=== PATIENT | female | born 1975 | race Caucasian/White ===

== ENCOUNTER → 2016-04-27 | Outpatient (CLI) | payer BC ==
--- NOTE | 2016-04-27 11:18 | XR ---
EXAMINATION TYPE: XR elbow complete LT DATE OF EXAM: 04/27/2016 11:07 AM COMPARISON: NONE HISTORY: Pain FINDINGS: Three views of the elbow demonstrate no pathologic joint effusion. The osseous structures are intact . There is no acute fracture or dislocation. IMPRESSION: 1. No acute fracture or dislocation. If symptoms persist follow-up study in 7 to 10 days could be ob tained.
== END | disposition home or self-care (01) ==
LOC: RADXRMAIN 10:39
PROVIDERS: ATTEND Pediatrics
DX: M25.522 Pain in left elbow (principal)

== ENCOUNTER → 2016-05-31 | Outpatient (CLI) | payer BC ==
[2016-05-31 14:38] LABS: Non-African American GFR(MDRD) >60 (>60 ml/min/1.73 sqM)
--- NOTE | 2016-05-31 16:37 | MR ---
EXAMINATION TYPE: MR lumbar spine wo/w con DATE OF EXAM: 05/31/2016 4:22 PM COMPARISON: Lumbar spine x-ray October 28, 2015. HISTORY: Lumbago with sciatica, left leg numbness, history of L4-L5 fusion all per order. Pain and nu mbness and tingling for 6 months into left lower extremity per patient with history of prior back suhail yao 2004. TECHNIQUE: Multiplanar, multisequence images of the lumbar spine is performed without and with IV contrast, util izing 20 mL intravenous MultiHance FINDINGS: Sagittal images of the lumbar spine show vertebral body heights and alignment to appear sat isfactory. There is artifact from disc material L3-L4 and L4-L5 levels. There is artifact from global regulatory lead ior fusion hardware bilaterally at L3-L5 levels. There are laminectomy defect with spinous process re section at L3-L5 levels. Disc space heights and hydration above and below surgical levels are within normal limits. No suspicious posterior disc herniations are seen. The conus medullaris is slightly hi gh in position ending at inferior T12 vertebral body level. No suspicious clumping of lumbosacral ner ve roots is seen. There is narrowing along the posterior aspect of the spinal canal centered at T12-L 1 disc space level due to prominent epidural fat extending towards the right foramina seen best on ax ial image 41. The bone marrow signal intensity is within normal limits. No significant spurring is pr esent. No suspicious postcontrast enhancement is seen. Axial images at the T12-L1 level shows prominent right posterior epidural fat effacing posterior spin al canal on axial images 41 and 42 extending towards the right foramina. Left-sided neural foramen is patent. Exiting nerve does not appear effaced on sagittal images. Axial images at the L1-L2 level are felt within normal limits. Axial images at the L2-L3 level show artifact from posterior fusion hardware. Spinal canal is grossly preserved and bilateral neural foramina are patent. Axial images at L3-L4 and L4-L5 level show artifact from posterior fusion hardware. There are bilater al laminectomy defects and spinous process resection. Spinal canal is preserved and bilateral neural foramina are patent. Axial images at L5-S1 level show artifact from fusion hardware. There is laminectomy defect with spin ous process resection. Spinal canal is very small caliber as there is suspected prominent epidural fa t. Bilateral neural foramina are patent. IMPRESSION: Epidural lipomatosis beginning at L5 vertebral body level with more focal prominence post erior T12-L1 level effacing posterior aspect of the spinal canal. Postsurgical changes L3-L5 level wi th satisfactory alignment. No significant finding is seen to account for patient's left-sided radicul opathy type symptoms.
== END | disposition home or self-care (01) ==
LOC: RADMRIMAIN 14:07
PROVIDERS: ATTEND Pediatrics
DX: M54.40 Lumbago with sciatica, unspecified side (principal); E88.2 Lipomatosis, not elsewhere classified; M54.6 Pain in thoracic spine; R20.0 Anesthesia of skin; Z98.890 Other specified postprocedural states; Z98.1 Arthrodesis status; Z01.812 Encounter for preprocedural laboratory examination
CPT/HCPCS: 82565; 72158; A9577

== ENCOUNTER → 2016-06-14 | Outpatient (CLI) | payer BC ==
--- NOTE | 2016-06-14 22:52 | MR ---
EXAMINATION TYPE: MR sacrum/coccyx wo/w con DATE OF EXAM: 06/14/2016 8:39 PM COMPARISON: NONE HISTORY: LBP, left leg numbness/tingling CONTRAST: Standard multiplanar, multisequence MRI departmental protocol utilizing 20 mL intravenous MultiHance gadolinium contrast. FINDINGS: Sacral canal is patent. Susceptibility artifact is present the L5 level. L5-S1 appears with out stenosis. Facet hypertrophy is present. Neural foramen are patent. Sacrum appears intact. Sacroiliac joints are normal. Coccyx is unremarkable. Uterus appears within normal limits. No pelvic suspicious masses are evident. No suspicious adenopath y within the pelvis is evident. Lumbar plexus region appears without evidence of masses. Subcutaneous tissues normal. No suspicious enhancement is evident. There is some ill-defined hyperintensity on T2-weighted sequences within the left sacral ala adjacent to the sacroiliac joint. This area is poorly visualized slightly low on T1-weighted sequences. This enhances on postcontrast imaging. Edema is within the differential. Consider correlation with nuclear medicine bone scan. Metastatic lesion is not entirely excluded. This could be artifact although the apparent enhancement suggests this unlikely. IMPRESSION: 1. Ill-defined hyperintensity within the left sacral ala. This can be related to contusion or inflam matory change from degenerative changes at sacroiliac joint. A metastatic lesion is not excluded. 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 2. Suspicious findings to account for radicular symptoms are not otherwise identified.
== END ==
LOC: RADMRIMAIN 19:36
PROVIDERS: ATTEND Nurse Practitioner Family
DX: R20.0 Anesthesia of skin (principal); M54.42 Lumbago with sciatica, left side; M51.36 Other intervertebral disc degeneration, lumbar region
CPT/HCPCS: 72197; A9577

== ENCOUNTER → 2016-06-20 | Outpatient (CLI) | payer BC ==
--- NOTE | 2016-06-20 21:41 | CONS ---
DATE OF CONSULTATION: REASON FOR CONSULTATION: Sleep apnea. A 41-year-old female patient works at [employer] and has been feeling excessively fatigued and tired and sleepy during the day. Suspected that she may have sleep apnea. She is well aware of the disease, knowing that several family members in her family have the disease. She has gained a significant amount of weight over the past one year at least 30 pounds and she is snoring. She quits breathing at night and she is waking up with a dry mouth and having excessive hypersomnia and not getting refreshed even after sleeping 6 to 7 hours. She goes to bed around 11:00 p.m., wakes at 7:00 a.m. in the morning. She wakes up frequently with urination in the middle of the night. No other complaints otherwise. PAST MEDICAL HISTORY: 1. Anxiety, depression. 2. Obesity. 3. Osteoarthritis. 4. Irritable bowel disease. 5. Cervical dysplasia. Surgical history includes: Cervical ablation. DRUG ALLERGIES: Not known. Outpatient medication list includes: 1. Effexor. 2. Wellbutrin. 3. Mobic. 4. Neurontin. 5. Bentyl. 6. Xanax. SOCIAL HISTORY: Nonsmoker. No history of alcohol. No history of IV drugs. FAMILY HISTORY: Father of complications of lung cancer. Mother with obstructive sleep apnea. Father with obstructive sleep apnea. Grandmother with sleep apnea. REVIEW OF SYSTEMS: Twelve-point review of systems was done. Positive findings all mentioned above in the history of present illness. No grinding of the teeth. No sleepwalking. No dry mouth. No anxiety or panic attacks. No palpitations. No heartburn. No sleepwalking or sleeptalking. No sleep paralysis, hallucinations or cataplexy. BP is 142/73, pulse 72, respirations 16, temperature 97.0, sats are 95% on room air. Weight is 278. Height is 5 feet 4 inches, neck size 16 inches. GENERAL APPEARANCE: Calm, comfortable. HEENT: Short neck. Mallampati class I, there is no goiter, neck masses. LUNGS: Clear to auscultation. HEART: Sounds are regular rate and rhythm. Normal S1, S2. No S3, S4. No murmurs. ABDOMEN: Soft, nontender. No organomegaly. EXTREMITIES: No edema. No cyanosis, or clubbing. IMPRESSION: 1. Obstructive sleep apnea suspected, currently under investigation. 2. Obesity, body mass index of 47.5. 3. Generalized anxiety/depression. 4. Irritable bowel disease. 5. Cervical dysplasia, history of. PLAN: 1. Proceed with a screening polysomnogram to investigate the possibility of obstructive sleep apnea. 2. Encourage weight loss. 3. Implement good sleep hygiene measures. 4. We will follow.
== END ==
LOC: SLEEP 15:58
PROVIDERS: ATTEND Internal Medicine Critical Care Medicine
DX: G47.30 Sleep apnea, unspecified (principal); E66.9 Obesity, unspecified; F41.9 Anxiety disorder, unspecified; F32.9 Major depressive disorder, single episode, unspecified; K58.9 Irritable bowel syndrome, unspecified; N87.9 Dysplasia of cervix uteri, unspecified; Z79.1 Long term (current) use of non-steroidal anti-inflammatories (NSAID); Z79.899 Other long term (current) drug therapy
CPT/HCPCS: 99211

== ENCOUNTER → 2016-06-29 | Outpatient (CLI) | payer BC ==
--- NOTE | 2016-06-29 14:18 | NM ---
EXAMINATION TYPE: NM bone 3 phase DATE OF EXAM: 06/29/2016 1:58 PM COMPARISON: MRI 06/14/2016 HISTORY: Back pain Triple phase bone scintigraphy was performed following the injection of27.2 mCi Tc 99m MDP. Immediat e images and 3 hours post injection images acquired. FINDINGS: There is faint heterogeneous uptake lower lumbar spine which may be related to previous surgery or de generative. Perfusion is symmetric to the pelvis. No abnormal uptake on delayed imaging. IMPRESSION: 1. Abnormal uptake involving the lower lumbar spine appears to be compatible with patient's area of p revious surgery.
== END | disposition home or self-care (01) ==
LOC: RADNMMAIN 10:04
PROVIDERS: ATTEND Pediatrics
DX: R94.8 Abnormal results of function studies of other organs and systems (principal)
CPT/HCPCS: 78315; A9503

== ENCOUNTER → 2016-07-27 | Outpatient (CLI) | payer BC ==
--- NOTE | 2016-07-27 15:38 | CT ---
EXAMINATION TYPE: CT brain wo con DATE OF EXAM: 07/27/2016 COMPARISON: Report but no images are previous study dated 05/14/1992. HISTORY: Memory loss CT DLP: 1121 mGycm Automated exposure control for dose reduction was used. FINDINGS: Central structures are midline. There is no evidence of hydrocephalus. No acute focal lesion, mass ef fect or midline shift is seen. I do not see evidence of intracranial blood. There is chronic mucoperiosteal thickening involving the right maxillary point sinuses. The mastoid a ir cells are clear. IMPRESSION: 1. NO ACUTE INTRACRANIAL ABNORMALITY. 2. CHRONIC SINUS MUCOSAL DISEASE IN THE RIGHT MAXILLARY AND ETHMOID SINUSES
== END | disposition home or self-care (01) ==
LOC: RADCTMAIN 12:07
PROVIDERS: ATTEND Pediatrics
DX: R41.3 Other amnesia (principal)
CPT/HCPCS: 70450

== ENCOUNTER → 2016-09-04 | Outpatient (CLI) | payer BC ==
--- NOTE | 2016-09-04 10:24 | CT ---
EXAMINATION TYPE: CT pelvis wo con DATE OF EXAM: 09/04/2016 COMPARISON: MRI sacrum and coccyx June 14, 2016 and nuclear medicine three-phase bone scan June 29 017 HISTORY: Sacroilitis and bone lesion per order. CT DLP: 636.61 mGycm Automated exposure control for dose reduction was used. CT scan of pelvis is performed without IV but with oral contrast FINDINGS: There is some sclerosis along inferior aspect of the left sacroiliac joint without suspicious widenin g or spurring. Remainder sacroiliac joints are felt within normal limits. No suspicious abnormality i s seen to correlate with area of MRI edema and enhancement left sacrum near sacroiliac joint. There is mild joint space loss and subchondral cystic change with spurring in both hip joints fairly symmetric in appearance. No acute fracture and the pelvis is present. Pubic symphysis is felt within normal limits. Uterus is anteverted in shape and within normal limits in size. There is 3 cm low dense lesion in lef t ovary may reflect simple small ovarian cysts, this can be further investigated with pelvic ultrasou nd if desired. There are smaller low dense lesions in the right ovary. There are scattered pelvic phl eboliths. Visualized portion of bladder bowel is unremarkable. Muscle bulk in the pelvis and bilatera l thighs is felt within normal limits. IMPRESSION: SOME SCLEROSIS INFERIOR LEFT SACROILIAC JOINT COULD REFLECT PRODUCT OF CHRONIC INFLAMMATORY CHANGE OT HERWISE UNREMARKABLE STUDY.
--- NOTE | 2016-09-04 10:39 | CT ---
EXAMINATION TYPE: CT lumbar spine wo con DATE OF EXAM: 09/04/2016 COMPARISON: Three-phase nuclear medicine bone scan June 29, 2016. MRI lumbar spine May 31, 2016 HISTORY: Bone Lesion and sacroiliitis per order. Abnormal bone scan. CT DLP: 2258.81 mGycm Automated exposure control for dose reduction was used. FINDINGS: There are 5 lumbar-type vertebra redemonstrated. Lumbar spine shows satisfactory alignment without ev idence of acute fracture or dislocation. Posterior interpedicular rods and screws are seen bilaterall y L3-L5 levels. There are high dense artificial disc material at these levels with some desired ossif ic fusion arthrodesis. Alignment is satisfactory. There are posterior bilateral laminectomy defects w ith spinous process resection. Vertebral body heights and disc space heights above and below surgical levels are within normal limits. No large posterior disc herniations are seen. Review of axial images shows artifact from surgical hardware L3-L5 levels. There is paraspinal muscul ar atrophy at site of surgery. Oral contrast from recent CT is seen in overlying bowel loops. IMPRESSION: POSTSURGICAL CHANGES L3-L5 LEVELS REDEMONSTRATED. ALIGNMENT IS SATISFACTORY. NO SIGNIFICANT DEGENERAT CRYSTAL CHANGE OR FINDING TO ACCOUNT FOR PATIENT'S SYMPTOMS. NO WORRISOME BONY LESION EVIDENT.
== END | disposition home or self-care (01) ==
LOC: RADCTMAIN 08:55
PROVIDERS: ATTEND Neurological Surgery
DX: M53.3 Sacrococcygeal disorders, not elsewhere classified (principal); Z98.890 Other specified postprocedural states
CPT/HCPCS: 72131; 72192

== ENCOUNTER → 2016-10-13 | Outpatient (CLI) | payer BC ==
--- NOTE | 2016-10-13 13:36 | MR ---
EXAMINATION TYPE: MR brain wo con DATE OF EXAM: 10/13/2016 COMPARISON: CT brain dated 07/27/2016 HISTORY: Memory loss TECHNIQUE: Multiplanar, multisequence images of the brain and brainstem is performed without and without intrave nous contrast. FINDINGS: Diffusion weighted images demonstrate no evidence of a recent infarct or other diffusion ab normality. Few scattered white matter foci are seen within the subcutaneous cortical white matter, n one of which restricted diffusion. None of these appear to radiate from the corpus callosum. No white matter changes in the brainstem or posterior fossa. There is no extra-axial fluid collection. The ve ntricular system and cisternal spaces are normal in size and appearance. The brain volume is age lawrence ropriate. Midline structures demonstrate normal morphology. The craniocervical junction appears within normal limits. The globes are intact. Right maxillary mucosal retention cyst measures 1.0 cm as well as smal ler subcentimeter mucosal retention cyst along the anterior wall. There is leftward nasal septal brionna ation with left nasal turbinate hypertrophy. Sphenoid sinuses and frontal sinuses as well as mastoid air cells appear well aerated. No fluid is seen within the middle ear cavity. A 8 mm lesion is seen within the superficial lobe of the parotid gland on the right, which is T2 hype rintense on fat sat images but T2 hypointense and nonfat-sat images similar to multiple other cervica l chain lymph nodes. This likely represents a intraparotid lymph node however further characterizatio n with ultrasound could be performed.. [id number] is not included on the T1 sagittal images. IMPRESSION: 1. Few scattered nonspecific white matter changes. Given the distribution primary diagnostic consider ation is for sequela of microangiopathy despite the patient's age. These are not seen in the typical pattern of demyelinating disease such as MS. 2. Possible 8 mm right intraparotid lymph node versus cystic lesion. Further characterization with ul trasound could be performed. 3. Paranasal sinus disease.
== END | disposition home or self-care (01) ==
LOC: RADMRIMAIN 11:57
PROVIDERS: ATTEND Psychiatry & Neurology Pain Medicine
DX: R90.89 Other abnormal findings on diagnostic imaging of central nervous system (principal)
CPT/HCPCS: 70551

== ENCOUNTER → 2016-11-01 | Outpatient (CLI) | payer BC | END | disposition home or self-care (01) | LOC: LABWHC1 14:59 | PROVIDERS: ATTEND Psychiatry & Neurology Pain Medicine | DX: Z53.9 Procedure and treatment not carried out, unspecified reason (principal) ==

== ENCOUNTER → 2016-11-21 | Outpatient (CLI) | payer BC ==
--- NOTE | 2016-11-21 15:44 | US ---
EXAMINATION TYPE: US thyroid st tissue head/neck DATE OF EXAM: 11/21/2016 COMPARISON: MRI 10/13/2016 CLINICAL HISTORY: K11.8 NODULE OF PAROTID GLAND. Abnormal MRI right parotid Within right parotid gland there is a cystic area= 0.8 x 0.6 x 0.7 cm/ non-vascular IMPRESSION: Right parotid lesion appears to be a cyst measuring 8 mm.
== END | disposition home or self-care (01) ==
LOC: RADUSWWP 14:59
PROVIDERS: ATTEND Pediatrics
DX: K11.8 Other diseases of salivary glands (principal)
CPT/HCPCS: 76536

== ENCOUNTER → 2016-12-04 | Outpatient (CLI) | payer BC ==
--- NOTE | 2016-12-04 09:36 | MR ---
EXAMINATION TYPE: MR lumbar spine wo con DATE OF EXAM: 12/04/2016 COMPARISON: 05/31/2016 HISTORY: cervicalgia , other intervertebral disc degenerate TECHNIQUE: T1 and T2 axial and sagittal images of the lumbar spine are submitted. FINDINGS: There is no abnormal signal seen within the visualized spinal cord or paraspinal soft tissu es. Extensive postsurgical changes are seen with alignment anatomic and no spondylolisthesis. Multipl e vertebral body hemangiomas incidentally noted. Lack of contrast limits assessment for a discitis or osteomyelitis. At T12-L1 there is a posterior impression of the cauda equina which appears to be secondary to fat si gnal and is stable from the prior exam. At L1-2 there is no disc herniation or canal stenosis. There is hypertrophic change of the facets. No foraminal encroachment. At L2-3 there is there is to be more marked facet arthropathy. Neural foramina remain patent. No cristhian l stenosis or disc herniation. Axial images at L3-L4 and L4-L5 level show artifact from posterior fusion hardware. There are bilater al laminectomy defects and spinous process resection. Spinal canal is preserved and bilateral neural foramina are patent. Intermediate signal paracentrally the right at L4-L5 is stable from the previous exam may be postsurgical. Minimal remaining disc cannot be excluded. At L5-S1 there is no disc herniation or canal stenosis. Postsurgical changes suggestive artifact from the fusion hardware. Epidural lipomatosis suspected. IMPRESSION: 1. Stable postsurgical changes as discussed above. 2. Posterior impression of the cauda equina at the T12-L1 level appears secondary to fat signal may b e on the basis of epidural lipomatosis or postsurgical. 3. At L4-L5 there is right paracentral intermediate signal which may be postsurgical or possibly rela hector to residual disc material. Correlate clinically. EXAMINATION TYPE: MR cervical spine wo con DATE OF EXAM: 12/04/2016 COMPARISON: NONE HISTORY: cervicalgia , other intervertebral disc degenerate TECHNIQUE: T1 sagittal and coronal, T2 sagittal, and gradient echo axial views of the cervical spine are submitted. FINDINGS: The cranial cervical junction is preserved. There is no abnormal signal seen within the sp inal cord or paraspinal soft tissues. At C2-3 there is no disc herniation or canal stenosis. No foraminal encroachment. At C3-4 there is no disc herniation or canal stenosis. No foraminal encroachment. Vertebral body mary ngioma of C3. At C4-5 there is no disc herniation or canal stenosis. No foraminal encroachment. At C5-6 there is mild disc desiccation. Broad-based posterior disc bulging and cervical spondylosis w ith uncovertebral joint hypertrophy greater on the right and mild right-sided foraminal encroachment. No Canal stenosis. At C6-7 there is degenerative disc disease with broad-based disc bulge or small protrusion. Moderate effacement of thecal sac. Uncovertebral joint hypertrophy bilaterally with mild bilateral foraminal e ncroachment greater on the right. At C7-T1 there is no disc herniation or canal stenosis. No foraminal encroachment. Incidental note ma de of a large vertebral body hemangioma T3. IMPRESSION: 1. At C6-C7 there is a broad-based central disc protrusion with mild to moderate effacement of theca l sac. No spinal cord contact. Mild bilateral foraminal encroachment. 2. Degenerative disc disease and broad-based disc bulging with cervical spondylosis C5-C6 with mild r ight-sided foraminal encroachment.
== END | disposition home or self-care (01) ==
LOC: RADMRIMAIN 08:07
PROVIDERS: ATTEND Neurological Surgery
DX: M50.222 Other cervical disc displacement at C5-C6 level (principal); M50.322 Other cervical disc degeneration at C5-C6 level; M51.36 Other intervertebral disc degeneration, lumbar region; Z98.890 Other specified postprocedural states
CPT/HCPCS: 72141; 72148

== ENCOUNTER 2017-06-21 07:16 | Day surgery (SDC) | payer BC ==
[2017-06-19 10:15] VITALS: BMI 51.2
[~2017-06-21 07:16] MED LIST: LACTATED RINGERS 1,000 ML IV SCH
[2017-06-21 07:42] VITALS: TEMP 98.4
[2017-06-21] MEDS ORDERED: LIDOCAINE 1% 20 ML VIAL (10MG/ML) FOR IV START INTRADERMA ONE (07:45)
[2017-06-21] MEDS ORDERED: GLYCOPYRROLATE 0.2 MG/ML 2 ML VIAL ONE (08:46)
[2017-06-21] MEDS ORDERED: LIDOCAINE 1% INJ 10MG/ML (20 ML MDV) ONE (08:46)
[2017-06-21] MEDS ORDERED: PROPOFOL 10 MG/ML 20 ML VIAL IV ONE (08:46)
--- NOTE | 2017-06-21 09:02 | P.GSHP ---
History of Present Illness H&P Date: 06/21/17 Chief Complaint: GERD, morbid obesity This a 42-year-old female who's undergoing workup for sleeve yesterday. Patient is morbidly obese with BMI 51. She's had complete of GERD. She was a safer EGD. Past Medical History Past Medical History: Asthma, Hearing Disorder / Deafness, Hyperlipidemia, Musculoskeletal Disorder Additional Past Medical History / Comment(s): IBS, hx. kidney stones, DDD, History of Any Multi-Drug Resistant Organisms: None Reported Past Surgical History: Back Surgery, Tubal Ligation, Uterine Ablation Additional Past Surgical History / Comment(s): D&C,DOUBLE DISC FUSION L3-L4-L5, Cervical Disc C6 replaced, STENTS PLACED FOR KIDNEY STONES,LITHOTRIPSY, Left lateral epicondylitis sx, uterine ablation, partial removal of cervix using cryotherapy, Past Anesthesia/Blood Transfusion Reactions: No Reported Reaction Additional Past Anesthesia/Blood Transfusion Reaction / Comment(s): NEVER HAS HAD BLOOD TRANSFUSION Past Psychological History: Anxiety Smoking Status: Former smoker Past Alcohol Use History: None Reported Additional Past Alcohol Use History / Comment(s): STARTED SMOKING 1991, 1pp week. Quit smoking May 2016 Past Drug Use History: None Reported - Past Family History Mother Family Medical History: Congestive Heart Failure (CHF), Diabetes Mellitus, Hypertension Father History Unknown: Yes Medications and Allergies Home Medications Medication Instructions Recorded Confirmed Type buPROPion XL [Wellbutrin Xl] 150 mg PO QAM 12/04/14 06/21/17 History Venlafaxine HCl [Effexor] 75 mg PO DAILY 01/25/15 06/21/17 History ALPRAZolam [Xanax] 0.25 mg PO TID PRN 05/31/15 06/21/17 History Albuterol Inhaler [Ventolin Hfa 1 - 2 puff INHALATION Q6HR PRN 06/04/17 History Inhaler] Atorvastatin [Lipitor] 10 mg PO HS 06/04/17 06/21/17 History Ergocalciferol (Vitamin D2) 50,000 unit PO LONG 06/04/17 06/21/17 History [Vitamin D2] Gabapentin [Neurontin] 900 mg PO TID 06/04/17 06/21/17 History HYDROcodone/APAP 10-325MG [[place] 1 tab PO HS PRN 06/04/17 06/21/17 History 10-325] tiZANidine HCL [Zanaflex] 2 mg PO Q8H PRN 06/04/17 06/21/17 History Allergies Allergy/AdvReac Type Severity Reaction Status Date / Time No Known Allergies Allergy Verified 06/19/17 10:12 Surgical - Exam Vital Signs Temp Pulse Resp BP Pulse Ox 98.4 F 80 16 155/85 97 06/21/17 07:40 06/21/17 07:40 06/21/17 07:40 06/21/17 07:40 06/21/17 07:40 - General well developed, no distress - Eyes PERRL - ENT normal pinna - Neck no masses - Respiratory normal expansion - Cardiovascular Rhythm: regular - Abdomen Abdomen: soft, non tender Assessment and Plan Assessment: GERD, morbid obesity. We'll perform EGD.
--- NOTE | 2017-06-21 09:15 | P.OP ---
Date of Procedure: 06/21/17 Preoperative Diagnosis: GERD Morbid obesity, BMI 51 Postoperative Diagnosis: Antral gastritis No evidence of hernia Mild esophagitis Morbid obesity Procedure(s) Performed: EGD Anesthesia: MAC Surgeon: Stan Dave Pathology: other (Antrum, esophagus) Condition: stable Disposition: PACU Description of Procedure: The patient's placed on the endoscopy table in the lateral position. She received IV sedation. The gastroscope placed oropharynx and passed in the esophagus and stomach. Scope was then placed through the pylorus. The first and second portion of the duodenum appeared normal. Scope was then brought back the antrum and this appeared mildly inflamed. A biopsies was performed. The scope was retroflexed and remainder of the stomach appeared normal. The GE junction was at 40 cm. There was no evidence of a hiatal hernia. The distal esophagus inflamed a biopsies performed. The proximal esophagus appeared normal. Scope was withdrawn for patient.
[2017-06-21 09:31] VITALS: RESP 16
[2017-06-21 09:50] VITALS: BP 117/69; PULSE 76
== END 2017-06-21 09:59 | disposition home or self-care (01) ==
LOC: ORWHC2ENDO 07:16
PROVIDERS: ATTEND Surgery
DX: K29.50 Unspecified chronic gastritis without bleeding (principal); K21.0 Gastro-esophageal reflux disease with esophagitis; E66.01 Morbid (severe) obesity due to excess calories; Z68.43 Body mass index [BMI] 50.0-59.9, adult; J44.9 Chronic obstructive pulmonary disease, unspecified; H91.90 Unspecified hearing loss, unspecified ear; E78.5 Hyperlipidemia, unspecified; K58.9 Irritable bowel syndrome, unspecified; F41.9 Anxiety disorder, unspecified; Z79.899 Other long term (current) drug therapy; Z87.442 Personal history of urinary calculi; Z98.51 Tubal ligation status; Z98.1 Arthrodesis status; Z87.891 Personal history of nicotine dependence
CPT/HCPCS: 81025; 88305; 43239; J2001; J2704

== ENCOUNTER → 2017-06-25 | Outpatient (CLI) | payer BC ==
[2017-06-25 14:03] VITALS: BP 154/90; PULSE 72; TEMP 97.5; BMI 50.4
--- NOTE | 2017-06-25 15:17 | P.HPBAR ---
Bariatric H&P - History & Physicial H&P Date: 06/25/17 History & Physicial: Visit/CC: presurgical visit Patient initial contact: Initial weight: 133.764 kg Initial weight in pounds: 294.90 Height: 5 ft 4 in Initial BMI: 50.5 Last weight: Current weight: 133.356 kg Current weight in pounds: 294.00 Current BMI: 50.4 [place] body weight (based on NIH guidelines): 54.431 kg Excess body weight loss: 0.5% The patient is a 42 year-old F who presents for Bariatric Assessment. Patient presents today for preoperative sleeve gastric reconsultation. She will underwent recent EGD is found have some mild gastritis. Patient morbidly obese with BMI 51. Past Medical History Past Medical History: Asthma, Hearing Disorder / Deafness, Hyperlipidemia, Musculoskeletal Disorder Additional Past Medical History / Comment(s): IBS, hx. kidney stones, DDD, History of Any Multi-Drug Resistant Organisms: None Reported Past Surgical History: Back Surgery, Tubal Ligation, Uterine Ablation Additional Past Surgical History / Comment(s): D&C,DOUBLE DISC FUSION L3-L4-L5, Cervical Disc C6 replaced, STENTS PLACED FOR KIDNEY STONES,LITHOTRIPSY, Left lateral epicondylitis sx, uterine ablation, partial removal of cervix using cryotherapy, Past Anesthesia/Blood Transfusion Reactions: No Reported Reaction Additional Past Anesthesia/Blood Transfusion Reaction / Comm: NEVER HAS HAD BLOOD TRANSFUSION Past Psychological History: Anxiety Smoking Status: Former smoker Past Alcohol Use History: None Reported Additional Past Alcohol Use History / Comment(s): STARTED SMOKING 1991, 1pp week. Quit smoking May 2016 Past Drug Use History: None Reported - Past Family History Mother Family Medical History: Congestive Heart Failure (CHF), Diabetes Mellitus, Hypertension Father History Unknown: Yes Surgical - Exam Vital Signs Temp Pulse BP 97.5 F L 72 154/90 06/25/17 13:44 06/25/17 13:44 06/25/17 13:44 - General well developed, no distress - Eyes PERRL - Abdomen Abdomen: soft, non tender Bariatric Assessment & Plan Plan: The patient has severe morbid obesity BMI 51. We went over the procedure sleeve gastrectomy again. She is aware the risk, patient procedure. The patient went over the informed consent. It was sized today. She will be scheduled once her clearance has been performed. Bariatric Checklist Checklist: Plan: Checklist: EGD: 1. Hiatal hernia: 2. H. 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
== END | disposition home or self-care (01) ==
LOC: BARWHC3 12:52
PROVIDERS: ATTEND Surgery
DX: Z01.818 Encounter for other preprocedural examination (principal); E66.01 Morbid (severe) obesity due to excess calories; Z68.43 Body mass index [BMI] 50.0-59.9, adult; Z87.891 Personal history of nicotine dependence
CPT/HCPCS: 99211

== ENCOUNTER → 2017-07-02 | Outpatient (CLI) | payer BC ==
[2017-07-02 11:44] VITALS: BMI 50.2
== END | disposition home or self-care (01) ==
LOC: BARWHC3 08:36
PROVIDERS: ATTEND Surgery
DX: E66.01 Morbid (severe) obesity due to excess calories (principal); E44.0 Moderate protein-calorie malnutrition; E55.9 Vitamin D deficiency, unspecified; Z71.3 Dietary counseling and surveillance
CPT/HCPCS: 97804

== ENCOUNTER → 2017-07-30 | Outpatient (CLI) | payer BC ==
[2017-07-30 08:43] LABS: Basophils % (A) 0 %; Eosinophils # (A) 0.4 k/uL (0-0.7); Eosinophils % (A) 4 %; HCT 39.4 % (34.0-46.0); Lymphocytes # (A) 2.2 k/uL (1.0-4.8); Lymphocytes % (A) 24 %; MCH 29.3 pg (25.0-35.0); MCV 88.6 fL (80.0-100.0); Mean Platelet Volume 6.9; Monocytes # (A) 0.9 k/uL (0-1.0); Monocytes % (A) 10 %; Neutrophils # (A) 5.4 k/uL (1.3-7.7); Neutrophils % (A) 60 %; Platelet Count 248 k/uL (150-450); RBC 4.44 m/uL (3.80-5.40); RDW 13.9 % (11.5-15.5); WBC 9.1 k/uL (3.8-10.6)
[2017-07-30 08:54] LABS: ALT 29 U/L (9-52); AST 22 U/L (14-36); Alkaline Phosphatase 73 U/L (38-126); Anion Gap 16 mmol/L; Blood Urea Nitrogen 18 mg/dL (7-17); Carbon Dioxide 18 mmol/L (22-30); Chloride 107 mmol/L (98-107); Glucose 109 mg/dL (74-99); Potassium 4.3 mmol/L (3.5-5.1); Sodium 141 mmol/L (137-145); Total Bilirubin 0.4 mg/dL (0.2-1.3); Total Protein 6.5 g/dL (6.3-8.2)
== END | disposition home or self-care (01) ==
LOC: LABPAT 08:04
PROVIDERS: ATTEND Surgery
DX: Z01.812 Encounter for preprocedural laboratory examination (principal)
CPT/HCPCS: 36415; 80053; 85025

== ENCOUNTER 2017-08-02 07:47 | Inpatient (IN) | payer BC ==
[2017-07-27 14:26] VITALS: BMI 51.0
[~2017-08-02 07:47] MED LIST changes: +DEXAMETHASONE SOD PHOSPHATE 10 MG/ML 1 ML VIAL IV ONE; -LACTATED RINGERS 1,000 ML IV SCH; +MIDAZOLAM 2 MG/2 ML VIAL IV PRN; +MORPHINE SULFATE 4 MG/ML SYRINGE IV PRN; +ONDANSETRON 4 MG/2 ML VIAL IVP ONE
[2017-08-02] MEDS: LACTATED RINGERS 1,000 ML IV SCH (08:53)
[2017-08-02] MEDS ORDERED: LIDOCAINE 1% 20 ML VIAL (10MG/ML) FOR IV START INTRADERMA ONE (08:54)
[2017-08-02] MEDS ORDERED: PANTOPRAZOLE 40 MG/10 ML VIAL IV STA (10:15)
[2017-08-02] MEDS ORDERED: ENOXAPARIN 40 MG/0.4 ML SYRINGE SQ STA (10:15)
--- NOTE | 2017-08-02 10:15 | P.GSHP ---
History of Present Illness H&P Date: 08/02/17 Chief Complaint: Morbid obesity BMI 51 This a 42-year-old female who's had lifetime pros obesity. Her BMI is 51. Patient presents today for sleeve gastrectomy. Patient is aware the risks of surgery including conversion to the open procedure and injury to the stomach, liver and spleen. She is also aware the risk of gastric staple line disruption , bleeding or perforation. Past Medical History Past Medical History: Asthma, Hearing Disorder / Deafness, Hyperlipidemia, Musculoskeletal Disorder Additional Past Medical History / Comment(s): IBS, hx. kidney stones, DDD, History of Any Multi-Drug Resistant Organisms: None Reported Past Surgical History: Back Surgery, Tubal Ligation, Uterine Ablation Additional Past Surgical History / Comment(s): D&C,DOUBLE DISC FUSION L3-L4-L5, Cervical Disc C6 replaced, STENTS KIDNEY STONES,LITHOTRIPSY, Left lateral epicondylitis sx, partial removal of cervix using cryotherapy, Past Anesthesia/Blood Transfusion Reactions: No Reported Reaction Additional Past Anesthesia/Blood Transfusion Reaction / Comment(s): NEVER HAS HAD BLOOD TRANSFUSION Smoking Status: Former smoker - Past Family History Mother Family Medical History: Congestive Heart Failure (CHF), Diabetes Mellitus, Hypertension Father History Unknown: Yes Medications and Allergies Home Medications Medication Instructions Recorded Confirmed Type buPROPion XL [Wellbutrin Xl] 150 mg PO QAM 12/04/14 08/02/17 History Venlafaxine HCl [Effexor] 75 mg PO DAILY 01/25/15 08/02/17 History ALPRAZolam [Xanax] 0.25 mg PO TID PRN 05/31/15 08/02/17 History Albuterol Inhaler [Ventolin Hfa 1 - 2 puff INHALATION Q6HR PRN 06/04/17 History Inhaler] Atorvastatin [Lipitor] 10 mg PO HS 06/04/17 08/02/17 History Ergocalciferol (Vitamin D2) 50,000 unit PO LONG 06/04/17 08/02/17 History [Vitamin D2] Gabapentin [Neurontin] 600 mg PO TID 06/04/17 08/02/17 History HYDROcodone/APAP 10-325MG [[place] 1 tab PO HS PRN 06/04/17 08/02/17 History 10-325] tiZANidine HCL [Zanaflex] 4 mg PO Q8H PRN 06/04/17 08/02/17 History Baclofen [Lioresal] 10 mg PO BID 07/02/17 08/02/17 History Topiramate [Topamax] 50 mg PO BID 07/02/17 08/02/17 History Albuterol Nebulized [Ventolin 2.5 mg INHALATION Q4H PRN 07/27/17 08/02/17 History Nebulized] Hydrochlorothiazide 25 mg PO DAILY 07/27/17 08/02/17 History Hyoscyamine Sulfate [Levsin] 0.125 mg PO BID PRN 07/27/17 08/02/17 History Allergies Allergy/AdvReac Type Severity Reaction Status Date / Time No Known Allergies Allergy Verified 07/27/17 13:03 Surgical - Exam Vital Signs Temp Pulse Resp BP Pulse Ox 97.6 F 86 16 112/52 97 08/02/17 08:44 08/02/17 08:44 08/02/17 08:44 08/02/17 08:44 08/02/17 08:44 - General well developed, well nourished, no distress - Eyes PERRL - ENT normal pinna - Neck no masses - Respiratory normal expansion - Cardiovascular Rhythm: regular - Abdomen Abdomen: soft, non tender Assessment and Plan Assessment: Morbid obesity. We will perform laparoscopic sleeve gastrectomy.
[2017-08-02] MEDS ORDERED: HEPARIN SODIUM,PORCINE 5,000 UNIT/ML 1 ML VIAL SQ ONE (10:25)
[2017-08-02] MEDS ORDERED: PROPOFOL 10 MG/ML 20 ML VIAL IV ONE (10:29)
[2017-08-02] MEDS ORDERED: fentaNYL (PF) 50 MCG/ML 2 ML AMP ONE (10:29)
[2017-08-02] MEDS ORDERED: MIDAZOLAM 2 MG/2 ML VIAL ONE (10:29)
[2017-08-02] MEDS ORDERED: HYDROmorphone (PF) 1 MG/ML ONE (10:29)
[2017-08-02] MEDS ORDERED: SUCCINYLCHOLINE CHLORIDE 100 MG/5 ML SYR IV ONE (10:29)
[2017-08-02] MEDS ORDERED: GLYCOPYRROLATE 0.2 MG/ML 2 ML VIAL ONE (10:29)
[2017-08-02] MEDS ORDERED: ENOXAPARIN 40 MG/0.4 ML SYRINGE SQ ONE (10:29)
[2017-08-02] MEDS ORDERED: NEOSTIGMINE 1 MG/ML 10 ML VIAL ONE (10:29)
[2017-08-02] MEDS ORDERED: LIDOCAINE 1% INJ 10MG/ML (20 ML MDV) ONE (10:29)
[2017-08-02] MEDS ORDERED: VECURONIUM 10 MG VIAL IV ONE (10:29)
[2017-08-02] MEDS ORDERED: LIDOCAINE 1%-EPI 1:100,000 30 ML VIAL SQ ONE (11:02)
[2017-08-02] MEDS ORDERED: LACTATED RINGERS 1,000 ML IV ONE (11:30)
[2017-08-02] MEDS: HYDROmorphone 0.5 MG/0.5 ML SYRINGE IVP PRN ×6 (12:10→21:00)
[2017-08-02] MEDS: fentaNYL (PF) 50 MCG/ML 2 ML AMP IVP ONE ×2 (12:26→12:35)
[2017-08-02] MEDS ORDERED: diphenhydrAMINE 50 MG/ML 1 ML VIAL IVP PRN (12:34)
[2017-08-02] MEDS ORDERED: NALOXONE 0.4 MG/ML 1 ML VIAL IV PRN (12:34)
--- NOTE | 2017-08-02 12:40 | P.OP ---
Date of Procedure: 08/02/17 Preoperative Diagnosis: Morbid obesity BMI 51 Postoperative Diagnosis: Morbid obesity Procedure(s) Performed: Laparoscopic sleeve gastrectomy Anesthesia: BASIL Surgeon: Stan Dave Estimated Blood Loss (ml): 30 Pathology: other (Stomach) Condition: stable Disposition: PACU Description of Procedure: The patient was placed on the operating room table in the supine position. She received general anesthesia and then was placed in dorsal lithotomy position. Her abdomen was prepped and draped in sterile fashion. The skin incision sites were anesthetized 1% local Xylocaine. And then the skin was incised with an 11 blade in the left lateral position. Using a blade less trocar under direct visualization the peritoneal cavity was entered. The abdomen was insufflated and then a 5 mm laparoscope was placed into the peritoneal cavity. A 5 mm trocar was placed in the right epigastric, and right lateral position. A 15 mm trocar was placed in the supra-umbilical position and another 5 mm trocar was placed in the left lateral position. The left lateral lobe of the liver was retracted. The stomach was visualized. The greater curvature of the stomach was then dissected using the Harmonic scissors. The dissection occurred approximately 5 cm from the pylorus to the level of the left harini. There was no hiatal hernia seen. At this point a 40-Czech bougie dilator was placed the oropharynx and passed into the esophagus and into the stomach by the LONG WINDER TENDER. The sleeve gastrectomy was performed by using the powered echelon stapler with a seam guard buttress material. Sequential firings of the stapler were performed. The gastric remnant was then brought out through the 15 mm trocar site. The dilator was withdrawn. And a orogastric tube was replaced into the stomach. The stomach was insufflated with 200 mL of methylene blue normal saline. There was no evidence of extravasation. The abdomen was irrigated there is no bleeding seen. The Bryan-Carlos device was used to close the 15 mm trocar with 0 Vicryl. Skin was closed with interrupted 3-0 Monocryl sutures once the trochars withdrawn. Dermabond dressing was applied. Patient was sent to recovery in stable condition
[2017-08-02] MEDS ORDERED: METOPROLOL TARTRATE 5 MG/5 ML VIAL IVP ONE (12:42)
[2017-08-02] MEDS ORDERED: ALBUTEROL NEBULIZED 2.5 MG/3 ML INHALATION PRN (15:51)
[2017-08-02] MEDS ORDERED: ALPRAZolam 0.25 MG TAB PO PRN (15:51)
--- NOTE | 2017-08-02 16:01 | P.CONS ---
History of Present Illness - Reason for Consult Elevated blood pressure - History of Present Illness 42-year-old pleasant female admitted for elective sleeve gastrectomy for morbid obesity, successfully underwent surgery patient is coming out of anesthesia blood pressure is highly elevated and patient is receiving 150 of IV fluids which is intermittent her and hypertension. Patient denied any fever chills patient has never fully catheter in place patient denied any chest pain nausea vomiting. Patient usually uses suspect artist supervisor at home for blood pressure and cutting down the fluids to 100 mL. Review of Systems REVIEW OF SYSTEMS: CONSTITUTIONAL: No fever, no malaise, no fatigue. HEENT: No recent visual problems or hearing problems. Denied any sore throat. CARDIOVASCULAR: No chest pain, orthopnea, PND, no palpitations, no syncope. PULMONARY: No shortness of breath, no cough, no hemoptysis. GASTROINTESTINAL: No diarrhea, no nausea, no vomiting, no abdominal pain. Normoactive bowel sounds. NEUROLOGICAL: No headaches, no weakness, no numbness. HEMATOLOGICAL: Denies any bleeding or petechiae. GENITOURINARY: Denies any burning micturition, frequency, or urgency. MUSCULOSKELETAL/RHEUMATOLOGICAL: Denies any joint pain, swelling, or any muscle pain. ENDOCRINE: Denies any polyuria or polydipsia. The rest of the 14-point review of systems is negative. Past Medical History Past Medical History: Asthma, Hearing Disorder / Deafness, Hyperlipidemia, Musculoskeletal Disorder Additional Past Medical History / Comment(s): IBS, hx. kidney stones, DDD, History of Any Multi-Drug Resistant Organisms: None Reported Past Surgical History: Back Surgery, Tubal Ligation, Uterine Ablation Additional Past Surgical History / Comment(s): D&C,DOUBLE DISC FUSION L3-L4-L5, Cervical Disc C6 replaced, STENTS KIDNEY STONES,LITHOTRIPSY, Left lateral epicondylitis sx, partial removal of cervix using cryotherapy, Past Anesthesia/Blood Transfusion Reactions: No Reported Reaction Additional Past Anesthesia/Blood Transfusion Reaction / Comm: NEVER HAS HAD BLOOD TRANSFUSION Past Psychological History: Anxiety Smoking Status: Former smoker Past Alcohol Use History: None Reported Additional Past Alcohol Use History / Comment(s): STARTED SMOKING 1991, 1pp week. Quit smoking May 2016 Past Drug Use History: None Reported - Past Family History Mother Family Medical History: Congestive Heart Failure (CHF), Diabetes Mellitus, Hypertension Father History Unknown: Yes Medications and Allergies Home Medications Medication Instructions Recorded Confirmed Type buPROPion XL [Wellbutrin Xl] 150 mg PO QAM 12/04/14 08/02/17 History ALPRAZolam [Xanax] 0.25 mg PO TID PRN 05/31/15 08/02/17 History Albuterol Inhaler [Ventolin Hfa 1 - 2 puff INHALATION RT-Q6H PRN 06/04/17 History Inhaler] Atorvastatin [Lipitor] 10 mg PO HS 06/04/17 08/02/17 History Ergocalciferol (Vitamin D2) 50,000 unit PO LONG 06/04/17 08/02/17 History [Vitamin D2] HYDROcodone/APAP 10-325MG [[place] 1 tab PO HS PRN 06/04/17 08/02/17 History 10-325] Baclofen [Lioresal] 10 mg PO BID 07/02/17 08/02/17 History Albuterol Nebulized [Ventolin 2.5 mg INHALATION RT-Q4H PRN 07/27/17 08/02/17 History Nebulized] Hydrochlorothiazide 25 mg PO DAILY 07/27/17 08/02/17 History Hyoscyamine Sulfate [Levsin] 0.125 mg PO BID PRN 07/27/17 08/02/17 History Gabapentin 600 mg PO TID 08/02/17 08/02/17 History Topiramate [Topamax] 50 mg PO BID 08/02/17 08/02/17 History Venlafaxine HCl [Effexor XR] 75 mg PO DAILY 08/02/17 08/02/17 History tiZANidine [Zanaflex] 4 mg PO Q8H PRN 08/02/17 08/02/17 History Allergies Allergy/AdvReac Type Severity Reaction Status Date / Time No Known Allergies Allergy Verified 08/02/17 12:15 Physical Exam Vitals: Vital Signs Temp Pulse Pulse Resp BP Pulse Ox 08/02/17 13:43 97 08/02/17 13:10 98 18 173/90 91 L 08/02/17 12:55 89 18 176/87 91 L 08/02/17 12:40 89 18 177/88 92 L 08/02/17 12:25 98 16 189/85 94 L 08/02/17 12:10 102 H 18 215/93 94 L 08/02/17 11:54 97.6 F 101 H 18 210/86 97 08/02/17 08:44 97.6 F 86 16 112/52 97 Intake and Output 08/02/17 08/02/17 08/02/17 06:59 14:59 22:59 Intake Total 1550 Output Total 120 Balance 1430 Intake: IV 1550 Output: Urine 100 Estimated Blood Loss 20 Other: Weight 134.717 kg PHYSICAL EXAMINATION: GENERAL: The patient is drowsy coming out of anesthesia morbidly obese HEENT: Pupils are round and equally reacting to light. EOMI. No scleral icterus. No conjunctival pallor. Normocephalic, atraumatic. No pharyngeal erythema. No thyromegaly. CARDIOVASCULAR: S1 and S2 present. No murmurs, rubs, or gallops. PULMONARY: Chest is clear to auscultation, no wheezing or crackles. ABDOMEN: Soft, nontender, surgical site areas appear to be clean sluggish bowel sounds MUSCULOSKELETAL: No joint swelling or deformity. EXTREMITIES: No cyanosis, clubbing, or pedal edema. NEUROLOGICAL: Gross neurological examination did not reveal any focal deficits. SKIN: No rashes. Assessment and Plan Plan: Elevated blood pressure: Patient is hypotensive patient will be resumed on high- dose chlorothiazide will cut down the IV fluids 100 mL/h which is contributing to her elevated blood pressures I do not recommending any as needed antihypertensive medications for her elevated blood pressure now. -Morbid obesity, status post gastrectomy postoperative management, pain management and DVT prophylaxis as per primary service, patient doesn't have any significant obstructive sleep apnea as per the patient -Mild hypoxemia: Secondary to restrictive lung disease and a seizure affect which is expected to improve enough oxygen as she tolerates -Depression and anxiety disorder: Continue with her antipsychotic medications to extend-chronic low back pain -Hyperlipidemia -Asthma without any acute exacerbation
[2017-08-02] MEDS: ONDANSETRON 4 MG/2 ML VIAL IVP PRN ×2 (16:22→23:29)
[2017-08-02] MEDS: ALBUTEROL NEBULIZED 2.5 MG/3 ML INHALATION SCH ×2 (16:39→19:30)
[2017-08-02] MEDS: 0.9% NACL WITH KCL 20 MEQ/L 1,000 ML IV SCH (18:18)
[2017-08-02] MEDS: GABAPENTIN 300 MG CAP PO SCH (18:19)
[2017-08-02] MEDS: KETOROLAC 30 MG/ML 1 ML VIAL IVP SCH ×2 (18:20→23:38)
[2017-08-02] MEDS: AMPICILLIN-SULBACTAM 3 GM in SODIUM CHLORIDE 0.9% 100 ML IVPB SCH ×2 (18:21→23:29)
[2017-08-02] MEDS: SIMETHICONE 40 MG/0.6 ML DROPS 2,000 MG/30 ML BOTTLE PO PRN (21:01)
[2017-08-02] MEDS: HYOSCYAMINE ORAL DROPS 1.875 MG/15 ML BOTTLE PO PRN (21:01)
[2017-08-03] MEDS: ATORVASTATIN 10 MG TAB PO SCH ×2 (00:18→22:07)
[2017-08-03] MEDS: BACLOFEN 10 MG TAB PO SCH ×3 (00:18→22:08)
[2017-08-03] MEDS: 0.9% NACL WITH KCL 20 MEQ/L 1,000 ML IV SCH ×3 (00:18→09:57)
[2017-08-03] MEDS: TOPIRAMATE 25 MG TAB PO SCH ×3 (00:19→22:08)
[2017-08-03] MEDS: GABAPENTIN 300 MG CAP PO SCH ×4 (00:19→22:08)
[2017-08-03] MEDS: SIMETHICONE 40 MG/0.6 ML DROPS 2,000 MG/30 ML BOTTLE PO PRN (01:57)
[2017-08-03] MEDS: HYOSCYAMINE ORAL DROPS 1.875 MG/15 ML BOTTLE PO PRN (01:57)
[2017-08-03] MEDS: HYDROmorphone 0.5 MG/0.5 ML SYRINGE IVP PRN ×4 (02:00→19:50)
[2017-08-03] MEDS: KETOROLAC 30 MG/ML 1 ML VIAL IVP SCH ×3 (05:21→17:27)
[2017-08-03] MEDS: ONDANSETRON 4 MG/2 ML VIAL IVP PRN (05:25)
[2017-08-03] MEDS ORDERED: ONDANSETRON 4 MG/2 ML VIAL IVP STA (06:01)
[2017-08-03] MEDS: METOCLOPRAMIDE 5 MG/ML 2 ML VIAL IVP SCH ×3 (06:07→17:27)
[2017-08-03] MEDS: LACTATED RINGERS 1,000 ML IV SCH (06:52)
[2017-08-03 06:54] LABS: Basophils % (A) 0 %; Eosinophils # (A) 0.1 k/uL (0-0.7); Eosinophils % (A) 0 %; HCT 41.7 % (34.0-46.0); HGB 14.5 gm/dL (11.4-16.0); Lymphocytes # (A) 1.3 k/uL (1.0-4.8); Lymphocytes % (A) 7 %; MCH 30.3 pg (25.0-35.0); MCHC 34.6 g/dL (31.0-37.0); MCV 87.6 fL (80.0-100.0); Mean Platelet Volume 6.7; Monocytes # (A) 1.8 k/uL (0-1.0); Monocytes % (A) 10 %; Neutrophils # (A) 14.8 k/uL (1.3-7.7); Neutrophils % (A) 81 %; Platelet Count 226 k/uL (150-450); RBC 4.77 m/uL (3.80-5.40); RDW 14.1 % (11.5-15.5); WBC 18.4 k/uL (3.8-10.6)
[2017-08-03 07:06] LABS: Anion Gap 14 mmol/L; Blood Urea Nitrogen 10 mg/dL (7-17); Calcium 8.6 mg/dL (8.4-10.2); Carbon Dioxide 15 mmol/L (22-30); Chloride 106 mmol/L (98-107); Magnesium 2.1 mg/dL (1.6-2.3); Phosphorus 2.3 mg/dL (2.5-4.5); Potassium 4.6 mmol/L (3.5-5.1); Sodium 135 mmol/L (137-145)
[2017-08-03] MEDS: ALBUTEROL NEBULIZED 2.5 MG/3 ML INHALATION SCH ×4 (08:55→20:31)
--- NOTE | 2017-08-03 08:59 | FL ---
EXAMINATION TYPE: FL UGI DATE OF EXAM: 08/03/2017 COMPARISON: NONE HISTORY: Postop bariatric surgery TECHNIQUE: A single contrast UGI study is performed. FINDINGS: Contrast passes from the distal esophagus through the gastric sleeve with mild hesitancy. N o extravasation of contrast is evident. No free air is noted during this examination. Overhead radiographs were obtained which are unremarkable. IMPRESSIONS: 1. Normal post gastric sleeve without obstruction or hesitancy. No extravasation.
[2017-08-03] MEDS: PANTOPRAZOLE 40 MG/10 ML VIAL IV SCH (09:31)
[2017-08-03] MEDS: HYDROCHLOROTHIAZIDE 25 MG TAB PO SCH (09:31)
[2017-08-03] MEDS: ENOXAPARIN 40 MG/0.4 ML SYRINGE SQ SCH ×2 (09:32→22:07)
[2017-08-03] MEDS: 1: MVI, ADULT NO.4 WITH VIT K 10 ML, THIAMINE 100 MG, FOLIC ACID 1 MG, POTASSIUM CHLORID IV SCH ×18 (09:36→22:08)
[2017-08-03] MEDS ORDERED: ONDANSETRON 4 MG/2 ML VIAL IVP PRN (09:44)
[2017-08-03] MEDS: buPROPion XL 150 MG TAB.ER.24H PO SCH (10:27)
[2017-08-03] MEDS: VENLAFAXINE HCL ER 75 MG CAP PO SCH (10:28)
[2017-08-03] MEDS ORDERED: ENALAPRILAT 1.25 MG/ML 1 ML VIAL IVP STA (10:49)
--- NOTE | 2017-08-03 11:22 | P.PN ---
Subjective Progress Note Date: 08/03/17 Principal diagnosis: Morbid obesity Patient has complaints of nausea. She's had issues with hypertension and nausea overnight. Her esophagram shows no evidence of leak or obstruction. Objective - Vital Signs Vital signs: Vital Signs Temp 98.0 F 08/03/17 10:08 Pulse 101 H 08/03/17 10:08 Resp 18 08/03/17 10:08 BP 180/110 08/03/17 10:08 Pulse Ox 96 08/03/17 08:58 Intake & Output 08/02/17 08/03/17 08/03/17 18:59 06:59 18:59 Intake Total 1550 Output Total 1320 1500 Balance 230 -1500 Weight 134.717 kg Intake: IV 1550 Output: Urine 1300 1500 Straight 1200 Estimated Blood Loss 20 Other: Voiding Method Toilet # Voids 1 - Constitutional General appearance: Present: average body habitus, cooperative - Gastrointestinal Gastrointestinal Comment(s): Abdomen soft. Incision sites are clean dry and intact. - Labs CBC & Chem 7: 08/03/17 06:43 08/03/17 06:43 Labs: Abnormal Lab Results - Last 24 Hours (Table) 08/03/17 08/03/17 Range/Units 06:43 06:43 WBC 18.4 H (3.8-10.6) k/uL Neutrophils # 14.8 H (1.3-7.7) k/uL Monocytes # 1.8 H (0-1.0) k/uL Sodium 135 L (137-145) mmol/L Carbon Dioxide 15 L (22-30) mmol/L Phosphorus 2.3 L (2.5-4.5) mg/dL Assessment and Plan Assessment: Status post sleeve yesterday. A she will start her oral diet. She will hopefully discharge home tomorrow.
--- NOTE | 2017-08-03 18:32 | P.PN ---
Subjective Progress Note Date: 08/03/17 Progress note being dictated for Dr. Phillips. Interval history:42-year-old pleasant female admitted for elective sleeve gastrectomy for morbid obesity, successfully underwent surgery patient is coming out of anesthesia blood pressure is highly elevated and patient is receiving 150 of IV fluids which is intermittent her and hypertension. Patient denied any fever chills patient has never fully catheter in place patient denied any chest pain nausea vomiting. Patient usually uses quality tester at home for blood pressure and cutting down the fluids to 100 mL. Review of Systems REVIEW OF SYSTEMS: CONSTITUTIONAL: No fever, no malaise, no fatigue. HEENT: No recent visual problems or hearing problems. Denied any sore throat. CARDIOVASCULAR: No chest pain, orthopnea, PND, no palpitations, no syncope. PULMONARY: No shortness of breath, no cough, no hemoptysis. GASTROINTESTINAL: No diarrhea, no nausea, no vomiting, no abdominal pain. Normoactive bowel sounds. NEUROLOGICAL: No headaches, no weakness, no numbness. HEMATOLOGICAL: Denies any bleeding or petechiae. GENITOURINARY: Denies any burning micturition, frequency, or urgency. MUSCULOSKELETAL/RHEUMATOLOGICAL: Denies any joint pain, swelling, or any muscle pain. ENDOCRINE: Denies any polyuria or polydipsia. The rest of the 14-point review of systems is negative. 08/03/2017 hypertensive this a.m. complained of rough night last night, secondary to pain. Pain better controlled this morning, nausea subsided, tolerating clear liquid bariatric diet. Upper GI series reporting no obstruction or hesitancy, no leak. Denies chest pain, palpitations or increasing shortness of breath. Objective - Vital Signs Vital signs: Vital Signs Temp 98.4 F 08/03/17 15:04 Pulse 94 08/03/17 15:13 Resp 16 08/03/17 15:13 BP 142/80 08/03/17 15:04 Pulse Ox 95 08/03/17 15:02 Intake & Output 08/02/17 08/03/17 08/03/17 18:59 06:59 18:59 Intake Total 1550 700 Output Total 1320 1500 Balance 230 -1500 700 Weight 134.717 kg 134.717 kg Intake: IV 1550 Intake, IV Titration 700 Amount 0.9% NaCl with KCl 20 Meq 100 /l 1,000 ml @ 150 mls/hr IV .[id number] [facility] Rx#: [id number] Mvi, Adult No.4 with Vit 600 K 10 ml Thiamine 100 mg Folic Acid 1 mg Potassium Chloride 20 meq In Sodium Chloride 0.9% 1, 000 ml @ 100 mls/hr IV . BY DURATION [facility] Rx#: [id number] Output: Urine 1300 1500 Straight 1200 Estimated Blood Loss 20 Other: Voiding Method Toilet # Voids 1 4 - Exam GENERAL: Alert and oriented 3, sitting up in bed, no acute distress. HEENT: Pupils are round and equally reacting to light. EOMI. No scleral icterus. No conjunctival pallor. Normocephalic, atraumatic. No pharyngeal erythema. No thyromegaly. CARDIOVASCULAR: S1 and S2 present. No murmurs, rubs, or gallops. PULMONARY: Chest is clear to auscultation, no wheezing or crackles. ABDOMEN: Soft, nontender, status post surgery, positive bowel sounds MUSCULOSKELETAL: No joint swelling or deformity. EXTREMITIES: No cyanosis, clubbing, or pedal edema. NEUROLOGICAL: Gross neurological examination did not reveal any focal deficits. - Labs CBC & Chem 7: 08/03/17 06:43 08/03/17 06:43 Labs: Abnormal Lab Results - Last 24 Hours (Table) 08/03/17 08/03/17 Range/Units 06:43 06:43 WBC 18.4 H (3.8-10.6) k/uL Neutrophils # 14.8 H (1.3-7.7) k/uL Monocytes # 1.8 H (0-1.0) k/uL Sodium 135 L (137-145) mmol/L Carbon Dioxide 15 L (22-30) mmol/L Phosphorus 2.3 L (2.5-4.5) mg/dL Assessment and Plan Assessment: Elevated blood pressure: Patient is hypotensive patient will be resumed on high- dose chlorothiazide will cut down the IV fluids 100 mL/h which is contributing to her elevated blood pressures I do not recommending any as needed antihypertensive medications for her elevated blood pressure now. -Morbid obesity, status post gastrectomy postoperative management, pain management and DVT prophylaxis as per primary service, patient doesn't have any significant obstructive sleep apnea as per the patient -Mild hypoxemia: Secondary to restrictive lung disease and a seizure affect which is expected to improve enough oxygen as she tolerates -Depression and anxiety disorder: Continue with her antipsychotic medications to extend-chronic low back pain -Hyperlipidemia -Asthma without any acute exacerbation Plan: Continue on current medication regime ,monitoring and symptomatic treatment. Bariatric diet advancement as per surgery. Patient hypertensive, hydrochlorothiazide administered with repeat blood pressure pending. Patient now tolerating clear liquid diet,, recommend dc IV fluids if okay with surgery. Discharge planning in progress for tomorrow as per surgery. Further recommendations to follow. The impression and plan of care has been dictated as directed. : I performed a history and examination of this patient, discussed the same with the dictator. I agree with the dictator's note ,documented as a scribe. Any additional findings or plans will be noted.
[2017-08-04] MEDS: METOCLOPRAMIDE 5 MG/ML 2 ML VIAL IVP SCH ×3 (00:02→12:14)
[2017-08-04] MEDS: KETOROLAC 30 MG/ML 1 ML VIAL IVP SCH ×3 (00:02→12:14)
[2017-08-04] MEDS: LACTATED RINGERS 1,000 ML IV SCH (01:39)
[2017-08-04] MEDS: 1: MVI, ADULT NO.4 WITH VIT K 10 ML, THIAMINE 100 MG, FOLIC ACID 1 MG, POTASSIUM CHLORID IV SCH ×12 (05:55→14:21)
[2017-08-04] MEDS: ALBUTEROL NEBULIZED 2.5 MG/3 ML INHALATION SCH ×2 (07:44→11:26)
[2017-08-04 07:57] VITALS: RESP 16
[2017-08-04] MEDS: BACLOFEN 10 MG TAB PO SCH (08:04)
[2017-08-04] MEDS: VENLAFAXINE HCL ER 75 MG CAP PO SCH (08:04)
[2017-08-04] MEDS: PANTOPRAZOLE 40 MG/10 ML VIAL IV SCH (08:04)
[2017-08-04] MEDS: HYDROcodone/APAP 15 ML SOLUTION PO PRN ×2 (08:04→13:58)
[2017-08-04] MEDS: GABAPENTIN 300 MG CAP PO SCH (08:04)
[2017-08-04] MEDS: HYDROCHLOROTHIAZIDE 25 MG TAB PO SCH (08:04)
[2017-08-04] MEDS: buPROPion XL 150 MG TAB.ER.24H PO SCH (08:04)
[2017-08-04] MEDS: TOPIRAMATE 25 MG TAB PO SCH (08:05)
[2017-08-04] MEDS: ENOXAPARIN 40 MG/0.4 ML SYRINGE SQ SCH (08:05)
--- NOTE | 2017-08-04 09:53 | P.DS ---
Providers Date of admission: 08/02/17 07:47 Expected date of discharge: 08/04/17 Attending physician: Stan Dave Consults: 08/02/17 12:34 Consult Physician Routine Consulting Provider: Jessee Arellano Consult Reason/Comments: med manage Do you want consulting provider notified?: Yes Primary care physician: [facility] Course: This a 42-year-old female who underwent laparoscopic sleeve gastrectomy. Patient did well postop. She had some issues with postoperative nausea and hypertension. Please see chart for details. Her esophagram showed no evidence of leak or obstruction. On the day of discharge her vital signs are stable. Her abdomen was soft. Her incision sites are clean dry and intact. She was tolerating a clear liquid diet. Procedures: Laparoscopic sleeve gastrectomy Patient Condition at Discharge: Good Plan - Discharge Summary Discharge Rx Participant: Yes New Discharge Prescriptions: New Bisacodyl [Dulcolax] 5 mg PO DAILY PRN #10 tablet.dr PRN Reason: Constipation Ondansetron Odt [Zofran Odt] 4 mg PO Q8HR PRN #9 tab PRN Reason: Nausea Simethicone 40 mg/0.6 ml Drops [Mylicon Drops] 40 mg PO PCHS PRN #30 ml PRN Reason: Gas HYDROcodone/APAP 7.5-325MG [[place] 7.5-325] 1 tab PO Q4H PRN 3 Days #18 tab PRN Reason: Pain Omeprazole 40 mg PO DAILY #60 capsule.dr No Action buPROPion XL [Wellbutrin Xl] 150 mg PO QAM ALPRAZolam [Xanax] 0.25 mg PO TID PRN PRN Reason: Anxiety Atorvastatin [Lipitor] 10 mg PO HS HYDROcodone/APAP 10-325MG [[place] 10-325] 1 tab PO HS PRN PRN Reason: pain Ergocalciferol (Vitamin D2) [Vitamin D2] 50,000 unit PO LONG Albuterol Inhaler [Ventolin Hfa Inhaler] 1 - 2 puff INHALATION RT-Q6H PRN PRN Reason: Bronchospasm Baclofen [Lioresal] 10 mg PO BID Hydrochlorothiazide 25 mg PO DAILY Albuterol Nebulized [Ventolin Nebulized] 2.5 mg INHALATION RT-Q4H PRN PRN Reason: Bronchospasm Hyoscyamine Sulfate [Levsin] 0.125 mg PO BID PRN PRN Reason: IBS Gabapentin 600 mg PO TID Topiramate [Topamax] 50 mg PO BID tiZANidine [Zanaflex] 4 mg PO Q8H PRN PRN Reason: Muscle Spasm Venlafaxine HCl [Effexor XR] 75 mg PO DAILY Discharge Medication List buPROPion XL [Wellbutrin Xl] 150 mg PO QAM 12/04/14 [History] ALPRAZolam [Xanax] 0.25 mg PO TID PRN 05/31/15 [History] Albuterol Inhaler [Ventolin Hfa Inhaler] 1 - 2 puff INHALATION RT-Q6H PRN [History] Atorvastatin [Lipitor] 10 mg PO HS 06/04/17 [History] Ergocalciferol (Vitamin D2) [Vitamin D2] 50,000 unit PO LONG 06/04/17 [History] HYDROcodone/APAP 10-325MG [[place] 10-325] 1 tab PO HS PRN 06/04/17 [History] Baclofen [Lioresal] 10 mg PO BID 07/02/17 [History] Albuterol Nebulized [Ventolin Nebulized] 2.5 mg INHALATION RT-Q4H PRN 07/27/17 [ History] Hydrochlorothiazide 25 mg PO DAILY 07/27/17 [History] Hyoscyamine Sulfate [Levsin] 0.125 mg PO BID PRN 07/27/17 [History] Gabapentin 600 mg PO TID 08/02/17 [History] Topiramate [Topamax] 50 mg PO BID 08/02/17 [History] Venlafaxine HCl [Effexor XR] 75 mg PO DAILY 08/02/17 [History] tiZANidine [Zanaflex] 4 mg PO Q8H PRN 08/02/17 [History] Bisacodyl [Dulcolax] 5 mg PO DAILY PRN #10 tablet. 08/03/17 [Rx] HYDROcodone/APAP 7.5-325MG [[place] 7.5-325] 1 tab PO Q4H PRN 3 Days #18 tab 08/03 [Rx] Omeprazole 40 mg PO DAILY #60 capsule. 08/03/17 [Rx] Ondansetron Odt [Zofran Odt] 4 mg PO Q8HR PRN #9 tab 08/03/17 [Rx] Simethicone 40 mg/0.6 ml Drops [Mylicon Drops] 40 mg PO PCHS PRN #30 ml [Rx] Follow up Appointment(s)/Referral(s): [facility] [[facility]-STAFF] - 1 Week Discharge Disposition: HOME SELF-CARE
[2017-08-04 14:42] VITALS: BP 133/81; PULSE 90; TEMP 98
== END 2017-08-04 14:48 | disposition home or self-care (01) | DRG 621 ==
LOC: 2ORMAIN 07:47 → 3SUR 12:07
PROVIDERS: ADMIT Surgery; ATTEND Surgery
PROC: 0DB64Z3 Excision of Stomach, Percutaneous Endoscopic Approach, Vertical (ICD-10-PCS; principal; 2017-08-02 10:15)
DX: E66.01 Morbid (severe) obesity due to excess calories (principal); E78.5 Hyperlipidemia, unspecified; F32.9 Major depressive disorder, single episode, unspecified; F41.9 Anxiety disorder, unspecified; G89.29 Other chronic pain; H91.90 Unspecified hearing loss, unspecified ear; I10 Essential (primary) hypertension; J45.909 Unspecified asthma, uncomplicated; K58.9 Irritable bowel syndrome, unspecified; R09.02 Hypoxemia; R56.9 Unspecified convulsions; Z68.43 Body mass index [BMI] 50.0-59.9, adult; Z79.899 Other long term (current) drug therapy; Z82.49 Family history of ischemic heart disease and other diseases of the circulatory system; Z83.3 Family history of diabetes mellitus; Z87.442 Personal history of urinary calculi; Z87.891 Personal history of nicotine dependence; M51.36 Other intervertebral disc degeneration, lumbar region; Z98.1 Arthrodesis status
CPT/HCPCS: 74240; 80051; 81025; 82310; 82565; 83735; 84100; 84520; 85025; 88307; 94640; 94760

== ENCOUNTER → 2017-08-13 | Outpatient (CLI) | payer BC ==
[2017-08-13 13:35] VITALS: BMI 46.8
[2017-08-13 13:36] VITALS: BP 168/97; PULSE 115; RESP 14; TEMP 98
--- NOTE | 2017-08-13 13:52 | P.HPBAR ---
Bariatric H&P - History & Physicial H&P Date: 08/13/17 History & Physicial: Visit/CC: 1 week f/u post sleeve Patient initial contact: Initial weight: 133.764 kg Initial weight in pounds: 294.90 Height: 5 ft 4 in Initial BMI: 50.5 Last weight: Current weight: 123.831 kg Current weight in pounds: 273.00 Current BMI: 46.8 [place] body weight (based on NIH guidelines): 54.431 kg Excess body weight loss: 12.5% The patient is a 42 year-old F who presents for Bariatric Assessment. Patient presents today for postoperative sleeve gastrectomy follow-up. She did quite well. She is lost 19 pounds since her surgery. She denies a significant abdominal pain. Past Medical History Past Medical History: Asthma, Hearing Disorder / Deafness, Hyperlipidemia, Musculoskeletal Disorder Additional Past Medical History / Comment(s): IBS, hx. kidney stones, DDD, History of Any Multi-Drug Resistant Organisms: None Reported Past Surgical History: Back Surgery, Bariatric Surgery, Tubal Ligation, Uterine Ablation Additional Past Surgical History / Comment(s): D&C,DOUBLE DISC FUSION L3-L4-L5, Cervical Disc C6 replaced, STENTS KIDNEY STONES,LITHOTRIPSY, Left lateral epicondylitis sx, partial removal of cervix using cryotherapy, Gastric Sleeve (Dr. Stan Shoemaker), Past Anesthesia/Blood Transfusion Reactions: No Reported Reaction Additional Past Anesthesia/Blood Transfusion Reaction / Comm: NEVER HAS HAD BLOOD TRANSFUSION Past Psychological History: Anxiety Smoking Status: Former smoker Past Alcohol Use History: None Reported Additional Past Alcohol Use History / Comment(s): STARTED SMOKING 1991, 1pp week. Quit smoking May 2016 Past Drug Use History: None Reported - Past Family History Mother Family Medical History: Congestive Heart Failure (CHF), Diabetes Mellitus, Hypertension Father History Unknown: Yes Surgical - Exam Vital Signs Temp Pulse Resp BP 98 F 115 H 14 168/97 08/13/17 13:15 08/13/17 13:15 08/13/17 13:15 08/13/17 13:15 - General well developed, no distress - Eyes PERRL - ENT normal pinna - Neck no masses - Respiratory normal expansion - Cardiovascular Rhythm: regular - Abdomen Abdomen: soft, non tender Bariatric Assessment & Plan Plan: Status post sleeve yesterday. Patient is doing quite well. Her incision sites are clean dry and intact. She will follow-up in 2 weeks. Bariatric Checklist Checklist: Plan: Checklist: EGD: 1. Hiatal hernia: 2. H. Pylori: HgbA1c: Vitamin D: Smoking: Former smoker Primary care physician referral: shahbaz Salazar) Psychiatry clearance: Cardiology clearance: Sleep study: Diet journal: VTE risk score: VTE risk level: Rehab needs at discharge:
== END | disposition home or self-care (01) ==
LOC: BARWHC3 12:52
PROVIDERS: ATTEND Surgery
DX: Z48.815 Encounter for surgical aftercare following surgery on the digestive system (principal); F41.9 Anxiety disorder, unspecified; Z98.84 Bariatric surgery status; Z98.51 Tubal ligation status; Z98.890 Other specified postprocedural states; Z98.1 Arthrodesis status; Z87.442 Personal history of urinary calculi; Z87.891 Personal history of nicotine dependence
CPT/HCPCS: 97803; 99211

== ENCOUNTER → 2017-08-27 | Outpatient (CLI) | payer BC ==
[2017-08-27 14:24] VITALS: BMI 45.6
[2017-08-27 15:51] VITALS: BP 138/90; PULSE 94; RESP 16; TEMP 97.7
--- NOTE | 2017-08-27 16:00 | P.HPBAR ---
Bariatric H&P - History & Physicial H&P Date: 08/27/17 History & Physicial: Visit/CC: sleeve follow-up Patient initial contact: Initial weight: 133.764 kg Initial weight in pounds: 294.90 Height: 5 ft 4 in Initial BMI: 50.5 Last weight: 277 Current weight: 120.61 kg Current weight in pounds: 265.90 Current BMI: 45.6 [place] body weight (based on NIH guidelines): 54.431 kg Excess body weight loss: 16.5% The patient is a 42 year-old F who presents for Bariatric Assessment. Patient presents today for sleeve gastrectomy fall. She's had complaints of GERD. Past Medical History Past Medical History: Asthma, Hearing Disorder / Deafness, Hyperlipidemia, Musculoskeletal Disorder Additional Past Medical History / Comment(s): IBS, hx. kidney stones, DDD, History of Any Multi-Drug Resistant Organisms: None Reported Past Surgical History: Back Surgery, Bariatric Surgery, Tubal Ligation, Uterine Ablation Additional Past Surgical History / Comment(s): D&C,DOUBLE DISC FUSION L3-L4-L5, Cervical Disc C6 replaced, STENTS KIDNEY STONES,LITHOTRIPSY, Left lateral epicondylitis sx, partial removal of cervix using cryotherapy, Gastric Sleeve (Dr. Stan Shoemaker), Past Anesthesia/Blood Transfusion Reactions: No Reported Reaction Additional Past Anesthesia/Blood Transfusion Reaction / Comm: NEVER HAS HAD BLOOD TRANSFUSION Past Psychological History: Anxiety Smoking Status: Former smoker Past Alcohol Use History: None Reported Additional Past Alcohol Use History / Comment(s): STARTED SMOKING 1991, 1pp week. Quit smoking May 2016 Past Drug Use History: None Reported - Past Family History Mother Family Medical History: Congestive Heart Failure (CHF), Diabetes Mellitus, Hypertension Father History Unknown: Yes Surgical - Exam Vital Signs Temp Pulse Resp BP 97.7 F 94 16 138/90 08/27/17 15:49 08/27/17 15:49 08/27/17 15:49 08/27/17 15:49 - General well developed, no distress - Eyes PERRL - ENT normal pinna - Abdomen Abdomen: soft, non tender Bariatric Assessment & Plan Plan: Status post sleeve yesterday. Patient has had excellent weight loss. Heart is minimal will be observed. She'll follow-up in 4 weeks. Bariatric Checklist Checklist: Plan: Checklist: EGD: 1. Hiatal hernia: 2. H. Pylori: HgbA1c: Vitamin D: Smoking: Former smoker Primary care physician referral: shahbaz [place]) Psychiatry clearance: Cardiology clearance: Sleep study: Diet journal: VTE risk score: VTE risk level: Rehab needs at discharge:
== END | disposition home or self-care (01) ==
LOC: BARWHC3 13:17
PROVIDERS: ATTEND Surgery
DX: Z48.815 Encounter for surgical aftercare following surgery on the digestive system (principal); E66.01 Morbid (severe) obesity due to excess calories; Z87.891 Personal history of nicotine dependence; Z98.84 Bariatric surgery status; Z68.42 Body mass index [BMI] 45.0-49.9, adult; Z71.3 Dietary counseling and surveillance
CPT/HCPCS: 97803; 99211

== ENCOUNTER → 2017-09-24 | Outpatient (CLI) | payer BC ==
--- NOTE | 2017-09-24 14:37 | P.HPBAR ---
Bariatric H&P - History & Physicial H&P Date: 09/24/17 History & Physicial: Visit/CC: Patient initial contact: Initial weight: 133.764 kg Initial weight in pounds: Height: Initial BMI: Last weight: 265 Current weight: 247 Current weight in pounds: Current BMI: [place] body weight (based on NIH guidelines): Excess body weight loss: The patient is a 42 year-old F who presents for Bariatric Assessment. Patient presents today for sleeve gastrectomy follow-up. She has some mild GERD. She has had excellent weight loss Past Medical History Past Medical History: Asthma, Hearing Disorder / Deafness, Hyperlipidemia, Musculoskeletal Disorder Additional Past Medical History / Comment(s): IBS, hx. kidney stones, DDD, History of Any Multi-Drug Resistant Organisms: None Reported Past Surgical History: Back Surgery, Bariatric Surgery, Tubal Ligation, Uterine Ablation Additional Past Surgical History / Comment(s): D&C,DOUBLE DISC FUSION L3-L4-L5, Cervical Disc C6 replaced, STENTS KIDNEY STONES,LITHOTRIPSY, Left lateral epicondylitis sx, partial removal of cervix using cryotherapy, Gastric Sleeve (Dr. Stan Shoemaker), Past Anesthesia/Blood Transfusion Reactions: No Reported Reaction Additional Past Anesthesia/Blood Transfusion Reaction / Comm: NEVER HAS HAD BLOOD TRANSFUSION Past Psychological History: Anxiety Smoking Status: Former smoker Past Alcohol Use History: None Reported Additional Past Alcohol Use History / Comment(s): STARTED SMOKING 1991, 1pp week. Quit smoking May 2016 Past Drug Use History: None Reported - Past Family History Mother Family Medical History: Congestive Heart Failure (CHF), Diabetes Mellitus, Hypertension Father History Unknown: Yes Surgical - Exam - General well developed, no distress - Eyes PERRL - Abdomen Abdomen: soft, non tender Bariatric Assessment & Plan Plan: Status post sleeve gastrectomy. Patient is doing quite well. She will follow- up in one month. Her GERD is minimal and will be observed. Bariatric Checklist Checklist: Plan: Checklist: EGD: 1. Hiatal hernia: 2. H. Pylori: HgbA1c: Vitamin D: Smoking: Former smoker Primary care physician referral: shahbaz nieves ([place]) Psychiatry clearance: Cardiology clearance: Sleep study: Diet journal: VTE risk score: VTE risk level: Rehab needs at discharge:
[2017-09-24 15:17] LABS: ALT 41 U/L (9-52); AST 27 U/L (14-36); Albumin 4.1 g/dL (3.5-5.0); Alkaline Phosphatase 93 U/L (38-126); Anion Gap 11 mmol/L; Blood Urea Nitrogen 11 mg/dL (7-17); Calcium 8.9 mg/dL (8.4-10.2); Carbon Dioxide 19 mmol/L (22-30); Chloride 111 mmol/L (98-107); Glucose 85 mg/dL (74-99); Potassium 3.7 mmol/L (3.5-5.1); Sodium 141 mmol/L (137-145); Total Bilirubin 0.5 mg/dL (0.2-1.3)
[2017-09-24 15:24] LABS: HCT 41.5 % (34.0-46.0); HGB 14.1 gm/dL (11.4-16.0); MCH 29.8 pg (25.0-35.0); MCHC 33.9 g/dL (31.0-37.0); MCV 87.9 fL (80.0-100.0); Mean Platelet Volume 7.7; Platelet Count 242 k/uL (150-450); RBC 4.72 m/uL (3.80-5.40); RDW 14.8 % (11.5-15.5); WBC 8.5 k/uL (3.8-10.6)
[2017-09-24 16:16] VITALS: BP 137/80; PULSE 80; TEMP 97.9; BMI 42.4
[2017-09-25 02:47] LABS: Vitamin D 25 Hydroxy 66.9 ng/mL (30.0-100.0)
== END | disposition home or self-care (01) ==
LOC: BARWHC3 13:44
PROVIDERS: ATTEND Surgery
DX: Z48.815 Encounter for surgical aftercare following surgery on the digestive system (principal); E66.01 Morbid (severe) obesity due to excess calories; E44.0 Moderate protein-calorie malnutrition; E55.9 Vitamin D deficiency, unspecified; Z87.891 Personal history of nicotine dependence; Z98.84 Bariatric surgery status; Z68.41 Body mass index [BMI] 40.0-44.9, adult
CPT/HCPCS: 36415; 80053; 82306; 82607; 84425; 84443; 85027; 99211

== ENCOUNTER → 2017-10-29 | Outpatient (CLI) | payer BC ==
[2017-10-29 14:57] VITALS: BP 138/89; PULSE 83; RESP 15; TEMP 97.9; BMI 39.2
--- NOTE | 2017-10-29 15:13 | P.HPBAR ---
Bariatric H&P - History & Physicial H&P Date: 10/29/17 History & Physicial: Visit/CC: 3 mos post sleeve Patient initial contact: Initial weight: 133.764 kg Initial weight in pounds: 294.90 Height: 5 ft 4 in Initial BMI: 50.5 Last weight: 247 Current weight: 103.737 kg Current weight in pounds: 228.70 Current BMI: 39.2 [place] body weight (based on NIH guidelines): 54.431 kg Excess body weight loss: 37.8% The patient is a 42 year-old F who presents for Bariatric Assessment. The patient is status post sleeve yesterday. She is doing quite well. Her current BMI is 39. She has some minimal GERD. Past Medical History Past Medical History: Asthma, Hearing Disorder / Deafness, Hyperlipidemia, Musculoskeletal Disorder Additional Past Medical History / Comment(s): IBS, hx. kidney stones, DDD, History of Any Multi-Drug Resistant Organisms: None Reported Past Surgical History: Back Surgery, Bariatric Surgery, Tubal Ligation, Uterine Ablation Additional Past Surgical History / Comment(s): D&C,DOUBLE DISC FUSION L3-L4-L5, Cervical Disc C6 replaced, STENTS KIDNEY STONES,LITHOTRIPSY, Left lateral epicondylitis sx, partial removal of cervix using cryotherapy, Gastric Sleeve (Dr. Stan Shoemaker), Past Anesthesia/Blood Transfusion Reactions: No Reported Reaction Additional Past Anesthesia/Blood Transfusion Reaction / Comm: NEVER HAS HAD BLOOD TRANSFUSION Past Psychological History: Anxiety Smoking Status: Former smoker Past Alcohol Use History: None Reported Additional Past Alcohol Use History / Comment(s): STARTED SMOKING 1991, 1pp week. Quit smoking May 2016 Past Drug Use History: None Reported - Past Family History Mother Family Medical History: Congestive Heart Failure (CHF), Diabetes Mellitus, Hypertension Father History Unknown: Yes Surgical - Exam Vital Signs Temp Pulse Resp BP 97.9 F 83 15 138/89 10/29/17 14:50 10/29/17 14:50 10/29/17 14:50 10/29/17 14:50 - General well developed, no distress - Eyes PERRL - Abdomen Abdomen: soft, non tender Bariatric Assessment & Plan Plan: Status post sleeve gastrectomy. Patient is doing quite well. Her GERD is minimal and will be observed. Bariatric Checklist Checklist: Plan: Checklist: EGD: 1. Hiatal hernia: 2. H. Pylori: HgbA1c: Vitamin D: Smoking: Former smoker Primary care physician referral: shahbaz Abdullahi[place]) Psychiatry clearance: Cardiology clearance: Sleep study: Diet journal: VTE risk score: VTE risk level: Rehab needs at discharge:
[2017-10-29 15:47] LABS: HCT 46.9 % (34.0-46.0); HGB 15.4 gm/dL (11.4-16.0); MCH 29.9 pg (25.0-35.0); MCHC 32.9 g/dL (31.0-37.0); Mean Platelet Volume 7.5; Platelet Count 220 k/uL (150-450); RBC 5.16 m/uL (3.80-5.40); RDW 15.5 % (11.5-15.5); WBC 7.8 k/uL (3.8-10.6)
[2017-10-29 15:57] LABS: ALT 32 U/L (9-52); AST 19 U/L (14-36); Alkaline Phosphatase 87 U/L (38-126); Anion Gap 14 mmol/L; Blood Urea Nitrogen 9 mg/dL (7-17); Carbon Dioxide 19 mmol/L (22-30); Chloride 110 mmol/L (98-107); Glucose 76 mg/dL (74-99); Magnesium 2.1 mg/dL (1.6-2.3); Potassium 3.5 mmol/L (3.5-5.1); Sodium 143 mmol/L (137-145); Total Bilirubin 0.5 mg/dL (0.2-1.3); Total Protein 7.2 g/dL (6.3-8.2)
[2017-10-29 19:59] LABS: Folate, Serum 10.7 ng/mL
== END | disposition home or self-care (01) ==
LOC: BARWHC3 14:00
PROVIDERS: ATTEND Surgery
DX: Z48.815 Encounter for surgical aftercare following surgery on the digestive system (principal); K21.9 Gastro-esophageal reflux disease without esophagitis; F41.9 Anxiety disorder, unspecified; Z87.19 Personal history of other diseases of the digestive system; Z98.84 Bariatric surgery status; Z87.891 Personal history of nicotine dependence; Z98.51 Tubal ligation status; Z98.890 Other specified postprocedural states; Z98.1 Arthrodesis status
CPT/HCPCS: 36415; 80053; 82306; 82607; 82746; 83735; 84134; 84425; 84443; 85027; 99211

== ENCOUNTER → 2017-12-11 | Outpatient (CLI) | payer BC ==
--- NOTE | 2017-12-12 17:12 | MR ---
EXAMINATION TYPE: MR cervical spine wo con DATE OF EXAM: 12/11/2017 COMPARISON: HISTORY: Neck pain, [place] upper extremity pain and weakness, Headaches TECHNIQUE: Multiplanar, multisequence images of the cervical spine were acquired. C2-C3: No evidence for degenerative disc disease. No disc bulge/herniation or protrusion. No Canal stenosis. Foramina are patent bilaterally. C3-C4: No evidence for degenerative disc disease. No disc bulge/herniation or protrusion. No Canal stenosis. Foramina are patent bilaterally. C4-C5: No evidence for degenerative disc disease. No disc bulge/herniation or protrusion. No Canal stenosis. Foramina are patent bilaterally. C5-C6: Suspect a posterior broad-based disc bulge causing mild anterior mass effect on the thecal sac . Artifact limits evaluation. There is loss of disc height and signal compatible disc desiccation and degenerative disc disease, associated spondylosis is present. C6-C7: Disc replacement causes artifact. C7-T1: No evidence for degenerative disc disease. No disc bulge/herniation or protrusion. No Canal stenosis. Foramina are patent bilaterally. Cervical segments are intact. There is normal alignment. Cervical spinal cord is of normal signal. Craniovertebral junction relationships are within normal limits. Postop changes present, there is s usceptibility artifact at C6-7 which may limit sensitivity. Hemangioma noted within the C4 vertebral body and T3 as on prior exam. Cervical vertebral bodies show preserved height. IMPRESSION: Exam is limited for evaluation at C5-6, C6-7 due to artifact. Postop changes, degenerative disc disea se.
== END | disposition home or self-care (01) ==
LOC: RADMRIMAIN 20:40
PROVIDERS: ATTEND Neurological Surgery
DX: M50.122 Cervical disc disorder at C5-C6 level with radiculopathy (principal); Z98.890 Other specified postprocedural states
CPT/HCPCS: 72141

== ENCOUNTER → 2018-01-07 | Outpatient (CLI) | payer BC ==
[2018-01-07 14:37] VITALS: BP 137/88; PULSE 82; TEMP 97.8; BMI 34.4
--- NOTE | 2018-01-07 15:46 | P.HPBAR ---
Bariatric H&P - History & Physicial H&P Date: 01/07/18 History & Physicial: Visit/CC: six month follow up Patient initial contact: Initial weight: 133.764 kg Initial weight in pounds: 294.90 Height: 5 ft 4 in Initial BMI: 50.5 Last weight: Current weight: 91.172 kg Current weight in pounds: 201.00 Current BMI: 34.4 [place] body weight (based on NIH guidelines): 54.431 kg Excess body weight loss: 53.6% The patient is a 42 year-old F who presents for Bariatric Assessment. She presents today for sleeve gastric and follow-up. She has lost over 94 pounds since surgery. She's doing well. Her BMI is 35 currently. She's had some minimal GERD. Past Medical History Past Medical History: Asthma, Hearing Disorder / Deafness, Hyperlipidemia, Musculoskeletal Disorder Additional Past Medical History / Comment(s): IBS, hx. kidney stones, DDD, History of Any Multi-Drug Resistant Organisms: None Reported Past Surgical History: Back Surgery, Bariatric Surgery, Tubal Ligation, Uterine Ablation Additional Past Surgical History / Comment(s): D&C,DOUBLE DISC FUSION L3-L4-L5, Cervical Disc C6 replaced, STENTS KIDNEY STONES,LITHOTRIPSY, Left lateral epicondylitis sx, partial removal of cervix using cryotherapy, Gastric Sleeve (Dr. Stan Shoemaker), Past Anesthesia/Blood Transfusion Reactions: No Reported Reaction Additional Past Anesthesia/Blood Transfusion Reaction / Comm: NEVER HAS HAD BLOOD TRANSFUSION Past Psychological History: Anxiety Smoking Status: Former smoker Past Alcohol Use History: None Reported Additional Past Alcohol Use History / Comment(s): STARTED SMOKING 1991, 1pp week. Quit smoking May 2016 Past Drug Use History: None Reported - Past Family History Mother Family Medical History: Congestive Heart Failure (CHF), Diabetes Mellitus, Hypertension Father History Unknown: Yes Surgical - Exam Vital Signs Temp Pulse BP 97.8 F 82 137/88 01/07/18 14:31 01/07/18 14:31 01/07/18 14:31 - General well developed, no distress - Eyes PERRL - ENT normal pinna - Neck no masses - Abdomen Abdomen: soft, non tender Bariatric Assessment & Plan Plan: Status post sleeve gastrectomy. Patient still quite well. Her GERD is minimal will be observed. She'll follow-up in 4 weeks. Bariatric Checklist Checklist: Plan: Checklist: EGD: 1. Hiatal hernia: 2. H. Pylori: HgbA1c: Vitamin D: Smoking: Former smoker Primary care physician referral: shahbaz nieves ([place]) Psychiatry clearance: Cardiology clearance: Sleep study: Diet journal: VTE risk score: VTE risk level: Rehab needs at discharge:
== END | disposition home or self-care (01) ==
LOC: BARWHC3 13:37
PROVIDERS: ATTEND Surgery
DX: Z48.815 Encounter for surgical aftercare following surgery on the digestive system (principal); F41.9 Anxiety disorder, unspecified; Z87.891 Personal history of nicotine dependence; Z98.84 Bariatric surgery status; Z98.890 Other specified postprocedural states
CPT/HCPCS: 99211

== ENCOUNTER → 2018-01-16 | Outpatient (CLI) | payer BC ==
--- NOTE | 2018-01-16 23:45 | MR ---
EXAMINATION TYPE: MR brain wo con DATE OF EXAM: 01/16/2018 COMPARISON: 10/13/2016 HISTORY: Memory loss. Blurred vision. Standard multiplanar, multisequence MRI departmental protocol Multiplanar, multisequence images of the brain were acquired. Diffusion weighted imaging was performe d. FINDINGS: Ventricles and sulci appear normal. There is no mass effect nor midline shift. There is no sign of intracranial hemorrhage. There is no evidence of cerebral edema. There is no evidence of amrgaret ical infarct. Corpus callosum appears normal. Brainstem is intact. Sella turcica appears normal. Ther e is small mucous retention cyst in the lateral right maxillary sinus. On the T2 and FLAIR images there are multiple scattered foci of abnormal increased signal at the branch -white matter junction of both cerebral hemispheres. These measure up to 7 mm. These are more concent rated in the frontal and temporoparietal lobes. Total number of lesions is approximately 25. There ar e only a few small lesions adjacent to the lateral ventricles. There is a 1 cm rounded area of increased signal in the posterior right parotid gland. IMPRESSION: Numerous white matter lesions have distribution suggestive of chronic small vessel ischemia. I do not see a significant change compared to old MR scan. I do not see evidence for demyelinating disease. Small rounded high signal focus in the right parotid gland could be a lymph node or a cyst. Mucous re tention cyst right maxillary sinus unchanged.
== END | disposition home or self-care (01) ==
LOC: RADMRIMAIN 21:29
PROVIDERS: ATTEND Psychiatry & Neurology Neurology
DX: R90.89 Other abnormal findings on diagnostic imaging of central nervous system (principal); R51 Headache
CPT/HCPCS: 70551

== ENCOUNTER → 2018-02-04 | Outpatient (CLI) | payer BC ==
[2018-02-04 15:11] VITALS: BP 101/68; PULSE 85; TEMP 97.7; BMI 32.8
--- NOTE | 2018-02-08 14:43 | P.HPBAR ---
Bariatric H&P - History & Physicial H&P Date: 02/04/18 History & Physicial: Visit/CC: six month follow up Patient initial contact: Initial weight: 133.764 kg Initial weight in pounds: 294.90 Height: 5 ft 4 in Initial BMI: 50.5 Last weight: Current weight: 86.636 kg Current weight in pounds: 191.00 Current BMI: 32.8 [place] body weight (based on NIH guidelines): 54.431 kg Excess body weight loss: 59.4% The patient is a 42 year-old F who presents for Bariatric Assessment. Patient presents today for 6 month follow-up. She has had excellent weight loss after gastric sleeve. She's had some mild GERD. Past Medical History Past Medical History: Asthma, Hearing Disorder / Deafness, Hyperlipidemia, Musculoskeletal Disorder Additional Past Medical History / Comment(s): IBS, hx. kidney stones, DDD, History of Any Multi-Drug Resistant Organisms: None Reported Past Surgical History: Back Surgery, Bariatric Surgery, Tubal Ligation, Uterine Ablation Additional Past Surgical History / Comment(s): D&C,DOUBLE DISC FUSION L3-L4-L5, Cervical Disc C6 replaced, STENTS KIDNEY STONES,LITHOTRIPSY, Left lateral epicondylitis sx, partial removal of cervix using cryotherapy, Gastric Sleeve (Dr. Stan Shoemaker), Past Anesthesia/Blood Transfusion Reactions: No Reported Reaction Additional Past Anesthesia/Blood Transfusion Reaction / Comm: NEVER HAS HAD BLOOD TRANSFUSION Past Psychological History: Anxiety Smoking Status: Former smoker Past Alcohol Use History: None Reported Additional Past Alcohol Use History / Comment(s): STARTED SMOKING 1991, 1pp week. Quit smoking May 2016 Past Drug Use History: None Reported - Past Family History Mother Family Medical History: Congestive Heart Failure (CHF), Diabetes Mellitus, Hypertension Father History Unknown: Yes Surgical - Exam Vital Signs Temp Pulse BP 97.7 F 85 101/68 02/04/18 15:08 02/04/18 15:08 02/04/18 15:08 - General well developed, no distress - Eyes PERRL - ENT normal pinna - Neck no masses - Respiratory normal expansion - Cardiovascular Rhythm: regular - Abdomen Abdomen: soft, non tender Bariatric Assessment & Plan Plan: Status post sleeve gastrectomy. Patient's had excellent weight loss. Her GERD is minimal will be observed. Bariatric Checklist Checklist: Plan: Checklist: EGD: 1. Hiatal hernia: 2. H. Pylori: HgbA1c: Vitamin D: Smoking: Former smoker Primary care physician referral: shahbaz Abdullahi[place]) Psychiatry clearance: Cardiology clearance: Sleep study: Diet journal: VTE risk score: VTE risk level: Rehab needs at discharge:
== END | disposition home or self-care (01) ==
LOC: BARWHC3 11:19
PROVIDERS: ATTEND Surgery
DX: Z09 Encounter for follow-up examination after completed treatment for conditions other than malignant neoplasm (principal); K21.9 Gastro-esophageal reflux disease without esophagitis; F41.9 Anxiety disorder, unspecified; Z87.19 Personal history of other diseases of the digestive system; Z87.442 Personal history of urinary calculi; Z98.84 Bariatric surgery status; Z98.51 Tubal ligation status; Z98.890 Other specified postprocedural states; Z98.1 Arthrodesis status; Z87.891 Personal history of nicotine dependence
CPT/HCPCS: 99211

== ENCOUNTER → 2018-03-25 | Outpatient (CLI) | payer BC, OTHER ==
--- NOTE | 2018-03-25 16:11 | CT ---
EXAMINATION TYPE: CT lumbar spine wo con DATE OF EXAM: 03/25/2018 3:51 PM COMPARISON: 09/04/2016 HISTORY: Left leg numbness and pain. CT DLP: 805.2 mGycm Automated exposure control for dose reduction was used. TECHNIQUE: Unenhanced CT of the lumbar spine was performed. Bone and soft tissue window settings are submitted as well as coronal and sagittal reconstructions. FINDINGS: Postsurgical changes are seen at the gastroesophageal junction. 3 mm nonobstructing left lo wer pole renal calculus is incidentally noted. Follicular and/or cystic changes of the right ovary ar e partially visualized and could be further evaluated with pelvic ultrasound. The lumbar spine vertebral bodies maintain normal vertebral body heights and alignment. Intervertebra l disc spacers are seen at L3-L4 and L4-L5. Surgical fusion is noted of L3-L5. Resection of the poste rior elements are seen at these levels. L1-L2: Normal disc space height. No disc herniation protrusion or central stenosis. No facet joint arthropathy. No evidence for foraminal encroachment. L2-L3: Small broad-based disc bulge is seen resulting in minimal bilateral neural foraminal narrowing without spinal canal stenosis. Air is seen posterior to the thecal sac, possibly from facet arthropa thy are postsurgical changes there is resection of the posterior elements at this site. L3-L4: Although there is resection of posterior elements there is heterotopic ossification and extens ann facet arthropathy narrowing the spinal canal posterior to the L3 vertebral body. The L3-L4 interv ertebral disc space there is no spinal canal stenosis nor neural foraminal narrowing. L4-L5: No gross evidence of spinal canal stenosis nor neural foraminal narrowing although evaluation is limited by spray artifact from the postsurgical change. Resection of posterior elements is seen. L5-S1: No gross evidence of spinal canal stenosis nor neural foraminal narrowing although evaluation is limited by spray artifact from the postsurgical change. Resection of posterior elements is seen. Paraspinal muscular atrophy is noted most pronounced of the lower lumbar spine. IMPRESSION: 1. Postsurgical change at L3-L5. Facet arthropathy and heterotopic ossification create focal spinal c anal stenosis posterior to the L3 vertebral body above the L3-L4 disc space. 2. Mild degenerative disc disease at L2-L3 resulting in minimal bilateral neural foraminal narrowing. 3. Nonobstructing left renal calculus. 4. Follicular and/or cystic changes are partially visualized of the right ovary and could be further evaluated with pelvic ultrasound.
== END | disposition home or self-care (01) ==
LOC: RADCTMAIN 15:35
PROVIDERS: ATTEND Neurological Surgery
DX: M48.061 Spinal stenosis, lumbar region without neurogenic claudication (principal); M51.36 Other intervertebral disc degeneration, lumbar region; M51.16 Intervertebral disc disorders with radiculopathy, lumbar region
CPT/HCPCS: 72131

== ENCOUNTER → 2018-05-06 | Outpatient (CLI) | payer BC, OTHER ==
[2018-05-06 13:30] VITALS: BP 129/84; PULSE 82; RESP 16; TEMP 98.1; BMI 28.4
--- NOTE | 2018-05-06 16:27 | P.HPBAR ---
Bariatric H&P - History & Physicial H&P Date: 05/06/18 History & Physicial: Visit/CC: sleeve follow-up Patient initial contact: Initial weight: 133.764 kg Initial weight in pounds: 294.90 Height: 5 ft 4 in Initial BMI: 50.5 Last weight: Current weight: 75.098 kg Current weight in pounds: 165.56 Current BMI: 28.4 [place] body weight (based on NIH guidelines): 54.431 kg Excess body weight loss: 73.9% The patient is a 43 year-old F who presents for Bariatric Assessment. Patient presents today for sleeve gastrectomy follow-up. She's had issues with GERD. She's lost approximately 26 pounds since her last visit. Past Medical History Past Medical History: Asthma, Hearing Disorder / Deafness, Hyperlipidemia, Musculoskeletal Disorder Additional Past Medical History / Comment(s): IBS, hx. kidney stones, DDD, History of Any Multi-Drug Resistant Organisms: None Reported Past Surgical History: Back Surgery, Bariatric Surgery, Tubal Ligation, Uterine Ablation Additional Past Surgical History / Comment(s): D&C,DOUBLE DISC FUSION L3-L4-L5,Cervical Disc C6 replaced, STENTS KIDNEY STONES,LITHOTRIPSY, Left lateral epicondylitis sx, partial removal of cervix using cryotherapy, Gastric Sleeve 08/02/17 (Dr. Stan Shoemaker), Past Anesthesia/Blood Transfusion Reactions: No Reported Reaction Additional Past Anesthesia/Blood Transfusion Reaction / Comm: NEVER HAS HAD BLOOD TRANSFUSION Past Psychological History: Anxiety Smoking Status: Former smoker Past Alcohol Use History: None Reported Additional Past Alcohol Use History / Comment(s): STARTED SMOKING 1991, 1pp week. Quit smoking May 2016 Past Drug Use History: None Reported - Past Family History Mother Family Medical History: Congestive Heart Failure (CHF), Diabetes Mellitus, Hypertension Father History Unknown: Yes Surgical - Exam Vital Signs Temp Pulse Resp BP 98.1 F 82 16 129/84 05/06/18 13:28 05/06/18 13:28 05/06/18 13:28 05/06/18 13:28 - General well developed, well nourished, no distress - Eyes PERRL - ENT normal pinna - Neck no masses - Respiratory normal expansion - Cardiovascular Rhythm: regular - Abdomen Abdomen: soft, non tender Bariatric Assessment & Plan Plan: Morbid obesity resolving. Patient's GERD is minimal and will be observed. She'll follow-up in 3 months. Bariatric Checklist Checklist: Plan: Checklist: EGD: 1. Hiatal hernia: 2. H. Pylori: HgbA1c: Vitamin D: Smoking: Former smoker Primary care physician referral: shahbaz [facility]) Psychiatry clearance: Cardiology clearance: Sleep study: Diet journal: VTE risk score: VTE risk level: Rehab needs at discharge:
== END | disposition home or self-care (01) ==
LOC: BARWHC3 12:44
PROVIDERS: ATTEND Surgery
DX: Z09 Encounter for follow-up examination after completed treatment for conditions other than malignant neoplasm (principal); E66.01 Morbid (severe) obesity due to excess calories; K21.9 Gastro-esophageal reflux disease without esophagitis; E78.5 Hyperlipidemia, unspecified; Z98.84 Bariatric surgery status; Z98.51 Tubal ligation status; Z98.890 Other specified postprocedural states; Z87.891 Personal history of nicotine dependence; Z68.28 Body mass index [BMI] 28.0-28.9, adult
CPT/HCPCS: 97803; 99211

== ENCOUNTER 2018-08-01 20:00 | Observation (INO) | payer BC, OTHER ==
[2018-08-01] MEDS ORDERED: SODIUM CHLORIDE 0.9% 500 ML 500 ML IV STA ×2 (20:20→21:53)
--- NOTE | 2018-08-01 20:35 | ED ---
General Adult HPI - General Chief complaint: Abdominal Pain Stated complaint: Left side pain Time Seen by Provider: 08/01/18 20:17 Source: patient, RN notes reviewed Mode of arrival: ambulatory Limitations: no limitations - History of Present Illness Initial comments: 43-year-old female with a past medical history of asthma, hyperlipidemia, IBS, kidney stones presents to the emergency determine for a chief complaint of left upper abdominal pain. Patient states this has been ongoing since yesterday. Patient states she has had this pain before but it comes and goes. States that she is nauseous and throwing up today. States she has had diarrhea for the past few days as well. Patient states she does have a history of gastritis and takes Pepcid for this. States she has been taking this medication. Also has history of gastric sleeve performed by Dr. Dave one year ago. Patient has no other complaints at this time including shortness of breath, chest pain, nausea or vomiting, headache, or visual changes. - Related Data Home Medications Medication Instructions Recorded Confirmed buPROPion XL [Wellbutrin Xl] 150 mg PO QAM 12/04/14 05/06/18 ALPRAZolam [Xanax] 0.25 mg PO TID PRN 05/31/15 05/06/18 Albuterol Inhaler [Ventolin Hfa 1 - 2 puff INHALATION RT-Q6H PRN 06/04/17 05/06/18 Inhaler] Atorvastatin [Lipitor] 10 mg PO HS 06/04/17 05/06/18 Ergocalciferol (Vitamin D2) 50,000 unit PO LONG 06/04/17 05/06/18 [Vitamin D2] Baclofen [Lioresal] 20 mg PO BID 07/02/17 05/06/18 Albuterol Nebulized [Ventolin 2.5 mg INHALATION RT-Q4H PRN 07/27/17 05/06/18 Nebulized] Hydrochlorothiazide 25 mg PO DAILY 07/27/17 05/06/18 Hyoscyamine Sulfate [Levsin] 0.125 mg PO BID PRN 07/27/17 05/06/18 Venlafaxine HCl [Effexor XR] 75 mg PO DAILY 08/02/17 05/06/18 tiZANidine [Zanaflex] 4 mg PO Q8H PRN 08/02/17 05/06/18 Topiramate [Topiramate ER] 200 mg PO BID 12/03/17 05/06/18 Previous Rx's Medication Instructions Recorded Bisacodyl [Dulcolax] 5 mg PO DAILY PRN #10 tablet. 08/03/17 HYDROcodone/APAP 7.5-325MG [[place] 1 tab PO Q4H PRN 3 Days #18 tab 08/03/17 7.5-325] Omeprazole 40 mg PO DAILY #60 capsule. 08/03/17 Ondansetron Odt [Zofran Odt] 4 mg PO Q8HR PRN #9 tab 08/03/17 Simethicone 40 mg/0.6 ml Drops 40 mg PO PCHS PRN #30 ml 08/03/17 [Mylicon Drops] Ondansetron [Zofran ODT] 4 mg PO Q8HR PRN #15 tab 08/01/18 Allergies Allergy/AdvReac Type Severity Reaction Status Date / Time No Known Allergies Allergy Verified 08/01/18 20:06 Review of Systems ROS Statement: Those systems with pertinent positive or pertinent negative responses have been documented in the HPI. ROS Other: All systems not noted in ROS Statement are negative. Past Medical History Past Medical History: Asthma, Hearing Disorder / Deafness, Hyperlipidemia, Musculoskeletal Disorder Additional Past Medical History / Comment(s): IBS, hx. kidney stones, DDD, History of Any Multi-Drug Resistant Organisms: None Reported Past Surgical History: Back Surgery, Bariatric Surgery, Tubal Ligation, Uterine Ablation Additional Past Surgical History / Comment(s): D&C,DOUBLE DISC FUSION L3-L4-L5,Cervical Disc C6 replaced, STENTS KIDNEY STONES,LITHOTRIPSY, Left lateral epicondylitis sx, partial removal of cervix using cryotherapy, Gastric Sleeve 08/02/17 (Dr. Stan Dave), Past Anesthesia/Blood Transfusion Reactions: No Reported Reaction Additional Past Anesthesia/Blood Transfusion Reaction / Comment(s): NEVER HAS HAD BLOOD TRANSFUSION Past Psychological History: Anxiety Smoking Status: Former smoker Past Alcohol Use History: None Reported Past Drug Use History: None Reported - Past Family History Mother Family Medical History: Congestive Heart Failure (CHF), Diabetes Mellitus, Hypertension Father History Unknown: Yes General Exam Limitations: no limitations General appearance: alert, in no apparent distress Head exam: Present: atraumatic, normocephalic, normal inspection Eye exam: Present: normal appearance, PERRL, EOMI. Absent: scleral icterus, c onjunctival injection, periorbital swelling ENT exam: Present: normal exam, mucous membranes moist Neck exam: Present: normal inspection, full ROM. Absent: tenderness, meningismus, lymphadenopathy Respiratory exam: Present: normal lung sounds bilaterally. Absent: respiratory distress, wheezes, rales, rhonchi, stridor Cardiovascular Exam: Present: regular rate, normal rhythm, normal heart sounds. Absent: systolic murmur, diastolic murmur, rubs, gallop, clicks GI/Abdominal exam: Present: soft, tenderness (tenderness LUQ and epigastric area with mild voluntary guarding), normal bowel sounds. Absent: distended, guarding, rebound, rigid Back exam: Absent: CVA tenderness (R), CVA tenderness (L) Neurological exam: Present: alert, oriented X3, CN II-XII intact Psychiatric exam: Present: normal affect, normal mood Course Vital Signs 08/01/18 08/01/18 08/01/18 20:04 21:06 22:00 Temperature 98.5 F Pulse Rate 95 86 90 Respiratory 18 18 20 Rate Blood Pressure 156/62 117/87 117/87 O2 Sat by Pulse 99 100 99 Oximetry 08/01/18 22:46 Temperature Pulse Rate 82 Respiratory 16 Rate Blood Pressure 115/77 O2 Sat by Pulse 98 Oximetry EKG Findings - EKG Comments: EKG Findings:: Normal sinus rhythm, ventricular rate 81, [place] 144, QTc 522 Medical Decision Making - Medical Decision Making 43-year-old female presents for abdominal pain. States the pain is left upper quadrant epigastric. Patient has had this pain several times before but usually goes away. States she had gastric sleeve a year ago but has not had any Complications. CBC is unremarkable. CMP does show potassium of 3.1, this was replaced orally and patient was advised to have this checked again by her primary care. CO2 16, possibly hyperventilation. Urinalysis does not show any significant evidence of infection but will be cultured. Contaminated with squamous cells. CT abdomen and pelvis shows intestinal fluid consistent with mild ileus and diarrhea. No free air. Hiatal hernia noted. Patient given mult iple medications, feeling better at this time. However EKG was obtained due to hypo-kalemia, patient does have a prolonged QT of 522, not evident on last EKG from 2014. Given the fact that patient has had gastric bypass and is having EKG changes positive for hypokalemia she will be admitted for electrolyte replacement. - Lab Data Result diagrams: 08/01/18 20:50 08/01/18 20:50 Lab Results 08/01/18 08/01/18 08/01/18 Range/Units 20:45 20:45 20:50 WBC (3.8-10.6) k/uL RBC (3.80-5.40) m/uL Hgb (11.4-16.0) gm/dL Hct (34.0-46.0) % MCV (80.0-100.0) fL MCH (25.0-35.0) pg MCHC (31.0-37.0) g/dL RDW (11.5-15.5) % Plt Count (150-450) k/uL Neutrophils % % Lymphocytes % % Monocytes % % Eosinophils % % Basophils % % Neutrophils # (1.3-7.7) k/uL Lymphocytes # (1.0-4.8) k/uL Monocytes # (0-1.0) k/uL Eosinophils # (0-0.7) k/uL Basophils # (0-0.2) k/uL Sodium 142 (137-145) mmol/L Potassium 3.1 L (3.5-5.1) mmol/L Chloride 115 H (98-107) mmol/L Carbon Dioxide 16 L (22-30) mmol/L Anion Gap 11 mmol/L BUN 16 (7-17) mg/dL Creatinine 0.84 (0.52-1.04) mg/dL Est GFR (CKD-EPI)AfAm >90 (>60 ml/min/1.73 sqM) Est GFR (CKD-EPI)NonAf 86 (>60 ml/min/1.73 sqM) Glucose 103 H (74-99) mg/dL Calcium 9.0 (8.4-10.2) mg/dL Total Bilirubin 0.6 (0.2-1.3) mg/dL AST 19 (14-36) U/L ALT 22 (9-52) U/L Alkaline Phosphatase 76 (38-126) U/L Total Protein 6.9 (6.3-8.2) g/dL Albumin 4.2 (3.5-5.0) g/dL Amylase 42 (30-110) U/L Lipase 299 (23-300) U/L Urine Color Yellow Urine Appearance Cloudy H (Clear) Urine pH 6.0 (5.0-8.0) Ur Specific [place] 1.041 H (1.001-1.035) Urine Protein 1+ H (Negative) Urine Glucose (UA) Negative (Negative) Urine Ketones Negative (Negative) Urine Blood Negative (Negative) Urine Nitrite Negative (Negative) Urine Bilirubin Negative (Negative) Urine Urobilinogen 3.0 (<2.0) mg/dL Ur Leukocyte Esterase Small H (Negative) Urine WBC 19 H (0-5) /hpf Ur Squamous Epith Cells 99 H (0-4) /hpf Calcium Oxalate Crystal Many H (None) /hpf Urine Mucus Many H (None) /hpf Urine HCG, Qual Not Detected (Not Detectd) 08/01/18 Range/Units 20:50 WBC 10.0 (3.8-10.6) k/uL RBC 4.48 (3.80-5.40) m/uL Hgb 14.0 (11.4-16.0) gm/dL Hct 41.2 (34.0-46.0) % MCV 92.0 (80.0-100.0) fL MCH 31.4 (25.0-35.0) pg MCHC 34.1 (31.0-37.0) g/dL RDW 14.5 (11.5-15.5) % Plt Count 273 (150-450) k/uL Neutrophils % 60 % Lymphocytes % 24 % Monocytes % 9 % Eosinophils % 5 % Basophils % 1 % Neutrophils # 6.0 (1.3-7.7) k/uL Lymphocytes # 2.4 (1.0-4.8) k/uL Monocytes # 0.9 (0-1.0) k/uL Eosinophils # 0.5 (0-0.7) k/uL Basophils # 0.1 (0-0.2) k/uL Sodium (137-145) mmol/L Potassium (3.5-5.1) mmol/L Chloride (98-107) mmol/L Carbon Dioxide (22-30) mmol/L Anion Gap mmol/L BUN (7-17) mg/dL Creatinine (0.52-1.04) mg/dL Est GFR (CKD-EPI)AfAm (>60 ml/min/1.73 sqM) Est GFR (CKD-EPI)NonAf (>60 ml/min/1.73 sqM) Glucose (74-99) mg/dL Calcium (8.4-10.2) mg/dL Total Bilirubin (0.2-1.3) mg/dL AST (14-36) U/L ALT (9-52) U/L Alkaline Phosphatase (38-126) U/L Total Protein (6.3-8.2) g/dL Albumin (3.5-5.0) g/dL Amylase (30-110) U/L Lipase (23-300) U/L Urine Color Urine Appearance (Clear) Urine pH (5.0-8.0) Ur Specific [place] (1.001-1.035) Urine Protein (Negative) Urine Glucose (UA) (Negative) Urine Ketones (Negative) Urine Blood (Negative) Urine Nitrite (Negative) Urine Bilirubin (Negative) Urine Urobilinogen (<2.0) mg/dL Ur Leukocyte Esterase (Negative) Urine WBC (0-5) /hpf Ur Squamous Epith Cells (0-4) /hpf Calcium Oxalate Crystal (None) /hpf Urine Mucus (None) /hpf Urine HCG, Qual (Not Detectd) Disposition Clinical Impression: Abdominal pain, Hypokalemia, Prolonged QT interval Disposition: ADMITTED IP TO THIS HOSP Condition: Fair Additional Instructions: Take Zofran as needed for nausea. Continue to take her pain medications at home. Please follow up with primary care and GI. Follow-up with your surgeon as well. If you're having worsening symptoms at home return here to the emergency department. Prescriptions: Ondansetron [Zofran ODT] 4 mg PO Q8HR PRN #15 tab PRN Reason: Nausea Is patient prescribed a controlled substance at d/c from ED?: No Referrals: Kain Lowery MD [Primary Care Provider] - 1-2 days Time of Disposition: 22:48
[2018-08-01] MEDS ORDERED: ONDANSETRON 4 MG/2 ML VIAL IVP STA (20:40)
[2018-08-01] MEDS ORDERED: MORPHINE SULFATE 4 MG/ML SYRINGE IVP STA (20:40)
[2018-08-01 21:08] LABS: Basophils # (A) 0.1 k/uL (0-0.2); Basophils % (A) 1 %; Eosinophils # (A) 0.5 k/uL (0-0.7); Eosinophils % (A) 5 %; HCT 41.2 % (34.0-46.0); Lymphocytes # (A) 2.4 k/uL (1.0-4.8); Lymphocytes % (A) 24 %; MCH 31.4 pg (25.0-35.0); MCHC 34.1 g/dL (31.0-37.0); Mean Platelet Volume 7.7; Monocytes # (A) 0.9 k/uL (0-1.0); Monocytes % (A) 9 %; Neutrophils % (A) 60 %; Platelet Count 273 k/uL (150-450); RBC 4.48 m/uL (3.80-5.40); RDW 14.5 % (11.5-15.5)
[2018-08-01 21:12] LABS: Appearance,Urine Cloudy (Clear); Bilirubin,Urine Negative (Negative); Blood,Urine Negative (Negative); Calcium Oxalate Crystals,Urine Many /hpf; Color,Urine Yellow; Glucose,Urine (UA) Negative (Negative); Ketones,Urine Negative (Negative); Leukocyte Esterase,Urine Small (Negative); Mucus,Urine Many /hpf; Nitrite,Urine Negative (Negative); Protein,Urine 1+ (Negative); Specific Gravity,Urine 1.041 (1.001-1.035); Squamous Epithelial Cell,Urine 99 /hpf (0-4); WBC,Urine 19 /hpf (0-5)
[2018-08-01 21:17] LABS: ALT 22 U/L (9-52); AST 19 U/L (14-36); African American GFR (CKD) >90 (>60 ml/min/1.73 sqM); Albumin 4.2 g/dL (3.5-5.0); Alkaline Phosphatase 76 U/L (38-126); Amylase 42 U/L (30-110); Anion Gap 11 mmol/L; Blood Urea Nitrogen 16 mg/dL (7-17); Carbon Dioxide 16 mmol/L (22-30); Chloride 115 mmol/L (98-107); Glucose 103 mg/dL (74-99); Lipase 299 U/L (23-300); Potassium 3.1 mmol/L (3.5-5.1); Sodium 142 mmol/L (137-145); Total Bilirubin 0.6 mg/dL (0.2-1.3); Total Protein 6.9 g/dL (6.3-8.2)
[2018-08-01] MEDS ORDERED: POTASSIUM CHLORIDE ER 20 MEQ TAB.ER PO STA (21:23)
--- NOTE | 2018-08-01 21:39 | CT ---
EXAMINATION TYPE: CT abdomen pelvis w con DATE OF EXAM: 08/01/2018 COMPARISON: None HISTORY: left side ab pain x [address] DLP: 712.6 mGycm Automated exposure control for dose reduction was used. TECHNIQUE: Helical acquisition of images was performed from the lung bases through the pelvis. CONTRAST: Performed without Oral Contrast and with IV Contrast, patient injected with 100 mL of Isovue 300. FINDINGS: Lung bases are clear. There is no pleural effusion. Heart size is normal. There is no pericardial eff usion. There is hiatal hernia. There is gastric surgery noted. Liver spleen pancreas gallbladder appear normal. Bile ducts are not dilated. There is no adrenal mass. Kidneys show satisfactory contrast opacification. There is no hydronephrosi s. There is no retroperitoneal adenopathy. Bladder distends smoothly. There is no inguinal hernia. Ap pendix appears normal. There is 3 mm calculus lower pole left kidney. There are multiple mildly distended loops of fluid-filled small bowel in the mid abdomen. There are l arge bowel fluid levels. There is posterior fusion surgery at L3 and L4 and L5. There is multilevel l aminectomy defect. I see no focal bone destruction. There is no free air. There is no ascites. There is no mesenteric edema. IMPRESSION: INTESTINAL FLUID CONSISTENT WITH MILD ILEUS AND DIARRHEA. NO FREE AIR.
[2018-08-01] MEDS ORDERED: HYDROmorphone 0.5 MG/0.5 ML SYRINGE IVP STA (21:52)
[2018-08-01] MEDS ORDERED: METOCLOPRAMIDE 5 MG/ML 2 ML VIAL IVP STA (21:53)
[2018-08-01] MEDS ORDERED: diphenhydrAMINE 50 MG/ML 1 ML VIAL IVP STA (21:53)
[2018-08-01] MEDS ORDERED: FAMOTIDINE 20 MG/2 ML VIAL IV STA (21:53)
[2018-08-01] MEDS ORDERED: NALOXONE 0.4 MG/ML 1 ML VIAL IV PRN (23:11)
[2018-08-01 23:41] LABS: Magnesium 2.1 mg/dL (1.6-2.3)
[2018-08-01] MEDS: POTASSIUM CHLORIDE 20 MEQ in WATER FOR INJECTION 1 100ML.BAG IVPB SCH (23:55)
[2018-08-01] MEDS: SODIUM CHLORIDE 0.9% 1,000 ML IV SCH (23:56)
[2018-08-02] MEDS: HYDROmorphone 0.5 MG/0.5 ML SYRINGE IVP PRN ×4 (02:02→20:41)
[2018-08-02] MEDS: POTASSIUM CHLORIDE 20 MEQ in WATER FOR INJECTION 1 100ML.BAG IVPB SCH (02:02)
[2018-08-02] MEDS: QUEtiapine 200 MG TAB PO SCH ×3 (02:34→20:36)
[2018-08-02 08:17] LABS: Magnesium 2.2 mg/dL (1.6-2.3); Potassium 4.1 mmol/L (3.5-5.1)
[2018-08-02 13:33] LABS: African American GFR (CKD) >90 (>60 ml/min/1.73 sqM); Anion Gap 4 mmol/L; Blood Urea Nitrogen 12 mg/dL (7-17); Calcium 8.1 mg/dL (8.4-10.2); Carbon Dioxide 20 mmol/L (22-30); Chloride 117 mmol/L (98-107); Glucose 75 mg/dL (74-99); Sodium 141 mmol/L (137-145)
[2018-08-02] MEDS ORDERED: HYDROCHLOROTHIAZIDE 25 MG TAB PO PRN (18:06)
[2018-08-02] MEDS ORDERED: ALBUTEROL NEBULIZED 2.5 MG/3 ML INHALATION PRN (18:06)
[2018-08-02] MEDS ORDERED: BISACODYL 5 MG TABLET.DR PO PRN (18:06)
[2018-08-02] MEDS ORDERED: HYOSCYAMINE SULFATE 0.125 MG TAB PO PRN (18:13)
--- NOTE | 2018-08-02 18:16 | P.HPIM ---
History of Present Illness H&P Date: 08/02/18 Chief Complaint: Left-sided abdominal pain 43-year-old female with a past medical history of asthma, hyperlipidemia, IBS, kidney stones presents to the emergency determine for a chief complaint of left upper abdominal pain. Patient states this has been ongoing since yesterday. Patient states she has had this pain before but it comes and goes. States that she is nauseous and throwing up today. States she has had diarrhea for the past few days as well. Patient states she does have a history of gastritis and takes Pepcid for this. States she has been taking this medication. Also has history of gastric sleeve performed by Dr. Shoemaker one year ago. Patient has no other complaints at this time including shortness of breath, chest pain, nausea or vomiting, headache, or visual changes. Patient was seen and evaluated in ED and workup was unremarkable for any poss ible etiology for abdominal pain; patient was planned to be discharged home with outpatient follow-up with PCP; workup was positive for hypokalemia with some EKG changes with prolonged QTC; potassium was supplemented and patient is admitted for EKG and electrolyte monitoring Review of Systems Constitutional: Denies chills, Denies fever Eyes: denies blurred vision Cardiovascular: Denies chest pain Respiratory: Denies cough with sputum Gastrointestinal: Reports abdominal pain, Denies nausea, Denies vomiting Musculoskeletal: Denies gait dysfunction, Denies morning stiffness Integumentary: Denies color changes, Denies rash Neurological: Denies confusion, Denies double vision, Denies gait dysfunction Endocrine: Denies cold intolerance, Denies heat intolerance Hematologic/Lymphatic: Denies easy bruising, Denies lymphadenopathy Past Medical History Past Medical History: Asthma, Hearing Disorder / Deafness, Hyperlipidemia, Musculoskeletal Disorder Additional Past Medical History / Comment(s): IBS, hx. kidney stones, DDD, History of Any Multi-Drug Resistant Organisms: None Reported Past Surgical History: Back Surgery, Bariatric Surgery, Tubal Ligation, Uterine Ablation Additional Past Surgical History / Comment(s): D&C,DOUBLE DISC FUSION L3-L4-L5,Cervical Disc C6 replaced, STENTS KIDNEY STONES,LITHOTRIPSY, Left lateral epicondylitis sx, partial removal of cervix using cryotherapy, Gastric Sleeve 08/02/17 (Dr. Stan Shoemaker), Past Anesthesia/Blood Transfusion Reactions: No Reported Reaction Additional Past Anesthesia/Blood Transfusion Reaction / Comment(s): NEVER HAS HAD BLOOD TRANSFUSION Past Psychological History: Anxiety Smoking Status: Never smoker Past Alcohol Use History: None Reported Additional Past Alcohol Use History / Comment(s): STARTED SMOKING 1991, 1pp week. Quit smoking May 2016 Past Drug Use History: None Reported - Past Family History Mother Family Medical History: Congestive Heart Failure (CHF), Diabetes Mellitus, Hyper tension Father History Unknown: Yes Medications and Allergies Home Medications Medication Instructions Recorded Confirmed Type buPROPion XL [Wellbutrin Xl] 150 mg PO DAILY 12/04/14 08/01/18 History ALPRAZolam [Xanax] 0.25 mg PO HS 05/31/15 08/01/18 History Albuterol Inhaler [Ventolin Hfa 1 - 2 puff INHALATION RT-Q6H PRN 06/04/17 08/01/18 History Inhaler] Ergocalciferol (Vitamin D2) 50,000 unit PO LONG 06/04/17 08/01/18 History [Vitamin D2] Baclofen [Lioresal] 20 mg PO BID 07/02/17 08/01/18 History Albuterol Nebulized [Ventolin 2.5 mg INHALATION RT-QID PRN 07/27/17 08/01/18 History Nebulized] Hydrochlorothiazide 25 mg PO DAILY PRN 07/27/17 08/01/18 History Hyoscyamine Sulfate [Levsin] 0.125 mg PO BID PRN 07/27/17 08/01/18 History tiZANidine [Zanaflex] 4 mg PO Q8H PRN 08/02/17 08/01/18 History Bisacodyl [Dulcolax] 5 mg PO DAILY PRN #10 tablet. 08/03/17 08/01/18 Rx Omeprazole 40 mg PO DAILY #60 capsule. 08/03/17 08/01/18 Rx Ondansetron Odt [Zofran Odt] 4 mg PO Q8HR PRN #9 tab 08/03/17 08/01/18 Rx Simethicone 40 mg/0.6 ml Drops 40 mg PO PCHS PRN #30 ml 08/03/17 08/01/18 Rx [Mylicon Drops] Atorvastatin Calcium [Lipitor] 20 mg PO HS 08/01/18 08/01/18 History Ondansetron [Zofran ODT] 4 mg PO Q8HR PRN #15 tab 08/01/18 Rx QUEtiapine FUMARATE [SEROquel XR] 400 mg PO HS 08/01/18 08/01/18 History Topiramate [Topamax] 100 mg PO BID 08/01/18 08/01/18 History Venlafaxine HCl ER [Effexor Xr] 150 mg PO DAILY 08/01/18 08/01/18 History oxyCODONE-APAP 7.5-325MG [Percocet 1 tab PO Q8H PRN 08/01/18 08/01/18 History 7.5-325 mg] Allergies Allergy/AdvReac Type Severity Reaction Status Date / Time No Known Allergies Allergy Verified 08/01/18 23:24 Physical Exam Vitals: Vital Signs Temp Pulse Pulse Resp BP BP Pulse Ox 08/02/18 08:40 76 16 08/02/18 07:00 97.8 F 76 16 107/74 98 08/02/18 02:13 97.7 F 77 16 133/78 100 08/02/18 01:29 68 16 112/77 100 08/01/18 23:46 97.8 F 79 18 126/93 100 08/01/18 22:46 82 16 115/77 98 08/01/18 22:00 90 20 117/87 99 08/01/18 21:06 86 18 117/87 100 08/01/18 20:04 98.5 F 95 18 156/62 99 Intake and Output 08/01/18 08/02/18 08/02/18 22:59 06:59 14:59 Intake Total 375 230 Balance 375 230 Intake: Intake, IV Titration 375 Amount Sodium Chloride 0.9% 500 375 ml 500 ml @ 999 mls/hr IV .Q31M STA Rx#:[id number] Oral 230 Other: Weight 69.853 kg General appearance: alert, in no apparent distress Head exam: Present: atraumatic, normocephalic, normal inspection Eye exam: Present: normal appearance, PERRL, EOMI. Absent: scleral icterus, conjunctival injection, periorbital swelling ENT exam: Present: normal exam, mucous membranes moist Neck exam: Present: normal inspection, full ROM. Absent: tenderness, meningismus, lymphadenopathy Respiratory exam: Present: normal lung sounds bilaterally. Absent: respiratory distress, wheezes, rales, rhonchi, stridor Cardiovascular Exam: Present: regular rate, normal rhythm, normal heart sounds. Absent: systolic murmur, diastolic murmur, rubs, gallop, clicks GI/Abdominal exam: Present: soft, tenderness (tenderness LUQ and epigastric area with mild voluntary guarding), normal bowel sounds. Absent: distended, guarding, rebound, rigid Back exam: Absent: CVA tenderness (R), CVA tenderness (L) Neurological exam: Present: alert, oriented X3, CN II-XII intact Psychiatric exam: Present: normal affect, normal mood Results CBC & Chem 7: 08/01/18 20:50 08/02/18 07:31 Labs: Abnormal Lab Results - Last 24 Hours (Table) 08/01/18 08/01/18 08/01/18 Range/Units 20:45 20:50 20:50 Potassium 3.1 L (3.5-5.1) mmol/L Chloride 115 H (98-107) mmol/L Carbon Dioxide 16 L (22-30) mmol/L Glucose 103 H (74-99) mg/dL Phosphorus 2.0 L (2.5-4.5) mg/dL Urine Appearance Cloudy H (Clear) Ur Specific [place] 1.041 H (1.001-1.035) Urine Protein 1+ H (Negative) Ur Leukocyte Esterase Small H (Negative) Urine WBC 19 H (0-5) /hpf Ur Squamous Epith Cells 99 H (0-4) /hpf Calcium Oxalate Crystal Many H (None) /hpf Urine Mucus Many H (None) /hpf Microbiology - Last 24 Hours (Table) 08/01/18 20:45 Urine Culture - Preliminary Urine,Voided Thrombosis Risk Factor Assmnt - Choose All That Apply Any of the Below Risk Factors Present?: Yes Each Factor Represents 1 point: Age 41-60 years Thrombosis Risk Factor Assessment Total Risk Factor Score: 1 Thrombosis Risk Factor Assessment Level: Low Risk Assessment and Plan Assessment: 1. Intractable left-sided upper quadrant pain - Patient continues to have persistent pain; we will order CT of chest to rule out PE; check d-dimer; start patient on oral muscle relaxers for possible vascular skeletal - CT of the abdomen done yesterday shows possible ileus; we will repeat abdominal x-ray for follow-up 2. Intractable nausea; continue with Zofran 4 mg IV every 4 hours when necessary 3. Hypokalemia; potassium levels stable this morning; we will continue to monitor electrolytes and supplement as needed 4. Prolonged QT interval; we will monitor EKG and electrolytes; we will consult cardiology if concerns persist 5. Hypertension; stable on home dose of hydrochlorothiazide 25 mg daily 6. Hyperlipidemia; continue with home dose of Lipitor 20 mg by mouth daily at bedtime 7. Chronic musculoskeletal disorder; pain control with IV Dilaudid; we will r estart home dose of baclofen 20 mg by mouth twice a day 8. DVT prophylaxis; SCDs CODE STATUS; full code Time with Patient: Greater than 30
--- NOTE | 2018-08-02 19:20 | CT ---
EXAMINATION TYPE: CT chest angio for PE with contrast and with 3-D reconstruction renderings DATE OF EXAM: 08/02/2018 COMPARISON: None HISTORY: Pain under left ribs. CT DLP: 239.4 mGycm Automated exposure control for dose reduction was used. CONTRAST: CT Chest for pulmonary embolism performed with with IV Contrast, patient injected with 68 m L of Isovue 370. FINDINGS: LUNGS, PLEURAL SPACES, AIRWAYS: The lungs are grossly clear, there is no concerning parenchymal mass or nodule identified. There is no pleural effusion or pneumothorax seen. The tracheobronchial tree is patent. MEDIASTINUM: There is satisfactory enhancement of the pulmonary artery and its branches, there is no CT evidence for pulmonary embolism. There are no acute aortic findings. No cardiomegaly. No pericardi al effusion. There are no greater than 1 cm hilar or mediastinal lymph nodes. OTHER: No additional significant abnormality is seen. IMPRESSION: No acute process.
[2018-08-02] MEDS: SODIUM CHLORIDE 0.9% 1,000 ML IV SCH (20:29)
[2018-08-02] MEDS: PANTOPRAZOLE 40 MG TABLET PO SCH (20:36)
[2018-08-02] MEDS: BACLOFEN 10 MG TAB PO SCH (20:37)
[2018-08-02] MEDS ORDERED: ALPRAZolam 0.25 MG TAB PO SCH (21:00)
[2018-08-02] MEDS ORDERED: ATORVASTATIN 20 MG TAB PO SCH (21:00)
[2018-08-03] MEDS: SODIUM CHLORIDE 0.9% 1,000 ML IV SCH (00:52)
[2018-08-03 03:27] VITALS: RESP 16
[2018-08-03 08:26] LABS: African American GFR (CKD) >90 (>60 ml/min/1.73 sqM); Anion Gap 6 mmol/L; Blood Urea Nitrogen 10 mg/dL (7-17); Calcium 8.6 mg/dL (8.4-10.2); Carbon Dioxide 20 mmol/L (22-30); Chloride 116 mmol/L (98-107); Glucose 75 mg/dL (74-99); Potassium 4.1 mmol/L (3.5-5.1); Sodium 142 mmol/L (137-145)
[2018-08-03 08:29] VITALS: BP 124/78; TEMP 98.4
[2018-08-03] MEDS: PANTOPRAZOLE 40 MG TABLET PO SCH (08:57)
[2018-08-03] MEDS: QUEtiapine 200 MG TAB PO SCH (08:57)
[2018-08-03] MEDS: BACLOFEN 10 MG TAB PO SCH (08:57)
[2018-08-03] MEDS ORDERED: NON-FORMULARY DRUG (Omeprazole [Omeprazole] 40 MG) PO SCH (09:00)
[2018-08-03] MEDS ORDERED: buPROPion XL 150 MG TAB.ER.24H PO SCH (09:00)
--- NOTE | 2018-08-03 13:25 | P.DS ---
Providers Date of admission: 08/01/18 23:16 Expected date of discharge: 08/03/18 Attending physician: Pat Phillips Primary care physician: Kain Baummley [facility] Course: 43-year-old female with a past medical history of asthma, hyperlipidemia, IBS, kidney stones presents to the emergency determine for a chief complaint of left upper abdominal pain. Patient states this has been ongoing since yesterday. Patient states she has had this pain before but it comes and goes. States that she is nauseous and throwing up today. States she has had diarrhea for the past few days as well. Patient states she does have a history of gastritis and takes Pepcid for this. States she has been taking this medication. Also has history of gastric sleeve performed by Dr. Dave one year ago. Patient has no other complaints at this time including shortness of breath, chest pain, nausea or vomiting, headache, or visual changes. Patient was seen and evaluated in ED and workup was unremarkable for any possible etiology for abdominal pain; patient was planned to be discharged home with outpatient follow-up with PCP; workup was positive for hypokalemia with some EKG changes with prolonged QTC; potassium was supplemented and patient is admitted for EKG and electrolyte monitoring Potassium levels were closely monitored and remained stable; EKG was monitored; patient continued to complain of left-sided chest/abdominal pain; CTA chest was ordered which was negative for PE; patient was continued on musculoskeletal supportive therapy; patient related she is unable to take anti-inflammatory medications; patient is being discharged home with the plan to continue taking muscle relaxers and follow-up with PCP in 1-2 days Patient Condition at Discharge: Fair Plan - Discharge Summary Discharge Rx Participant: Yes New Discharge Prescriptions: New Ondansetron [Zofran ODT] 4 mg PO Q8HR PRN #15 tab PRN Reason: Nausea Continue Atorvastatin Calcium [Lipitor] 20 mg PO HS oxyCODONE-APAP 7.5-325MG [Percocet 7.5-325 mg] 1 tab PO Q8H PRN PRN Reason: Pain QUEtiapine FUMARATE [SEROquel XR] 400 mg PO HS Topiramate [Topamax] 100 mg PO BID Venlafaxine HCl ER [Effexor XR] 150 mg PO DAILY No Action buPROPion XL [Wellbutrin XL] 150 mg PO DAILY ALPRAZolam [Xanax] 0.25 mg PO HS Ergocalciferol (Vitamin D2) [Vitamin D2] 50,000 unit PO LONG Albuterol Inhaler [Ventolin Hfa Inhaler] 1 - 2 puff INHALATION RT-Q6H PRN PRN Reason: Bronchospasm Baclofen [Lioresal] 20 mg PO BID Hydrochlorothiazide 25 mg PO DAILY PRN PRN Reason: Edema Albuterol Nebulized [Ventolin Nebulized] 2.5 mg INHALATION RT-QID PRN PRN Reason: Shortness Of Breath Hyoscyamine Sulfate [Levsin] 0.125 mg PO BID PRN PRN Reason: IBS tiZANidine [Zanaflex] 4 mg PO Q8H PRN PRN Reason: Muscle Spasm Bisacodyl [Dulcolax] 5 mg PO DAILY PRN #10 tablet.dr PRN Reason: Constipation Ondansetron Odt [Zofran ODT] 4 mg PO Q8HR PRN #9 tab PRN Reason: Nausea Simethicone 40 mg/0.6 ml Drops [Mylicon Drops] 40 mg PO PCHS PRN #30 ml PRN Reason: Gas Omeprazole 40 mg PO DAILY #60 capsule.dr Discharge Medication List buPROPion XL [Wellbutrin XL] 150 mg PO DAILY 12/04/14 [History] ALPRAZolam [Xanax] 0.25 mg PO HS 05/31/15 [History] Albuterol Inhaler [Ventolin Hfa Inhaler] 1 - 2 puff INHALATION RT-Q6H PRN 06/04/17 [History] Ergocalciferol (Vitamin D2) [Vitamin D2] 50,000 unit PO LONG 06/04/17 [History] Baclofen [Lioresal] 20 mg PO BID 07/02/17 [History] Albuterol Nebulized [Ventolin Nebulized] 2.5 mg INHALATION RT-QID PRN 07/27/17 [History] Hydrochlorothiazide 25 mg PO DAILY PRN 07/27/17 [History] Hyoscyamine Sulfate [Levsin] 0.125 mg PO BID PRN 07/27/17 [History] tiZANidine [Zanaflex] 4 mg PO Q8H PRN 08/02/17 [History] Bisacodyl [Dulcolax] 5 mg PO DAILY PRN #10 tablet. 08/03/17 [Rx] Omeprazole 40 mg PO DAILY #60 capsule. 08/03/17 [Rx] Ondansetron Odt [Zofran ODT] 4 mg PO Q8HR PRN #9 tab 08/03/17 [Rx] Simethicone 40 mg/0.6 ml Drops [Mylicon Drops] 40 mg PO PCHS PRN #30 ml 08/03/17 [Rx] Atorvastatin Calcium [Lipitor] 20 mg PO HS 08/01/18 [History] Ondansetron [Zofran ODT] 4 mg PO Q8HR PRN #15 tab 08/01/18 [Rx] QUEtiapine FUMARATE [SEROquel XR] 400 mg PO HS 08/01/18 [History] Topiramate [Topamax] 100 mg PO BID 08/01/18 [History] Venlafaxine HCl ER [Effexor XR] 150 mg PO DAILY 08/01/18 [History] oxyCODONE-APAP 7.5-325MG [Percocet 7.5-325 mg] 1 tab PO Q8H PRN 08/01/18 [History] Follow up Appointment(s)/Referral(s): Kain Lowery MD [Primary Care Provider] - 1-2 days Activity/Diet/Wound Care/Special Instructions: Take Zofran as needed for nausea. Continue to take her pain medications at home. Please follow up with primary care and GI. Follow-up with your surgeon as well. If you're having worsening symptoms at home return here to the emerg ency department.
[2018-08-03 16:52] VITALS: PULSE 89
[2018-08-04] MEDS ORDERED: ERGOCALCIFEROL 50,000 UNIT CAP PO SCH (09:00)
== END 2018-08-03 16:36 | disposition home or self-care (01) ==
LOC: EC 20:00 → 4SSUR 23:16
PROVIDERS: ADMIT Internal Medicine; ATTEND Internal Medicine
DX: R10.13 Epigastric pain (principal); E78.5 Hyperlipidemia, unspecified; E87.6 Hypokalemia; F41.9 Anxiety disorder, unspecified; H91.90 Unspecified hearing loss, unspecified ear; I10 Essential (primary) hypertension; R11.0 Nausea; J45.909 Unspecified asthma, uncomplicated; K44.9 Diaphragmatic hernia without obstruction or gangrene; K29.70 Gastritis, unspecified, without bleeding; K58.0 Irritable bowel syndrome with diarrhea; Z98.84 Bariatric surgery status; Z98.1 Arthrodesis status; Z79.899 Other long term (current) drug therapy; Z87.891 Personal history of nicotine dependence; Z87.442 Personal history of urinary calculi; Z82.49 Family history of ischemic heart disease and other diseases of the circulatory system; Z83.3 Family history of diabetes mellitus
CPT/HCPCS: 96376; 96361; 96366 ×2; 96365; 96375; 99285; 36415; 93005 ×2; 85379; 80053; 80048 ×2; 82150; 83690; 83735 ×2; 84100; 85025; 81001; 81025; 87086; 71275; 74177; G0378 ×3; J2270; J1200; J2765; J3480 ×2; J2405; J1170 ×2; Q9967 ×2

== ENCOUNTER → 2018-08-19 | Outpatient (CLI) | payer BC, OTHER ==
[2018-08-19 15:15] LABS: HCT 40.8 % (34.0-46.0); HGB 13.5 gm/dL (11.4-16.0); MCH 31.1 pg (25.0-35.0); Platelet Count 256 k/uL (150-450); RBC 4.34 m/uL (3.80-5.40); RDW 13.8 % (11.5-15.5); WBC 9.1 k/uL (3.8-10.6)
[2018-08-19 19:02] LABS: African American GFR (CKD) 80.5 (60.0-200.0); Albumin 4.4 g/dL (3.80-4.90); Albumin/Globulin Ratio 2.2 (1.60-3.17); Anion Gap 7.3 mmol/L (4.00-12.00); Calcium 9.2 mg/dL (8.7-10.3); Carbon Dioxide 23.7 mmol/L (21.6-31.8); Potassium 4.1 mmol/L (3.5-5.5); Total Bilirubin 0.3 mg/dL (0.2-1.2); Total Protein 6.4 g/dL (6.2-8.2)
[2018-08-19 19:11] LABS: Folate, Serum 9.4 ng/mL
== END | disposition home or self-care (01) ==
LOC: LABWHC1 14:49
PROVIDERS: ATTEND Surgery
DX: E55.9 Vitamin D deficiency, unspecified (principal); E66.01 Morbid (severe) obesity due to excess calories
CPT/HCPCS: 36415; 80053; 82306; 82607; 82746; 84134; 85027

== ENCOUNTER → 2018-08-19 | Outpatient (CLI) | payer BC, OTHER ==
[2018-08-19 13:19] VITALS: BP 111/65; PULSE 90; RESP 16; TEMP 98.4; BMI 24.7
--- NOTE | 2018-08-19 15:07 | FL ---
EXAMINATION TYPE: FL barium swallow DATE OF EXAM: 08/19/2018 CLINICAL HISTORY: Left upper quadrant abdominal pain TECHNIQUE: A single contrast esophagram is performed utilizing 2 ounces of EZ paque. A total of 2 m inutes and 23 seconds of fluoroscopic time was utilized during procedure. COMPARISON: None FINDINGS: The esophagus shows normal motility and emptying into the stomach. Mild gastroesophageal re flux and moderate intraesophageal reflux are seen with irregularity of the distal esophageal mucosa. No evidence of hiatal hernia. No contrast extravasation is seen. There is a persistent narrowing of t he proximal body of the residual stomach without obstruction nor gastric dilatation prior to this ida rowing. IMPRESSION: 1. There is slight mucosal irregularity of the distal esophagus and mild gastroesophageal reflux as w ell as moderate intraesophageal reflux noted. Distal esophageal esophagitis is suspected from underly ing reflux. 2. The partial gastrectomy is slightly narrowed within the body persistently, however no gross obstru ction is seen. 3. No evidence of contrast extravasation throughout the examination nor delayed flow along the postsu rgical gastric sleeve.
--- NOTE | 2018-09-06 13:49 | P.HPBAR ---
Bariatric H&P - History & Physicial H&P Date: 08/19/18 History & Physicial: Visit/CC: 1 year sleeve follow-up Patient initial contact: Initial weight: 133.764 kg Initial weight in pounds: 294.90 Height: 5 ft 4 in Initial BMI: 50.5 Last weight: Current weight: 65.317 kg Current weight in pounds: 144.00 Current BMI: 24.7 [place] body weight (based on NIH guidelines): 54.431 kg Excess body weight loss: 86.2% The patient is a 43 year-old F who presents for Bariatric Assessment. Patient presents today for sleeve gastrectomy follow-up. She is doing quite well. She's had some minimal GERD. Past Medical History Past Medical History: Asthma, Hearing Disorder / Deafness, Hyperlipidemia, Musculoskeletal Disorder Additional Past Medical History / Comment(s): IBS, hx. kidney stones, DDD, History of Any Multi-Drug Resistant Organisms: None Reported Past Surgical History: Back Surgery, Bariatric Surgery, Tubal Ligation, Uterine Ablation Additional Past Surgical History / Comment(s): D&C,DOUBLE DISC FUSION L3-L4-L5,Cervical Disc C6 replaced, STENTS KIDNEY STONES,LITHOTRIPSY, Left lateral epicondylitis sx, partial removal of cervix using cryotherapy, Gastric Sleeve 08/02/17 (Dr. Stan Shoemaker), Past Anesthesia/Blood Transfusion Reactions: No Reported Reaction Additional Past Anesthesia/Blood Transfusion Reaction / Comm: NEVER HAS HAD BLOOD TRANSFUSION Past Psychological History: Anxiety Smoking Status: Never smoker Past Alcohol Use History: None Reported Additional Past Alcohol Use History / Comment(s): STARTED SMOKING 1991, 1pp week. Quit smoking May 2016 Past Drug Use History: None Reported - Past Family History Mother Family Medical History: Congestive Heart Failure (CHF), Diabetes Mellitus, Hypertension Father History Unknown: Yes Surgical - Exam Vital Signs Temp Pulse Resp BP 98.4 F 90 16 111/65 08/19/18 13:17 08/19/18 13:17 08/19/18 13:17 08/19/18 13:17 - General well developed, well nourished, no distress - Abdomen Abdomen: soft, non tender Bariatric Assessment & Plan Plan: Status post sleeve yesterday. Patient has excellent weight loss. Her GERD is minimal will be observed. Bariatric Checklist Checklist: Plan: Checklist: EGD: 1. Hiatal hernia: 2. H. Pylori: HgbA1c: Vitamin D: Smoking: Never smoker Primary care physician referral: shahbaz AbdullahiKealia) Psychiatry clearance: Cardiology clearance: Sleep study: Diet journal: VTE risk score: VTE risk level: Rehab needs at discharge:
== END | disposition home or self-care (01) ==
LOC: BARWHC3 13:02
PROVIDERS: ATTEND Surgery
DX: Z48.815 Encounter for surgical aftercare following surgery on the digestive system (principal); K21.9 Gastro-esophageal reflux disease without esophagitis; Z98.84 Bariatric surgery status; Z87.891 Personal history of nicotine dependence
CPT/HCPCS: 74220; 99211

== ENCOUNTER → 2018-08-20 | Outpatient (CLI) | payer BC, OTHER ==
--- NOTE | 2018-08-20 21:24 | MR ---
EXAMINATION TYPE: MR knee LT wo con DATE OF EXAM: 08/20/2018 COMPARISON: Outside radiographs 08/09/2018 HISTORY: 43 year-old female left knee pain TECHNIQUE: Multiplanar, multisequence imaging of the left knee is performed without IV contrast. FINDINGS: ACL, PCL, MCL, and LCL complex are intact. There is some degenerative signal within the posterior horn of the medial meniscus without discrete t ear. Mild diffuse thinning of medial compartment articular cartilage volume. Some degenerative signal within the body of the lateral meniscus without discrete meniscal tear. Over all lateral compartment articular cartilage is maintained. Patellofemoral compartment articular cartilage is maintained. Extensor mechanism is intact. Physiologic knee joint fluid. No Betancourt's cyst. Normal popliteal artery anatomy. Mild generalized muscular atrophy. No suspicious bone marrow replace ment. IMPRESSION: Some degenerative signal within the menisci. No discrete meniscal tear. There is mild diffuse thinnin g of medial compartment articular cartilage without any focal high-grade chondral injury.
== END | disposition home or self-care (01) ==
LOC: RADMRIMAIN 12:54
PROVIDERS: ATTEND Orthopaedic Surgery
DX: M23.8X2 Other internal derangements of left knee (principal)

== ENCOUNTER → 2018-09-17 | Outpatient (CLI) | payer BC, OTHER ==
--- NOTE | 2018-10-04 13:05 | EM ---
EVENT MONITOR A 43-year-old female who was scheduled for 14-day event monitor. Event monitor shows sinus rhythm and sinus tachycardia. No sustained or nonsustained arrhythmias noted during her symptoms other than sinus tachycardia. MMODL / IJN: [id number] /
== END | disposition home or self-care (01) ==
LOC: RADECHMAIN 11:53
PROVIDERS: ATTEND Physician Assistant
DX: R55 Syncope and collapse (principal)
CPT/HCPCS: 93270

== ENCOUNTER → 2018-09-18 | Outpatient (CLI) | payer BC, OTHER ==
--- NOTE | 2018-09-18 15:39 | US ---
EXAMINATION TYPE: US abdomen limited DATE OF EXAM: 09/18/2018 COMPARISON: CT 2019 CLINICAL HISTORY: R10.12 LUQ pain R13.10 dysphagia. Abdomen pain and N/V x couple months EXAM MEASUREMENTS: Liver Length: 16.1 cm Gallbladder Wall: 0.1 cm CBD: 0.2 cm Right Kidney: 11.4 x 3.2 x 4.9 cm Pancreas: visualized portions wnl, limited by overlying midline bowel gas Liver: 0.7cm hyperechoic area right lobe Gallbladder: wnl Evidence for sonographic Hester's sign: yes CBD: visualized portions wnl, limited by overlying bowel gas Right Kidney: 0.6cm hyperechoic. Inferior pole IMPRESSION: 1. No sonographic evidence of cholelithiasis nor acute cholecystitis although a positive sonographic Hester sign is seen and therefore HIDA scan with CCK could evaluate for chronic cholecystitis or bili sepideh dyskinesia. 2. Subcentimeter hyperechoic hepatic and right renal lesions most commonly representing hemangioma wi thin the liver and angiomyolipoma within the kidney and a patient without underlying renal disease or hepatocellular disease. If there is further concern clinically these could be confirmed with enhance d MRI.
--- NOTE | 2018-09-19 10:35 | NM ---
EXAMINATION TYPE: NM hepatobiliary w CCK DATE OF EXAM: 09/18/2018 COMPARISON: Ultrasound abdomen 09/18/2018 HISTORY: Abdominal pain TECHNIQUE: After the intravenous administration of 4.68 mCi Tc 99m Mebrofenin hepatobiliary scintigra phy is performed. Immediate images post injection. FINDINGS: There is satisfactory initial accumulation of tracer by the liver. The gallbladder is visualized wit hin 30 minutes. The small bowel activity is noted within 12 minutes. At one hour CCK was administer ed, patient was injected with 1.2 mcg of Kinevac, and gallbladder ejection fraction is calculated at 32 %, below the lower end of normal. Therefore there is no scintigraphic evidence of cystic or commo n bile duct obstruction to suggest acute cholecystitis IMPRESSION: Borderline abnormal low gallbladder ejection fraction.
== END ==
LOC: RADUSWWP 14:09
PROVIDERS: ATTEND Surgery
DX: N28.9 Disorder of kidney and ureter, unspecified (principal); K76.9 Liver disease, unspecified
CPT/HCPCS: 76705; 78227; A9537; J2805

== ENCOUNTER 2018-09-26 08:49 | Inpatient (IN) | payer BC, OTHER ==
[2018-09-26] MEDS ORDERED: ONDANSETRON 4 MG/2 ML VIAL IVP STA (09:24)
[2018-09-26] MEDS ORDERED: PANTOPRAZOLE 40 MG/10 ML VIAL IVP STA (09:24)
[2018-09-26] MEDS ORDERED: SODIUM CHLORIDE 0.9% 1,000 ML IV STA ×2 (09:24)
[2018-09-26] MEDS ORDERED: KETOROLAC 30 MG/ML 1 ML VIAL IVP STA (09:24)
[2018-09-26] MEDS ORDERED: HYDROmorphone 1 MG/ML 1 ML SYRINGE IVP STA ×2 (09:30→12:52)
--- NOTE | 2018-09-26 09:47 | ED ---
Abdominal Pain HPI - General Chief Complaint: Abdominal Pain Stated Complaint: Abd Pain Time Seen by Provider: 09/26/18 09:02 Source: patient, RN notes reviewed, old records reviewed Mode of arrival: ambulatory Limitations: no limitations - History of Present Illness Initial Comments: Patient is a 43-year-old female presents emergency Department with nausea, vomiting and right upper quadrant abdominal pain. More severe over the past 2 days. She reports that last week she has no outpatient HIDA scan. She smokes is follow-up with Dr. aminta rodriguez in regards to the results of her HIDA scan today. She called their office and was told to come directly here. Patient reports that she's been having intermittent pain such as this since July. Past medical history includes gastric sleeve procedure. Patient subsequently lost over 150 pounds within the past year. Patient reports that she's had no fevers or chills. Bowel movement was today was normal and nonbloody. Patient states she's had normal urination. She denies any shortness of breath or chest pain. - Related Data Home Medications Medication Instructions Recorded Confirmed buPROPion XL [Wellbutrin XL] 150 mg PO DAILY 12/04/14 09/26/18 ALPRAZolam [Xanax] 0.25 mg PO HS 05/31/15 09/26/18 Albuterol Inhaler [Ventolin Hfa 1 - 2 puff INHALATION RT-Q6H PRN 06/04/17 09/26/18 Inhaler] Ergocalciferol (Vitamin D2) 50,000 unit PO LONG 06/04/17 09/26/18 [Vitamin D2] Baclofen [Lioresal] 20 mg PO BID 07/02/17 09/26/18 Albuterol Nebulized [Ventolin 2.5 mg INHALATION RT-QID PRN 07/27/17 09/26/18 Nebulized] Hydrochlorothiazide 25 mg PO DAILY PRN 07/27/17 09/26/18 Hyoscyamine Sulfate [Levsin] 0.125 mg PO BID PRN 07/27/17 09/26/18 tiZANidine [Zanaflex] 4 mg PO Q8H PRN 08/02/17 09/26/18 Atorvastatin Calcium [Lipitor] 20 mg PO HS 08/01/18 09/26/18 QUEtiapine FUMARATE [SEROquel XR] 400 mg PO HS 08/01/18 09/26/18 Topiramate [Topamax] 100 mg PO BID 08/01/18 09/26/18 Venlafaxine HCl ER [Effexor XR] 150 mg PO DAILY 08/01/18 09/26/18 oxyCODONE-APAP 7.5-325MG [Percocet 1 tab PO Q8H PRN 08/01/18 09/26/18 7.5-325 mg] Ranitidine HCl 150 mg PO DAILY 08/20/18 09/26/18 Previous Rx's Medication Instructions Recorded Bisacodyl [Dulcolax] 5 mg PO DAILY PRN #10 tablet. 08/03/17 Omeprazole 40 mg PO DAILY #60 capsule. 08/03/17 Simethicone 40 mg/0.6 ml Drops 40 mg PO PCHS PRN #30 ml 08/03/17 [Mylicon Drops] Ondansetron [Zofran ODT] 4 mg PO Q8HR PRN #15 tab 08/01/18 Allergies Allergy/AdvReac Type Severity Reaction Status Date / Time No Known Allergies Allergy Verified 09/26/18 09:20 Review of Systems ROS Statement: Those systems with pertinent positive or pertinent negative responses have been documented in the HPI. ROS Other: All systems not noted in ROS Statement are negative. Past Medical History Past Medical History: Asthma, Hearing Disorder / Deafness, Hyperlipidemia, Musculoskeletal Disorder Additional Past Medical History / Comment(s): IBS, hx. kidney stones, DDD, History of Any Multi-Drug Resistant Organisms: None Reported Past Surgical History: Back Surgery, Bariatric Surgery, Tubal Ligation, Uterine Ablation Additional Past Surgical History / Comment(s): D&C,DOUBLE DISC FUSION L3-L4-L5,Cervical Disc C6 replaced, STENTS KIDNEY STONES,LITHOTRIPSY, Left lateral epicondylitis sx, partial removal of cervix using cryotherapy, Gastric Sleeve 08/02/17 (Dr. Stan Dave), Past Anesthesia/Blood Transfusion Reactions: No Reported Reaction Additional Past Anesthesia/Blood Transfusion Reaction / Comment(s): NEVER HAS HAD BLOOD TRANSFUSION Past Psychological History: Anxiety Smoking Status: Never smoker Past Alcohol Use History: None Reported Past Drug Use History: None Reported - Past Family History Mother Family Medical History: Congestive Heart Failure (CHF), Diabetes Mellitus, Hypertension Father History Unknown: Yes General Exam - General Exam Comments Initial Comments: Patient is a 43-year-old female. Patient appears in moderate discomfort. Limitations: no limitations General appearance: alert, in no apparent distress Head exam: Present: atraumatic Eye exam: Present: normal appearance, PERRL, EOMI. Absent: scleral icterus, conjunctival injection, periorbital swelling ENT exam: Present: normal exam, mucous membranes moist Neck exam: Present: normal inspection. Absent: tenderness, meningismus, lymphadenopathy Respiratory exam: Present: normal lung sounds bilaterally. Absent: respiratory distress, wheezes, rales, rhonchi, stridor Cardiovascular Exam: Present: regular rate, normal rhythm, normal heart sounds. Absent: systolic murmur, diastolic murmur, rubs, gallop, clicks GI/Abdominal exam: Present: soft, tenderness (RUQ tenderness), normal bowel sounds. Absent: distended, guarding, rebound, rigid Extremities exam: Present: normal inspection, full ROM, normal capillary refill. Absent: tenderness, pedal edema, joint swelling, calf tenderness Back exam: Present: normal inspection Neurological exam: Present: alert, oriented X3, CN II-XII intact Psychiatric exam: Present: normal affect, normal mood Skin exam: Present: warm, dry, intact, normal color. Absent: rash Course Vital Signs 09/26/18 09/26/18 08:55 13:56 Temperature 98.1 F 98.6 F Pulse Rate 99 87 Respiratory 22 18 Rate Blood Pressure 140/92 154/98 O2 Sat by Pulse 100 100 Oximetry Medical Decision Making - Medical Decision Making Patient is a 43-year-old female who presents emergency Department today with complaints of epigastric abdominal pain and vomiting pain worse after eating. She was ports that she was was felt with her HIDA scan results with Dr. Nettles. This time Patient had a CT abdomen and pelvis with contrast. Evidence of some infiltration is never stable sign from her previous gastric sleeve procedure. Patient was started on Rocephin for UTI. We'll start which the Patient to Zosyn for concern for infection around the suture site. Patient will be admitted under Dr. Dave - Lab Data Result diagrams: 09/26/18 09:18 09/26/18 09:18 Lab Results 09/26/18 09/26/18 09/26/18 Range/Units 09:18 09:18 09:18 WBC 15.7 H (3.8-10.6) k/uL RBC 4.70 (3.80-5.40) m/uL Hgb 15.6 (11.4-16.0) gm/dL Hct 44.1 (34.0-46.0) % MCV 93.8 (80.0-100.0) fL MCH 33.1 (25.0-35.0) pg MCHC 35.3 (31.0-37.0) g/dL RDW 12.9 (11.5-15.5) % Plt Count 351 (150-450) k/uL Neutrophils % 71 % Lymphocytes % 17 % Monocytes % 9 % Eosinophils % 1 % Basophils % 1 % Neutrophils # 11.1 H (1.3-7.7) k/uL Lymphocytes # 2.6 (1.0-4.8) k/uL Monocytes # 1.4 H (0-1.0) k/uL Eosinophils # 0.1 (0-0.7) k/uL Basophils # 0.1 (0-0.2) k/uL PT (9.0-12.0) sec INR (<1.2) APTT (22.0-30.0) sec Sodium 145 (137-145) mmol/L Potassium 3.7 (3.5-5.1) mmol/L Chloride 112 H (98-107) mmol/L Carbon Dioxide 16 L (22-30) mmol/L Anion Gap 17 mmol/L BUN 17 (7-17) mg/dL Creatinine 0.78 (0.52-1.04) mg/dL Est GFR (CKD-EPI)AfAm >90 (>60 ml/min/1.73 sqM) Est GFR (CKD-EPI)NonAf >90 (>60 ml/min/1.73 sqM) Glucose 97 (74-99) mg/dL Calcium 10.1 (8.4-10.2) mg/dL Total Bilirubin 1.7 H (0.2-1.3) mg/dL AST 42 H (14-36) U/L ALT 29 (9-52) U/L Alkaline Phosphatase 96 (38-126) U/L Total Protein 9.0 H (6.3-8.2) g/dL Albumin 5.0 (3.5-5.0) g/dL Amylase 65 (30-110) U/L Lipase 281 (23-300) U/L Urine Color Yellow Urine Appearance Turbid H (Clear) Urine pH 8.5 H (5.0-8.0) Ur Specific [place] 1.026 (1.001-1.035) Urine Protein 2+ H (Negative) Urine Glucose (UA) Negative (Negative) Urine Ketones 3+ H (Negative) Urine Blood Negative (Negative) Urine Nitrite Negative (Negative) Urine Bilirubin Negative (Negative) Urine Urobilinogen 4.0 (<2.0) mg/dL Ur Leukocyte Esterase Moderate H (Negative) Urine RBC 5 (0-5) /hpf Urine WBC 49 H (0-5) /hpf Ur Squamous Epith Cells 23 H (0-4) /hpf Amorphous Sediment Rare H (None) /hpf Urine Bacteria Moderate H (None) /hpf Urine Mucus Many H (None) /hpf 09/26/18 Range/Units 09:18 WBC (3.8-10.6) k/uL RBC (3.80-5.40) m/uL Hgb (11.4-16.0) gm/dL Hct (34.0-46.0) % MCV (80.0-100.0) fL MCH (25.0-35.0) pg MCHC (31.0-37.0) g/dL RDW (11.5-15.5) % Plt Count (150-450) k/uL Neutrophils % % Lymphocytes % % Monocytes % % Eosinophils % % Basophils % % Neutrophils # (1.3-7.7) k/uL Lymphocytes # (1.0-4.8) k/uL Monocytes # (0-1.0) k/uL Eosinophils # (0-0.7) k/uL Basophils # (0-0.2) k/uL PT 10.6 (9.0-12.0) sec INR 1.0 (<1.2) APTT 26.9 (22.0-30.0) sec Sodium (137-145) mmol/L Potassium (3.5-5.1) mmol/L Chloride (98-107) mmol/L Carbon Dioxide (22-30) mmol/L Anion Gap mmol/L BUN (7-17) mg/dL Creatinine (0.52-1.04) mg/dL Est GFR (CKD-EPI)AfAm (>60 ml/min/1.73 sqM) Est GFR (CKD-EPI)NonAf (>60 ml/min/1.73 sqM) Glucose (74-99) mg/dL Calcium (8.4-10.2) mg/dL Total Bilirubin (0.2-1.3) mg/dL AST (14-36) U/L ALT (9-52) U/L Alkaline Phosphatase (38-126) U/L Total Protein (6.3-8.2) g/dL Albumin (3.5-5.0) g/dL Amylase (30-110) U/L Lipase (23-300) U/L Urine Color Urine Appearance (Clear) Urine pH (5.0-8.0) Ur Specific [place] (1.001-1.035) Urine Protein (Negative) Urine Glucose (UA) (Negative) Urine Ketones (Negative) Urine Blood (Negative) Urine Nitrite (Negative) Urine Bilirubin (Negative) Urine Urobilinogen (<2.0) mg/dL Ur Leukocyte Esterase (Negative) Urine RBC (0-5) /hpf Urine WBC (0-5) /hpf Ur Squamous Epith Cells (0-4) /hpf Amorphous Sediment (None) /hpf Urine Bacteria (None) /hpf Urine Mucus (None) /hpf - Radiology Data Radiology results: report reviewed Normal development of focal area of low attenuation along the Patient staple line could be related to abscess leak hematoma or an interval finding. Possible including ovarian follicle. Disposition Clinical Impression: UTI (urinary tract infection), Abdominal pain, Abnormal CT of the abdomen Disposition: ADMITTED IP TO THIS HOSP Condition: Stable Is patient prescribed a controlled substance at d/c from ED?: No Referrals: Kain Lowery MD [Primary Care Provider] - 1-2 days Time of Disposition: 14:39
--- NOTE | 2018-09-26 10:12 | XR ---
EXAMINATION TYPE: XR KUB DATE OF EXAM: 09/26/2018 10:04 AM CLINICAL HISTORY: Vomiting and pain. History of gastric sleeve. TECHNIQUE: Two Upright KUB images of the abdomen are obtained. COMPARISON: CT abdomen and pelvis August 01, 2018 FINDINGS: Several air-fluid levels are seen and slightly prominent small and large bowel loops throug hout the mid to lower abdomen extending into the upper pelvis. Gas is still present in nondistended s tomach. Surgical changes from sleeve at epigastric region are redemonstrated. No definitive abnormal dilatation. No pneumoperitoneum. Postsurgical change lower lumbar spine redemonstrated. Scattered pel indy phleboliths. IMPRESSION: Overall nonspecific bowel gas pattern but I do favor nonobstructive bowel gas pattern.
[2018-09-26 11:06] LABS: Basophils # (A) 0.1 k/uL (0-0.2); Basophils % (A) 1 %; Eosinophils # (A) 0.1 k/uL (0-0.7); Eosinophils % (A) 1 %; HCT 44.1 % (34.0-46.0); HGB 15.6 gm/dL (11.4-16.0); Lymphocytes # (A) 2.6 k/uL (1.0-4.8); Lymphocytes % (A) 17 %; MCH 33.1 pg (25.0-35.0); MCHC 35.3 g/dL (31.0-37.0); MCV 93.8 fL (80.0-100.0); Mean Platelet Volume 7.2; Monocytes # (A) 1.4 k/uL (0-1.0); Monocytes % (A) 9 %; Neutrophils # (A) 11.1 k/uL (1.3-7.7); Neutrophils % (A) 71 %; Platelet Count 351 k/uL (150-450); RDW 12.9 % (11.5-15.5); WBC 15.7 k/uL (3.8-10.6)
[2018-09-26] MEDS ORDERED: IOPAMIDOL-300 CONTRAST 30 ML VIAL (ORAL USE) PO PRN (11:10)
[2018-09-26] MEDS ORDERED: SODIUM CHLORIDE 0.9% 2,000 ML IV ONE (11:16)
[2018-09-26 11:18] LABS: Partial Thromboplastin Time 26.9 sec (22.0-30.0); Prothrombin Time 10.6 sec (9.0-12.0)
[2018-09-26 11:26] LABS: ALT 29 U/L (9-52); AST 42 U/L (14-36); African American GFR (CKD) >90 (>60 ml/min/1.73 sqM); Alkaline Phosphatase 96 U/L (38-126); Amylase 65 U/L (30-110); Anion Gap 17 mmol/L; Blood Urea Nitrogen 17 mg/dL (7-17); Calcium 10.1 mg/dL (8.4-10.2); Carbon Dioxide 16 mmol/L (22-30); Chloride 112 mmol/L (98-107); Glucose 97 mg/dL (74-99); Sodium 145 mmol/L (137-145); Total Bilirubin 1.7 mg/dL (0.2-1.3)
[2018-09-26 11:29] LABS: Amorphous Sediment,Urine Rare /hpf; Appearance,Urine Turbid (Clear); Bacteria,Urine Moderate /hpf; Bilirubin,Urine Negative (Negative); Blood,Urine Negative (Negative); Color,Urine Yellow; Glucose,Urine (UA) Negative (Negative); Ketones,Urine 3+ (Negative); Leukocyte Esterase,Urine Moderate (Negative); Mucus,Urine Many /hpf; Nitrite,Urine Negative (Negative); PH, Urine 8.5 (5.0-8.0); Potassium 3.7 mmol/L (3.5-5.1); Protein,Urine 2+ (Negative); RBC,Urine 5 /hpf (0-5); Specific Gravity,Urine 1.026 (1.001-1.035); Squamous Epithelial Cell,Urine 23 /hpf (0-4); WBC,Urine 49 /hpf (0-5)
[2018-09-26] MEDS ORDERED: cefTRIAXone IN SWFI 1,000 MG/10 ML SYRINGE IVP STA (12:25)
--- NOTE | 2018-09-26 13:39 | CT ---
EXAMINATION TYPE: CT abdomen pelvis w con DATE OF EXAM: 09/26/2018 COMPARISON: KUB same date, CT 08/01/2018 HISTORY: Upper Abdominal pain with nausea and vomiting CT DLP: 632.6 mGycm Automated exposure control for dose reduction was used. TECHNIQUE: Helical acquisition of images from the lung bases through the pelvis have been completed. CONTRAST: Performed with Oral Contrast and with IV Contrast, patient injected with 100 mL of Isovue 300. FINDINGS: Postop changes are noted to the stomach as on prior. There is however interval change in th e appearance along the staple line in the left lateral position, focal area of low-attenuation is pre sent measuring 2.6 cm causing some local mass effect on the upper stomach. LUNG BASES: No significant abnormality is appreciated. AORTA: No significant abnormality is appreciated. LIVER/GB: Liver is enlarged, gallbladder is unremarkable PANCREAS: No significant abnormality is seen. SPLEEN: No significant abnormality is seen. ADRENALS: No significant abnormality is seen. KIDNEYS: Nonobstructive lower pole left renal calculus is suspected, stable REPRODUCTIVE ORGANS: Left adnexal region shows a peripherally enhancing focus measuring 2 cm with valentine tral low attenuation possibly representing involuting left ovarian cyst. BOWEL: No significant abnormality is seen. No evident bowel obstruction, contrast has not coursed no rmally through the bowel however, oral contrast opacification of the bowel is limited. Appendix is no rmal. FREE AIR: No Free Air visible. ASCITES: None visible. PELVIC ADENOPATHY: None visualized. RETROPERITONEAL ADENOPATHY: No Retroperitoneal Adenopathy visible. URINARY BLADDER: No significant abnormality is seen. OSSEOUS STRUCTURES: Postop changes are again noted to the lower lumbar spine, L5 screw courses throu gh the anterior cortex posterior to the inferior vena cava as on prior. Sclerotic changes at the sacr oiliac joints is again noted. Vacuum phenomenon also present. IMPRESSION: INTERVAL DEVELOPMENT OF A FOCAL AREA OF LOW-ATTENUATION ALONG THE PATIENT'S STAPLE LINE COULD BE RELA SABA TO ABSCESS, LEAK, HEMATOMA, AN INTERVAL FINDING. Possible involuting left ovarian follicle. Addit ional findings above, limitations as described
[2018-09-26] MEDS ORDERED: ONDANSETRON 4 MG/2 ML VIAL IVP PRN (14:40)
[2018-09-26] MEDS ORDERED: IBUPROFEN 400 MG TAB PO PRN (14:40)
[2018-09-26] MEDS ORDERED: KETOROLAC 30 MG/ML 1 ML VIAL IVP PRN (14:40)
[2018-09-26] MEDS ORDERED: ACETAMINOPHEN TAB 325 MG TAB PO PRN (14:40)
[2018-09-26] MEDS ORDERED: NALOXONE 0.4 MG/ML 1 ML VIAL IV PRN (14:40)
[2018-09-26] MEDS ORDERED: PIPERACILLIN-TAZOBACTAM 3.375 GM in SODIUM CHLORIDE 0.9% 100 ML IVPB STA (14:42)
[2018-09-26] MEDS: HYDROmorphone 1 MG/ML 1 ML SYRINGE IVP PRN ×2 (17:31→21:41)
[2018-09-26] MEDS ORDERED: ALBUTEROL INHALER 60 PUFF/8 GM INHALER INHALATION PRN (20:31)
[2018-09-26] MEDS ORDERED: ALBUTEROL NEBULIZED 2.5 MG/3 ML INHALATION PRN (20:31)
[2018-09-26] MEDS: SODIUM CHLORIDE 0.9% 1,000 ML IV SCH (21:40)
[2018-09-26] MEDS: QUEtiapine 200 MG TAB PO SCH (21:41)
[2018-09-27] MEDS: PIPERACILLIN-TAZOBACTAM 3.375 GM in SODIUM CHLORIDE 0.9% 100 ML IVPB SCH ×4 (00:07→23:33)
[2018-09-27] MEDS: SODIUM CHLORIDE 0.9% 1,000 ML IV SCH ×2 (04:25→16:36)
[2018-09-27] MEDS: HYDROmorphone 1 MG/ML 1 ML SYRINGE IVP PRN ×4 (04:28→21:44)
[2018-09-27] MEDS: QUEtiapine 200 MG TAB PO SCH ×2 (08:41→21:45)
[2018-09-27] MEDS: PANTOPRAZOLE 40 MG/10 ML VIAL IV SCH (08:41)
[2018-09-27 10:06] LABS: African American GFR (CKD) >90 (>60 ml/min/1.73 sqM); Anion Gap 10 mmol/L; Blood Urea Nitrogen 7 mg/dL (7-17); Calcium 8.3 mg/dL (8.4-10.2); Carbon Dioxide 17 mmol/L (22-30); Chloride 111 mmol/L (98-107); Glucose 67 mg/dL (74-99); Potassium 3.5 mmol/L (3.5-5.1); Sodium 138 mmol/L (137-145)
[2018-09-27 10:43] LABS: Basophils % (A) 0 %; Eosinophils # (A) 0.2 k/uL (0-0.7); Eosinophils % (A) 2 %; HCT 35.1 % (34.0-46.0); Lymphocytes # (A) 1.3 k/uL (1.0-4.8); Lymphocytes % (A) 13 %; MCH 32.1 pg (25.0-35.0); MCV 97.3 fL (80.0-100.0); Mean Platelet Volume 7.5; Monocytes # (A) 0.8 k/uL (0-1.0); Monocytes % (A) 9 %; Neutrophils # (A) 6.9 k/uL (1.3-7.7); Neutrophils % (A) 73 %; Platelet Count 184 k/uL (150-450); RBC 3.61 m/uL (3.80-5.40); RDW 13.7 % (11.5-15.5); WBC 9.5 k/uL (3.8-10.6)
[2018-09-27 10:54] LABS: HGB 11.6 gm/dL (11.4-16.0)
--- NOTE | 2018-09-27 11:58 | P.GSHP ---
History of Present Illness H&P Date: 09/26/18 Chief Complaint: Abdominal pain This a 43-year-old female with complaints of left-sided abdominal pain. Patient states she has had crampy acute pain which goes to her back. Patient appears history of gastric sleeve surgery approximate 16 months ago. Past Medical History Past Medical History: Asthma, Hearing Disorder / Deafness, Hyperlipidemia, Musculoskeletal Disorder Additional Past Medical History / Comment(s): IBS, hx. kidney stones, DDD, RLS History of Any Multi-Drug Resistant Organisms: None Reported Past Surgical History: Back Surgery, Bariatric Surgery, Tubal Ligation, Uterine Ablation Additional Past Surgical History / Comment(s): D&C,DOUBLE DISC FUSION L3-L4-L5,Cervical Disc C6 replaced, STENTS KIDNEY STONES,LITHOTRIPSY, Left lateral epicondylitis sx, partial removal of cervix using cryotherapy, Gastric Sleeve 08/02/17 (Dr. Stan Shoemaker), Past Anesthesia/Blood Transfusion Reactions: No Reported Reaction Additional Past Anesthesia/Blood Transfusion Reaction / Comment(s): NEVER HAS HAD BLOOD TRANSFUSION Past Psychological History: Anxiety Smoking Status: Former smoker Past Alcohol Use History: None Reported Additional Past Alcohol Use History / Comment(s): STARTED SMOKING 1991, 1pp week. Quit smoking May 2016 Past Drug Use History: Marijuana - Past Family History Mother Family Medical History: Congestive Heart Failure (CHF), Diabetes Mellitus, Hypertension Father History Unknown: Yes Medications and Allergies Home Medications Medication Instructions Recorded Confirmed Type buPROPion XL [Wellbutrin XL] 150 mg PO DAILY 12/04/14 09/26/18 History ALPRAZolam [Xanax] 0.25 mg PO HS 05/31/15 09/26/18 History Albuterol Inhaler [Ventolin Hfa 1 - 2 puff INHALATION RT-Q6H PRN 06/04/1710/07 History Inhaler] Ergocalciferol (Vitamin D2) 50,000 unit PO LONG 06/04/17 09/26/18 History [Vitamin D2] Baclofen [Lioresal] 20 mg PO BID 07/02/17 09/26/18 History Albuterol Nebulized [Ventolin 2.5 mg INHALATION RT-QID PRN 07/27/17 09/26/18 History Nebulized] Hydrochlorothiazide 25 mg PO DAILY PRN 07/27/17 09/26/18 History Hyoscyamine Sulfate [Levsin] 0.125 mg PO BID PRN 07/27/17 09/26/18 History tiZANidine [Zanaflex] 4 mg PO Q8H PRN 08/02/17 09/26/18 History Bisacodyl [Dulcolax] 5 mg PO DAILY PRN #10 tablet. 08/03/17 09/26/18 Rx Omeprazole 40 mg PO DAILY #60 capsule. 08/03/17 09/26/18 Rx Simethicone 40 mg/0.6 ml Drops 40 mg PO PCHS PRN #30 ml 08/03/17 09/26/18 Rx [Mylicon Drops] Atorvastatin Calcium [Lipitor] 20 mg PO HS 08/01/18 09/26/18 History Ondansetron [Zofran ODT] 4 mg PO Q8HR PRN #15 tab 08/01/18 09/26/18 Rx QUEtiapine FUMARATE [SEROquel XR] 400 mg PO HS 08/01/18 09/26/18 History Topiramate [Topamax] 100 mg PO BID 08/01/18 09/26/18 History Venlafaxine HCl ER [Effexor XR] 150 mg PO DAILY 08/01/18 09/26/18 History oxyCODONE-APAP 7.5-325MG [Percocet 1 tab PO Q8H PRN 08/01/18 09/26/18 History 7.5-325 mg] Ranitidine HCl 150 mg PO DAILY 08/20/18 09/26/18 History Allergies Allergy/AdvReac Type Severity Reaction Status Date / Time No Known Allergies Allergy Verified 09/26/18 09:20 Surgical - Exam Vital Signs Temp Pulse Resp BP Pulse Ox 98.1 F 99 22 140/92 100 09/26/18 08:55 09/26/18 08:55 09/26/18 08:55 09/26/18 08:55 09/26/18 08:55 - General well developed, moderate distress - Eyes PERRL - ENT normal pinna - Neck no masses - Respiratory normal expansion - Cardiovascular Rhythm: regular - Abdomen Of left-sided abdominal pain. There is no rebound or guarding. Abdomen: soft Results - Labs 09/27/18 09:22 09/27/18 09:22 Abnormal Lab Results - Last 24 Hours (Table) 09/27/18 09/27/18 Range/Units 09:22 09:22 RBC 3.61 L (3.80-5.40) m/uL Chloride 111 H (98-107) mmol/L Carbon Dioxide 17 L (22-30) mmol/L Glucose 67 L (74-99) mg/dL Calcium 8.3 L (8.4-10.2) mg/dL Microbiology - Last 24 Hours (Table) 09/26/18 09:18 Urine Culture - Preliminary Urine,Voided Diabetes panel 09/27/18 Range/Units 09:22 Sodium 138 (137-145) mmol/L Potassium 3.5 (3.5-5.1) mmol/L Chloride 111 H (98-107) mmol/L Carbon Dioxide 17 L (22-30) mmol/L BUN 7 (7-17) mg/dL Creatinine 0.59 (0.52-1.04) mg/dL Glucose 67 L (74-99) mg/dL Calcium 8.3 L (8.4-10.2) mg/dL Calcium panel 09/27/18 Range/Units 09:22 Calcium 8.3 L (8.4-10.2) mg/dL Pituitary panel 09/27/18 Range/Units 09:22 Sodium 138 (137-145) mmol/L Potassium 3.5 (3.5-5.1) mmol/L Chloride 111 H (98-107) mmol/L Carbon Dioxide 17 L (22-30) mmol/L BUN 7 (7-17) mg/dL Creatinine 0.59 (0.52-1.04) mg/dL Glucose 67 L (74-99) mg/dL Calcium 8.3 L (8.4-10.2) mg/dL Adrenal panel 09/27/18 Range/Units 09:22 Sodium 138 (137-145) mmol/L Potassium 3.5 (3.5-5.1) mmol/L Chloride 111 H (98-107) mmol/L Carbon Dioxide 17 L (22-30) mmol/L BUN 7 (7-17) mg/dL Creatinine 0.59 (0.52-1.04) mg/dL Glucose 67 L (74-99) mg/dL Calcium 8.3 L (8.4-10.2) mg/dL - Imaging CT scan - abdomen: report reviewed (Computed tomography scan shows evidence of edema along the gastric sleeve. There is known to perforation or abscess.) Assessment and Plan Assessment: Abdominal pain Inflammation of gastric sleeve. Patient will receive IV antibiotics and will be observed closely.
--- NOTE | 2018-09-27 14:36 | P.PN ---
Subjective Progress Note Date: 09/27/18 CHIEF COMPLAINT: Abdominal pain HISTORY OF PRESENT ILLNESS: Patient examined this morning at the bedside. She reports significant abdominal pain. Denies nausea or vomiting. She is tolerating small amounts of clear liquid diet. WBC 9.5. Hemoglobin 11.6. PHYSICAL EXAM: VITAL SIGNS: Reviewed. GENERAL: Well-developed in no acute distress. HEENT: No sclera icterus. Extraocular movements grossly intact. Moist buccal mucosa. Head is atraumatic, normocephalic. ABDOMEN: Soft. Nondistended. Diffuse abdominal tenderness with light palpati on. NEUROLOGIC: Alert and oriented. Cranial nerves II through XII grossly intact. ASSESSMENT: 1. Abdominal pain 2. Inflammation of gastric sleeve PLAN: 1. Continue clear liquid diet as tolerated 2. Continue antibiotics 3. Continue protonix 4. No surgical intervention recommended at this time 5. Patient with HIDA scan revealing EF 32%. Per Dr. Dave, patient will undergo laparoscopic cholecystectomy outpatient once acute issues have resolved Nurse practitioner note has been reviewed by physician. Signing provider agrees with the documented findings, assessment, and plan of care. Objective - Vital Signs Vital signs: Vital Signs Temp 98.3 F 09/27/18 07:00 Pulse 96 09/27/18 07:00 Resp 14 09/27/18 07:00 BP 110/70 09/27/18 07:00 Pulse Ox 99 09/27/18 07:00 Intake & Output 09/26/18 09/27/18 09/27/18 18:59 06:59 18:59 Intake Total 1650 Balance 1650 Weight 59.421 kg Intake: Intake, IV Titration 1500 Amount Sodium Chloride 0.9% 1, 1500 000 ml @ 100 mls/hr IV . Q10H [facility] Rx#:[id number] Oral 150 Other: Voiding Method Toilet # Voids 2 2 - Labs CBC & Chem 7: 09/27/18 09:22 09/27/18 09:22 Labs: Abnormal Lab Results - Last 24 Hours (Table) 09/27/18 09/27/18 Range/Units 09:22 09:22 RBC 3.61 L (3.80-5.40) m/uL Chloride 111 H (98-107) mmol/L Carbon Dioxide 17 L (22-30) mmol/L Glucose 67 L (74-99) mg/dL Calcium 8.3 L (8.4-10.2) mg/dL Microbiology - Last 24 Hours (Table) 09/26/18 09:18 Urine Culture - Preliminary Urine,Voided
[2018-09-27] MEDS: LORazepam 1 MG TAB PO PRN (20:00)
[2018-09-28] MEDS: SODIUM CHLORIDE 0.9% 1,000 ML IV SCH ×3 (00:24→20:26)
[2018-09-28] MEDS: HYDROmorphone 1 MG/ML 1 ML SYRINGE IVP PRN ×4 (03:52→22:18)
[2018-09-28 07:20] LABS: Basophils % (A) 0 %; Eosinophils # (A) 0.3 k/uL (0-0.7); Eosinophils % (A) 3 %; HCT 35.1 % (34.0-46.0); HGB 12.1 gm/dL (11.4-16.0); Lymphocytes # (A) 1.5 k/uL (1.0-4.8); Lymphocytes % (A) 16 %; MCH 33.2 pg (25.0-35.0); MCHC 34.3 g/dL (31.0-37.0); MCV 96.8 fL (80.0-100.0); Mean Platelet Volume 7.3; Monocytes # (A) 0.8 k/uL (0-1.0); Monocytes % (A) 9 %; Neutrophils # (A) 6.6 k/uL (1.3-7.7); Neutrophils % (A) 70 %; Platelet Count 196 k/uL (150-450); RBC 3.63 m/uL (3.80-5.40); RDW 12.8 % (11.5-15.5); WBC 9.4 k/uL (3.8-10.6)
[2018-09-28 07:36] LABS: African American GFR (CKD) >90 (>60 ml/min/1.73 sqM); Anion Gap 8 mmol/L; Blood Urea Nitrogen 8 mg/dL (7-17); Calcium 8.2 mg/dL (8.4-10.2); Carbon Dioxide 20 mmol/L (22-30); Chloride 111 mmol/L (98-107); Glucose 72 mg/dL (74-99); Potassium 3.7 mmol/L (3.5-5.1); Sodium 139 mmol/L (137-145)
[2018-09-28] MEDS: PANTOPRAZOLE 40 MG/10 ML VIAL IV SCH (09:20)
[2018-09-28] MEDS: PIPERACILLIN-TAZOBACTAM 3.375 GM in SODIUM CHLORIDE 0.9% 100 ML IVPB SCH ×2 (09:20→18:23)
[2018-09-28] MEDS: QUEtiapine 200 MG TAB PO SCH ×2 (09:23→22:18)
--- NOTE | 2018-09-28 15:59 | P.PN ---
Subjective Progress Note Date: 09/28/18 CHIEF COMPLAINT: Abdominal pain HISTORY OF PRESENT ILLNESS: The patient is a 43-year-old female 14 months out from a sleeve gastrectomy. She reports moderate abdominal of the epigastrium on- going for 2 months since July 2018. She reports pain is worse with eating and drinking radiating from left upper abdomen to right upper abdomen. She also reports worsening GERD since her sleeve although with moderate weight loss over 14 months ago. ROS: No reports of nausea and vomiting. No bowel movements. No fevers or chills. No new chest pain. No productive sputum PHYSICAL EXAM: VITAL SIGNS: Reviewed CONSTITUTIONAL: Well developed and in no acute distress. EYES: Conjuctivae without sclera icterus. Extraocular movements grossly intact. HEAD, EARS, NOSE, THROAT: Moist buccal mucosa. Head is atraumatic, normocephalic. Hears conversational speech. No nasal drainage. NECK: Supple. No thyroidomegaly. RESPIRATORY: Non-labored respirations and equal bilateral excursions. CARDIOVASCULAR: Palpable 2+ radial pulses. Regular rate. Regular rhythm. ABDOMEN: Tender along the epigastrium. No peritonitis. MUSCULOSKELETAL: No gross deformity of the lower extremities noted. No clubbing. No cyanosis. SKIN: Good skin turgor. Well perfused. NEUROLOGIC: Cranial nerves I through XII grossly intact. No focal or lateralizing signs. PSYCH: Appropriate affect. Alert and oriented to person, place and time. CLINCAL LABS: White blood cell count normal STUDIES: I personally reviewed her CT scan with changes along her sleeve gastrectomy with inflammation along the superior portion of her sleeve. No gross free fluid or free air. REPORTS: Radiology report confirms inflammatory changes along the sleeve. ASSESSMENT: 1. Epigastric pain 2. Left upper quadrant pain 3. Severe GERD PLAN: 1. Recommend ice chips and popsicles. 2. Ideally EGD would help with further evaluation from her bariatric surgeon. 3. In the interim start carafate for severe GERD. Objective - Vital Signs Vital signs: Vital Signs Temp 98.2 F 09/28/18 14:32 Pulse 89 09/28/18 14:32 Resp 16 09/28/18 14:32 BP 115/71 09/28/18 14:32 Pulse Ox 97 09/28/18 14:32 Intake & Output 09/27/18 09/28/18 09/28/18 18:59 06:59 18:59 Intake Total 950 1125 Balance 950 1125 Intake: Intake, IV Titration 900 725 Amount Piperacillin-Tazobactam 3 75 .375 gm In Sodium Chloride 0.9% 100 ml @ 25 mls/hr IVPB Q8HR [facility] Rx# :[id number] Sodium Chloride 0.9% 1, 900 650 000 ml @ 100 mls/hr IV . Q10H [facility] Rx#:[id number] Oral 50 400 Other: Voiding Method Toilet # Voids 3 2 - Labs CBC & Chem 7: 09/28/18 07:09 09/28/18 07:09 Labs: Abnormal Lab Results - Last 24 Hours (Table) 09/28/18 09/28/18 Range/Units 07:09 07:09 RBC 3.63 L (3.80-5.40) m/uL Chloride 111 H (98-107) mmol/L Carbon Dioxide 20 L (22-30) mmol/L Glucose 72 L (74-99) mg/dL Calcium 8.2 L (8.4-10.2) mg/dL Microbiology - Last 24 Hours (Table) 09/26/18 09:18 Urine Culture - Preliminary Urine,Voided Gram Neg Bacilli 09/26/18 15:41 Blood Culture - Preliminary Blood No Growth after 24 hours Assessment and Plan (1) History of sleeve gastrectomy Current Visit: Yes Status: Acute Code(s): Z90.3 - ACQUIRED ABSENCE OF STOMACH [PART OF] SNOMED Code(s): 591774805019268 (2) Epigastric pain Current Visit: Yes Status: Acute Code(s): R10.13 - EPIGASTRIC PAIN SNOMED Code(s): 53063990 (3) Gastroesophageal reflux disease Current Visit: Yes Status: Acute Code(s): K21.9 - GASTRO-ESOPHAGEAL REFLUX DISEASE WITHOUT ESOPHAGITIS SNOMED Code(s): 544486354 (4) Abnormal CT of the abdomen Current Visit: Yes Status: Acute Code(s): R93.5 - ABN FINDINGS ON DX IMAGING OF ABD REGIONS, INC RETROPERITON SNOMED Code(s): 81636823970286484
[2018-09-28] MEDS: SUCRALFATE 1 GM TAB PO SCH (18:23)
[2018-09-28] MEDS: LORazepam 1 MG TAB PO PRN (22:18)
[2018-09-29] MEDS: PIPERACILLIN-TAZOBACTAM 3.375 GM in SODIUM CHLORIDE 0.9% 100 ML IVPB SCH ×3 (01:14→17:13)
[2018-09-29] MEDS: SODIUM CHLORIDE 0.9% 1,000 ML IV SCH ×2 (05:26→11:49)
[2018-09-29 06:55] LABS: Basophils % (A) 0 %; Eosinophils # (A) 0.2 k/uL (0-0.7); Eosinophils % (A) 2 %; HCT 32.5 % (34.0-46.0); Lymphocytes # (A) 1.5 k/uL (1.0-4.8); Lymphocytes % (A) 18 %; MCH 32.6 pg (25.0-35.0); MCHC 33.7 g/dL (31.0-37.0); MCV 96.6 fL (80.0-100.0); Mean Platelet Volume 7.5; Monocytes # (A) 0.9 k/uL (0-1.0); Monocytes % (A) 10 %; Neutrophils # (A) 5.8 k/uL (1.3-7.7); Neutrophils % (A) 67 %; Platelet Count 173 k/uL (150-450); RBC 3.36 m/uL (3.80-5.40); RDW 13.7 % (11.5-15.5); WBC 8.7 k/uL (3.8-10.6)
[2018-09-29 07:01] LABS: African American GFR (CKD) >90 (>60 ml/min/1.73 sqM); Anion Gap 8 mmol/L; Blood Urea Nitrogen 4 mg/dL (7-17); Calcium 7.9 mg/dL (8.4-10.2); Carbon Dioxide 19 mmol/L (22-30); Chloride 111 mmol/L (98-107); Glucose 77 mg/dL (74-99); Potassium 3.4 mmol/L (3.5-5.1); Sodium 138 mmol/L (137-145)
[2018-09-29] MEDS: QUEtiapine 200 MG TAB PO SCH ×2 (09:13→21:18)
[2018-09-29] MEDS: SUCRALFATE 1 GM TAB PO SCH ×2 (09:14→17:13)
[2018-09-29] MEDS: PANTOPRAZOLE 40 MG/10 ML VIAL IV SCH (09:15)
[2018-09-29] MEDS ORDERED: MAG HYDROX/AL HYDROX/SIMETH 30 ML, HYOSCYAMINE ELIXIR 10 ML, CIMETIDINE HCL 300 MG, LID... PO ONE ×4 (10:34)
--- NOTE | 2018-09-29 10:34 | P.PN ---
Subjective Progress Note Date: 09/29/18 CHIEF COMPLAINT: Abdominal pain HISTORY OF PRESENT ILLNESS: The patient is a 43-year-old female 14 months out from a sleeve gastrectomy. She still reports epigastric pain with swallowing. Carafate was added for her symptoms yesterday. ROS: No fevers or chills. No productive sputum PHYSICAL EXAM: VITAL SIGNS: Reviewed CONSTITUTIONAL: Well developed and in no acute distress. EYES: Conjuctivae without sclera icterus. Extraocular movements grossly intact. HEAD, EARS, NOSE, THROAT: Moist buccal mucosa. Head is atraumatic, normocephalic. Hears conversational speech. No nasal drainage. NECK: Supple. No thyroidomegaly. RESPIRATORY: Non-labored respirations and equal bilateral excursions. CARDIOVASCULAR: Palpable 2+ radial pulses. Regular rate. Regular rhythm. ABDOMEN: No peritonitis. Decreased tenderness at epigastrium. MUSCULOSKELETAL: No gross deformity of the lower extremities noted. No clubbing. No cyanosis. SKIN: Good skin turgor. Well perfused. NEUROLOGIC: Cranial nerves I through XII grossly intact. No focal or lateralizing signs. PSYCH: Appropriate affect. Alert and oriented to person, place and time. CLINCAL LABS: White blood cell count normal ASSESSMENT: 1. Epigastric pain 2. Left upper quadrant pain 3. Severe GERD PLAN: 1. Zantac syrup for pain 2. Viscous lidocaine also for severe GERD Objective - Vital Signs Vital signs: Vital Signs Temp 99.6 F 09/29/18 07:00 Pulse 89 09/29/18 07:00 Resp 17 09/29/18 07:00 BP 118/77 09/29/18 07:00 Pulse Ox 99 09/29/18 07:00 Intake & Output 09/28/18 09/29/18 09/29/18 18:59 06:59 18:59 Intake Total 1125 Balance 1125 Intake: Intake, IV Titration 725 Amount Piperacillin-Tazobactam 3 75 .375 gm In Sodium Chloride 0.9% 100 ml @ 25 mls/hr IVPB Q8HR [facility] Rx# :[id number] Sodium Chloride 0.9% 1, 650 000 ml @ 100 mls/hr IV . Q10H [facility] Rx#:[id number] Oral 400 Other: Voiding Method Toilet - Labs CBC & Chem 7: 09/29/18 06:31 09/29/18 06:31 Labs: Abnormal Lab Results - Last 24 Hours (Table) 09/29/18 09/29/18 Range/Units 06:31 06:31 RBC 3.36 L (3.80-5.40) m/uL Hgb 11.0 L (11.4-16.0) gm/dL Hct 32.5 L (34.0-46.0) % Potassium 3.4 L (3.5-5.1) mmol/L Chloride 111 H (98-107) mmol/L Carbon Dioxide 19 L (22-30) mmol/L BUN 4 L (7-17) mg/dL Calcium 7.9 L (8.4-10.2) mg/dL Microbiology - Last 24 Hours (Table) 09/26/18 15:41 Blood Culture - Preliminary Blood No Growth after 48 hours 09/26/18 09:18 Urine Culture - Final Urine,Voided Escherichia coli Assessment and Plan (1) History of sleeve gastrectomy Current Visit: Yes Status: Acute Code(s): Z90.3 - ACQUIRED ABSENCE OF STOMACH [PART OF] SNOMED Code(s): 333741638034008 (2) Epigastric pain Current Visit: Yes Status: Acute Code(s): R10.13 - EPIGASTRIC PAIN SNOMED Code(s): 90370994 (3) Gastroesophageal reflux disease Current Visit: Yes Status: Acute Code(s): K21.9 - GASTRO-ESOPHAGEAL REFLUX DISEASE WITHOUT ESOPHAGITIS SNOMED Code(s): 410852190 (4) Abnormal CT of the abdomen Current Visit: Yes Status: Acute Code(s): R93.5 - ABN FINDINGS ON DX IMAGING OF ABD REGIONS, INC RETROPERITON SNOMED Code(s): 35773286835199463
[2018-09-29] MEDS: RANITIDINE SYRUP 150 MG/10 ML CUP PO SCH (11:48)
[2018-09-29] MEDS: HYDROmorphone 1 MG/ML 1 ML SYRINGE IVP PRN ×3 (11:53→21:18)
[2018-09-30] MEDS: PIPERACILLIN-TAZOBACTAM 3.375 GM in SODIUM CHLORIDE 0.9% 100 ML IVPB SCH ×3 (00:55→16:39)
[2018-09-30] MEDS: SODIUM CHLORIDE 0.9% 1,000 ML IV SCH ×3 (02:16→21:17)
[2018-09-30] MEDS: PANTOPRAZOLE 40 MG/10 ML VIAL IV SCH (10:13)
[2018-09-30] MEDS: SUCRALFATE 1 GM TAB PO SCH ×2 (10:13→16:39)
[2018-09-30] MEDS: QUEtiapine 200 MG TAB PO SCH ×2 (10:14→21:17)
[2018-09-30] MEDS: RANITIDINE SYRUP 150 MG/10 ML CUP PO SCH (10:14)
[2018-09-30] MEDS: HYDROmorphone 1 MG/ML 1 ML SYRINGE IVP PRN ×3 (13:32→21:17)
--- NOTE | 2018-09-30 14:37 | P.PN ---
<Meka Betancourt - Last Filed: 09/30/18 14:30> Subjective Progress Note Date: 09/30/18 CHIEF COMPLAINT: Abdominal pain HISTORY OF PRESENT ILLNESS: Patient examined this morning at the bedside. She continues to report severe epigastric pain. She is tolerating small sips of water and Popsicles. She states it feels like she is swallowing glass. PHYSICAL EXAM: VITAL SIGNS: Reviewed GENERAL: Well-developed in no acute distress. HEENT: No sclera icterus. Extraocular movements grossly intact. Moist buccal mucosa. Head is atraumatic, normocephalic. Hears conversational speech. No nasal drainage. NECK: Supple without lymphadenopathy. CHEST: Non-labored respirations and equal bilateral excursions. CARDIOVASCULAR: Regular rate with regular rhythm. Palpable 2+ radial pulses. ABDOMEN: Soft. Nondistended. Tenderness upon palpation of epigastric region MUSCULOSKELETAL: No clubbing, cyanosis or edema. NEUROLOGIC: No focal or lateralizing signs. Cranial nerves II through XII grossly intact. PSYCH: Appropriate affect. Alert and oriented to person, place and time. SKIN: Well perfused. Good skin turgor. ASSESSMENT: 1. Abdominal pain 2. Inflammation of gastric sleeve 3. Severe GERD 4. Urinary tract infection, present on admission, culture positive for E. coli greater than 100,000 colonies 5. 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 NPO except ice chips, water, and popsicles until pain improves 2. Continue Protonix, Zantac, and carafate Nurse practitioner note has been reviewed by physician. Signing provider agrees with the documented findings, assessment, and plan of care. Objective - Vital Signs Vital signs: Vital Signs Temp 97.9 F 09/30/18 14:20 Pulse 78 09/30/18 14:20 Resp 17 09/30/18 14:20 BP 126/81 09/30/18 14:20 Pulse Ox 100 09/30/18 14:20 Intake & Output 09/29/18 09/30/18 09/30/18 18:59 06:59 18:59 Other: Voiding Method Toilet # Voids 2 - Labs CBC & Chem 7: 09/29/18 06:31 09/29/18 06:31 Labs: Microbiology - Last 24 Hours (Table) 09/26/18 15:41 Blood Culture - Preliminary Blood No Growth after 72 hours Assessment and Plan (1) Abdominal pain Current Visit: Yes Status: Acute Code(s): R10.9 - UNSPECIFIED ABDOMINAL PAIN SNOMED Code(s): 72152669 (2) Epigastric pain Current Visit: Yes Status: Acute Code(s): R10.13 - EPIGASTRIC PAIN SNOMED Code(s): 05934897 (3) Gastroesophageal reflux disease Current Visit: Yes Status: Acute Code(s): K21.9 - GASTRO-ESOPHAGEAL REFLUX DISEASE WITHOUT ESOPHAGITIS SNOMED Code(s): 547502109 (4) History of sleeve gastrectomy Current Visit: Yes Status: Acute Code(s): Z90.3 - ACQUIRED ABSENCE OF STOMACH [PART OF] SNOMED Code(s): 870773609455415 (5) UTI (urinary tract infection) Current Visit: Yes Status: Acute Code(s): N39.0 - URINARY TRACT INFECTION, SITE NOT SPECIFIED SNOMED Code(s): 02778106 <Meagan Castellon N - Last Filed: 10/03/18 16:41> Subjective May benefit from upper endoscopy for further assessment. Objective - Vital Signs Vital signs: Vital Signs Temp 97.3 F L 10/03/18 10:09 Pulse 71 10/03/18 10:09 Resp 15 10/03/18 10:09 BP 129/87 10/03/18 10:09 Pulse Ox 100 10/03/18 10:09 Intake & Output 10/02/18 10/03/18 10/03/18 18:59 06:59 18:59 Intake Total 540 2144 Balance 540 2144 Weight 65.5 kg Intake: IV 20 Intake, IV Titration 1804 Amount Fat Emulsion 20% 250 ml @ 168 21 mls/hr IV MoWeFr [facility] Rx#:[id number] Lactated Ringers 1,000 ml 625 @ 75 mls/hr IV .[id number] [facility] Rx#:[id number] Mvi, Adult No.4 with Vit 1011 K 10 ml Trace (Conc-1Ml/ Dose) 1 ml In Amino Acid 4.25%-D10w+Lytes*E* 1,000 ml @ 65 mls/hr IV . [id number] [facility] Rx#:[id number] Oral 540 320 Other: # Voids 2 1 2 - Labs CBC & Chem 7: 09/29/18 06:31 10/03/18 07:24 Labs: Abnormal Lab Results - Last 24 Hours (Table) 10/02/18 10/03/18 10/03/18 Range/Units 16:51 00:16 07:24 Potassium 3.3 L (3.5-5.1) mmol/L Chloride 108 H (98-107) mmol/L BUN 6 L (7-17) mg/dL POC Glucose (mg/dL) 111 H 175 H (75-99) mg/dL Calcium 8.2 L (8.4-10.2) mg/dL AST 12 L (14-36) U/L Total Protein 5.6 L (6.3-8.2) g/dL Albumin 2.9 L (3.5-5.0) g/dL 10/03/18 Range/Units 11:20 Potassium (3.5-5.1) mmol/L Chloride (98-107) mmol/L BUN (7-17) mg/dL POC Glucose (mg/dL) 109 H (75-99) mg/dL Calcium (8.4-10.2) mg/dL AST (14-36) U/L Total Protein (6.3-8.2) g/dL Albumin (3.5-5.0) g/dL Microbiology - Last 24 Hours (Table) 09/26/18 15:41 Blood Culture - Final Blood No Growth after 144 hours Assessment and Plan (1) History of sleeve gastrectomy Current Visit: Yes Status: Acute Code(s): Z90.3 - ACQUIRED ABSENCE OF STOMACH [PART OF] SNOMED Code(s): 601121654968822 (2) Epigastric pain Current Visit: Yes Status: Acute Code(s): R10.13 - EPIGASTRIC PAIN SNOMED Code(s): 49258166 (3) Gastroesophageal reflux disease Current Visit: Yes Status: Acute Code(s): K21.9 - GASTRO-ESOPHAGEAL REFLUX DISEASE WITHOUT ESOPHAGITIS SNOMED Code(s): 909788422 (4) Abnormal CT of the abdomen Current Visit: Yes Status: Acute Code(s): R93.5 - ABN FINDINGS ON DX IMAGING OF ABD REGIONS, INC RETROPERITON SNOMED Code(s): 08584152610883826
[2018-09-30] MEDS: LORazepam 1 MG TAB PO PRN (21:25)
[2018-10-01] MEDS: PIPERACILLIN-TAZOBACTAM 3.375 GM in SODIUM CHLORIDE 0.9% 100 ML IVPB SCH ×4 (00:55→23:41)
[2018-10-01] MEDS: SODIUM CHLORIDE 0.9% 1,000 ML IV SCH (09:55)
[2018-10-01] MEDS: SUCRALFATE 1 GM TAB PO SCH ×2 (09:55→17:24)
[2018-10-01] MEDS: RANITIDINE SYRUP 150 MG/10 ML CUP PO SCH (09:56)
[2018-10-01] MEDS: QUEtiapine 200 MG TAB PO SCH ×2 (09:56→21:38)
[2018-10-01] MEDS: PANTOPRAZOLE 40 MG/10 ML VIAL IV SCH (09:58)
[2018-10-01] MEDS: HYDROmorphone 1 MG/ML 1 ML SYRINGE IVP PRN ×3 (10:33→23:41)
[2018-10-01 10:59] LABS: ALT 26 U/L (9-52); AST 17 U/L (14-36); African American GFR (CKD) >90 (>60 ml/min/1.73 sqM); Albumin 2.7 g/dL (3.5-5.0); Alkaline Phosphatase 72 U/L (38-126); Anion Gap 5 mmol/L; Blood Urea Nitrogen 2 mg/dL (7-17); Calcium 7.8 mg/dL (8.4-10.2); Carbon Dioxide 26 mmol/L (22-30); Chloride 110 mmol/L (98-107); Glucose 80 mg/dL (74-99); Magnesium 1.9 mg/dL (1.6-2.3); Phosphorus 3.5 mg/dL (2.5-4.5); Potassium 3.4 mmol/L (3.5-5.1); Sodium 141 mmol/L (137-145); Total Bilirubin 0.4 mg/dL (0.2-1.3); Total Protein 5.3 g/dL (6.3-8.2); Triglycerides 72 mg/dL (<150)
--- NOTE | 2018-10-01 12:51 | P.PN ---
<Meka Betancourt A - Last Filed: 10/01/18 12:48> Subjective Progress Note Date: 10/01/18 CHIEF COMPLAINT: Abdominal pain HISTORY OF PRESENT ILLNESS: Patient examined this morning at the bedside. She continues to report severe epigastric pain. She is tolerating small sips of water and popsicles. She states it feels like she is swallowing glass. Vital signs stable. Afebrile. PHYSICAL EXAM: VITAL SIGNS: Reviewed GENERAL: Well-developed in no acute distress. HEENT: No sclera icterus. Extraocular movements grossly intact. Moist buccal mucosa. Head is atraumatic, normocephalic. Hears conversational speech. No nasal drainage. NECK: Supple without lymphadenopathy. CHEST: Non-labored respirations and equal bilateral excursions. CARDIOVASCULAR: Regular rate with regular rhythm. Palpable 2+ radial pulses. ABDOMEN: Soft. Nondistended. Tenderness upon palpation of epigastric region MUSCULOSKELETAL: No clubbing, cyanosis or edema. NEUROLOGIC: No focal or lateralizing signs. Cranial nerves II through XII grossly intact. PSYCH: Appropriate affect. Alert and oriented to person, place and time. SKIN: Well perfused. Good skin turgor. ASSESSMENT: 1. Abdominal pain 2. Inflammation of gastric sleeve 3. Severe GERD 4. Urinary tract infection, present on admission, culture positive for E. coli greater than 100,000 colonies 5. 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 NPO except ice chips, water, and popsicles until pain improves 2. Continue Protonix, Zantac, and carafate 3. Will discuss with Dr. Dave regarding possible EGD on 4. Okay to begin PPN secondary to inability to tolerate PO intake Nurse practitioner note has been reviewed by physician. Signing provider agrees with the documented findings, assessment, and plan of care. Objective - Vital Signs Vital signs: Vital Signs Temp 97.7 F 10/01/18 07:00 Pulse 79 10/01/18 07:00 Resp 15 10/01/18 07:00 BP 106/62 10/01/18 07:00 Pulse Ox 98 10/01/18 07:00 Intake & Output 09/30/18 10/01/18 10/01/18 18:59 06:59 18:59 Intake Total 800 1800 Balance 800 1800 Weight 63.004 kg 63.004 kg Intake: Intake, IV Titration 750 1800 Amount Piperacillin-Tazobactam 3 100 200 .375 gm In Sodium Chloride 0.9% 100 ml @ 25 mls/hr IVPB Q8HR [facility] Rx# :[id number] Sodium Chloride 0.9% 1, 650 1600 000 ml @ 100 mls/hr IV . Q10H [facility] Rx#:[id number] Oral 50 Other: Voiding Method Toilet # Voids 1 - Labs CBC & Chem 7: 09/29/18 06:31 10/01/18 10:37 Labs: Abnormal Lab Results - Last 24 Hours (Table) 10/01/18 Range/Units 10:37 Potassium 3.4 L (3.5-5.1) mmol/L Chloride 110 H (98-107) mmol/L BUN 2 L (7-17) mg/dL Calcium 7.8 L (8.4-10.2) mg/dL Total Protein 5.3 L (6.3-8.2) g/dL Albumin 2.7 L (3.5-5.0) g/dL Microbiology - Last 24 Hours (Table) 09/26/18 15:41 Blood Culture - Preliminary Blood No Growth after 96 hours Assessment and Plan (1) Abdominal pain Current Visit: Yes Status: Acute Code(s): R10.9 - UNSPECIFIED ABDOMINAL PAIN SNOMED Code(s): 48100992 (2) Epigastric pain Current Visit: Yes Status: Acute Code(s): R10.13 - EPIGASTRIC PAIN SNOMED Code(s): 30025904 (3) Gastroesophageal reflux disease Current Visit: Yes Status: Acute Code(s): K21.9 - GASTRO-ESOPHAGEAL REFLUX DISEASE WITHOUT ESOPHAGITIS SNOMED Code(s): 261701522 (4) History of sleeve gastrectomy Current Visit: Yes Status: Acute Code(s): Z90.3 - ACQUIRED ABSENCE OF STOMACH [PART OF] SNOMED Code(s): 316607397846888 (5) UTI (urinary tract infection) Current Visit: Yes Status: Acute Code(s): N39.0 - URINARY TRACT INFECTION, SITE NOT SPECIFIED SNOMED Code(s): 86493359 <Meagan Castellon - Last Filed: 10/03/18 16:42> Subjective She is still having epigastric pain despite current regimen. GI cocktail as needed added. Objective - Vital Signs Vital signs: Vital Signs Temp 97.3 F L 10/03/18 10:09 Pulse 71 10/03/18 10:09 Resp 15 10/03/18 10:09 BP 129/87 10/03/18 10:09 Pulse Ox 100 10/03/18 10:09 Intake & Output 10/02/18 10/03/18 10/03/18 18:59 06:59 18:59 Intake Total 540 2144 Balance 540 2144 Weight 65.5 kg Intake: IV 20 Intake, IV Titration 1804 Amount Fat Emulsion 20% 250 ml @ 168 21 mls/hr IV MoWeFr [facility] Rx#:[id number] Lactated Ringers 1,000 ml 625 @ 75 mls/hr IV .[id number] [facility] Rx#:[id number] Mvi, Adult No.4 with Vit 1011 K 10 ml Trace (Conc-1Ml/ Dose) 1 ml In Amino Acid 4.25%-D10w+Lytes*E* 1,000 ml @ 65 mls/hr IV . [id number] [facility] Rx#:[id number] Oral 540 320 Other: # Voids 2 1 2 - Labs CBC & Chem 7: 09/29/18 06:31 10/03/18 07:24 Labs: Abnormal Lab Results - Last 24 Hours (Table) 10/02/18 10/03/18 10/03/18 Range/Units 16:51 00:16 07:24 Potassium 3.3 L (3.5-5.1) mmol/L Chloride 108 H (98-107) mmol/L BUN 6 L (7-17) mg/dL POC Glucose (mg/dL) 111 H 175 H (75-99) mg/dL Calcium 8.2 L (8.4-10.2) mg/dL AST 12 L (14-36) U/L Total Protein 5.6 L (6.3-8.2) g/dL Albumin 2.9 L (3.5-5.0) g/dL 10/03/18 Range/Units 11:20 Potassium (3.5-5.1) mmol/L Chloride (98-107) mmol/L BUN (7-17) mg/dL POC Glucose (mg/dL) 109 H (75-99) mg/dL Calcium (8.4-10.2) mg/dL AST (14-36) U/L Total Protein (6.3-8.2) g/dL Albumin (3.5-5.0) g/dL Microbiology - Last 24 Hours (Table) 09/26/18 15:41 Blood Culture - Final Blood No Growth after 144 hours Assessment and Plan (1) History of sleeve gastrectomy Current Visit: Yes Status: Acute Code(s): Z90.3 - ACQUIRED ABSENCE OF STOMACH [PART OF] SNOMED Code(s): 013091979505043 (2) Epigastric pain Current Visit: Yes Status: Acute Code(s): R10.13 - EPIGASTRIC PAIN SNOMED Code(s): 39684885 (3) Gastroesophageal reflux disease Current Visit: Yes Status: Acute Code(s): K21.9 - GASTRO-ESOPHAGEAL REFLUX DISEASE WITHOUT ESOPHAGITIS SNOMED Code(s): 917243110 (4) Abnormal CT of the abdomen Current Visit: Yes Status: Acute Code(s): R93.5 - ABN FINDINGS ON DX IMAGING OF ABD REGIONS, INC RETROPERITON SNOMED Code(s): 51429974066428091
[2018-10-01] MEDS: MVI, ADULT NO.4 WITH VIT K 10 ML, TRACE (CONC-1ML/DOSE) 1 ML in AMINO ACID 4.25%-D10W+L... IV SCH ×3 (15:36)
--- NOTE | 2018-10-01 18:26 | P.CONS ---
History of Present Illness - Reason for Consult electrolyte abnormalities - History of Present Illness patient [id number] female was admitted with a left upper quadrant abdominal pain was believed to be secondary to inflammation may be infection of the gastric sleeve area because of which patient is on Zosyn at this time. Medicine was canceled it because of hyperkalemia and acidosis patient is rec eiving normal saline which will be switched to lactic lactated Ringer's. Patient denied any fever chills patient still has abdominal pain awaiting further recommendations from general surgery. Patient and dysuria. Review of Systems REVIEW OF SYSTEMS: CONSTITUTIONAL: No fever, no malaise, no fatigue. HEENT: No recent visual problems or hearing problems. Denied any sore throat. CARDIOVASCULAR: No chest pain, orthopnea, PND, no palpitations, no syncope. PULMONARY: No shortness of breath, no cough, no hemoptysis. GASTROINTESTINAL: No diarrhea, no nausea, no vomiting, NEUROLOGICAL: No headaches, no weakness, no numbness. HEMATOLOGICAL: Denies any bleeding or petechiae. GENITOURINARY: Denies any burning micturition, frequency, or urgency. MUSCULOSKELETAL/RHEUMATOLOGICAL: Denies any joint pain, swelling, or any muscle pain. ENDOCRINE: Denies any polyuria or polydipsia. The rest of the 14-point review of systems is negative. Past Medical History Past Medical History: Asthma, Hearing Disorder / Deafness, Hyperlipidemia, Musculoskeletal Disorder Additional Past Medical History / Comment(s): IBS, hx. kidney stones, DDD, RLS History of Any Multi-Drug Resistant Organisms: None Reported Past Surgical History: Back Surgery, Bariatric Surgery, Tubal Ligation, Uterine Ablation Additional Past Surgical History / Comment(s): D&C,DOUBLE DISC FUSION L3-L4-L5,Cervical Disc C6 replaced, STENTS KIDNEY STONES,LITHOTRIPSY, Left lateral epicondylitis sx, partial removal of cervix using cryotherapy, Gastric Sleeve 08/02/17 (Dr. Stan Shoemaker), Past Anesthesia/Blood Transfusion Reactions: No Reported Reaction Additional Past Anesthesia/Blood Transfusion Reaction / Comm: NEVER HAS HAD BLOOD TRANSFUSION Past Psychological History: Anxiety Smoking Status: Former smoker Past Alcohol Use History: None Reported Additional Past Alcohol Use History / Comment(s): STARTED SMOKING 1991, 1pp week. Quit smoking May 2016 Past Drug Use History: Marijuana - Past Family History Mother Family Medical History: Congestive Heart Failure (CHF), Diabetes Mellitus, Hypertension Father History Unknown: Yes Medications and Allergies Home Medications Medication Instructions Recorded Confirmed Type buPROPion XL [Wellbutrin XL] 150 mg PO DAILY 12/04/14 09/26/18 History ALPRAZolam [Xanax] 0.25 mg PO HS 05/31/15 09/26/18 History Albuterol Inhaler [Ventolin Hfa 1 - 2 puff INHALATION RT-Q6H PRN 06/04/17 09/26/18 History Inhaler] Ergocalciferol (Vitamin D2) 50,000 unit PO LONG 06/04/17 09/26/18 History [Vitamin D2] Baclofen [Lioresal] 20 mg PO BID 07/02/17 09/26/18 History Albuterol Nebulized [Ventolin 2.5 mg INHALATION RT-QID PRN 07/27/17 09/26/18 History Nebulized] Hydrochlorothiazide 25 mg PO DAILY PRN 07/27/17 09/26/18 History Hyoscyamine Sulfate [Levsin] 0.125 mg PO BID PRN 07/27/17 09/26/18 History tiZANidine [Zanaflex] 4 mg PO Q8H PRN 08/02/17 09/26/18 History Bisacodyl [Dulcolax] 5 mg PO DAILY PRN #10 tablet. 08/03/17 09/26/18 Rx Omeprazole 40 mg PO DAILY #60 capsule. 08/03/17 09/26/18 Rx Simethicone 40 mg/0.6 ml Drops 40 mg PO PCHS PRN #30 ml 08/03/17 09/26/18 Rx [Mylicon Drops] Atorvastatin Calcium [Lipitor] 20 mg PO HS 08/01/18 09/26/18 History Ondansetron [Zofran ODT] 4 mg PO Q8HR PRN #15 tab 08/01/18 09/26/18 Rx QUEtiapine FUMARATE [SEROquel XR] 400 mg PO HS 08/01/18 09/26/18 History Topiramate [Topamax] 100 mg PO BID 08/01/18 09/26/18 History Venlafaxine HCl ER [Effexor XR] 150 mg PO DAILY 08/01/18 09/26/18 History oxyCODONE-APAP 7.5-325MG [Percocet 1 tab PO Q8H PRN 08/01/18 09/26/18 History 7.5-325 mg] Ranitidine HCl 150 mg PO DAILY 08/20/18 09/26/18 History SUMAtriptan SUCCINATE [Imitrex] 50 mg PO DAILY 09/27/18 09/27/18 History Allergies Allergy/AdvReac Type Severity Reaction Status Date / Time No Known Allergies Allergy Verified 09/26/18 09:20 Physical Exam Vitals: Vital Signs Temp Pulse Resp BP Pulse Ox 10/01/18 14:21 97.6 F 63 17 105/68 98 10/01/18 07:00 97.7 F 79 15 106/62 98 10/01/18 02:00 97.9 F 70 18 123/85 98 09/30/18 19:05 98.1 F 95 18 126/78 98 Intake and Output 10/01/18 10/01/18 10/01/18 06:59 14:59 22:59 Intake Total 900 Balance 900 Intake: Intake, IV Titration 900 Amount Piperacillin-Tazobactam 3 100 .375 gm In Sodium Chloride 0.9% 100 ml @ 25 mls/hr IVPB Q8HR [facility] Rx# :[id number] Sodium Chloride 0.9% 1, 800 000 ml @ 100 mls/hr IV . Q10H [facility] Rx#:[id number] Other: Weight 63.004 kg PHYSICAL EXAMINATION: GENERAL: The patient is alert and oriented x3, not in any acute distress. Well developed, well nourished. HEENT: Pupils are round and equally reacting to light. EOMI. No scleral icterus. No conjunctival pallor. Normocephalic, atraumatic. No pharyngeal erythema. No thyromegaly. CARDIOVASCULAR: S1 and S2 present. No murmurs, rubs, or gallops. PULMONARY: Chest is clear to auscultation, no wheezing or crackles. ABDOMEN: abdomen is soft minimal tenderness in the left upper quadrant area patient has scars consistent with significant loss of weight from her gastric sleeve surgery no suprapubic pain. MUSCULOSKELETAL: No joint swelling or deformity. EXTREMITIES: No cyanosis, clubbing, or pedal edema. NEUROLOGICAL: Gross neurological examination did not reveal any focal deficits. SKIN: No rashes. Results CBC & Chem 7: 09/29/18 06:31 10/01/18 10:37 Labs: Abnormal Lab Results - Last 24 Hours (Table) 10/01/18 Range/Units 10:37 Potassium 3.4 L (3.5-5.1) mmol/L Chloride 110 H (98-107) mmol/L BUN 2 L (7-17) mg/dL Calcium 7.8 L (8.4-10.2) mg/dL Total Protein 5.3 L (6.3-8.2) g/dL Albumin 2.7 L (3.5-5.0) g/dL Microbiology - Last 24 Hours (Table) 09/26/18 15:41 Blood Culture - Preliminary Blood No Growth after 96 hours Assessment and Plan Plan: -non-anion gap gap metabolic acidosis and hyperkalemia: Secondary to normal saline which will be switched to lactated Ringer's asymptomatic bacteriuria: Patient will not require any antibiotics for this but patient is oriented Zosyn for her hospital abdominal infection -hypokalemia: Natriuretic hypokalemia we'll recheck a basic metabolic profile tomorrow with lactated Ringer's and depending on the the serum potassium will replace it as needed -possible intra-abdominal infection: Zosyn as mentioned above -Asthma without any acute exacerbation -Hyperlipidemia
[2018-10-01] MEDS: LACTATED RINGERS 1,000 ML IV SCH (19:56)
[2018-10-01] MEDS: LORazepam 1 MG TAB PO PRN (23:41)
[2018-10-01] MEDS: INSULIN ASPART (NovoLOG) 100 UNIT/ML VIAL SQ SCH (23:47)
[2018-10-01 23:49] LABS: Glucose,Whole Blood 95 mg/dL (75-99)
[2018-10-02] MEDS: LACTATED RINGERS 1,000 ML IV SCH ×2 (04:09→19:18)
[2018-10-02 06:05] LABS: Glucose,Whole Blood 96 mg/dL (75-99)
[2018-10-02] MEDS: INSULIN ASPART (NovoLOG) 100 UNIT/ML VIAL SQ SCH ×3 (06:37→17:31)
[2018-10-02 07:58] LABS: ALT 20 U/L (9-52); AST 13 U/L (14-36); African American GFR (CKD) >90 (>60 ml/min/1.73 sqM); Albumin 2.7 g/dL (3.5-5.0); Alkaline Phosphatase 62 U/L (38-126); Anion Gap 6 mmol/L; Blood Urea Nitrogen 4 mg/dL (7-17); Carbon Dioxide 27 mmol/L (22-30); Chloride 108 mmol/L (98-107); Glucose 95 mg/dL (74-99); Phosphorus 4.2 mg/dL (2.5-4.5); Potassium 3.2 mmol/L (3.5-5.1); Sodium 141 mmol/L (137-145); Total Bilirubin 0.4 mg/dL (0.2-1.3); Total Protein 5.4 g/dL (6.3-8.2)
[2018-10-02] MEDS: SUCRALFATE 1 GM TAB PO SCH ×2 (09:41→17:30)
[2018-10-02] MEDS: QUEtiapine 200 MG TAB PO SCH ×2 (09:41→20:51)
[2018-10-02] MEDS: HYDROmorphone 1 MG/ML 1 ML SYRINGE IVP PRN ×3 (09:41→22:04)
[2018-10-02] MEDS: PANTOPRAZOLE 40 MG/10 ML VIAL IV SCH (09:41)
[2018-10-02] MEDS: PIPERACILLIN-TAZOBACTAM 3.375 GM in SODIUM CHLORIDE 0.9% 100 ML IVPB SCH ×2 (09:42→16:22)
[2018-10-02] MEDS: FAT EMULSION 20% 250 ML IV SCH (10:07)
[2018-10-02] MEDS: RANITIDINE SYRUP 150 MG/10 ML CUP PO SCH (10:08)
[2018-10-02 12:06] LABS: Glucose,Whole Blood 129 mg/dL (75-99)
--- NOTE | 2018-10-02 12:36 | P.PN ---
Subjective Patient still has right upper quadrant abdominal pain beyond that no overnight events and patient will obtain lites are improving continue with present fluids. Constitutional: Denied any fatigue denied any fever. Cardio vascular: denied any chest pain, palpitations Gastrointestinal denied any nausea vomiting Pulmonary: Denied any shortness of breath cough Neurologic denied any new focal deficits All inpatient medications were reviewed and appropriate changes in these medications as dictated in the interval history and assessment and plan. Objective - Vital Signs Vital signs: Vital Signs Temp 98.1 F 10/02/18 07:00 Pulse 65 10/02/18 07:00 Resp 16 10/02/18 07:00 BP 119/78 10/02/18 07:00 Pulse Ox 98 10/02/18 07:00 Intake & Output 10/01/18 10/02/18 10/02/18 18:59 06:59 18:59 Intake Total 750 1590 Balance 750 1590 Weight 63.004 kg 65.3 kg Intake: Intake, IV Titration 750 1350 Amount Lactated Ringers 1,000 ml 750 @ 75 mls/hr IV .[id number] [facility] Rx#:[id number] Mvi, Adult No.4 with Vit 500 K 10 ml Trace (Conc-1Ml/ Dose) 1 ml In Amino Acid 4.25%-D10w+Lytes*E* 1,000 ml @ 50 mls/hr IV . [id number] [facility] Rx#:[id number] Piperacillin-Tazobactam 3 100 100 .375 gm In Sodium Chloride 0.9% 100 ml @ 25 mls/hr IVPB Q8HR [facility] Rx# :[id number] Sodium Chloride 0.9% 1, 650 000 ml @ 100 mls/hr IV . Q10H [facility] Rx#:[id number] Oral 0 240 Other: # Voids 3 - Exam PHYSICAL EXAMINATION: GENERAL: The patient is alert and oriented x3, not in any acute distress. Well developed, well nourished. HEENT: Pupils are round and equally reacting to light. EOMI. No scleral icterus. No conjunctival pallor. Normocephalic, atraumatic. No pharyngeal erythema. No thyromegaly. CARDIOVASCULAR: S1 and S2 present. No murmurs, rubs, or gallops. PULMONARY: Chest is clear to auscultation, no wheezing or crackles. ABDOMEN: abdomen is soft minimal tenderness in the left upper quadrant area patient has scars consistent with significant loss of weight from her gastric sleeve surgery no suprapubic pain. MUSCULOSKELETAL: No joint swelling or deformity. EXTREMITIES: No cyanosis, clubbing, or pedal edema. NEUROLOGICAL: Gross neurological examination did not reveal any focal deficits. SKIN: No rashes. - Labs CBC & Chem 7: 09/29/18 06:31 10/02/18 07:18 Labs: Abnormal Lab Results - Last 24 Hours (Table) 10/01/18 10/02/18 10/02/18 Range/Units 10:17 07:18 11:54 Potassium 3.2 L (3.5-5.1) mmol/L Chloride 108 H (98-107) mmol/L BUN 4 L (7-17) mg/dL POC Glucose (mg/dL) 129 H (75-99) mg/dL Calcium 7.9 L 8.0 L (8.4-10.2) mg/dL AST 13 L (14-36) U/L Total Protein 5.4 L (6.3-8.2) g/dL Albumin 2.7 L (3.5-5.0) g/dL Microbiology - Last 24 Hours (Table) 09/26/18 15:41 Blood Culture - Preliminary Blood No Growth after 120 hours Assessment and Plan Plan: -non-anion gap gap metabolic acidosis and hypochloremia: Proven now after switching to lactated Ringer's asymptomatic bacteriuria: Patient will not require any antibiotics for this but patient is oriented Zosyn for her hospital abdominal infection -hypokalemia: Natriuretic hypokalemia, replace potassium as needed -possible intra-abdominal infection: Zosyn as mentioned above -Asthma without any acute exacerbation -Hyperlipidemia
--- NOTE | 2018-10-02 12:58 | P.PN ---
<Meka Betancourt A - Last Filed: 10/02/18 12:53> Subjective Progress Note Date: 10/02/18 CHIEF COMPLAINT: Abdominal pain HISTORY OF PRESENT ILLNESS: Patient examined this morning at the bedside. She continues to report severe epigastric pain but states it is slightly improved this morning. She is tolerating small sips of water and popsicles. PPN infusing. Vital signs stable. Afebrile. PHYSICAL EXAM: VITAL SIGNS: Reviewed GENERAL: Well-developed in no acute distress. HEENT: No sclera icterus. Extraocular movements grossly intact. Moist buccal mucosa. Head is atraumatic, normocephalic. Hears conversational speech. No nasal drainage. NECK: Supple without lymphadenopathy. CHEST: Non-labored respirations and equal bilateral excursions. CARDIOVASCULAR: Regular rate with regular rhythm. Palpable 2+ radial pulses. ABDOMEN: Soft. Nondistended. Tenderness upon palpation of epigastric region MUSCULOSKELETAL: No clubbing, cyanosis or edema. NEUROLOGIC: No focal or lateralizing signs. Cranial nerves II through XII grossly intact. PSYCH: Appropriate affect. Alert and oriented to person, place and time. SKIN: Well perfused. Good skin turgor. ASSESSMENT: 1. Abdominal pain 2. Inflammation of gastric sleeve 3. Severe GERD 4. Urinary tract infection, present on admission, culture positive for E. coli greater than 100,000 colonies 5. 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 NPO except ice chips, water, and popsicles 2. Continue Protonix, Zantac, and carafate 3. Continue PPN 4. Strict NPO at midnight. EGD to be performed tomorrow with Dr. Dave Nurse practitioner note has been reviewed by physician. Signing provider agrees with the documented findings, assessment, and plan of care. Objective - Vital Signs Vital signs: Vital Signs Temp 98.1 F 10/02/18 07:00 Pulse 65 10/02/18 07:00 Resp 16 10/02/18 07:00 BP 119/78 10/02/18 07:00 Pulse Ox 98 10/02/18 07:00 Intake & Output 10/01/18 10/02/18 10/02/18 18:59 06:59 18:59 Intake Total 750 1590 Balance 750 1590 Weight 63.004 kg 65.3 kg Intake: Intake, IV Titration 750 1350 Amount Lactated Ringers 1,000 ml 750 @ 75 mls/hr IV .[id number] [facility] Rx#:[id number] Mvi, Adult No.4 with Vit 500 K 10 ml Trace (Conc-1Ml/ Dose) 1 ml In Amino Acid 4.25%-D10w+Lytes*E* 1,000 ml @ 50 mls/hr IV . [id number] [facility] Rx#:[id number] Piperacillin-Tazobactam 3 100 100 .375 gm In Sodium Chloride 0.9% 100 ml @ 25 mls/hr IVPB Q8HR [facility] Rx# :[id number] Sodium Chloride 0.9% 1, 650 000 ml @ 100 mls/hr IV . Q10H [facility] Rx#:[id number] Oral 0 240 Other: # Voids 3 - Labs CBC & Chem 7: 09/29/18 06:31 10/02/18 07:18 Labs: Abnormal Lab Results - Last 24 Hours (Table) 10/01/18 10/02/18 10/02/18 Range/Units 10:17 07:18 11:54 Potassium 3.2 L (3.5-5.1) mmol/L Chloride 108 H (98-107) mmol/L BUN 4 L (7-17) mg/dL POC Glucose (mg/dL) 129 H (75-99) mg/dL Calcium 7.9 L 8.0 L (8.4-10.2) mg/dL AST 13 L (14-36) U/L Total Protein 5.4 L (6.3-8.2) g/dL Albumin 2.7 L (3.5-5.0) g/dL Microbiology - Last 24 Hours (Table) 09/26/18 15:41 Blood Culture - Preliminary Blood No Growth after 120 hours Assessment and Plan (1) Abdominal pain Current Visit: Yes Status: Acute Code(s): R10.9 - UNSPECIFIED ABDOMINAL PAIN SNOMED Code(s): 03439252 (2) Epigastric pain Current Visit: Yes Status: Acute Code(s): R10.13 - EPIGASTRIC PAIN SNOMED Code(s): 45929439 (3) Gastroesophageal reflux disease Current Visit: Yes Status: Acute Code(s): K21.9 - GASTRO-ESOPHAGEAL REFLUX DISEASE WITHOUT ESOPHAGITIS SNOMED Code(s): 870264051 (4) History of sleeve gastrectomy Current Visit: Yes Status: Acute Code(s): Z90.3 - ACQUIRED ABSENCE OF STOMAC H [PART OF] SNOMED Code(s): 558920274605574 (5) UTI (urinary tract infection) Current Visit: Yes Status: Acute Code(s): N39.0 - URINARY TRACT INFECTION, SITE NOT SPECIFIED SNOMED Code(s): 82477629 <Cande,Karen N - Last Filed: 10/03/18 16:43> Subjective Recommend proceeding with EGD for tomorrow for her symptoms. Objective - Vital Signs Vital signs: Vital Signs Temp 97.3 F L 10/03/18 10:09 Pulse 71 10/03/18 10:09 Resp 15 10/03/18 10:09 BP 129/87 10/03/18 10:09 Pulse Ox 100 10/03/18 10:09 Intake & Output 10/02/18 10/03/18 10/03/18 18:59 06:59 18:59 Intake Total 540 2144 Balance 540 2144 Weight 65.5 kg Intake: IV 20 Intake, IV Titration 1804 Amount Fat Emulsion 20% 250 ml @ 168 21 mls/hr IV MoWeFr [facility] Rx#:[id number] Lactated Ringers 1,000 ml 625 @ 75 mls/hr IV .[id number] [facility] Rx#:[id number] Mvi, Adult No.4 with Vit 1011 K 10 ml Trace (Conc-1Ml/ Dose) 1 ml In Amino Acid 4.25%-D10w+Lytes*E* 1,000 ml @ 65 mls/hr IV . [id number] [facility] Rx#:[id number] Oral 540 320 Other: # Voids 2 1 2 - Labs CBC & Chem 7: 09/29/18 06:31 10/03/18 07:24 Labs: Abnormal Lab Results - Last 24 Hours (Table) 10/02/18 10/03/18 10/03/18 Range/Units 16:51 00:16 07:24 Potassium 3.3 L (3.5-5.1) mmol/L Chloride 108 H (98-107) mmol/L BUN 6 L (7-17) mg/dL POC Glucose (mg/dL) 111 H 175 H (75-99) mg/dL Calcium 8.2 L (8.4-10.2) mg/dL AST 12 L (14-36) U/L Total Protein 5.6 L (6.3-8.2) g/dL Albumin 2.9 L (3.5-5.0) g/dL 10/03/18 Range/Units 11:20 Potassium (3.5-5.1) mmol/L Chloride (98-107) mmol/L BUN (7-17) mg/dL POC Glucose (mg/dL) 109 H (75-99) mg/dL Calcium (8.4-10.2) mg/dL AST (14-36) U/L Total Protein (6.3-8.2) g/dL Albumin (3.5-5.0) g/dL Microbiology - Last 24 Hours (Table) 09/26/18 15:41 Blood Culture - Final Blood No Growth after 144 hours Assessment and Plan (1) History of sleeve gastrectomy Current Visit: Yes Status: Acute Code(s): Z90.3 - ACQUIRED ABSENCE OF STOMACH [PART OF] SNOMED Code(s): 462861190371868 (2) Epigastric pain Current Visit: Yes Status: Acute Code(s): R10.13 - EPIGASTRIC PAIN SNOMED Code(s): 48669997 (3) Gastroesophageal reflux disease Current Visit: Yes Status: Acute Code(s): K21.9 - GASTRO-ESOPHAGEAL REFLUX DISEASE WITHOUT ESOPHAGITIS SNOMED Code(s): 619392537 (4) Abnormal CT of the abdomen Current Visit: Yes Status: Acute Code(s): R93.5 - ABN FINDINGS ON DX IMAGING OF ABD REGIONS, INC RETROPERITON SNOMED Code(s): 46213445429517696
[2018-10-02] MEDS: POTASSIUM CHLORIDE 10 MEQ in WATER FOR INJECTION 1 100ML.BAG IVPB SCH ×4 (15:31→23:05)
[2018-10-02] MEDS: MVI, ADULT NO.4 WITH VIT K 10 ML, TRACE (CONC-1ML/DOSE) 1 ML in AMINO ACID 4.25%-D10W+L... IV SCH ×6 (15:32→16:22)
[2018-10-02 17:02] LABS: Glucose,Whole Blood 111 mg/dL (75-99)
[2018-10-02] MEDS ORDERED: LACTATED RINGERS 1,000 ML IV SCH (17:33)
[2018-10-02] MEDS: LORazepam 1 MG TAB PO PRN (22:04)
[2018-10-03] MEDS: INSULIN ASPART (NovoLOG) 100 UNIT/ML VIAL SQ SCH ×4 (00:21→18:07)
[2018-10-03 00:46] LABS: Glucose,Whole Blood 175 mg/dL (75-99)
[2018-10-03] MEDS: PIPERACILLIN-TAZOBACTAM 3.375 GM in SODIUM CHLORIDE 0.9% 100 ML IVPB SCH ×2 (01:24→08:35)
[2018-10-03] MEDS: SUCRALFATE 1 GM TAB PO SCH ×2 (07:44→18:06)
[2018-10-03] MEDS: QUEtiapine 200 MG TAB PO SCH ×2 (07:45→22:37)
[2018-10-03 08:07] LABS: ALT 19 U/L (9-52); AST 12 U/L (14-36); African American GFR (CKD) >90 (>60 ml/min/1.73 sqM); Albumin 2.9 g/dL (3.5-5.0); Alkaline Phosphatase 57 U/L (38-126); Anion Gap 7 mmol/L; Blood Urea Nitrogen 6 mg/dL (7-17); Calcium 8.2 mg/dL (8.4-10.2); Carbon Dioxide 26 mmol/L (22-30); Chloride 108 mmol/L (98-107); Glucose 84 mg/dL (74-99); Phosphorus 4.5 mg/dL (2.5-4.5); Potassium 3.3 mmol/L (3.5-5.1); Sodium 141 mmol/L (137-145); Total Bilirubin 0.5 mg/dL (0.2-1.3); Total Protein 5.6 g/dL (6.3-8.2)
[2018-10-03] MEDS: PANTOPRAZOLE 40 MG/10 ML VIAL IV SCH (08:35)
[2018-10-03] MEDS ORDERED: IV FLUID CONTINUATION 1,000 ML IV ONE (09:33)
[2018-10-03] MEDS ORDERED: PROPOFOL 10 MG/ML 20 ML VIAL IV ONE (09:38)
[2018-10-03] MEDS ORDERED: LIDOCAINE 1% INJ 10MG/ML (20 ML MDV) ONE (09:38)
--- NOTE | 2018-10-03 09:51 | P.OP ---
Date of Procedure: 10/03/18 Preoperative Diagnosis: Gastritis Postoperative Diagnosis: Mild antral gastritis No evidence of gastric sleeve obstruction. No evidence of peptic ulcer disease Esophagitis Procedure(s) Performed: EGD Anesthesia: MAC Surgeon: Stan Dave Pathology: other (Antrum) Condition: stable Disposition: PACU Description of Procedure: The patient's placed on the endoscopy table in the lateral position. She received IV sedation. The gastroscope placed oropharynx passed in the esophagus and stomach. Scope some placed through the pylorus. The first and second portion of the duodenum appeared normal. Scope was then brought back the antrum this. Mildly inflamed. A biopsies performed. The scope was then brought back through the gastric sleeve. There is known to any inflammation or ulcers the gastric sleeve. There is no significant any obstruction of the sleeve. The scope was brought back slowly GE junction there is some mild esophagitis. The proximal esophagus appeared normal. Scope was withdrawn for patient.
[2018-10-03] MEDS: MVI, ADULT NO.4 WITH VIT K 10 ML, TRACE (CONC-1ML/DOSE) 1 ML in AMINO ACID 4.25%-D10W+L... IV SCH ×3 (10:59)
[2018-10-03] MEDS: LACTATED RINGERS 1,000 ML with POTASSIUM CHLORIDE 40 MEQ IV SCH ×2 (10:59)
[2018-10-03] MEDS: RANITIDINE SYRUP 150 MG/10 ML CUP PO SCH (11:00)
[2018-10-03] MEDS: HYDROmorphone 1 MG/ML 1 ML SYRINGE IVP PRN (11:00)
[2018-10-03 11:31] LABS: Glucose,Whole Blood 109 mg/dL (75-99)
[2018-10-03] MEDS: LACTATED RINGERS 1,000 ML IV SCH (12:01)
--- NOTE | 2018-10-03 13:15 | P.PN ---
Subjective Patient still has right upper quadrant abdominal pain beyond that no overnight events and patient will obtain lites are improving continue with present fluids. 10/03/2018 Patient still has after upper quadrant pain. Patient on and upper GI endoscopy which showed inflammation of the gastric sleeve area. Patient is complaining of vaginal candidiasis from IV antibiotics patient will be started on, so the patient is not being discharged on antibiotics tomorrow patient can receive another dose of flucanazole and can be discharged home patient will be started on diet if she is able to tolerate diet patient will be discharged tomorrow as per general surgery Constitutional: Denied any fatigue denied any fever. Cardio vascular: denied any chest pain, palpitations Gastrointestinal denied any nausea vomiting Pulmonary: Denied any shortness of breath cough Neurologic denied any new focal deficits All inpatient medications were reviewed and appropriate changes in these medications as dictated in the interval history and assessment and plan. Objective - Vital Signs Vital signs: Vital Signs Temp 97.3 F L 10/03/18 10:09 Pulse 71 10/03/18 10:09 Resp 15 10/03/18 10:09 BP 129/87 10/03/18 10:09 Pulse Ox 100 10/03/18 10:09 Intake & Output 10/02/18 10/03/18 10/03/18 18:59 06:59 18:59 Intake Total 540 1031 Balance 540 1031 Weight 65.5 kg Intake: IV 20 Intake, IV Titration 1011 Amount Mvi, Adult No.4 with Vit 1011 K 10 ml Trace (Conc-1Ml/ Dose) 1 ml In Amino Acid 4.25%-D10w+Lytes*E* 1,000 ml @ 65 mls/hr IV . [id number] [facility] Rx#:[id number] Oral 540 Other: # Voids 2 1 - Exam PHYSICAL EXAMINATION: GENERAL: The patient is alert and oriented x3, not in any acute distress. Well developed, well nourished. HEENT: Pupils are round and equally reacting to light. EOMI. No scleral icterus. No conjunctival pallor. Normocephalic, atraumatic. No pharyngeal erythema. No thyromegaly. CARDIOVASCULAR: S1 and S2 present. No murmurs, rubs, or gallops. PULMONARY: Chest is clear to auscultation, no wheezing or crackles. ABDOMEN: abdomen is soft minimal tenderness in the left upper quadrant area patient has scars consistent with significant loss of weight from her gastric sleeve surgery no suprapubic pain. MUSCULOSKELETAL: No joint swelling or deformity. EXTREMITIES: No cyanosis, clubbing, or pedal edema. NEUROLOGICAL: Gross neurological examination did not reveal any focal deficits. SKIN: No rashes. - Labs CBC & Chem 7: 09/29/18 06:31 10/03/18 07:24 Labs: Abnormal Lab Results - Last 24 Hours (Table) 10/02/18 10/03/18 10/03/18 Range/Units 16:51 00:16 07:24 Potassium 3.3 L (3.5-5.1) mmol/L Chloride 108 H (98-107) mmol/L BUN 6 L (7-17) mg/dL POC Glucose (mg/dL) 111 H 175 H (75-99) mg/dL Calcium 8.2 L (8.4-10.2) mg/dL AST 12 L (14-36) U/L Total Protein 5.6 L (6.3-8.2) g/dL Albumin 2.9 L (3.5-5.0) g/dL 10/03/18 Range/Units 11:20 Potassium (3.5-5.1) mmol/L Chloride (98-107) mmol/L BUN (7-17) mg/dL POC Glucose (mg/dL) 109 H (75-99) mg/dL Calcium (8.4-10.2) mg/dL AST (14-36) U/L Total Protein (6.3-8.2) g/dL Albumin (3.5-5.0) g/dL Microbiology - Last 24 Hours (Table) 09/26/18 15:41 Blood Culture - Final Blood No Growth after 144 hours Assessment and Plan Plan: -non-anion gap gap metabolic acidosis and hypochloremia: Proven now after switching to lactated Ringer's, improved now asymptomatic bacteriuria: Patient will not require any antibiotics for this but patient is oriented Zosyn for her hospital abdominal infection -hypokalemia: Natriuretic hypokalemia, replace potassium as needed -possible intra-abdominal infection: Zosyn as mentioned above and patient mostly appears to have inflammation of the gastric sleeve rather than infection will not require any antibiotics upon discharge -Vaginal candidiasis from IV antibiotics flucanazole as mentioned above -Asthma without any acute exacerbation -Hyperlipidemia
[2018-10-03] MEDS: LORazepam 1 MG TAB PO PRN (13:56)
[2018-10-03] MEDS: VENLAFAXINE HCL ER 150 MG CAP PO SCH (15:00)
[2018-10-03] MEDS: FLUCONAZOLE 100 MG TAB PO SCH (15:00)
[2018-10-03] MEDS: buPROPion XL 150 MG TAB.ER.24H PO SCH (15:00)
[2018-10-03 17:44] LABS: Glucose,Whole Blood 92 mg/dL (75-99)
[2018-10-04] MEDS: PIPERACILLIN-TAZOBACTAM 3.375 GM in SODIUM CHLORIDE 0.9% 100 ML IVPB SCH ×3 (00:03→09:36)
[2018-10-04] MEDS: MVI, ADULT NO.4 WITH VIT K 10 ML, TRACE (CONC-1ML/DOSE) 1 ML in AMINO ACID 4.25%-D10W+L... IV SCH ×3 (00:27)
[2018-10-04] MEDS: HYDROmorphone 1 MG/ML 1 ML SYRINGE IVP PRN ×2 (00:33→09:34)
[2018-10-04] MEDS: INSULIN ASPART (NovoLOG) 100 UNIT/ML VIAL SQ SCH ×2 (00:37→06:42)
[2018-10-04] MEDS: LACTATED RINGERS 1,000 ML IV SCH ×2 (00:37→11:28)
[2018-10-04] MEDS: POTASSIUM CHLORIDE 10 MEQ in WATER FOR INJECTION 1 100ML.BAG IVPB SCH ×2 (02:31→02:32)
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
[2018-10-04] MEDS ORDERED: POTASSIUM CHLORIDE ER 20 MEQ TAB.ER PO STA (08:08)
[2018-10-04] MEDS: FAT EMULSION 20% 250 ML IV SCH (09:26)
[2018-10-04] MEDS: PANTOPRAZOLE 40 MG/10 ML VIAL IV SCH (09:33)
[2018-10-04] MEDS: QUEtiapine 200 MG TAB PO SCH (09:35)
[2018-10-04] MEDS: FLUCONAZOLE 100 MG TAB PO SCH (09:35)
[2018-10-04] MEDS: VENLAFAXINE HCL ER 150 MG CAP PO SCH (09:35)
[2018-10-04] MEDS: buPROPion XL 150 MG TAB.ER.24H PO SCH (09:35)
[2018-10-04] MEDS: RANITIDINE SYRUP 150 MG/10 ML CUP PO SCH (09:36)
[2018-10-04] MEDS: SUCRALFATE 1 GM TAB PO SCH (09:36)
[2018-10-04 09:39] LABS: ALT 13 U/L (9-52); AST 12 U/L (14-36); African American GFR (CKD) >90 (>60 ml/min/1.73 sqM); Albumin 3.1 g/dL (3.5-5.0); Alkaline Phosphatase 67 U/L (38-126); Anion Gap 8 mmol/L; Blood Urea Nitrogen 9 mg/dL (7-17); Calcium 8.6 mg/dL (8.4-10.2); Carbon Dioxide 27 mmol/L (22-30); Chloride 108 mmol/L (98-107); Glucose 74 mg/dL (74-99); Magnesium 2.2 mg/dL (1.6-2.3); Phosphorus 5.4 mg/dL (2.5-4.5); Potassium 3.4 mmol/L (3.5-5.1); Sodium 143 mmol/L (137-145); Total Bilirubin 0.3 mg/dL (0.2-1.3); Total Protein 5.9 g/dL (6.3-8.2)
[2018-10-04 11:21] VITALS: RESP 16
[2018-10-04] MEDS: LACTATED RINGERS 1,000 ML with POTASSIUM CHLORIDE 40 MEQ IV SCH ×2 (11:27)
--- NOTE | 2018-10-04 14:03 | P.DS ---
Providers Date of admission: 09/29/18 07:55 Expected date of discharge: 10/04/18 Attending physician: Stan Dave Consults: 10/01/18 12:50 Consult Physician Routine Consulting Provider: Jessee Arellano Consult Reason/Comments: medical management Do you want consulting provider notified?: Yes 10/03/18 14:07 Consult Physician Urgent Consulting Provider: Ryan Ba Consult Reason/Comments: sucidal thoughts,depression Do you want consulting provider notified?: Yes Primary care physician: Kain Lowery - Discharge Diagnosis(es) (1) Abdominal pain Current Visit: Yes Status: Acute (2) Epigastric pain Current Visit: Yes Status: Acute (3) Gastroesophageal reflux disease Current Visit: Yes Status: Acute (4) History of sleeve gastrectomy Current Visit: Yes Status: Acute (5) UTI (urinary tract infection) Current Visit: Yes Status: Acute Hospital Course: 43-year-old female who has a history of sleeve gastrectomy who originally presented to the emergency room with a chief complaint of nausea, dysphasia, and epigastric pain. CAT scan was completed in the emergency room revealing possible abscess, leak, or hematoma along the patient staple line. Dr. Dave believed there was inflammation of her gastric sleeve. Patient was placed on IV antibiotics. WBC has improved and within normal limits for last several days. Patient continued to report severe epigastric pain and dysphasia. She reported that it felt like she is swallowing glass. patient was placed on a variety of medications which she reported slow improvement. She underwent EGD on 10/03/2018 revealing mild antral gastritis and esophagitis. No evidence of gastric sleeve obstruction or peptic ulcer disease. Patient verbalized depression and thoughts of suicidal ideation to nursing staff. Psychiatry was consulted who recommends inpatient psychiatric admission. Patient is medically cleared for discharge to inpatient psych unit. Patient is to continue Carafate, simethicone, omeprazole, and ranitidine. She is to follow up with Dr. Dave in one week. Patient also had recent HIDA scan revealing ejection fraction 32%. Patient to undergo laparoscopic cholecystectomy in the future and this will be discussed further at her follow-up appointment with Dr. Dave. Please see EMR for further hospital course details. Discharge Diagnosis: 1. Abdominal pain 2. Inflammation of gastric sleeve 3. Severe GERD 4. Urinary tract infection, present on admission, culture positive for E. coli greater than 100,000 colonies 5. 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 Signing provider agrees with the documented findings, assessment, and plan of care. Patient Condition at Discharge: Stable Plan - Discharge Summary New Discharge Prescriptions: New Sucralfate [Carafate] 1 gm PO AC-BID #60 tab Continue Simethicone 40 mg/0.6 ml Drops [Mylicon Drops] 40 mg PO PCHS PRN #30 ml PRN Reason: Gas Omeprazole 40 mg PO DAILY #60 capsule. Ranitidine HCl 150 mg PO DAILY No Action buPROPion XL [Wellbutrin XL] 150 mg PO DAILY ALPRAZolam [Xanax] 0.25 mg PO HS Ergocalciferol (Vitamin D2) [Vitamin D2] 50,000 unit PO LONG Albuterol Inhaler [Ventolin Hfa Inhaler] 1 - 2 puff INHALATION RT-Q6H PRN PRN Reason: Bronchospasm Baclofen [Lioresal] 20 mg PO BID Hydrochlorothiazide 25 mg PO DAILY PRN PRN Reason: Edema Albuterol Nebulized [Ventolin Nebulized] 2.5 mg INHALATION RT-QID PRN PRN Reason: Shortness Of Breath Hyoscyamine Sulfate [Levsin] 0.125 mg PO BID PRN PRN Reason: IBS tiZANidine [Zanaflex] 4 mg PO Q8H PRN PRN Reason: Muscle Spasm Bisacodyl [Dulcolax] 5 mg PO DAILY PRN #10 tablet.dr PRN Reason: Constipation Ondansetron [Zofran ODT] 4 mg PO Q8HR PRN #15 tab PRN Reason: Nausea Atorvastatin Calcium [Lipitor] 20 mg PO HS oxyCODONE-APAP 7.5-325MG [Percocet 7.5-325 mg] 1 tab PO Q8H PRN PRN Reason: Pain QUEtiapine FUMARATE [SEROquel XR] 400 mg PO HS Topiramate [Topamax] 100 mg PO BID Venlafaxine HCl ER [Effexor XR] 150 mg PO DAILY SUMAtriptan SUCCINATE [Imitrex] 50 mg PO DAILY Discharge Medication List buPROPion XL [Wellbutrin XL] 150 mg PO DAILY 12/04/14 [History] ALPRAZolam [Xanax] 0.25 mg PO HS 05/31/15 [History] Albuterol Inhaler [Ventolin Hfa Inhaler] 1 - 2 puff INHALATION RT-Q6H PRN 06/04/17 [History] Ergocalciferol (Vitamin D2) [Vitamin D2] 50,000 unit PO LONG 06/04/17 [History] Baclofen [Lioresal] 20 mg PO BID 07/02/17 [History] Albuterol Nebulized [Ventolin Nebulized] 2.5 mg INHALATION RT-QID PRN 07/27/17 [History] Hydrochlorothiazide 25 mg PO DAILY PRN 07/27/17 [History] Hyoscyamine Sulfate [Levsin] 0.125 mg PO BID PRN 07/27/17 [History] tiZANidine [Zanaflex] 4 mg PO Q8H PRN 08/02/17 [History] Bisacodyl [Dulcolax] 5 mg PO DAILY PRN #10 tablet. 08/03/17 [Rx] Omeprazole 40 mg PO DAILY #60 capsule. 08/03/17 [Rx] Simethicone 40 mg/0.6 ml Drops [Mylicon Drops] 40 mg PO PCHS PRN #30 ml 08/03/17 [Rx] Atorvastatin Calcium [Lipitor] 20 mg PO HS 08/01/18 [History] Ondansetron [Zofran ODT] 4 mg PO Q8HR PRN #15 tab 08/01/18 [Rx] QUEtiapine FUMARATE [SEROquel XR] 400 mg PO HS 08/01/18 [History] Topiramate [Topamax] 100 mg PO BID 08/01/18 [History] Venlafaxine HCl ER [Effexor XR] 150 mg PO DAILY 08/01/18 [History] oxyCODONE-APAP 7.5-325MG [Percocet 7.5-325 mg] 1 tab PO Q8H PRN 08/01/18 [History] Ranitidine HCl 150 mg PO DAILY 08/20/18 [History] SUMAtriptan SUCCINATE [Imitrex] 50 mg PO DAILY 09/27/18 [History] Sucralfate [Carafate] 1 gm PO AC-BID #60 tab 10/04/18 [Rx] Follow up Appointment(s)/Referral(s): Kain Lowery MD [Primary Care Provider] - 1-2 days Stan Dave MD [Family Provider] - 1 Week Activity/Diet/Wound Care/Special Instructions: follow-up with Dr. Dave to discuss date for future gallbladder removal
[2018-10-04 14:05] VITALS: BP 98/61; PULSE 73; TEMP 97.9
[2018-10-04 15:21] VITALS: BMI 24.7
--- NOTE | 2018-10-04 16:35 | P.PN ---
Subjective Patient still has right upper quadrant abdominal pain beyond that no overnight events and patient will obtain lites are improving continue with present fluids. 10/03/2018 Patient still has after upper quadrant pain. Patient on and upper GI endoscopy which showed inflammation of the gastric sleeve area. Patient is complaining of vaginal candidiasis from IV antibiotics patient will be started on, so the patient is not being discharged on antibiotics tomorrow patient can receive another dose of flucanazole and can be discharged home patient will be started on diet if she is able to tolerate diet patient will be discharged tomorrow as per general surgery 10/04/2018 Patient is being treated discharged to psychiatric floor as she was comparing of suicidal ideation yesterday. Constitutional: Denied any fatigue denied any fever. Cardio vascular: denied any chest pain, palpitations Gastrointestinal denied any nausea vomiting Pulmonary: Denied any shortness of breath cough Neurologic denied any new focal deficits All inpatient medications were reviewed and appropriate changes in these medications as dictated in the interval history and assessment and plan. Objective - Vital Signs Vital signs: Vital Signs Temp 97.9 F 10/04/18 14:02 Pulse 73 10/04/18 14:02 Resp 16 10/04/18 14:02 BP 98/61 10/04/18 14:02 Pulse Ox 95 10/04/18 14:02 Intake & Output 10/03/18 10/04/18 10/04/18 18:59 06:59 18:59 Intake Total 2444 100 Balance 2444 100 Weight 65.5 kg Intake: IV 20 Intake, IV Titration 1804 100 Amount Fat Emulsion 20% 250 ml @ 168 21 mls/hr IV MoWeFr [facility] Rx#:[id number] Lactated Ringers 1,000 ml 100 @ 20 mls/hr IV .Q24H KYMBER[facility] with Potassium Chloride 40 meq Rx#:[id number] Lactated Ringers 1,000 ml 625 @ 75 mls/hr IV .[id number] [facility] Rx#:[id number] Mvi, Adult No.4 with Vit 1011 K 10 ml Trace (Conc-1Ml/ Dose) 1 ml In Amino Acid 4.25%-D10w+Lytes*E* 1,000 ml @ 65 mls/hr IV . [id number] [facility] Rx#:[id number] Oral 620 Other: Voiding Method Toilet # Voids 2 1 2 - Exam PHYSICAL EXAMINATION: GENERAL: The patient is alert and oriented x3, not in any acute distress. Well developed, well nourished. HEENT: Pupils are round and equally reacting to light. EOMI. No scleral icterus. No conjunctival pallor. Normocephalic, atraumatic. No pharyngeal erythema. No thyromegaly. CARDIOVASCULAR: S1 and S2 present. No murmurs, rubs, or gallops. PULMONARY: Chest is clear to auscultation, no wheezing or crackles. ABDOMEN: abdomen is soft minimal tenderness in the left upper quadrant area patient has scars consistent with significant loss of weight from her gastric sleeve surgery no suprapubic pain. MUSCULOSKELETAL: No joint swelling or deformity. EXTREMITIES: No cyanosis, clubbing, or pedal edema. NEUROLOGICAL: Gross neurological examination did not reveal any focal deficits. SKIN: No rashes. - Labs CBC & Chem 7: 09/29/18 06:31 10/04/18 08:17 Labs: Abnormal Lab Results - Last 24 Hours (Table) 10/04/18 10/04/18 Range/Units 00:22 08:17 Potassium 3.4 L 3.4 L (3.5-5.1) mmol/L Chloride 108 H (98-107) mmol/L Phosphorus 5.4 H (2.5-4.5) mg/dL AST 12 L (14-36) U/L Total Protein 5.9 L (6.3-8.2) g/dL Albumin 3.1 L (3.5-5.0) g/dL Assessment and Plan Plan: -non-anion gap gap metabolic acidosis and hypochloremia: Is being discharged today her hyperkalemia resolved asymptomatic bacteriuria: Patient will not require any antibiotics for this but patient is oriented Zosyn for her hospital abdominal infection -hypokalemia: Natriuretic hypokalemia, replace potassium as needed -possible intra-abdominal infection: Zosyn as mentioned above and patient mostly appears to have inflammation of the gastric sleeve rather than infection will not require any antibiotics upon discharge. -Vaginal candidiasis from IV antibiotics flucanazole more dose today and after that they have flucanazole can be his continued -Depression and suicidal ideation: Patient is being discharged to psychiatric floor -Asthma without any acute exacerbation -Hyperlipidemia
[2018-10-05] MEDS ORDERED: MULTIVITAMINS, THERA LIQUID 237 ML BOTTLE PO SCH (09:00)
== END 2018-10-04 15:42 | DRG 394 ==
LOC: EC 08:49 → 4SSUR 14:40 → OBSVTOIN 09-29 07:55
PROVIDERS: ADMIT Surgery; ATTEND Surgery
PROC: 0DB78ZX Excision of Stomach, Pylorus, Via Natural or Artificial Opening Endoscopic, Diagnostic (ICD-10-PCS; principal; 2018-10-03 09:45)
DX: K95.81 Infection due to other bariatric procedure (principal); E87.2 Acidosis; N39.0 Urinary tract infection, site not specified; R45.851 Suicidal ideations; Y83.8 Other surgical procedures as the cause of abnormal reaction of the patient, or of later complication, without mention of misadventure at the time of the procedure; B37.3 Candidiasis of vulva and vagina; B96.20 Unspecified Escherichia coli [E. coli] as the cause of diseases classified elsewhere; E78.5 Hyperlipidemia, unspecified; E87.5 Hyperkalemia; F17.200 Nicotine dependence, unspecified, uncomplicated; F32.9 Major depressive disorder, single episode, unspecified; G25.81 Restless legs syndrome; G89.29 Other chronic pain; H91.90 Unspecified hearing loss, unspecified ear; J45.909 Unspecified asthma, uncomplicated; K21.0 Gastro-esophageal reflux disease with esophagitis; K29.70 Gastritis, unspecified, without bleeding; K58.9 Irritable bowel syndrome, unspecified; M19.90 Unspecified osteoarthritis, unspecified site; Z79.891 Long term (current) use of opiate analgesic; Z79.899 Other long term (current) drug therapy; Z82.49 Family history of ischemic heart disease and other diseases of the circulatory system; Z83.3 Family history of diabetes mellitus; Z87.442 Personal history of urinary calculi; Z98.84 Bariatric surgery status
CPT/HCPCS: 36410; 36415; 43239; 74018; 74177; 76937; 80048; 80053; 81001; 81025; 82150; 82310; 83690; 83735; 84100; 84132; 84478; 85025; 85610; 85730; 87040; 87077; 87086; 87186; 88305; 96361; 96374; 96375; 96376; 99285

== ENCOUNTER 2018-10-04 15:41 | Inpatient (IN) | payer BC, MEDICAID ==
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
[2018-10-04] MEDS ORDERED: MAG HYDROX/AL HYDROX/SIMETH 30 ML CUP PO PRN (16:33)
[2018-10-04] MEDS ORDERED: LORazepam 1 MG TAB PO PRN (16:33)
[2018-10-04] MEDS ORDERED: ACETAMINOPHEN TAB 325 MG TAB PO PRN (16:33)
[2018-10-04] MEDS ORDERED: ALBUTEROL NEBULIZED 2.5 MG/3 ML INHALATION PRN (16:37)
[2018-10-04] MEDS ORDERED: BISACODYL 5 MG TABLET.DR PO PRN (16:37)
[2018-10-04] MEDS ORDERED: HYDROCHLOROTHIAZIDE 25 MG TAB PO PRN (16:37)
[2018-10-04] MEDS ORDERED: HYOSCYAMINE SULFATE 0.125 MG TAB PO PRN (16:37)
[2018-10-04] MEDS ORDERED: SIMETHICONE 80 MG CHEWABLE PO PRN (16:37)
[2018-10-04] MEDS ORDERED: ALBUTEROL INHALER 60 PUFF/8 GM INHALER INHALATION PRN ×2 (16:37→16:58)
[2018-10-04] MEDS ORDERED: ONDANSETRON ODT 4 MG TAB PO PRN (16:37)
[2018-10-04 16:48] VITALS: RESP 16
[2018-10-04] MEDS: SUCRALFATE 1 GM TAB PO SCH (18:34)
[2018-10-04] MEDS ORDERED: ALPRAZolam 0.25 MG TAB PO SCH (21:00)
[2018-10-04] MEDS: ATORVASTATIN 20 MG TAB PO SCH (21:49)
[2018-10-04] MEDS: QUEtiapine 200 MG TAB PO SCH (21:50)
[2018-10-04] MEDS: TOPIRAMATE 100 MG TAB PO SCH (21:50)
[2018-10-04] MEDS: BACLOFEN 10 MG TAB PO SCH (21:50)
[2018-10-05] MEDS: SUCRALFATE 1 GM TAB PO SCH ×2 (07:58→17:21)
[2018-10-05] MEDS: PANTOPRAZOLE 40 MG TABLET PO SCH (08:17)
[2018-10-05] MEDS: QUEtiapine 200 MG TAB PO SCH (08:17)
[2018-10-05] MEDS: FAMOTIDINE 20 MG TAB PO SCH (08:17)
[2018-10-05] MEDS: buPROPion XL 150 MG TAB.ER.24H PO SCH (08:17)
[2018-10-05] MEDS: TOPIRAMATE 100 MG TAB PO SCH ×2 (08:17→21:06)
[2018-10-05] MEDS: VENLAFAXINE HCL ER 150 MG CAP PO SCH (08:17)
[2018-10-05] MEDS: BACLOFEN 10 MG TAB PO SCH ×2 (08:18→21:06)
[2018-10-05 08:35] LABS: Cholesterol 133 mg/dL (<200); HDL Cholesterol 24 mg/dL (40-60); LDL Cholesterol,Calculated 79 mg/dL (0-99); Triglycerides 150 mg/dL (<150)
[2018-10-05] MEDS ORDERED: SUMAtriptan SUCCINATE 50 MG TAB PO PRN (09:00)
[2018-10-05] MEDS: OLANZapine 5 MG TAB PO SCH ×3 (13:29→21:06)
[2018-10-05] MEDS: ACETAMINOPHEN TAB 500 MG TAB PO PRN ×2 (13:58→21:07)
--- NOTE | 2018-10-05 14:24 | PN ---
PROGRESS NOTE DATE OF SERVICE: 10/05/2018. CHIEF COMPLAINT: The patient was depressed, hopeless, and had passive suicide thoughts. INTERVAL HISTORY: Patient has been doing fair. She had a quiet evening last night. She does come out on the unit some. She will wander. She does some walking for relaxation. She will interact some with others. She said that she slept fair last night. Today, she has been up. She has attended groups. She did not identify any immediate issues or problems today. She continues to report feeling quite down in her mood. She tolerates her psychotropic medications. MENTAL STATUS: Patient gave fair eye contact. Psychomotor activity was slowed. Speech was monotone. She answered questions with brief responses. Her thoughts were clear. She did not say a lot. She had a very quiet reserved manner. Her affect was blunted. Her mood depressed. She was significantly distressed. There was no outward evidence of thought disorder. Cognition was clear. ASSESSMENT: I will continue the current diagnoses and treatment plan. I reviewed treatment issues with the patient. The primary issue at this point is likely to be withdrawal from multiple substances. I will discontinue her Ativan. I will switch the patient from Seroquel to Zyprexa and start Zyprexa 5 mg 3 times a day. I reviewed withdrawal issues with the patient. I will continue Wellbutrin 150 mg a day and Effexor 150 mg a day. I discussed with the patient that she is not likely to get much benefit from antidepressants in the early course of withdrawal. We will continue to focus on stabilization and discharge planning. MMJANN / ANAISN: [id number] /
--- NOTE | 2018-10-05 15:01 | P.CONS ---
History of Present Illness - Reason for Consult Left hand swelling and redness at the peripheral IV line site - History of Present Illness 43-year-old pleasant female known to me as I evaluated the patient while she was inpatient in the general surgery service when she was admitted for inflammation of the gastric sleeve area. Patient at the time was treated with antibiotics which was subsequently discontinued patient is presently not in acute antibiotics her hospital course was completed with vaginal candidiasis for which he uses econazole for couple days. Patient has some redness in the right arm with the son local is of temperature and inflammation but no obvious cellulitis. Patient cannot take an assays will use extra strength Tylenol and ice pack. Review of Systems REVIEW OF SYSTEMS: CONSTITUTIONAL: No fever, no malaise, no fatigue. HEENT: No recent visual problems or hearing problems. Denied any sore throat. CARDIOVASCULAR: No chest pain, orthopnea, PND, no palpitations, no syncope. PULMONARY: No shortness of breath, no cough, no hemoptysis. GASTROINTESTINAL: No diarrhea, no nausea, no vomiting, no abdominal pain. NEUROLOGICAL: No headaches, no weakness, no numbness. HEMATOLOGICAL: Denies any bleeding or petechiae. GENITOURINARY: Denies any burning micturition, frequency, or urgency. MUSCULOSKELETAL/RHEUMATOLOGICAL: Denies any joint pain, swelling, or any muscle pain. ENDOCRINE: Denies any polyuria or polydipsia. The rest of the 14-point review of systems is negative. Past Medical History Past Medical History: Asthma, Hearing Disorder / Deafness, Hyperlipidemia, Musculoskeletal Disorder Additional Past Medical History / Comment(s): IBS, hx. kidney stones, DDD, RLS History of Any Multi-Drug Resistant Organisms: None Reported Past Surgical History: Back Surgery, Bariatric Surgery, Tubal Ligation, Uterine Ablation Additional Past Surgical History / Comment(s): D&C,DOUBLE DISC FUSION L3-L4-L5,Cervical Disc C6 replaced, STENTS KIDNEY STONES,LITHOTRIPSY, Left lateral epicondylitis sx, partial removal of cervix using cryotherapy, Gastric Sleeve 08/02/17 (Dr. Stan Shoemaker), Past Anesthesia/Blood Transfusion Reactions: No Reported Reaction Additional Past Anesthesia/Blood Transfusion Reaction / Comm: NEVER HAS HAD BLOOD TRANSFUSION Past Psychological History: Anxiety Smoking Status: Current every day smoker Past Alcohol Use History: None Reported Additional Past Alcohol Use History / Comment(s): STARTED SMOKING 1991, 1/2p week. Past Drug Use History: Cocaine, Marijuana - Past Family History Mother Family Medical History: Congestive Heart Failure (CHF), Diabetes Mellitus, Hypertension Father History Unknown: Yes Medications and Allergies Home Medications Medication Instructions Recorded Confirmed Type buPROPion XL [Wellbutrin XL] 150 mg PO DAILY 12/04/14 10/04/18 History ALPRAZolam [Xanax] 0.25 mg PO HS 05/31/15 10/04/18 History Albuterol Inhaler [Ventolin Hfa 1 - 2 puff INHALATION RT-Q6H PRN 06/04/17 10/04/18 History Inhaler] Ergocalciferol (Vitamin D2) 50,000 unit PO LONG 06/04/17 10/04/18 History [Vitamin D2] Baclofen [Lioresal] 20 mg PO BID 07/02/17 10/04/18 History Albuterol Nebulized [Ventolin 2.5 mg INHALATION RT-QID PRN 07/27/17 10/04/18 History Nebulized] Hydrochlorothiazide 25 mg PO DAILY PRN 07/27/17 10/04/18 History Hyoscyamine Sulfate [Levsin] 0.125 mg PO BID PRN 07/27/17 10/04/18 History tiZANidine [Zanaflex] 4 mg PO Q8H PRN 08/02/17 10/04/18 History Bisacodyl [Dulcolax] 5 mg PO DAILY PRN #10 tablet. 08/03/17 10/04/18 Rx Omeprazole 40 mg PO DAILY #60 capsule. 08/03/17 10/04/18 Rx Simethicone 40 mg/0.6 ml Drops 40 mg PO PCHS PRN #30 ml 08/03/17 10/04/18 Rx [Mylicon Drops] Atorvastatin Calcium [Lipitor] 20 mg PO HS 08/01/18 10/04/18 History Ondansetron [Zofran ODT] 4 mg PO Q8HR PRN #15 tab 08/01/18 10/04/18 Rx QUEtiapine FUMARATE [SEROquel XR] 400 mg PO HS 08/01/18 10/04/18 History Topiramate [Topamax] 100 mg PO BID 08/01/18 10/04/18 History Venlafaxine HCl ER [Effexor XR] 150 mg PO DAILY 08/01/18 10/04/18 History oxyCODONE-APAP 7.5-325MG [Percocet 1 tab PO Q8H PRN 08/01/18 10/04/18 History 7.5-325 mg] Ranitidine HCl 150 mg PO DAILY 08/20/18 10/04/18 History SUMAtriptan SUCCINATE [Imitrex] 50 mg PO DAILY 09/27/18 10/04/18 History Sucralfate [Carafate] 1 gm PO AC-BID #60 tab 10/04/18 10/04/18 Rx Allergies Allergy/AdvReac Type Severity Reaction Status Date / Time No Known Allergies Allergy Verified 10/04/18 17:28 Physical Exam Vitals: Vital Signs Temp Pulse Resp BP Pulse Ox 10/05/18 06:24 97.9 F 63 16 111/69 10/04/18 18:44 97.8 F 81 16 101/69 100 10/04/18 16:47 97.8 F 81 16 101/69 100 Intake and Output 10/04/18 10/05/18 10/05/18 22:59 06:59 14:59 Other: Weight 61.1 kg PHYSICAL EXAMINATION: GENERAL: The patient is alert and oriented x3, not in any acute distress. Well developed, well nourished. HEENT: Pupils are round and equally reacting to light. EOMI. No scleral icterus. No conjunctival pallor. Normocephalic, atraumatic. No pharyngeal erythema. No thyromegaly. CARDIOVASCULAR: S1 and S2 present. No murmurs, rubs, or gallops. PULMONARY: Chest is clear to auscultation, no wheezing or crackles. ABDOMEN: Soft, nontender, nondistended, normoactive bowel sounds. No palpable organomegaly. MUSCULOSKELETAL: No joint swelling or deformity. EXTREMITIES: No cyanosis, clubbing, or pedal edema. NEUROLOGICAL: Gross neurological examination did not reveal any focal deficits. SKIN: Right arm redness as mentioned above Results Labs: Abnormal Lab Results - Last 24 Hours (Table) 10/04/18 Range/Units 08:17 Triglycerides 150 H (<150) mg/dL HDL Cholesterol 24 L (40-60) mg/dL Assessment and Plan Plan: -Phlebitis: We cannot use any NSAIDs because of that reason I'll use extra strength Tylenol and ice pack -Gastric sleeve with a significant gastritis for which patient is on proton pump inhibitor and simethicone -Asthma without any acute exacerbation -hyperlipidemia Reviewed her medications appropriate changes were made to medication reconciliation.
[2018-10-05] MEDS ORDERED: QUEtiapine 200 MG TAB PO SCH (16:00)
[2018-10-05 18:28] LABS: Hemoglobin A1C 4.5 % (4.0-6.0)
[2018-10-05] MEDS: ATORVASTATIN 20 MG TAB PO SCH (21:06)
[2018-10-06] MEDS: SUCRALFATE 1 GM TAB PO SCH ×2 (07:51→16:30)
[2018-10-06] MEDS: buPROPion XL 150 MG TAB.ER.24H PO SCH (08:57)
[2018-10-06] MEDS: PANTOPRAZOLE 40 MG TABLET PO SCH (08:57)
[2018-10-06] MEDS: BACLOFEN 10 MG TAB PO SCH ×2 (08:57→21:14)
[2018-10-06] MEDS: OLANZapine 5 MG TAB PO SCH ×3 (08:57→21:14)
[2018-10-06] MEDS: TOPIRAMATE 100 MG TAB PO SCH ×2 (08:57→21:14)
[2018-10-06] MEDS: FAMOTIDINE 20 MG TAB PO SCH (08:57)
[2018-10-06] MEDS ORDERED: ERGOCALCIFEROL 50,000 UNIT CAP PO SCH (09:00)
[2018-10-06] MEDS: VENLAFAXINE HCL ER 150 MG CAP PO SCH (10:00)
[2018-10-06] MEDS: ACETAMINOPHEN TAB 500 MG TAB PO PRN ×3 (10:39→22:15)
--- NOTE | 2018-10-06 18:59 | PN ---
PROGRESS NOTE DATE OF SERVICE: 10/06/2018. CHIEF COMPLAINT: The patient was depressed, hopeless, and had passive suicide thoughts. INTERVAL HISTORY: The patient has been doing fair. She had a quiet evening last night. She continues to report depression and anxiety. She says she has a lot of worries about daily life issues. She said she slept better last night. Today she has been up. She comes out in the day area. She attended groups. She was described in groups as follows: [place], depressed, attentive, vague, verbal, appropriate. She continues to be down in her mood. When we discussed withdrawal issues as the #1 factor, the patient showed a fairly good insight into accepting that she will need to focus on abstinence and may need to anticipate depression and anxiety symptoms along the way as part of withdrawal. She says with the start of Zyprexa, she thinks she feels a little bit better and in fact she slept somewhat better last night. She tolerates psychotropic medications. In regard to the patient's weight loss surgery, she notes that she had lost substantial weight in 1 year. Her current weight is 61 kg. It is noted that she does have some irritable bowel syndrome symptoms. She says mainly she drinks protein shakes. She does not seem to have much intake of fiber, though fiber is recommended as part of a diet regimen post bariatric surgery. If she were able to get more dietary fiber that may help reduce some of her symptoms related to IBS. She does say that she fluctuates between loose stools and constipation. MENTAL STATUS: Patient sat without restlessness. Eye contact was fair. Psychomotor activity was slowed. Speech was monotone. She answered questions with direct responses. Her thoughts were clear, coherent, and goal directed. Her affect was flat. Mood depressed. She appeared moderately distressed. ASSESSMENT: I will continue the current diagnosis and treatment plan. I discussed at length withdrawal issues with the patient. She asked about when she would be discharged. I indicated to her that I would recommend she make an assessment of her situation to determine what followup support she may need. We talked about the option of inpatient substance abuse treatment such as [facility] as opposed to referring to outpatient resources. We discussed that the use issue is her simply not going back to use of any abusive substances. She will be working on that. We will have our social workers address these issues with her further. We will continue to focus on stabilization and discharge planning. MMODL / IJN: [id number] /
[2018-10-06] MEDS: ATORVASTATIN 20 MG TAB PO SCH (21:14)
[2018-10-07] MEDS: SUCRALFATE 1 GM TAB PO SCH ×2 (08:30→16:26)
[2018-10-07] MEDS: FAMOTIDINE 20 MG TAB PO SCH (08:30)
[2018-10-07] MEDS: PANTOPRAZOLE 40 MG TABLET PO SCH (08:30)
[2018-10-07] MEDS: TOPIRAMATE 100 MG TAB PO SCH ×2 (08:30→21:43)
[2018-10-07] MEDS: OLANZapine 5 MG TAB PO SCH ×3 (08:30→21:44)
[2018-10-07] MEDS: BACLOFEN 10 MG TAB PO SCH ×2 (08:30→21:43)
[2018-10-07] MEDS: buPROPion XL 150 MG TAB.ER.24H PO SCH (08:31)
[2018-10-07] MEDS: VENLAFAXINE HCL ER 150 MG CAP PO SCH (08:31)
--- NOTE | 2018-10-07 09:45 | PN ---
PROGRESS NOTE DATE OF SERVICE: 10/07/2018 CHIEF COMPLAINT: The patient was depressed, hopeless, and had passive suicide thoughts. INTERVAL HISTORY: The patient has been doing fair. She had a quiet evening last night. She attended some groups yesterday, but said she did not attend groups later because she was not feeling well. She said she has had an upset stomach. She is aware that that probably relates to withdrawal issues. She did not sleep well last night. Today she has been up. She comes out in the day area. She has been doing walking with 2 other patients and seems to have a comfortable interaction with them. She went to group this morning. She says that she thinks things are a little bit better for her today. She has somewhat better outlook. She continues to be fairly reserved in how she presents herself. She acknowledges that withdrawal issues are a significant problem. She seems to have reasonable insight in regards to that. She was able to talk just a little bit about thoughts she might have of going forward in her life. She tolerates her psychotropic medications. MENTAL STATUS: Patient sat without restlessness. Eye contact was fair. Psychomotor activity was slowed. Speech was monotone and soft. She answered questions with brief responses. She did not say a lot. Her affect was flat. Her mood depressed. She seems somewhat distressed. There was no indication of thought disorder. Cognition was clear. ASSESSMENT: I will continue the current diagnosis and treatment plan. I had an extensive discussion with the patient regarding withdrawal issues. We discussed that over the first 2 weeks she is likely to see increasing withdrawal issues with prominent symptoms being GI effects, anxiety and sleep disturbance. We discussed long-term issues relating to recovering from substance use. At this point, I will add Desyrel 75 mg at bedtime to help with sleep. I discussed that I would aim to try to help her get 5 hours of sleep at night. In addition, I reviewed antidepressant issues with the patient. She is on 2 antidepressants. She is not likely getting benefit from 2 and at this point she is not likely to get much benefit from antidepressants at all until she is several weeks into withdrawal. I will discontinue Wellbutrin and continue her just on the Effexor XR 150 mg a day. I will make a contact with doctor in regards to consideration to getting her on fiber for irritable bowel syndrome. We will continue to focus on stabilization and discharge planning. MMODL / IJN: [id number] / [id number]
[2018-10-07 10:59] VITALS: BMI 22.8
[2018-10-07] MEDS: PSYLLIUM HUSK 100% 6 GM PACKET PO SCH (11:59)
[2018-10-07] MEDS: traZODone HCL 50 MG TAB PO SCH (21:43)
[2018-10-07] MEDS: ATORVASTATIN 20 MG TAB PO SCH (21:44)
[2018-10-07] MEDS: ACETAMINOPHEN TAB 500 MG TAB PO PRN (21:46)
[2018-10-08] MEDS: PSYLLIUM HUSK 100% 6 GM PACKET PO SCH (09:02)
[2018-10-08] MEDS: SUCRALFATE 1 GM TAB PO SCH ×2 (09:02→16:21)
[2018-10-08] MEDS: VENLAFAXINE HCL ER 150 MG CAP PO SCH (09:02)
[2018-10-08] MEDS: BACLOFEN 10 MG TAB PO SCH ×2 (09:02→21:59)
[2018-10-08] MEDS: PANTOPRAZOLE 40 MG TABLET PO SCH (09:03)
[2018-10-08] MEDS: OLANZapine 5 MG TAB PO SCH ×3 (09:03→21:59)
[2018-10-08] MEDS: TOPIRAMATE 100 MG TAB PO SCH ×2 (09:03→22:00)
[2018-10-08] MEDS: FAMOTIDINE 20 MG TAB PO SCH (09:03)
--- NOTE | 2018-10-08 10:07 | P.PN ---
Progress Note - Text Progress Note Date: 10/08/18 Interval history: The patient is found in group she follows me to an interview room. The admission note was reviewed as well as progress notes. The patient states that prior to the hospitalization she had overdosed with 30 sleeping pills. Her intent was to . She was medically hospitalized and subsequently transferred to our unit. She states that she is most disturbed that she is not able to see her grandchildren. Her family is very upset that she is leaving her third of 5 years and is now with a new boyfriend. She feels ostracized from the family. She has been under the care of Dr. Cowart while here. She was continued on Effexor XR started on Zyprexa her Wellbutrin was discontinued. She has no questions or concerns regarding her medication at this time. She has been attending groups. She relays a history of always experiencing auditory hallucinations she describes it as talk radio. She states it seems like a radio was on in the other room she can hear mumbling voices but can't make out any definitive words. Since being here she feels that it is occurring less often. She states that at times she will see things but not in a severely here in the hospital. She states that she won't drive at night because she will see things in the road and she will know if they're real. Mental status exam: The patient is a female appearing her stated age. She is dressed in her own clothing she has a disheveled appearance. She has 2 visible tattoos on the upper part of her chest. Eye contact is appropriate speech is fluent spontaneous nonpressured. She reports having a generalized sense of being unsafe but feels safe in the hospital. She states today is the first day that her suicidal thoughts have been less intense. She describes no homicidal ideation. She describes auditory hallucinations as noted above. She demonstrates no verbal or physical aggressiveness she demonstrates no involuntary repetitive movements. She is oriented to person place and date. Affect was constricted however she did become tearful on 2 occasions when describing being the situation of not being able to see grandchildren. Impression/plan: Slowly improving symptoms of depression, reported history of chronic psychosis. Continue psychotropic medications as written. Vital signs reviewed. We will continue to monitor her for safety. She states that she had been indulging in substances prior to coming in the hospital we will review her willingness to attend chemical dependency treatment.
[2018-10-08] MEDS: traZODone HCL 50 MG TAB PO SCH (22:00)
[2018-10-08] MEDS: ATORVASTATIN 20 MG TAB PO SCH (22:00)
[2018-10-08] MEDS: ACETAMINOPHEN TAB 500 MG TAB PO PRN (22:04)
[2018-10-09] MEDS: TOPIRAMATE 100 MG TAB PO SCH ×2 (08:51→21:16)
[2018-10-09] MEDS: SUCRALFATE 1 GM TAB PO SCH ×2 (08:51→16:28)
[2018-10-09] MEDS: VENLAFAXINE HCL ER 150 MG CAP PO SCH (08:51)
[2018-10-09] MEDS: BACLOFEN 10 MG TAB PO SCH ×2 (08:51→21:16)
[2018-10-09] MEDS: FAMOTIDINE 20 MG TAB PO SCH (08:51)
[2018-10-09] MEDS: OLANZapine 5 MG TAB PO SCH (08:51)
[2018-10-09] MEDS: PANTOPRAZOLE 40 MG TABLET PO SCH (08:51)
[2018-10-09] MEDS: PSYLLIUM HUSK 100% 6 GM PACKET PO SCH (08:51)
--- NOTE | 2018-10-09 09:28 | P.PN ---
Progress Note - Text Interval history: The patient is found in the dining room she follows me to an interview room. Cates her mood is down. She states she struggled with auditory and visual hallucinations last evening and she tried to sleep. She describes having some abdominal discomfort and bloating which was the primary reason she presented to the hospital. She has already been evaluated by internal medicine and surgery area she has undergone a gastric sleeve procedure back in July 2017. She was told that her gallbladder is not functioning well he needs to be removed and at will be scheduled after she is discharged from the hospital. We reviewed her psychotropic medications. Specifically reviewing the Zyprexa she states that she feels her appetite is increased we discussed that there is a significant weight gain risk with that medication and given the fact that she's undergone bariatric surgery would like to avoid that. We discussed alternatives to Zyprexa. She reports that she is attending groups. She did have a phone conversation with her boyfriend and sister and she found most conversation supportive. Mental status exam: The patient is alert she is ambulating slowly she is holding her upper abdomen indicating she is having some discomfort. Eye contact is appropriate. She is dressed in her own clothing. Hygiene grooming fair. Speech is fluent spontaneous nonpressured. She maintains a constricted affect throughout the session. She reports some continued hopelessness thinking in terms of suicidal thoughts she reports she feels safe in the hospital. She is reporting no homicidal ideation intent or plan. She described experiencing auditory and visual hallucinations last evening. She states that she saw a television in her room on the television was showing commercials of sleeping medications. She demonstrates no verbal or physical aggressiveness she demonstrates no involuntary repetitive movements. Insight and judgment limited. She is oriented to person place and date. Impression/plan: Ongoing symptoms of depression and psychosis, due to the significant weight gain risk and a patient who is undergone bariatric surgery we will discontinue the Zyprexa. She is finding the Zyprexa is providing no benefit at 15 mg. We discussed using Abilify as an alternative and will start at 5 mg daily. She will continue on her other psychotropic medications. She is encouraged to participate in groups and we will continue to monitor her for safety. She is not yet safe enough for discharge but hopefully she will stabilize by the end of the week. Vital signs reviewed.
[2018-10-09] MEDS: ACETAMINOPHEN TAB 500 MG TAB PO PRN (16:28)
[2018-10-09] MEDS: traZODone HCL 50 MG TAB PO SCH (21:16)
[2018-10-09] MEDS: ATORVASTATIN 20 MG TAB PO SCH (21:16)
[2018-10-10] MEDS: TOPIRAMATE 100 MG TAB PO SCH ×2 (08:59→20:50)
[2018-10-10] MEDS: FAMOTIDINE 20 MG TAB PO SCH (08:59)
[2018-10-10] MEDS: BACLOFEN 10 MG TAB PO SCH ×2 (08:59→20:51)
[2018-10-10] MEDS: SUCRALFATE 1 GM TAB PO SCH ×2 (08:59→16:25)
[2018-10-10] MEDS: VENLAFAXINE HCL ER 150 MG CAP PO SCH (08:59)
[2018-10-10] MEDS: ARIPiprazole 5 MG TAB PO SCH (08:59)
[2018-10-10] MEDS: PSYLLIUM HUSK 100% 6 GM PACKET PO SCH (09:00)
[2018-10-10] MEDS: PANTOPRAZOLE 40 MG TABLET PO SCH (09:00)
--- NOTE | 2018-10-10 11:03 | P.PN ---
Progress Note - Text Progress Note Date: 10/10/18 Interval history: The patient is found in group she follows me to an interview room. She indicates her mood is improving. She describes having a supportive visit from her boyfriend last evening. Social work was able to call the patient's sister who also feels that the patient is improving. The Abilify was initiated this morning the patient has no questions or concerns about Abilify. She indicates having no acute suicidal thoughts she feels that the hallucinations are slowly improving. She is focused on her abdominal discomfort and plans to undergo a cholecystectomy soon after discharge. Staff report that the patient has been attending group appropriately and contributing. Mental status exam: The patient is alert she stressor own clothing hygiene grooming are good. Speech is fluent spontaneous nonpressured. She describes her mood is better affect is appearing more euthymic. She is reporting no suicidal or homicidal thoughts. She is reporting no current auditory or visual hallucinations. She did have some last evening but they were less bothersome. She demonstrates no tangential thinking with loose associations or flight of ideas. She does not appear hypomanic or manic. She demonstrates no verbal or physical aggressiveness. Insight and judgment improving. She is oriented to person place and date. Impression/plan: Symptoms of depression improving as well as psychosis. Continue current psychotropic medications. We will plan on a discharge tomorrow if she demonstrates further improvement and clinical stability. She is encouraged to continue participation in the milieu. Vital signs reviewed.
[2018-10-10] MEDS: ACETAMINOPHEN TAB 500 MG TAB PO PRN ×2 (16:24→23:26)
[2018-10-10] MEDS: ATORVASTATIN 20 MG TAB PO SCH (20:51)
[2018-10-10] MEDS: traZODone HCL 50 MG TAB PO SCH (20:51)
[2018-10-10] MEDS: tiZANidine 4 MG TAB PO PRN (22:38)
[2018-10-11 06:36] VITALS: BP 116/58; PULSE 64; TEMP 98
[2018-10-11] MEDS: TOPIRAMATE 100 MG TAB PO SCH (08:02)
[2018-10-11] MEDS: PSYLLIUM HUSK 100% 6 GM PACKET PO SCH (08:02)
[2018-10-11] MEDS: VENLAFAXINE HCL ER 150 MG CAP PO SCH (08:02)
[2018-10-11] MEDS: PANTOPRAZOLE 40 MG TABLET PO SCH (08:02)
[2018-10-11] MEDS: FAMOTIDINE 20 MG TAB PO SCH (08:02)
[2018-10-11] MEDS: BACLOFEN 10 MG TAB PO SCH (08:02)
[2018-10-11] MEDS: ARIPiprazole 5 MG TAB PO SCH (08:02)
[2018-10-11] MEDS: SUCRALFATE 1 GM TAB PO SCH (08:02)
--- NOTE | 2018-10-11 11:21 | P.DS ---
Providers Date of admission: 10/04/18 16:25 Expected date of discharge: 10/11/18 Attending physician: Marcio Gutierrez Consults: 10/05/18 07:30 Consult Physician Routine Consulting Provider: Pat Phillips Consult Reason/Comments: medical management Do you want consulting provider notified?: Yes Primary care physician: Kain Lowery - Discharge Diagnosis(es) (1) Major depressive disorder, recurrent, severe with psychotic features Current Visit: Yes Status: Acute Priority: High (2) Opioid use disorder Current Visit: Yes Status: Acute Priority: Medium (3) Alcohol use disorder Current Visit: Yes Status: Acute Priority: Medium (4) Cannabis use disorder, mild, abuse Current Visit: Yes Status: Acute Priority: Low Hospital Course: This patient is a 43-year-old female that was admitted to the mental health unit on 10/04/2018. She presented feeling hopeless and having suicidal ideation. She had been previously admitted to the medical floor for abdominal discomfort she was evaluated by internal medicine and surgery. Due to her depression and reported symptoms of psychosis she was transferred to the mental health unit. For full details please refer to the psychiatric evaluation no. Summary of hospital course: The patient was admitted to the mental health unit under the care of Dr. Cowart. I assumed care of the patient on 10/08/2018. At that time we discontinued her Zyprexa and started her on Abilify. She was continued on her Effexor XR and trazodone. During the time I worked with her she attended group she demonstrated no agitation. She reported a progressive improvement of symptoms while here. She had supportive phone calls from her boyfriend. As well as her sister. She is due to participate in a support meeting involving her sister today prior discharge. She has reported a resolution of her suicidal ideation and is reporting no auditory or visual hallucinations. She was seen by internal medicine during the hospitalization. She plans to follow-up with her surgeon to pursue a cholecystectomy which she states was advised when she was on the medical floor. Mental status exam: The patient is alert she is dressed in her own clothing hygiene grooming are adequate. Speech is fluent spontaneous nonpressured. She indicates her mood is much improved. She is reporting no hopelessness thinking she reports no suicidal ideation intent or plan. She reports no homicidal ideation intent or plan. She reports no auditory or visual hallucinations or any specific delusions. There is no observed evidence of psychosis. Thought process is linear she demonstrates no tangential thinking loose associations or flight of ideas. She does not appear hypomanic or manic. She is oriented to person place and date. She demonstrates no involuntary repetitive movements. Affect is euthymic and appropriately reactive. She spontaneously describes future oriented thinking. Impressions 1. Major depressive disorder recurrent severe with psychosis, history of alcohol use disorder, marijuana use disorder, opioid use disorder 2. Rule out cluster B traits Plan: The patient will be discharged mental health unit today following a [facility] support meeting involving her sister. The patient will continue on Abilify 5 mg daily, Effexor XR 150 mg daily, trazodone 75 mg at bedtime. She will follow-up with her primary care physician and surgeon as directed. Social work will arrange outpatient mental health follow-up. The patient's instructed to abstain from any use of alcohol marijuana opiates or any illicit drugs as these will precipitate mood and psychotic symptoms and will elevate her safety risk. At this time she demonstrates no imminent safety risk she is appropriate for transition outpatient care. She is instructed to return to the hospital with any acute safety concerns. Patient Condition at Discharge: Stable Plan - Discharge Summary Discharge Rx Participant: No New Discharge Prescriptions: New ARIPiprazole [Abilify] 5 mg PO DAILY #30 tab traZODone HCL [Desyrel] 75 mg PO HS #45 tab Psyllium Husk 100% [Metamucil Packet] 6 gm PO DAILY packet Continue Ergocalciferol (Vitamin D2) [Vitamin D2] 50,000 unit PO LONG Albuterol Inhaler [Ventolin Hfa Inhaler] 1 - 2 puff INHALATION RT-Q6H PRN PRN Reason: Bronchospasm Hydrochlorothiazide 25 mg PO DAILY PRN PRN Reason: Edema Albuterol Nebulized [Ventolin Nebulized] 2.5 mg INHALATION RT-QID PRN PRN Reason: Shortness Of Breath Hyoscyamine Sulfate [Levsin] 0.125 mg PO BID PRN PRN Reason: IBS tiZANidine [Zanaflex] 4 mg PO Q8H PRN PRN Reason: Muscle Spasm Bisacodyl [Dulcolax] 5 mg PO DAILY PRN #10 tablet. PRN Reason: Constipation Simethicone 40 mg/0.6 ml Drops [Mylicon Drops] 40 mg PO PCHS PRN #30 ml PRN Reason: Gas Omeprazole 40 mg PO DAILY #60 capsule. Ondansetron [Zofran ODT] 4 mg PO Q8HR PRN #15 tab PRN Reason: Nausea Atorvastatin Calcium [Lipitor] 20 mg PO HS Topiramate [Topamax] 100 mg PO BID Ranitidine HCl 150 mg PO DAILY SUMAtriptan SUCCINATE [Imitrex] 50 mg PO DAILY Sucralfate [Carafate] 1 gm PO AC-BID #60 tab Venlafaxine HCl ER [Effexor XR] 150 mg PO DAILY #30 cap.er.24h Discontinued buPROPion XL [Wellbutrin XL] 150 mg PO DAILY ALPRAZolam [Xanax] 0.25 mg PO HS oxyCODONE-APAP 7.5-325MG [Percocet 7.5-325 mg] 1 tab PO Q8H PRN PRN Reason: Pain QUEtiapine FUMARATE [SEROquel XR] 400 mg PO HS No Action Baclofen [Lioresal] 20 mg PO BID Discharge Medication List Albuterol Inhaler [Ventolin Hfa Inhaler] 1 - 2 puff INHALATION RT-Q6H PRN 0 06/04/17 [History] Ergocalciferol (Vitamin D2) [Vitamin D2] 50,000 unit PO LONG 06/04/17 [History] Baclofen [Lioresal] 20 mg PO BID 07/02/17 [History] Albuterol Nebulized [Ventolin Nebulized] 2.5 mg INHALATION RT-QID PRN 07/27/17 [History] Hydrochlorothiazide 25 mg PO DAILY PRN 07/27/17 [History] Hyoscyamine Sulfate [Levsin] 0.125 mg PO BID PRN 07/27/17 [History] tiZANidine [Zanaflex] 4 mg PO Q8H PRN 08/02/17 [History] Bisacodyl [Dulcolax] 5 mg PO DAILY PRN #10 tablet. 08/03/17 [Rx] Omeprazole 40 mg PO DAILY #60 capsule. 08/03/17 [Rx] Simethicone 40 mg/0.6 ml Drops [Mylicon Drops] 40 mg PO PCHS PRN #30 ml 08/03/17 [Rx] Atorvastatin Calcium [Lipitor] 20 mg PO HS 08/01/18 [History] Ondansetron [Zofran ODT] 4 mg PO Q8HR PRN #15 tab 08/01/18 [Rx] Topiramate [Topamax] 100 mg PO BID 08/01/18 [History] Ranitidine HCl 150 mg PO DAILY 08/20/18 [History] SUMAtriptan SUCCINATE [Imitrex] 50 mg PO DAILY 09/27/18 [History] Sucralfate [Carafate] 1 gm PO AC-BID #60 tab 10/04/18 [Rx] ARIPiprazole [Abilify] 5 mg PO DAILY #30 tab 10/11/18 [Rx] Psyllium Husk 100% [Metamucil Packet] 6 gm PO DAILY packet 10/11/18 [Rx] Venlafaxine HCl ER [Effexor XR] 150 mg PO DAILY #30 cap.er.24h 10/11/18 [Rx] traZODone HCL [Desyrel] 75 mg PO HS #45 tab 10/11/18 [Rx] Follow up Appointment(s)/Referral(s): Psychiatry,Servando [Other] - 10/22/18 1:50 pm (Arrive 1:30 for 1:50 Appointment Maria Ines WALKER ) [facility] [employer] [Outside] - 10/14/18 5:00 pm (Appointment with Jagdeep Lockwood) Activity/Diet/Wound Care/Special Instructions: Activity and diet as tolerated. No guns or weapons in the home. Refrain from alcohol and street drugs not prescribed by your physician. Take all medications as prescribed, and attend all follow up appointments as scheduled. If in need of medication refills, please go to your out patient psychiatrist, or primary care physician. If in crisis, please go to the nearest ER for an evaluation, or call the crisis line at .
[2018-10-11] MEDS: tiZANidine 4 MG TAB PO PRN (11:46)
== END 2018-10-11 13:24 | disposition home or self-care (01) | DRG 885 ==
LOC: 3MHU 16:25
PROVIDERS: ADMIT Psychiatry & Neurology Psychiatry; ATTEND Psychiatry & Neurology Psychiatry
DX: F33.3 Major depressive disorder, recurrent, severe with psychotic symptoms (principal); R45.851 Suicidal ideations; T80.1XXA Vascular complications following infusion, transfusion and therapeutic injection, initial encounter; I80.8 Phlebitis and thrombophlebitis of other sites; F11.10 Opioid abuse, uncomplicated; F10.10 Alcohol abuse, uncomplicated; F12.10 Cannabis abuse, uncomplicated; F43.10 Post-traumatic stress disorder, unspecified; J45.909 Unspecified asthma, uncomplicated; H91.90 Unspecified hearing loss, unspecified ear; K58.9 Irritable bowel syndrome, unspecified; E78.5 Hyperlipidemia, unspecified; G25.81 Restless legs syndrome; G89.29 Other chronic pain; M54.2 Cervicalgia; M54.9 Dorsalgia, unspecified; K30 Functional dyspepsia; G47.9 Sleep disorder, unspecified; M19.90 Unspecified osteoarthritis, unspecified site; F17.210 Nicotine dependence, cigarettes, uncomplicated; Z71.6 Tobacco abuse counseling; Z79.899 Other long term (current) drug therapy; Z62.810 Personal history of physical and sexual abuse in childhood; Z98.84 Bariatric surgery status; Z87.442 Personal history of urinary calculi; Z91.410 Personal history of adult physical and sexual abuse; Z98.51 Tubal ligation status; Z98.890 Other specified postprocedural states; Z98.1 Arthrodesis status; Z82.49 Family history of ischemic heart disease and other diseases of the circulatory system; Z83.3 Family history of diabetes mellitus
CPT/HCPCS: 80061; 83036

== ENCOUNTER 2018-11-05 07:10 | Day surgery (SDC) | payer BC, OTHER ==
[2018-10-30 13:45] VITALS: BMI 22.8
[~2018-11-05 07:10] MED LIST changes: +HEPARIN SODIUM,PORCINE 5,000 UNIT/ML 1 ML VIAL SQ ONE; +KETOROLAC 30 MG/ML 1 ML VIAL IVP SCH; +LACTATED RINGERS 1,000 ML IV SCH; +LIDOCAINE 1% 20 ML VIAL (10MG/ML) FOR IV START INTRADERMA PRN; +METOCLOPRAMIDE 5 MG/ML 2 ML VIAL IVP PRN; -MIDAZOLAM 2 MG/2 ML VIAL IV PRN; -MORPHINE SULFATE 4 MG/ML SYRINGE IV PRN; +SCOPOLAMINE 1.5MG/72HR PATCH TRANSDERM ONE
--- NOTE | 2018-11-05 08:34 | P.GSHP ---
History of Present Illness H&P Date: 11/05/18 Chief Complaint: Right upper quadrant pain This a 43-year-old female who's had chronic plantar quadrant pain. She has abnormal HIDA scan ejection fraction. She presents today for laparoscopic cholecystectomy for chronic cholecystitis. Past Medical History Past Medical History: Asthma, Cancer, Chest Pain / Angina, GERD/Reflux, Hyperlipidemia, Rheumatoid Arthritis (RA) Additional Past Medical History / Comment(s): IBS, hx. kidney stones, DDD, RLS, migraines, "I pass out 4 x over last couple months" from low potassium, palpitations, varicose veins, hx hypoglyemia, anemia, chronic UTI's, "enlarged bladder" , hx cervical cancer History of Any Multi-Drug Resistant Organisms: None Reported Past Surgical History: Back Surgery, Bariatric Surgery, Orthopedic Surgery, Tubal Ligation, Uterine Ablation Additional Past Surgical History / Comment(s): D&C,DOUBLE DISC FUSION L3-L4-L5,Cervical Disc C6 replaced x 2, STENTS KIDNEY STONES/ removed,LITHOTRIPSY, Left lateral epicondylitis sx, partial removal of cervix using cryotherapy, Gastric Sleeve, left elbow surgery for tendon release Past Anesthesia/Blood Transfusion Reactions: Motion Sickness Additional Past Anesthesia/Blood Transfusion Reaction / Comment(s): NEVER HAS HAD BLOOD TRANSFUSION Smoking Status: Former smoker - Past Family History Mother Family Medical History: Congestive Heart Failure (CHF), Diabetes Mellitus, Hypertension Father History Unknown: Yes Family Medical History: Cancer Additional Family Medical History / Comment(s): lung, brain Medications and Allergies Home Medications Medication Instructions Recorded Confirmed Type Albuterol Inhaler [Ventolin Hfa 1 - 2 puff INHALATION Q6HR PRN 06/04/17 10/30/18 History Inhaler] Ergocalciferol (Vitamin D2) 50,000 unit PO LONG 06/04/17 10/30/18 History [Vitamin D2] Albuterol Nebulized [Ventolin 2.5 mg INHALATION QID PRN 07/27/17 10/30/18 History Nebulized] tiZANidine [Zanaflex] 4 mg PO TID PRN 08/02/17 10/30/18 History Bisacodyl [Dulcolax] 5 mg PO DAILY PRN #10 tablet. 08/03/17 10/30/18 Rx Omeprazole 40 mg PO DAILY #60 capsule. 08/03/17 10/30/18 Rx Simethicone 40 mg/0.6 ml Drops 40 mg PO PCHS PRN #30 ml 08/03/17 10/30/18 Rx [Mylicon Drops] Atorvastatin Calcium [Lipitor] 20 mg PO 1700 08/01/18 10/30/18 History Ondansetron [Zofran ODT] 4 mg PO Q8HR PRN #15 tab 08/01/18 10/30/18 Rx Ranitidine HCl 150 mg PO DAILY 08/20/18 10/30/18 History Venlafaxine HCl ER [Effexor XR] 150 mg PO DAILY #30 cap.er.24h 10/11/18 10/30/18 Rx ARIPiprazole [Abilify] 10 mg PO 199910/30/18 10/30/18 History Cyanocobalamin [Vitamin B-12 1,000 mcg SQ QMONTH 10/30/18 10/30/18 History Injection] Famotidine [Pepcid] 20 mg PO HS 10/30/18 10/30/18 History Ferrous Sulfate [Feosol] 325 mg PO DAILY 10/30/18 10/30/18 History Hydrochlorothiazide [Hydrodiuril] 25 mg PO DAILY 10/30/18 10/30/18 History Hyoscyamine Sulfate [Levsin] 0.125 mg PO HS PRN 10/30/18 10/30/18 History Magnesium Oxide [Mag-Ox] 250 mg PO DAILY 10/30/18 10/30/18 History Multivitamins, Thera [Multivitamin 1 tab PO DAILY 10/30/18 10/30/18 History (formulary)] Potassium 99 mg PO DAILY 10/30/18 10/30/18 History SUMAtriptan SUCCINATE [Imitrex] 50 mg PO DIRECTED PRN 10/30/18 10/30/18 History Sucralfate [Carafate] 1 gm PO BID-W/MEALS 10/30/18 10/30/18 History Topiramate [Topamax] 200 mg PO HS 10/30/18 10/30/18 History Zinc 50 mg PO DAILY 10/30/18 10/30/18 History clonazePAM [KlonoPIN] 0.5 mg PO DAILY PRN 10/30/18 10/30/18 History oxyCODONE-APAP 7.5-325MG [Percocet 1 tab PO TID PRN 10/30/18 10/30/18 History 7.5-325 mg] traZODone HCL 100 mg PO 199910/30/18 10/30/18 History Allergies Allergy/AdvReac Type Severity Reaction Status Date / Time NSAIDS (Non-Steroidal Allergy Unknown Verified 11/05/18 08:32 Anti-Inflamma Surgical - Exam - General well developed, well nourished, no distress - Eyes PERRL - ENT normal pinna - Neck no masses - Respiratory normal expansion - Cardiovascular Rhythm: regular - Abdomen Abdomen: soft, non tender Assessment and Plan Assessment: Chronic cholecystitis. We'll perform laparoscopic cholecystectomy.
[2018-11-05 08:46] LABS: Glucose,Whole Blood 86 mg/dL (75-99)
[2018-11-05] MEDS ORDERED: HYDROmorphone (PF) 1 MG/ML ONE (09:02)
[2018-11-05] MEDS ORDERED: PROPOFOL 10 MG/ML 20 ML VIAL IV ONE (09:02)
[2018-11-05] MEDS ORDERED: fentaNYL (PF) 50 MCG/ML 2 ML AMP ONE (09:02)
[2018-11-05] MEDS ORDERED: NEOSTIGMINE 1 MG/ML 10 ML VIAL ONE (09:02)
[2018-11-05] MEDS ORDERED: LIDOCAINE 1% INJ 10MG/ML (20 ML MDV) ONE (09:02)
[2018-11-05] MEDS ORDERED: MIDAZOLAM 2 MG/2 ML VIAL ONE (09:02)
[2018-11-05] MEDS ORDERED: ROCURONIUM BROMIDE 10 MG/ML 10 ML VIAL IV ONE (09:02)
[2018-11-05] MEDS ORDERED: BUPIVACAINE (PF) 0.5% 30 ML VIAL SQ ONE (09:17)
[2018-11-05 09:55] VITALS: TEMP 96.7
--- NOTE | 2018-11-05 09:59 | P.OP ---
Date of Procedure: 11/05/18 Preoperative Diagnosis: Cholecystitis Postoperative Diagnosis: Cholecystitis Procedure(s) Performed: Laparoscopic cholecystectomy Anesthesia: BASIL Surgeon: Stan Dave Estimated Blood Loss (ml): 5 Pathology: other (Gallbladder) Condition: stable Disposition: PACU Description of Procedure: The patient was placed on the operating table. The patient received a general endotracheal tube anesthesia. The patients abdomen was prepped and draped in the usual sterile fashion. Through an infraumbilical stab incision, the fascia of the anterior abdominal wall was grasped with a pair of Kochers and then the Veress needle was placed in the peritoneal cavity. Position of the Veress needle was confirmed with positive drop test. The abdomen was then insufflated. After adequate insufflation, the 10 mm trocar was placed in the peritoneal cavity. Following this the laparoscope was placed in the peritoneal cavity. The patient was placed in the head-up, right side up position and then a 5 mm trocar was placed in the right lateral and right subcostal position under direct visualization. A 8 mm trocar was placed in the epigastric position. The gallbladder was grasped in the fundus and infundibulum. Traction on the gallbladder was placed in the lateral and the cephalad positions. The triangle of Calot was visualized.. The cystic duct was bluntly dissected until the union of the cystic duct and common bile duct was seen. A critical view of safety was achieved. The cystic duct was then divided and sealed with the Harmonic scissors. A PDS Endoloop was then placed throughout the cystic duct stump. The cystic artery divided and sealed with the Harmonic scissors. The gallbladder was then removed from the liver bed using Harmonic scissors. The gallbladder was then extracted through the epigastric port site. Operative field was checked for any bleeding spots and Harmonic scissors was used to coagulate the liver bed. The abdomen was irrigated. The trocars were removed. The skin was closed using interrupted 3-0 Vicryl suture. Dermabond dressing were applied. The patient tolerated the procedure well.
[2018-11-05] MEDS: HYDROmorphone 0.5 MG/0.5 ML SYRINGE IVP PRN ×5 (10:05→10:29)
[2018-11-05] MEDS ORDERED: LACTATED RINGERS 1,000 ML IV ONE ×2 (10:10)
[2018-11-05] MEDS ORDERED: MEPERIDINE 50 MG/ML SYRINGE IVP ONE (10:44)
[2018-11-05 14:07] VITALS: BP 108/72; PULSE 66; RESP 16
== END 2018-11-05 12:46 | disposition home or self-care (01) ==
LOC: OR 07:10
PROVIDERS: ATTEND Surgery
DX: K81.1 Chronic cholecystitis (principal); I20.9 Angina pectoris, unspecified; E78.5 Hyperlipidemia, unspecified; M06.9 Rheumatoid arthritis, unspecified; G25.81 Restless legs syndrome; G43.909 Migraine, unspecified, not intractable, without status migrainosus; F41.9 Anxiety disorder, unspecified; F60.3 Borderline personality disorder; K21.9 Gastro-esophageal reflux disease without esophagitis; E16.2 Hypoglycemia, unspecified; D64.9 Anemia, unspecified; J45.909 Unspecified asthma, uncomplicated; K58.9 Irritable bowel syndrome, unspecified; Z88.6 Allergy status to analgesic agent; Z87.891 Personal history of nicotine dependence; Z87.19 Personal history of other diseases of the digestive system; Z98.890 Other specified postprocedural states; Z79.899 Other long term (current) drug therapy; Z82.49 Family history of ischemic heart disease and other diseases of the circulatory system; Z83.3 Family history of diabetes mellitus; Z85.41 Personal history of malignant neoplasm of cervix uteri; Z98.84 Bariatric surgery status; Z98.51 Tubal ligation status; Z86.79 Personal history of other diseases of the circulatory system
CPT/HCPCS: 88304; 84132; 47562; J2250; J1644; J1100; J2710; J2175; J0690; J2405; J2001; J3010; J1170 ×2; J2704

== ENCOUNTER 2018-11-06 08:00 | Emergency (ER) | payer BC, OTHER ==
[2018-11-06 08:12] VITALS: RESP 18
[2018-11-06] MEDS ORDERED: HYDROmorphone 0.5 MG/0.5 ML SYRINGE IVP STA (08:22)
[2018-11-06] MEDS ORDERED: ONDANSETRON 4 MG/2 ML VIAL IVP STA (08:22)
[2018-11-06] MEDS ORDERED: SODIUM CHLORIDE 0.9% 2,000 ML IV STA (08:22)
[2018-11-06] MEDS ORDERED: ACETAMINOPHEN TAB 500 MG TAB PO STA (08:23)
--- NOTE | 2018-11-06 08:25 | ED ---
General Adult HPI - General Chief complaint: Nausea/Vomiting/Diarrhea Stated complaint: post op gallbladder-fever/dehydration/vomiting Time Seen by Provider: 11/06/18 08:12 Source: patient, RN notes reviewed, old records reviewed Mode of arrival: ambulatory Limitations: no limitations - History of Present Illness Initial comments: Patient's 43-year-old female presents weren't grossly 1 day postop for cholecystectomy. This is by Dr. Monroy. She presents today complaining of one day after of nausea vomiting and abdominal pain. She reports she's been having chills and fever. Patient was sent in by her surgeon. Patient has had no other symptoms associated with a fever besides abdominal pain. She denies any coughing or shortness of breath. - Related Data Home Medications Medication Instructions Recorded Confirmed Albuterol Inhaler [Ventolin Hfa 1 - 2 puff INHALATION Q6HR PRN 06/04/17 11/06/18 Inhaler] Ergocalciferol (Vitamin D2) 50,000 unit PO LONG 06/04/17 11/06/18 [Vitamin D2] Albuterol Nebulized [Ventolin 2.5 mg INHALATION RT-QID PRN 07/27/17 11/06/18 Nebulized] tiZANidine [Zanaflex] 4 mg PO TID PRN 08/02/17 11/06/18 Atorvastatin Calcium [Lipitor] 20 mg PO DAILY@1700 08/01/18 11/06/18 Ranitidine HCl 150 mg PO DAILY 08/20/18 11/06/18 ARIPiprazole [Abilify] 10 mg PO DAILY@199910/30/18 11/06/18 Cyanocobalamin [Vitamin B-12 1,000 mcg SQ QMONTH 10/30/18 11/06/18 Injection] Famotidine [Pepcid] 20 mg PO HS 10/30/18 11/06/18 Ferrous Sulfate [Feosol] 325 mg PO DAILY 10/30/18 11/06/18 Hydrochlorothiazide [Hydrodiuril] 25 mg PO DAILY 10/30/18 11/06/18 Hyoscyamine Sulfate [Levsin] 0.125 mg PO HS PRN 10/30/18 11/06/18 Magnesium Oxide [Mag-Ox] 250 mg PO DAILY 10/30/18 11/06/18 Multivitamins, Thera [Multivitamin 1 tab PO DAILY 10/30/18 11/06/18 (formulary)] Potassium 99 mg PO DAILY 10/30/18 11/06/18 SUMAtriptan SUCCINATE [Imitrex] 50 mg PO DAILY PRN 10/30/18 11/06/18 Sucralfate [Carafate] 1 gm PO BID-W/MEALS 10/30/18 11/06/18 Topiramate [Topamax] 200 mg PO HS 10/30/18 11/06/18 Zinc 50 mg PO DAILY 10/30/18 11/06/18 clonazePAM [KlonoPIN] 0.5 mg PO DAILY PRN 10/30/18 11/06/18 oxyCODONE-APAP 7.5-325MG [Percocet 1 tab PO TID PRN 10/30/18 11/06/18 7.5-325 mg] traZODone HCL 100 mg PO DAILY@199910/30/18 11/06/18 Previous Rx's Medication Instructions Recorded Bisacodyl [Dulcolax] 5 mg PO DAILY PRN #10 tablet. 08/03/17 Omeprazole 40 mg PO DAILY #60 capsule. 08/03/17 Simethicone 40 mg/0.6 ml Drops 40 mg PO PCHS PRN #30 ml 08/03/17 [Mylicon Drops] Ondansetron [Zofran ODT] 4 mg PO Q8HR PRN #15 tab 08/01/18 Venlafaxine HCl ER [Effexor XR] 150 mg PO DAILY #30 cap.er.24h 10/11/18 Docusate [Colace] 100 mg PO BID #20 capsule 11/05/18 HYDROcodone/APAP 5-325MG [[place] 1 tab PO Q6HR PRN #10 tab 11/05/18 5-325] Ondansetron Odt [Zofran Odt] 4 mg PO Q8HR PRN #12 tab 11/06/18 Allergies Allergy/AdvReac Type Severity Reaction Status Date / Time NSAIDS (Non-Steroidal AdvReac Unknown Verified 11/06/18 08:52 Anti-Inflamma Review of Systems ROS Statement: Those systems with pertinent positive or pertinent negative responses have been documented in the HPI. ROS Other: All systems not noted in ROS Statement are negative. Past Medical History Past Medical History: Asthma, Cancer, Chest Pain / Angina, GERD/Reflux, Hyperlipidemia, Rheumatoid Arthritis (RA) Additional Past Medical History / Comment(s): IBS, hx. kidney stones, DDD, RLS, migraines, "I pass out 4 x over last couple months" from low potassium, palpitations, varicose veins, hx hypoglyemia, anemia, chronic UTI's, "enlarged bladder" , hx cervical cancer History of Any Multi-Drug Resistant Organisms: None Reported Past Surgical History: Back Surgery, Bariatric Surgery, Cholecystectomy, O rthopedic Surgery, Tubal Ligation, Uterine Ablation Additional Past Surgical History / Comment(s): D&C,DOUBLE DISC FUSION L3-L4-L5,Cervical Disc C6 replaced x 2, STENTS KIDNEY STONES/removed,LITHOTRIPSY, Left lateral epicondylitis sx, partial removal of cervix using cryotherapy, Gastric Sleeve, left elbow surgery for tendon release Past Anesthesia/Blood Transfusion Reactions: Motion Sickness Additional Past Anesthesia/Blood Transfusion Reaction / Comment(s): NEVER HAS HAD BLOOD TRANSFUSION Past Psychological History: Anxiety, Bipolar, Depression, Panic Disorder, PTSD Smoking Status: Former smoker Past Alcohol Use History: None Reported Past Drug Use History: None Reported - Past Family History Mother Family Medical History: Congestive Heart Failure (CHF), Diabetes Mellitus, Hypertension Father History Unknown: Yes Family Medical History: Cancer Additional Family Medical History / Comment(s): lung, brain General Exam - General Exam Comments Initial Comments: 43-year-old female. Alert and oriented. Patient appears in moderate discomfort. Limitations: no limitations Head exam: Absent: other Eye exam: Present: normal appearance, PERRL, EOMI. Absent: scleral icterus, conjunctival injection, periorbital swelling ENT exam: Present: normal exam, mucous membranes moist Neck exam: Present: normal inspection. Absent: tenderness, meningismus, lymphadenopathy Respiratory exam: Present: normal lung sounds bilaterally. Absent: respiratory distress, wheezes, rales, rhonchi, stridor Cardiovascular Exam: Present: regular rate, normal rhythm, normal heart sounds. Absent: systolic murmur, diastolic murmur, rubs, gallop, clicks GI/Abdominal exam: Present: soft, tenderness (Right upper quadrant tenderness. Well-appearing incision sites.), normal bowel sounds. Absent: distended, guarding, rebound, rigid Extremities exam: Present: normal inspection, full ROM, normal capillary refill. Absent: tenderness, pedal edema, joint swelling, calf tenderness Back exam: Present: normal inspection Neurological exam: Present: alert, oriented X3, CN II-XII intact Psychiatric exam: Present: normal affect, normal mood Course Vital Signs 11/06/18 11/06/18 11/06/18 08:09 09:29 10:38 Temperature 98.1 F Pulse Rate 83 68 62 Respiratory 18 18 18 Rate Blood Pressure 144/86 131/85 158/102 O2 Sat by Pulse 100 97 100 Oximetry 11/06/18 11/06/18 10:50 11:32 Temperature 99.3 F 99.3 F Pulse Rate 64 Respiratory 18 Rate Blood Pressure 164/102 O2 Sat by Pulse 100 Oximetry Medical Decision Making - Medical Decision Making Condition is a 43-year-old female presents emergency Department today with complaints of acid reflux, right lower upper quadrant abdominal pain nausea and vomitinG one day post op for cholecystectomy. At this time patient's labwork was reviewed and also unremarkable. Normal white blood cell count. She also low-grade temperature 99.4. Patient was given pain medicine, CT was completed. There is evidence of some mild fluid in the pole pelvic cul-de-sac concern for possible blood. There is no signs of abscess or other inflammatory process. I discussed case with Dr. Gorman and discussed the case with Dr. Nguyễn. He states the Patient should be sent home with prescription for Zofran and follow up with them out patiently in the office. Patient was informed of these results and will be discharged at this time in stable condition. - Lab Data Result diagrams: 11/06/18 08:45 11/06/18 08:45 Lab Results 11/06/18 11/06/18 11/06/18 Range/Units 08:45 08:45 08:45 WBC 9.5 (3.8-10.6) k/uL RBC 4.28 (3.80-5.40) m/uL Hgb 13.7 (11.4-16.0) gm/dL Hct 39.6 (34.0-46.0) % MCV 92.7 (80.0-100.0) fL MCH 32.0 (25.0-35.0) pg MCHC 34.5 (31.0-37.0) g/dL RDW 14.5 (11.5-15.5) % Plt Count 282 (150-450) k/uL Neutrophils % 53 % Lymphocytes % 34 % Monocytes % 9 % Eosinophils % 2 % Basophils % 1 % Neutrophils # 5.0 (1.3-7.7) k/uL Lymphocytes # 3.3 (1.0-4.8) k/uL Monocytes # 0.8 (0-1.0) k/uL Eosinophils # 0.2 (0-0.7) k/uL Basophils # 0.1 (0-0.2) k/uL Sodium 142 (137-145) mmol/L Potassium 4.4 (3.5-5.1) mmol/L Chloride 111 H (98-107) mmol/L Carbon Dioxide 22 (22-30) mmol/L Anion Gap 9 mmol/L BUN 12 (7-17) mg/dL Creatinine 0.65 (0.52-1.04) mg/dL Est GFR (CKD-EPI)AfAm >90 (>60 ml/min/1.73 sqM) Est GFR (CKD-EPI)NonAf >90 (>60 ml/min/1.73 sqM) Glucose 89 (74-99) mg/dL Plasma Lactic Acid Jacobo 1.4 (0.7-2.0) mmol/L Calcium 9.6 (8.4-10.2) mg/dL Total Bilirubin 0.6 (0.2-1.3) mg/dL AST 42 H (14-36) U/L ALT 37 (9-52) U/L Alkaline Phosphatase 59 (38-126) U/L Total Protein 7.0 (6.3-8.2) g/dL Albumin 4.0 (3.5-5.0) g/dL Amylase 64 (30-110) U/L Lipase 172 (23-300) U/L Urine Color Urine Appearance (Clear) Urine pH (5.0-8.0) Ur Specific [place] (1.001-1.035) Urine Protein (Negative) Urine Glucose (UA) (Negative) Urine Ketones (Negative) Urine Blood (Negative) Urine Nitrite (Negative) Urine Bilirubin (Negative) Urine Urobilinogen (<2.0) mg/dL Ur Leukocyte Esterase (Negative) Urine RBC (0-5) /hpf Urine WBC (0-5) /hpf Ur Squamous Epith Cells (0-4) /hpf Amorphous Sediment (None) /hpf Urine Mucus (None) /hpf 11/06/18 Range/Units 09:00 WBC (3.8-10.6) k/uL RBC (3.80-5.40) m/uL Hgb (11.4-16.0) gm/dL Hct (34.0-46.0) % MCV (80.0-100.0) fL MCH (25.0-35.0) pg MCHC (31.0-37.0) g/dL RDW (11.5-15.5) % Plt Count (150-450) k/uL Neutrophils % % Lymphocytes % % Monocytes % % Eosinophils % % Basophils % % Neutrophils # (1.3-7.7) k/uL Lymphocytes # (1.0-4.8) k/uL Monocytes # (0-1.0) k/uL Eosinophils # (0-0.7) k/uL Basophils # (0-0.2) k/uL Sodium (137-145) mmol/L Potassium (3.5-5.1) mmol/L Chloride (98-107) mmol/L Carbon Dioxide (22-30) mmol/L Anion Gap mmol/L BUN (7-17) mg/dL Creatinine (0.52-1.04) mg/dL Est GFR (CKD-EPI)AfAm (>60 ml/min/1.73 sqM) Est GFR (CKD-EPI)NonAf (>60 ml/min/1.73 sqM) Glucose (74-99) mg/dL Plasma Lactic Acid Jacobo (0.7-2.0) mmol/L Calcium (8.4-10.2) mg/dL Total Bilirubin (0.2-1.3) mg/dL AST (14-36) U/L ALT (9-52) U/L Alkaline Phosphatase (38-126) U/L Total Protein (6.3-8.2) g/dL Albumin (3.5-5.0) g/dL Amylase (30-110) U/L Lipase (23-300) U/L Urine Color Light Yellow Urine Appearance Cloudy H (Clear) Urine pH 8.5 H (5.0-8.0) Ur Specific [place] 1.010 (1.001-1.035) Urine Protein Negative (Negative) Urine Glucose (UA) Negative (Negative) Urine Ketones Negative (Negative) Urine Blood Negative (Negative) Urine Nitrite Negative (Negative) Urine Bilirubin Negative (Negative) Urine Urobilinogen <2.0 (<2.0) mg/dL Ur Leukocyte Esterase Trace H (Negative) Urine RBC 3 (0-5) /hpf Urine WBC 4 (0-5) /hpf Ur Squamous Epith Cells 6 H (0-4) /hpf Amorphous Sediment Rare H (None) /hpf Urine Mucus Rare H (None) /hpf - Radiology Data Radiology results: report reviewed CT abdomen and pelvis shows nonspecific findings as detailed above. No pneumoperitoneum or subcu continues air possibly postsurgical. Small degree of focal ill-defined fluid and focal air bubble gallbladder is nonspecific. Moderate amount slightly hyperdense fluid in the pelvis most prominent in the level of the cul-de-sac. Cannot exclude blood products. No well-informed fluid collection or abscess. Disposition Clinical Impression: Post-op pain, Postoperative nausea Disposition: ADMITTED IP TO THIS [facility] Condition: Stable Instructions (If sedation given, give patient instructions): Acute Nausea and Vomiting (ED) Additional Instructions: Please use medication as discussed. Patient should follow-up with surgeon within the next 1-2 days. Please follow up with family doctor if symptoms have not improved over the next two days. Please return to the emergency room if your symptoms increase or worsen or for any other concerns. Prescriptions: Ondansetron Odt [Zofran Odt] 4 mg PO Q8HR PRN #12 tab PRN Reason: Nausea Is patient prescribed a controlled substance at d/c from ED?: No Referrals: Kain Lowery MD [Primary Care Provider] - 1-2 days Time of Disposition: 11:48
[2018-11-06 09:12] LABS: African American GFR (CKD) >90 (>60 ml/min/1.73 sqM); Amylase 64 U/L (30-110); Anion Gap 9 mmol/L; Blood Urea Nitrogen 12 mg/dL (7-17); Calcium 9.6 mg/dL (8.4-10.2); Carbon Dioxide 22 mmol/L (22-30); Chloride 111 mmol/L (98-107); Glucose 89 mg/dL (74-99); Sodium 142 mmol/L (137-145); Total Bilirubin 0.6 mg/dL (0.2-1.3)
[2018-11-06 09:17] LABS: Basophils # (A) 0.1 k/uL (0-0.2); Basophils % (A) 1 %; Eosinophils # (A) 0.2 k/uL (0-0.7); Eosinophils % (A) 2 %; HCT 39.6 % (34.0-46.0); HGB 13.7 gm/dL (11.4-16.0); Lymphocytes # (A) 3.3 k/uL (1.0-4.8); Lymphocytes % (A) 34 %; MCHC 34.5 g/dL (31.0-37.0); MCV 92.7 fL (80.0-100.0); Mean Platelet Volume 7.5; Monocytes # (A) 0.8 k/uL (0-1.0); Monocytes % (A) 9 %; Neutrophils % (A) 53 %; Platelet Count 282 k/uL (150-450); RBC 4.28 m/uL (3.80-5.40); RDW 14.5 % (11.5-15.5); WBC 9.5 k/uL (3.8-10.6)
[2018-11-06 09:17] LABS: Amorphous Sediment,Urine Rare /hpf; Appearance,Urine Cloudy (Clear); Bilirubin,Urine Negative (Negative); Blood,Urine Negative (Negative); Color,Urine Light Yellow; Glucose,Urine (UA) Negative (Negative); Ketones,Urine Negative (Negative); Leukocyte Esterase,Urine Trace (Negative); Mucus,Urine Rare /hpf; Nitrite,Urine Negative (Negative); PH, Urine 8.5 (5.0-8.0); Protein,Urine Negative (Negative); RBC,Urine 3 /hpf (0-5); Squamous Epithelial Cell,Urine 6 /hpf (0-4); Urobilinogen,Urine <2.0 mg/dL (<2.0); WBC,Urine 4 /hpf (0-5)
[2018-11-06 09:24] LABS: Potassium 4.4 mmol/L (3.5-5.1)
[2018-11-06 09:25] LABS: ALT 37 U/L (9-52); AST 42 U/L (14-36); Alkaline Phosphatase 59 U/L (38-126)
--- NOTE | 2018-11-06 10:31 | CT ---
EXAMINATION TYPE: CT abdomen pelvis w con DATE OF EXAM: 11/06/2018 HISTORY: Post op cholecystectomy yesterday with fever; dehydration and vomiting CT DLP: 710.1mGycm Automated Exposure Control for Dose Reduction was Utilized. CONTRAST: CT scan of the abdomen and pelvis is performed with IV Contrast, patient injected with 100 mL of Isov ue 300. COMPARISON: CT abdomen and pelvis 6 weeks ago. FINDINGS: LUNG BASES: No significant abnormality is appreciated. LIVER/GB: Mild hepatomegaly with prominent right hepatic lobe. Gallbladder is also surgically absent with some foci of air level gallbladder fossa seen best on coronal image 25. PANCREAS: No significant abnormality is seen. SPLEEN: No significant abnormality is seen. ADRENALS: No significant abnormality is seen. KIDNEYS: No significant abnormality is seen. BOWEL: Surgical changes epigastric region redemonstrated. Visualized portion of stomach is poorly dis tended and suboptimally evaluated. UTERUS/ADNEXA: Anteverted uterus is seen. LYMPH NODES: No greater than 1cm abdominal or pelvic lymph nodes are appreciated. OSSEOUS STRUCTURES: Postsurgical change L3-L5 levels with artificial disc material and posterior inte rpedicular rods and screws redemonstrated. Posterior decompression with spinous process resection. OTHER: Pneumoperitoneum is noted. Subcutaneous air anterior abdominal wall is seen upper abdomen and central abdomen near umbilicus. Moderate amount of free fluid in the pelvis cul-de-sac axial image 69 . Some fluid extends anteriorly in the pelvis for reference right anterior level axial image 73 and c oronal image 32 Mild diffuse soft tissue anasarca is now present. IMPRESSION: All nonspecific findings as detailed above. No pneumoperitoneum and subcutaneous air pres umably postsurgical. Small degree of more focal ill-defined fluid and foci of air at level of gallbla dder fossa is nonspecific. New moderate amount of slightly hyperdense fluid in the pelvis most promin ent level cul-de-sac, cannot exclude blood product. No well-formed fluid collection or abscess.
[2018-11-06] MEDS ORDERED: MORPHINE SULFATE 4 MG/ML SYRINGE IVP STA (10:39)
[2018-11-06] MEDS: SODIUM CHLORIDE 0.9% 1,000 ML IV STA ×2 (10:55→11:34)
[2018-11-06] MEDS ORDERED: PANTOPRAZOLE 40 MG/10 ML VIAL IVP STA (11:20)
[2018-11-06 11:22] VITALS: TEMP 99.3
[2018-11-06 12:01] VITALS: BP 139/84; PULSE 62
== END 2018-11-06 11:59 | disposition other institution (70) ==
LOC: EC 08:00
DX: G89.18 Other acute postprocedural pain (principal); K91.89 Other postprocedural complications and disorders of digestive system; R11.2 Nausea with vomiting, unspecified; R50.9 Fever, unspecified; K21.9 Gastro-esophageal reflux disease without esophagitis; E78.5 Hyperlipidemia, unspecified; F41.9 Anxiety disorder, unspecified; G25.81 Restless legs syndrome; J45.909 Unspecified asthma, uncomplicated; K58.9 Irritable bowel syndrome, unspecified; M06.9 Rheumatoid arthritis, unspecified; F32.9 Major depressive disorder, single episode, unspecified; I25.2 Old myocardial infarction; F41.0 Panic disorder [episodic paroxysmal anxiety]; F43.10 Post-traumatic stress disorder, unspecified; Z79.51 Long term (current) use of inhaled steroids; Z79.899 Other long term (current) drug therapy; Z85.41 Personal history of malignant neoplasm of cervix uteri; Z90.49 Acquired absence of other specified parts of digestive tract; Z87.891 Personal history of nicotine dependence; Z88.6 Allergy status to analgesic agent; Z98.84 Bariatric surgery status
CPT/HCPCS: 99285; 96374; 96375 ×3; 96361 ×3; 36415; 80053; 82150; 83605; 83690; 85025; 81001; 87040; 74177; J2270; J2405; C9113; J1170; Q9967

== ENCOUNTER → 2018-12-23 | Outpatient (CLI) | payer BC, OTHER ==
[2018-12-23 15:23] VITALS: BP 108/86; PULSE 70; TEMP 97.1; BMI 22.3
--- NOTE | 2018-12-23 16:13 | P.HPBAR ---
Bariatric H&P - History & Physicial H&P Date: 12/23/18 History & Physicial: Visit/CC: sleeve follow up Patient initial contact: Initial weight: 133.764 kg Initial weight in pounds: 294.90 Height: 5 ft 4 in Initial BMI: 50.5 Last weight: Current weight: 58.967 kg Current weight in pounds: 130.00 Current BMI: 22.3 [place] body weight (based on NIH guidelines): 54.431 kg Excess body weight loss: 94.2% The patient is a 43 year-old F who presents for Bariatric Assessment. Patient resents today for sleeve gastrectomy follow-up. She lost 14 pounds since her last visit. She's had some minimal GERD. Past Medical History Past Medical History: Asthma, Cancer, Chest Pain / Angina, GERD/Reflux, Hyperlipidemia, Rheumatoid Arthritis (RA) Additional Past Medical History / Comment(s): IBS, hx. kidney stones, DDD, RLS, migraines, "I pass out 4 x over last couple months" from low potassium, palpitations, varicose veins, hx hypoglyemia, anemia, chronic UTI's, "enlarged bladder" , hx cervical cancer History of Any Multi-Drug Resistant Organisms: None Reported Past Surgical History: Back Surgery, Bariatric Surgery, Cholecystectomy, Orthopedic Surgery, Tubal Ligation, Uterine Ablation Additional Past Surgical History / Comment(s): D&C,DOUBLE DISC FUSION L3-L4-L5,Cervical Disc C6 replaced x 2, STENTS KIDNEY STONES/removed,LITHOTRIPSY, Left lateral epicondylitis sx, partial removal of cervix using cryotherapy, Gastric Sleeve, left elbow surgery for tendon release Past Anesthesia/Blood Transfusion Reactions: Motion Sickness Additional Past Anesthesia/Blood Transfusion Reaction / Comm: NEVER HAS HAD BLOOD TRANSFUSION Past Psychological History: Anxiety, Bipolar, Depression, Panic Disorder, PTSD Additional Psychological History / Comment(s): psychosis, borderline personality disorder, states recent admit for mental health issues but resolved now Smoking Status: Former smoker Past Alcohol Use History: None Reported Additional Past Alcohol Use History / Comment(s): STARTED SMOKING 1991, quit smoking 2015 Past Drug Use History: None Reported - Past Family History Mother Family Medical History: Congestive Heart Failure (CHF), Diabetes Mellitus, Hypertension Father History Unknown: Yes Family Medical History: Cancer Additional Family Medical History / Comment(s): lung, brain Surgical - Exam Vital Signs Temp Pulse BP 97.1 F L 70 108/86 12/23/18 15:20 12/23/18 15:20 12/23/18 15:20 - General well developed, well nourished, no distress - Eyes PERRL - Abdomen Abdomen: soft, non tender Bariatric Assessment & Plan Plan: Status post sleeve gastric. Patient is an excellent weight loss. She'll follow-up in 4 weeks Bariatric Checklist Checklist: Plan: Checklist: EGD: 1. Hiatal hernia: 2. H. Pylori: HgbA1c: Vitamin D: Smoking: Former smoker Primary care physician referral: [place] Psychiatry clearance: Cardiology clearance: Sleep study: Diet journal: VTE risk score: VTE risk level: Rehab needs at discharge:
== END | disposition home or self-care (01) ==
LOC: BARWHC3 13:31
PROVIDERS: ATTEND Surgery
DX: Z48.815 Encounter for surgical aftercare following surgery on the digestive system (principal); K21.9 Gastro-esophageal reflux disease without esophagitis; Z87.891 Personal history of nicotine dependence; Z98.84 Bariatric surgery status; Z90.49 Acquired absence of other specified parts of digestive tract; Z98.51 Tubal ligation status; Z98.890 Other specified postprocedural states
CPT/HCPCS: 99211

== ENCOUNTER → 2019-01-27 | Outpatient (CLI) | payer BC ==
[2019-01-27 14:20] VITALS: BP 136/90; PULSE 75; TEMP 98.1; BMI 23.6
== END | disposition home or self-care (01) ==
LOC: BARWHC3 13:48
PROVIDERS: ATTEND Surgery
DX: E65 Localized adiposity (principal); Z98.84 Bariatric surgery status
CPT/HCPCS: 99211

== ENCOUNTER 2019-04-30 08:36 | Day surgery (SDC) | payer BC ==
[2019-04-30 09:05] VITALS: RESP 20; TEMP 97.7
[2019-04-30] MEDS ORDERED: ALPRAZolam 0.5 MG TAB PO STA (09:06)
--- NOTE | 2019-04-30 09:10 | CT ---
EXAMINATION TYPE: CT sinus wo con DATE OF EXAM: 04/30/2019 COMPARISON: Ultrasound neck 04/14/2019 HISTORY: Chronic sinus congestion and drainage CT DLP: 703.9 mGycm. Automated Exposure Control for Dose Reduction was Utilized. TECHNIQUE: CT scan of the sinuses is performed without contrast, axial images are obtained, coronal r eformatted images are also reviewed. FINDINGS: The paranasal sinuses including the frontal, ethmoid, sphenoid, and maxillary sinuses bila terally are well-aerated. Mucous retention cysts are seen within the right maxillary sinus and there is minimal mucosal thickening on the left. The ostiomeatal complex is patent bilaterally on the corrie nal images. Visualized portion of mastoid air cells show no abnormal opacification. There is a 9 mm right paroti d gland nodule. The globes are intact bilaterally. IMPRESSION: 1. Minimal changes of maxillary chronic sinusitis and the ostiomeatal complex is patent bilaterally. 2. There is a 9 mm right parotid gland solid nodule as previously noted.
[2019-04-30 10:27] VITALS: BP 110/70; PULSE 78
--- NOTE | 2019-04-30 11:45 | US ---
EXAMINATION TYPE: US FNA first lesion DATE OF EXAM: 04/30/2019 HISTORY: Right parotid mass. Correlation CT sinus 04/30/2019 FINDINGS: Maximal barrier technique was utilized. Hand hygiene achieved with alcohol-based hand rub. The skin overlying a suitable path to the patient's mass in the right parotid gland was localized wi th ultrasound and the overlying skin prepped and draped. Ultrasound was utilized with sterile techni que. Lidocaine was used for local anesthesia. 21-gauge needle was advanced under ultrasound guidance into the lesion, 1 cc sanguinous purulent material was obtained and submitted on swab to microbiolog y, specimen so submitted in formalin to Pathology. Following the procedure, hemostasis achieved and the patient is discharged in stable condition without complication. IMPRESSION:STATUS POST ULTRASOUND GUIDED NEEDLE ASPIRATION BIOPSY OF right parotid MASS, PATHOLOGY IS PENDING. THIS PROCEDURE IS PERFORMED BY THE UNDERSIGNED.
== END 2019-04-30 10:30 | disposition home or self-care (01) ==
LOC: RADCTMAIN 08:36 → EDSTATUS 08:40 → RADCTMAIN 10:30
PROVIDERS: ATTEND Otolaryngology
DX: K11.8 Other diseases of salivary glands (principal); J32.0 Chronic maxillary sinusitis
CPT/HCPCS: 10005; 70486; 87070; 87205; 88173; 88305

== ENCOUNTER → 2019-08-04 | Outpatient (CLI) | payer BC ==
[2019-08-04 13:41] VITALS: BP 138/80; PULSE 93; RESP 16; TEMP 98.1; BMI 29.5
--- NOTE | 2019-08-04 15:47 | P.HPBAR ---
Bariatric H&P - History & Physicial H&P Date: 08/04/19 History & Physicial: Visit/CC: sleeve f/u Patient initial contact: Initial weight: 133.764 kg Initial weight in pounds: 294.90 Height: 5 ft 4 in Initial BMI: 50.5 Last weight: Current weight: 78.018 kg Current weight in pounds: 172.00 Current BMI: 29.5 [place] body weight (based on NIH guidelines): 54.431 kg Excess body weight loss: 70.2% The patient is a 44 year-old F who presents for Bariatric Assessment. Patient rents today for sleeve gastric and follow-up. She's had some mild GERD. She's had weight gain since her last visit. Past Medical History Past Medical History: Asthma, Cancer, Chest Pain / Angina, GERD/Reflux, Hyperlipidemia, Rheumatoid Arthritis (RA) Additional Past Medical History / Comment(s): IBS, hx. kidney stones, DDD, RLS, migraines, "I pass out 4 x over last couple months" from low potassium, palpitations, varicose veins, hx hypoglyemia, anemia, chronic UTI's, "enlarged bladder" , hx cervical cancer History of Any Multi-Drug Resistant Organisms: None Reported Past Surgical History: Back Surgery, Bariatric Surgery, Cholecystectomy, Orthopedic Surgery, Tubal Ligation, Uterine Ablation Additional Past Surgical History / Comment(s): D&C,DOUBLE DISC FUSION L3-L4-L5,Cervical Disc C6 replaced x 2, STENTS KIDNEY STONES/removed,LITHOTRIPSY, Left lateral epicondylitis sx, partial removal of cervix using cryotherapy, Gastric Sleeve, left elbow surgery for tendon release Past Anesthesia/Blood Transfusion Reactions: Motion Sickness Additional Past Anesthesia/Blood Transfusion Reaction / Comm: NEVER HAS HAD BLOOD TRANSFUSION Past Psychological History: Anxiety, Bipolar, Depression, Panic Disorder, PTSD Additional Psychological History / Comment(s): psychosis, borderline personality disorder, states recent admit for mental health issues but resolved now Smoking Status: Former smoker Past Alcohol Use History: None Reported Additional Past Alcohol Use History / Comment(s): STARTED SMOKING 1991, quit smoking 2015 Past Drug Use History: None Reported - Past Family History Father History Unknown: Yes Family Medical History: Cancer Additional Family Medical History / Comment(s): lung, brain Surgical - Exam Vital Signs Temp Pulse Resp BP 98.1 F 93 16 138/80 08/04/19 13:38 08/04/19 13:38 08/04/19 13:38 08/04/19 13:38 - General well developed, well nourished, no distress - Eyes PERRL - ENT normal pinna - Neck no masses - Respiratory normal expansion - Cardiovascular Rhythm: regular - Abdomen Abdomen: soft, non tender Bariatric Assessment & Plan Plan: Status post sleeve history. Patient has GERD. She'll be scheduled for esophagram and EGD. She'll follow-up next month. Bariatric Checklist Checklist: Plan: Checklist: EGD: 1. Hiatal hernia: 2. H. Pylori: HgbA1c: Vitamin D: Smoking: Former smoker Primary care physician referral: [place] Psychiatry clearance: Cardiology clearance: Sleep study: Diet journal: VTE risk score: VTE risk level: Rehab needs at discharge:
== END | disposition home or self-care (01) ==
LOC: BARWHC3 12:42
PROVIDERS: ATTEND Surgery
DX: Z48.815 Encounter for surgical aftercare following surgery on the digestive system (principal); K21.9 Gastro-esophageal reflux disease without esophagitis; Z87.891 Personal history of nicotine dependence; Z98.84 Bariatric surgery status
CPT/HCPCS: 99211

== ENCOUNTER 2019-08-14 08:43 | Day surgery (SDC) | payer BC ==
[2019-08-12 10:13] VITALS: BMI 29.5
[~2019-08-14 08:43] MED LIST changes: -DEXAMETHASONE SOD PHOSPHATE 10 MG/ML 1 ML VIAL IV ONE; -HEPARIN SODIUM,PORCINE 5,000 UNIT/ML 1 ML VIAL SQ ONE; -KETOROLAC 30 MG/ML 1 ML VIAL IVP SCH; -LIDOCAINE 1% 20 ML VIAL (10MG/ML) FOR IV START INTRADERMA PRN; -METOCLOPRAMIDE 5 MG/ML 2 ML VIAL IVP PRN; -ONDANSETRON 4 MG/2 ML VIAL IVP ONE; -SCOPOLAMINE 1.5MG/72HR PATCH TRANSDERM ONE
[2019-08-14 09:21] VITALS: RESP 16; TEMP 97.7
[2019-08-14 09:21] LABS: Glucose,Whole Blood 83 mg/dL (75-99)
[2019-08-14] MEDS ORDERED: fentaNYL (PF) 50 MCG/ML 2 ML AMP ONE (09:50)
[2019-08-14] MEDS ORDERED: PROPOFOL 10 MG/ML 20 ML VIAL IV ONE (09:50)
[2019-08-14] MEDS ORDERED: MIDAZOLAM 2 MG/2 ML VIAL ONE (09:50)
--- NOTE | 2019-08-14 09:52 | P.GSHP ---
History of Present Illness H&P Date: 08/14/19 Chief Complaint: GERD This a 44-year-old female who presents today for EGD. Patient's history of GERD. She's previous history of sleeve gastrectomy. Past Medical History Past Medical History: Asthma, Cancer, Chest Pain / Angina, GERD/Reflux, Hyperlipidemia, Rheumatoid Arthritis (RA) Additional Past Medical History / Comment(s): IBS, hx. kidney stones, DDD, RLS, migraines, "I pass out 4 x over last couple months" from low potassium, palpitations, varicose veins, hx hypoglyemia, anemia, chronic UTI's, "enlarged bladder" , hx cervical cancer History of Any Multi-Drug Resistant Organisms: None Reported Past Surgical History: Back Surgery, Bariatric Surgery, Cholecystectomy, Orthopedic Surgery, Tubal Ligation, Uterine Ablation Additional Past Surgical History / Comment(s): D&C,DOUBLE DISC FUSION L3-L4-L5,Cervical Disc C6 replaced x 2, STENTS KIDNEY STONES/removed,LITHOTRIPSY, Left lateral epicondylitis sx, partial removal of cervix using cryotherapy, Gastric Sleeve, left elbow surgery for tendon release Past Anesthesia/Blood Transfusion Reactions: Motion Sickness Additional Past Anesthesia/Blood Transfusion Reaction / Comment(s): NEVER HAS HAD BLOOD TRANSFUSION Smoking Status: Former smoker - Past Family History Mother Family Medical History: Congestive Heart Failure (CHF), Diabetes Mellitus, Hypertension Father History Unknown: Yes Family Medical History: Cancer Additional Family Medical History / Comment(s): lung, brain Medications and Allergies Home Medications Medication Instructions Recorded Confirmed Type tiZANidine [Zanaflex] 4 mg PO HS PRN 08/02/17 08/14/19 History Omeprazole 40 mg PO DAILY #60 capsule. 08/03/17 08/14/19 Rx Atorvastatin Calcium [Lipitor] 20 mg PO DAILY@17008/01/18 08/14/19 History Ranitidine HCl 150 mg PO DAILY 08/20/18 08/14/19 History ARIPiprazole [Abilify] 20 mg PO DAILY@199910/30/18 08/14/19 History Hydrochlorothiazide [Hydrodiuril] 25 mg PO DAILY 10/30/18 08/14/19 History Hyoscyamine Sulfate [Levsin] 0.125 mg PO HS PRN 10/30/18 08/14/19 History Multivitamins, Thera [Multivitamin 1 tab PO DAILY 10/30/18 08/14/19 History (formulary)] DULoxetine HCL [Cymbalta] 90 mg PO QAM 12/24/18 08/14/19 History hydrOXYzine PAMOATE [Vistaril] 50 mg PO TID 12/24/18 08/14/19 History traZODone HCL 100 mg PO HS 04/22/19 08/14/19 History Pregabalin [Lyrica] 100 mg PO TID 08/14/19 08/14/19 History Allergies Allergy/AdvReac Type Severity Reaction Status Date / Time NSAIDS (Non-Steroidal AdvReac hx of Verified 08/14/19 09:09 Anti-Inflamma gastric sleeve - states unable to take due to that Surgical - Exam Vital Signs Temp Pulse Resp BP Pulse Ox 97.7 F 77 16 130/72 98 08/14/19 09:10 08/14/19 09:10 08/14/19 09:10 08/14/19 09:10 08/14/19 09:10 - General well developed, well nourished, no distress - Eyes PERRL - ENT normal pinna - Neck no masses - Respiratory normal expansion - Cardiovascular Rhythm: regular - Abdomen Abdomen: soft, non tender Assessment and Plan Assessment: GERD. We'll perform EGD.
--- NOTE | 2019-08-14 09:59 | P.OP ---
Date of Procedure: 08/14/19 Preoperative Diagnosis: GERD Postoperative Diagnosis: Mild antral gastritis Mild esophagitis Procedure(s) Performed: EGD Anesthesia: MAC Surgeon: Stan Dave Pathology: other (Antrum, esophagus) Condition: stable Disposition: PACU Description of Procedure: Patient's placed on the endoscopy table in the lateral position. She received IV sedation. The gastro-placed oropharynx and passed in the esophagus and stomach. Scope was placed through the pylorus. The first and second portion of the duodenum appeared normal. Scope was then brought back the antrum this. Mildly inflamed a biopsies performed. Scope was then rock back through the gastric sleeve. There is known to any obstruction. The GE junction was at 40 cm. The distal esophagus appeared mildly inflamed a biopsies performed. The proximal esophagus appeared normal. Scope was withdrawn for patient.
[2019-08-14 10:43] VITALS: BP 119/70; PULSE 77
== END 2019-08-14 10:32 | disposition home or self-care (01) ==
LOC: ORWHC2ENDO 08:43
PROVIDERS: ATTEND Surgery
DX: K21.0 Gastro-esophageal reflux disease with esophagitis (principal); K29.50 Unspecified chronic gastritis without bleeding; J45.909 Unspecified asthma, uncomplicated; E78.5 Hyperlipidemia, unspecified; F43.10 Post-traumatic stress disorder, unspecified; F41.9 Anxiety disorder, unspecified; F31.9 Bipolar disorder, unspecified; M06.9 Rheumatoid arthritis, unspecified; G25.81 Restless legs syndrome; G43.909 Migraine, unspecified, not intractable, without status migrainosus; D64.9 Anemia, unspecified; N39.0 Urinary tract infection, site not specified; Z98.84 Bariatric surgery status; Z85.41 Personal history of malignant neoplasm of cervix uteri; Z87.19 Personal history of other diseases of the digestive system; Z90.49 Acquired absence of other specified parts of digestive tract; Z98.890 Other specified postprocedural states; Z98.51 Tubal ligation status; Z87.891 Personal history of nicotine dependence; Z98.1 Arthrodesis status; Z82.49 Family history of ischemic heart disease and other diseases of the circulatory system; Z83.3 Family history of diabetes mellitus; Z90.712 Acquired absence of cervix with remaining uterus; Z79.899 Other long term (current) drug therapy; Z88.6 Allergy status to analgesic agent
CPT/HCPCS: 81025; 88305; 43239; J2250; J3010; J2704

== ENCOUNTER → 2019-08-25 | Outpatient (CLI) | payer BC ==
--- NOTE | 2019-08-25 10:51 | FL ---
EXAMINATION TYPE: FL barium swallow DATE OF EXAM: 08/25/2019 CLINICAL HISTORY: patient c/o heartburn, nausea, vomiting 1x per week for the last 2 years, worse in last 6 months. Gastric Sleeve 2018, Fluoro time 1:04. Ez PAQUE 6 oz. The patient ingested contrast without difficulty or delay. Noted are postsurgical changes of gastric sleeve. There is no evidence for leak or obstruction. Contrast is noted within the duodenum. Smal l hiatal hernia noted. IMPRESSION: Postoperative changes of gastric sleeve formation. Small hiatal hernia noted. No evidence for reflux during the course of the study.
== END | disposition home or self-care (01) ==
LOC: RADUSWWP 09:38
PROVIDERS: ATTEND Surgery
DX: Z98.890 Other specified postprocedural states (principal)
CPT/HCPCS: 74220

== ENCOUNTER → 2019-10-13 | Outpatient (CLI) | payer BC ==
[2019-10-13 13:06] LABS: HCT 47.3 % (34.0-46.0); HGB 15.3 gm/dL (11.4-16.0); MCH 29.4 pg (25.0-35.0); MCHC 32.3 g/dL (31.0-37.0); MCV 91.1 fL (80.0-100.0); Mean Platelet Volume 7.8; Platelet Count 213 k/uL (150-450); RBC 5.19 m/uL (3.80-5.40); RDW 12.3 % (11.5-15.5); WBC 9.2 k/uL (3.8-10.6)
[2019-10-13 13:32] LABS: African American GFR (CKD) >90 (>60 ml/min/1.73 sqM); Anion Gap 7 mmol/L; Blood Urea Nitrogen 10 mg/dL (7-17); Carbon Dioxide 23 mmol/L (22-30); Chloride 109 mmol/L (98-107); Non-African American GFR(CKD) 90 (>60 ml/min/1.73 sqM); Potassium 4.4 mmol/L (3.5-5.1); Sodium 139 mmol/L (137-145)
--- NOTE | 2019-10-13 13:37 | P.PCN ---
Preoperative Diagnosis: Loop monitor implant Primary physicians: Virtual Assistant: Dr. Villarreal Indication: Recurrent palpitations, rule out atrial fibrillation Patient was brought to the EP lab in a fasting state. Written informed consent was obtained prior to the procedure. The left pectoral area was prepped and draped per protocol. Intravenous antibiotic was administered preoperatively. A subcutaneous Loop monitor was implanted successfully and the wound was closed per protocol. The device was programmed to detect significant tino- arrhythmic and tachy-arrhythmic events, per protocol. Device and programming details: Tachycardia detection Patient underwent EP procedure under conscious sedation/moderate sedation, monitoring of the level of consciousness and physiologic parameters including but not limited to vital signs and oxygenation. Patient tolerated the procedure well without any acute complications. Start time: 1321 Stop time: 1331
== END | disposition home or self-care (01) ==
LOC: LABPAT 10:36
PROVIDERS: ATTEND Internal Medicine Clinical Cardiac Electrophysiology
DX: Z01.818 Encounter for other preprocedural examination (principal); R55 Syncope and collapse
CPT/HCPCS: 36415; 80051; 82565; 84520; 85027

== ENCOUNTER 2019-10-14 09:00 | Day surgery (SDC) | payer BC ==
[2019-10-07 11:52] VITALS: BMI 31.4
[2019-10-14] MEDS ORDERED: IV FLUID CONTINUATION 900 ML IV ONE (10:24)
[2019-10-14] MEDS ORDERED: fentaNYL (PF) 50 MCG/ML 2 ML AMP ONE (15:38)
[2019-10-14] MEDS ORDERED: MIDAZOLAM 2 MG/2 ML VIAL ONE (15:38)
[2019-10-14] MEDS ORDERED: IV FLUID CONTINUATION 500 ML IV ONE (15:41)
[2019-10-14] MEDS ORDERED: LIDOCAINE 1% INJ 10MG/ML (20 ML MDV) ONE (16:00)
[2019-10-14] MEDS ORDERED: LIDOCAINE 1% INJ 10MG/ML (20 ML MDV) SQ ONE (16:24)
--- NOTE | 2019-10-14 16:44 | P.HPCAR ---
History of Present Illness This is Dr. Villarreal dictating an H/P on this patient The patient was interviewed and examined Patient of Dr. Kain Lowery IMPRESSION / ASSESSMENT: Recurrent syncope associated with palpitations Normal twelve-lead EKG Normal NH interval narrow QRS to delta waves normal ST segments normal QT interval Hypertension Dyslipidemia PLAN: Tilt table testing Diagnostic EP study and possible efficacy ablation HPI Patient states she's she's had recurrent episodes of syncope with a feeling of a rash-like sensation in the chest and her heart begins to race. She's had episodes of palpitations when she is sitting but no loss of consciousness associated with it She is a new was episodes of loss of consciousness This episodes began before she started Abilify She has a history of hypertension on hydrochlorothiazide, she takes atorvastatin She's had gastric sleeve surgery or urine back ROS: No fever chills or rigors, no cough, phlegm or expectoration, no nausea, vomiting or diarrhea, no hematuria, dysuria, no musculoskeletal complaints, no strokes or seizures, no skin lesions. EXAMINATION: 98.1F, pulse rate in the 70s, blood pressure 146/70 mmHg No JVD Clear breath sounds no rhonchi no crackles Normal heart sounds normal S1 normal S2 no murmurs or gallop Abdomen is soft Eccentric 70s warm no edema REVIEW OF LABS, ECG & MEDICAL DATA Beta-hCG not detected Medications reviewed and include Lipitor hydrochlorothiazide Cymbalta, hyoscyamine, Vistaril, Lyrica, Abilify, ranitidine, Zanaflex, trazodone Physical Exam Vitals: Vital Signs Temp Pulse Resp BP Pulse Ox 10/14/19 09:48 98.1 F 76 14 146/70 98 Intake and Output 10/14/19 10/14/19 10/14/19 06:59 14:59 22:59 Intake Total 100 Balance 100 Intake: IV 100 Other: Weight 86.6 kg Past Medical History Past Medical History: Asthma, Cancer, Chest Pain / Angina, GERD/Reflux, Hyperlipidemia, Rheumatoid Arthritis (RA) Additional Past Medical History / Comment(s): IBS, hx. kidney stones, DDD, RLS, migraines, "I pass out 4 x over last couple months" from low potassium, palpitations, varicose veins, hx hypoglyemia, anemia, chronic UTI's, "enlarged bladder" , hx cervical cancer History of Any Multi-Drug Resistant Organisms: None Reported Past Surgical History: Back Surgery, Bariatric Surgery, Cholecystectomy, Orth opedic Surgery, Tubal Ligation, Uterine Ablation Additional Past Surgical History / Comment(s): D&C,DOUBLE DISC FUSION L3-L4-L5,Cervical Disc C6 replaced x 2, STENTS KIDNEY ST ONES/removed,LITHOTRIPSY, Left lateral epicondylitis sx, partial removal of cervix using cryotherapy, Gastric Sleeve, left elbow surgery for tendon release Past Anesthesia/Blood Transfusion Reactions: Motion Sickness Additional Past Anesthesia/Blood Transfusion Reaction / Comment(s): NEVER HAS HAD BLOOD TRANSFUSION Smoking Status: Former smoker - Past Family History Mother Family Medical History: Congestive Heart Failure (CHF), Diabetes Mellitus, Hypertension Father History Unknown: Yes Family Medical History: Cancer Additional Family Medical History / Comment(s): lung, brain Physical Examination Vital Signs Temp Pulse Resp BP Pulse Ox 10/14/19 09:48 98.1 F 76 14 146/70 98 Intake and Output 10/14/19 10/14/19 10/14/19 06:59 14:59 22:59 Intake Total 100 Balance 100 Intake: IV 100 Other: Weight 86.6 kg Results Current Medications Generic Name Dose Route Start Last Admin Trade Name Freq PRN Reason Stop Dose Admin Sodium Chloride 1,000 mls @ 20 mls/hr 10/14/19 05:54 Saline 0.9% IV .Q24H KYMBERLY Sodium Chloride 1,000 mls @ 20 mls/hr 10/14/19 05:54 Saline 0.9% IV .Q24H KYMBERLY Intake and Output 10/14/19 10/14/19 10/14/19 06:59 14:59 22:59 Intake Total 100 Balance 100 Intake: IV 100 Other: Weight 86.6 kg Patient Weight 10/15/19 06:59 Weight 86.6 kg
--- NOTE | 2019-10-14 16:46 | P.PCN ---
Preoperative Diagnosis: Diagnosis Recurrent syncope Twelve-lead EKG Sinus rhythm normal OH, narrow QRS, normal QT interval No epsilon waves, no delta waves normal ST segments in the precordial leads Tilt table test per protocol Baseline blood pressure 129/68 mmHg, pulse rate in the 70s sinus rhythm Patient was tilted upright at an angle of 70 per protocol No change in heart rate and blood pressure No symptoms noted Impression Normal. ECG No evidence for neurocardiogenic syncope Plan Proceed with diagnostic EP study
[2019-10-14] MEDS ORDERED: tiZANidine 4 MG TAB PO PRN (17:29)
[2019-10-14] MEDS ORDERED: HYOSCYAMINE SULFATE 0.125 MG TAB PO PRN (17:29)
[2019-10-14] MEDS ORDERED: ACETAMINOPHEN IV (For NPO) 1,000 MG in EMPTY BAG 1 BAG IVPB ONE (17:31)
[2019-10-14] MEDS ORDERED: ACETAMINOPHEN TAB 325 MG TAB PO PRN (17:31)
--- NOTE | 2019-10-14 17:42 | P.PRLE ---
RE: Radhika Wilkinson Dear Dr. Beverley Wilkinson has recurrent episodes of syncope She underwent a tilt table test which did not show evidence for neurocardiogenic syncope She underwent a diagnostic EP study with did not show any evidence for SVT or inducible VT that could explain her syncope Based upon her history I still think she is probably experiencing vasovagal episodes and they have adequate hydration and lower extremity strengthening exercises would be appropriate to She will continue to see you and Dr. Mccoy as before Thank you for entrusting me with the care of the patient Warm regards Sincerely Alen Villarreal
[2019-10-14] MEDS: PREGABALIN 100 MG CAP PO SCH (19:38)
[2019-10-14] MEDS: hydrOXYzine pamoate 25 MG CAP PO SCH (19:38)
[2019-10-14] MEDS: SODIUM CHLORIDE 0.9% 1,000 ML IV SCH ×2 (19:41→19:44)
[2019-10-14] MEDS ORDERED: ARIPiprazole 10 MG TAB PO SCH (20:00)
[2019-10-14] MEDS ORDERED: traZODone HCL 100 MG TAB PO SCH (21:00)
[2019-10-14 22:10] VITALS: RESP 18
[2019-10-15] MEDS: SODIUM CHLORIDE 0.9% 1,000 ML IV SCH ×2 (05:37→09:08)
--- NOTE | 2019-10-15 07:50 | P.DS ---
Providers Attending physician: Aeln Villarreal Primary care physician: [facility] Course: Patient is sleeping comfortably in bed When she woke up she described no chest discomfort dizziness lightheadedness Minimal groin pain Groins a mildly tender but no hematoma on the right side Normal heart sounds normal S1 normal S2 Lungs no rhonchi no crackles Abdomen soft Extremities warm no edema with circulation Afebrile 97.8F respirations normal, blood pressure 119/77 mmHg Impression Recurrent syncopal spells associated with a rash-like sensation in the chest and head and palpitations Diagnostic EP study did not show any inducible SVT or VT both on and off Isuprel Tilt table test did not provoke a neurocardiogenic response Suggest Continue current medications without any changes Adequate hydration Follow-up with Dr. Mccoy for further workup of syncope Consideration for switching from hydrochlorothiazide to a different antihypertensive as an outpatient Plan - Discharge Summary Discharge Rx Participant: No New Discharge Prescriptions: No Action RX: tiZANidine [Zanaflex] 4 mg PO HS PRN PRN Reason: Pain RX: Omeprazole 40 mg PO DAILY #60 capsule. RX: Atorvastatin Calcium [Lipitor] 20 mg PO DAILY@1700 RX: Ranitidine HCl 150 mg PO DAILY ARIPiprazole [Abilify] 20 mg PO DAILY@1999 hydroCHLOROthiazide [Hydrodiuril] 25 mg PO DAILY Hyoscyamine Sulfate [Levsin] 0.125 mg PO HS PRN PRN Reason: IBS Multivitamins, Thera [Multivitamin (formulary)] 1 tab PO DAILY hydrOXYzine pamoate [Vistaril] 50 mg PO TID DULoxetine HCL [Cymbalta] 90 mg PO QAM RX: traZODone HCL 100 mg PO HS Pregabalin [Lyrica] 100 mg PO TID oxyCODONE-APAP 7.5-325MG [Percocet 7.5-325 mg] 1 tab PO TID PRN PRN Reason: Pain Discharge Medication List RX: tiZANidine [Zanaflex] 4 mg PO HS PRN 08/02/17 [History] RX: Omeprazole 40 mg PO DAILY #60 capsule. 08/03/17 [Rx] RX: Atorvastatin Calcium [Lipitor] 20 mg PO DAILY@1700 08/01/18 [History] RX: Ranitidine HCl 150 mg PO DAILY 08/20/18 [History] ARIPiprazole [Abilify] 20 mg PO DAILY@199910/30/18 [History] Hyoscyamine Sulfate [Levsin] 0.125 mg PO HS PRN 10/30/18 [History] Multivitamins, Thera [Multivitamin (formulary)] 1 tab PO DAILY 10/30/18 [History] hydroCHLOROthiazide [Hydrodiuril] 25 mg PO DAILY 10/30/18 [History] DULoxetine HCL [Cymbalta] 90 mg PO QAM 12/24/18 [History] hydrOXYzine pamoate [Vistaril] 50 mg PO TID 12/24/18 [History] RX: traZODone HCL 100 mg PO HS 04/22/19 [History] Pregabalin [Lyrica] 100 mg PO TID 08/14/19 [History] oxyCODONE-APAP 7.5-325MG [Percocet 7.5-325 mg] 1 tab PO TID PRN 10/07/19 [History]
[2019-10-15 08:42] VITALS: BP 113/75; PULSE 77; TEMP 97.7
[2019-10-15] MEDS ORDERED: FAMOTIDINE 20 MG TAB PO SCH (09:00)
[2019-10-15] MEDS ORDERED: PANTOPRAZOLE 40 MG TABLET PO SCH (09:00)
[2019-10-15] MEDS ORDERED: DULoxetine HCL 30 MG CAPSULE.DR PO SCH (09:00)
[2019-10-15] MEDS: hydrOXYzine pamoate 25 MG CAP PO SCH (09:05)
[2019-10-15] MEDS: PREGABALIN 100 MG CAP PO SCH (09:05)
[2019-10-15] MEDS ORDERED: ATORVASTATIN 20 MG TAB PO SCH (17:00)
== END 2019-10-15 11:17 | disposition home or self-care (01) ==
LOC: CATHEP 09:00 → 3NCARDOBS 17:30 → CATHEP 10-15 11:17
PROVIDERS: ATTEND Internal Medicine Clinical Cardiac Electrophysiology
DX: R55 Syncope and collapse (principal); I10 Essential (primary) hypertension; E78.5 Hyperlipidemia, unspecified; I20.9 Angina pectoris, unspecified; R00.2 Palpitations; J45.909 Unspecified asthma, uncomplicated; K21.9 Gastro-esophageal reflux disease without esophagitis; M06.9 Rheumatoid arthritis, unspecified; K58.9 Irritable bowel syndrome, unspecified; Z87.442 Personal history of urinary calculi; G25.81 Restless legs syndrome; G43.909 Migraine, unspecified, not intractable, without status migrainosus; I83.90 Asymptomatic varicose veins of unspecified lower extremity; D64.9 Anemia, unspecified; N39.0 Urinary tract infection, site not specified; N32.89 Other specified disorders of bladder; Z85.41 Personal history of malignant neoplasm of cervix uteri; Z90.49 Acquired absence of other specified parts of digestive tract; Z98.51 Tubal ligation status; Z98.1 Arthrodesis status; Z98.84 Bariatric surgery status; Z98.890 Other specified postprocedural states; Z87.891 Personal history of nicotine dependence; Z83.3 Family history of diabetes mellitus; Z82.49 Family history of ischemic heart disease and other diseases of the circulatory system; Z80.1 Family history of malignant neoplasm of trachea, bronchus and lung; Z80.8 Family history of malignant neoplasm of other organs or systems; Z79.891 Long term (current) use of opiate analgesic; Z79.899 Other long term (current) drug therapy; Z88.6 Allergy status to analgesic agent; F41.9 Anxiety disorder, unspecified; F31.9 Bipolar disorder, unspecified; F43.10 Post-traumatic stress disorder, unspecified
CPT/HCPCS: 93660; 81025; J2250; J2001; J3010; J0131; 93620; 93623

== ENCOUNTER → 2021-07-04 | Outpatient (CLI) | payer OTHER ==
[2021-07-04 22:55] LABS: Basophils # (A) 0.05 X 10*3/uL (0.00-0.10); Basophils % (A) 0.6 %; Eosinophils % (A) 2.2 %; HCT 41.6 % (37.2-46.3); HGB 13.7 g/dL (12.0-15.0); Immature Grans, Automated 0.3 %; Lymphocytes # (A) 2.51 X 10*3/uL (0.90-5.00); Lymphocytes % (A) 27.7 %; MCH 30.1 pg (27.0-32.0); MCHC 32.9 g/dL (32.0-37.0); MCV 91.4 fL (80.0-97.0); Mean Platelet Volume 10.9 fL (9.5-12.2); Monocytes # (A) 0.46 X 10*3/uL (0.20-1.00); Monocytes % (A) 5.1 %; NRBC Per 100 WBC 0 /100 WBCS (0.0-0.0); Neutrophils % (A) 64.1 %; Platelet Count 262 X 10*3/uL (140-440); RBC 4.55 X 10*6/uL (4.10-5.20); RDW 11.9 % (11.5-14.5); WBC 9.05 X 10*3/uL (4.50-10.00)
[2021-07-04 23:28] LABS: African American GFR (CKD) 121.3 (60.0-200.0); Albumin 4.3 g/dL (3.8-4.9); Albumin/Globulin Ratio 1.72 (1.60-3.17); Anion Gap 14.8 mmol/L (10.00-18.00); BUN/Creat Ratio 12.29 Ratio (12.00-20.00); Blood Urea Nitrogen 8.6 mg/dL (9.0-27.0); Calcium 8.6 mg/dL (8.7-10.3); Carbon Dioxide 19.2 mmol/L (20.0-27.5); Globulin 2.5 g/dL (1.6-3.3); Non-African American GFR(CKD) 104.6 (60.0-200.0); Potassium 4.2 mmol/L (3.5-5.5); Total Bilirubin 0.3 mg/dL (0.30-1.20); Total Protein 6.8 g/dL (6.2-8.2)
== END | disposition home or self-care (01) ==
LOC: LABPAT 14:19
PROVIDERS: ATTEND Surgery
DX: Z01.812 Encounter for preprocedural laboratory examination (principal)
CPT/HCPCS: 36415; 80053; 85025

== ENCOUNTER 2021-07-26 09:33 | Inpatient (IN) | payer OTHER ==
[~2021-07-26 09:33] MED LIST changes: +DEXAMETHASONE SOD PHOSPHATE 4 MG/ML 1 ML VIAL IV ONE; -LACTATED RINGERS 1,000 ML IV SCH; +LIDOCAINE 1% (10MG/ML) FOR IV START INTRADERMA PRN; +ONDANSETRON 4 MG/2 ML VIAL IVP ONE; +SCOPOLAMINE 1 MG/72 HR PATCH TRANSDERM ONE
[2021-07-26] MEDS: LACTATED RINGERS 1,000 ML IV SCH (10:01)
[2021-07-26] MEDS ORDERED: ACETAMINOPHEN TAB 500 MG TAB ONE (10:04)
[2021-07-26] MEDS ORDERED: BUPIVACAIN-EPI 0.25%-1:200,000 30 ML VIAL SQ ONE (10:13)
[2021-07-26] MEDS ORDERED: ACETAMINOPHEN TAB 500 MG TAB PO ONE (10:30)
[2021-07-26] MEDS ORDERED: HEPARIN SODIUM,PORCINE 5,000 UNIT/ML 1 ML VIAL SQ ONE (10:30)
--- NOTE | 2021-07-26 10:31 | P.GSHP ---
History of Present Illness H&P Date: 07/26/21 Chief Complaint: GERD This a 46-year-old female who has developed a hiatal hernia and GERD symptoms. She presents today for laparoscopic repair. Past Medical History Past Medical History: Asthma, Cancer, Chest Pain / Angina, GERD/Reflux, Hyperlipidemia, Rheumatoid Arthritis (RA) Additional Past Medical History / Comment(s): IBS, hx. kidney stones, DDD, RLS, migraines, hx. low potassium, palpitations, varicose veins, hx hypoglyemia, anemia, chronic UTI's, "enlarged bladder" , hx cervical cancer History of Any Multi-Drug Resistant Organisms: None Reported Past Surgical History: Back Surgery, Bariatric Surgery, Cholecystectomy, Orthopedic Surgery, Tubal Ligation, Uterine Ablation Additional Past Surgical History / Comment(s): D&C,DOUBLE DISC FUSION L3-L4-L5,Cervical Disc C6 replaced x 2, STENTS KIDNEY STONES/removed,LITHOTRIPSY, Left lateral epicondylitis sx, partial removal of cervix using cryotherapy, Gastric Sleeve, left elbow surgery for tendon release, recent EGD Past Anesthesia/Blood Transfusion Reactions: Motion Sickness Additional Past Anesthesia/Blood Transfusion Reaction / Comment(s): NEVER HAS HAD BLOOD TRANSFUSION Smoking Status: Former smoker - Past Family History Father History Unknown: Yes Family Medical History: Cancer Additional Family Medical History / Comment(s): lung, brain Medications and Allergies Home Medications Medication Instructions Recorded Confirmed Type DULoxetine HCL [Cymbalta] 90 mg PO QAM 12/24/18 07/26/21 History Omeprazole 20 mg PO DAILY 06/23/21 07/26/21 History Ranitidine HCl [Zantac] 300 mg PO DAILY PRN 06/23/21 07/26/21 History Allergies Allergy/AdvReac Type Severity Reaction Status Date / Time NSAIDS (Non-Steroidal AdvReac hx of Verified 07/26/21 09:59 Anti-Inflamma gastric sleeve - states unable to take due to that Surgical - Exam Vital Signs Temp Pulse Resp BP Pulse Ox 97.2 F L 85 18 142/81 97 07/26/21 09:57 07/26/21 09:57 07/26/21 09:57 07/26/21 09:57 07/26/21 09:57 - General well developed, well nourished, no distress - Eyes PERRL - ENT normal pinna - Neck no masses - Respiratory normal expansion - Cardiovascular Rhythm: regular - Abdomen Abdomen: soft, non tender Assessment and Plan Assessment: GERD Hiatal hernia We'll perform laparoscopic robotic-assisted repair.
[2021-07-26 10:39] LABS: Glucose,Whole Blood 94 mg/dL (75-99)
[2021-07-26] MEDS ORDERED: KETAMINE 10 MG/ML 20 ML VIAL ONE (10:48)
[2021-07-26] MEDS ORDERED: fentaNYL (PF) 50 MCG/ML 2 ML AMP ONE (10:48)
[2021-07-26] MEDS ORDERED: NEOSTIGMINE 1 MG/ML 10 ML VIAL ONE (10:48)
[2021-07-26] MEDS ORDERED: ROCURONIUM 10 MG/ML (5 ML VIAL) IV ONE (10:48)
[2021-07-26] MEDS ORDERED: SUCCINYLCHOLINE CHLORIDE 100 MG/5 ML SYR IV ONE (10:48)
[2021-07-26] MEDS ORDERED: GLYCOPYRROLATE 0.2 MG/ML 2 ML VIAL ONE (10:48)
[2021-07-26] MEDS ORDERED: PROPOFOL 10 MG/ML 20 ML VIAL IV ONE (10:48)
[2021-07-26] MEDS ORDERED: LIDOCAINE 2% INJ 20 MG/ML (2 ML VIAL) ONE (10:48)
[2021-07-26] MEDS ORDERED: MIDAZOLAM 2 MG/2 ML VIAL ONE (10:48)
[2021-07-26] MEDS ORDERED: LACTATED RINGERS 1,000 ML IV ONE (11:52)
[2021-07-26] MEDS ORDERED: ONDANSETRON 4 MG/2 ML VIAL IVP PRN (12:07)
--- NOTE | 2021-07-26 12:07 | P.OP ---
Date of Procedure: 07/26/21 Preoperative Diagnosis: GERD Hiatal hernia Postoperative Diagnosis: GERD Procedure(s) Performed: Laparoscopic repair of hiatal hernia Transversus abdominal plain block Laparoscopic lysis of extensive adhesions Anesthesia: BASIL Surgeon: Stan Dave Estimated Blood Loss (ml): 25 Pathology: none sent Condition: stable Disposition: PACU Description of Procedure: The patient was placed on the operating table in the supine position. The patient received general anesthesia. And was placed in dorsal lithotomy position. The patient was prepped and draped in the usual sterile fashion. The skin incision sites were anesthetized with 1% local Xylocaine. The skin was i ncised in the left periumbilical area and then using a blade less 5 mm trocar under direct visualization panel cavity was entered. After adequate insufflation the laparoscope was then placed into the peritoneal cavity. Next a 5 mm trochars placed in the right epigastric position. Another 5 millimeter trocar the right lateral position. Another 5 millimeter trocar in the left lateral position a 5 mm trocar is placed in the left epigastric position. And then the initial 5 mm trocar was exchanged for a 10 mm trocar. The left lateral lobe liver was visualized. There are extensive adhesions in the stomach and liver. Approximately 20 minutes of operative time used to lyse adhesions. Once the liver was mobilized. It was retracted. The harini was then dissected using the Harmonic scissors. The crural defect was then visualized. The crural defect was then closed with 2-0 Ethibond suture. The stomach and esophagus were examined. There is no unsteady injury. The abdomen was irrigated is no bleeding seen. The trochars withdrawn. The skin was closed interrupted 3-0 Monocryl suture. Dermabond dressing was applied. Patient tolerated the procedure well.
[2021-07-26] MEDS: HYDROmorphone 0.5 MG/0.5 ML SYRINGE IVP PRN ×4 (12:17→13:21)
[2021-07-26 15:53] LABS: African American GFR (CKD) >90 (>60 ml/min/1.73 sqM); Anion Gap 7 mmol/L; Blood Urea Nitrogen 9 mg/dL (7-17); Calcium 8.1 mg/dL (8.4-10.2); Carbon Dioxide 21 mmol/L (22-30); Chloride 107 mmol/L (98-107); Glucose 114 mg/dL (74-99); Non-African American GFR(CKD) >90 (>60 ml/min/1.73 sqM); Potassium 3.9 mmol/L (3.5-5.1); Sodium 135 mmol/L (137-145)
[2021-07-26] MEDS: D5-0.45% NACL WITH KCL 20MEQ/L 1,000 ML IV SCH (17:17)
[2021-07-26] MEDS: HYDROmorphone 1 MG/ML 1 ML SYRINGE IVP PRN (19:34)
[2021-07-26] MEDS: FAMOTIDINE 20 MG/2 ML VIAL IV SCH (19:53)
[2021-07-27] MEDS: D5-0.45% NACL WITH KCL 20MEQ/L 1,000 ML IV SCH ×2 (02:17→09:55)
[2021-07-27] MEDS: HYDROcodone/APAP 5-325MG 1 EACH TAB PO PRN ×2 (02:17→07:56)
[2021-07-27 06:48] LABS: Basophils % (A) 0 %; Eosinophils % (A) 0 %; HCT 38.9 % (34.0-46.0); HGB 13.1 gm/dL (11.4-16.0); Lymphocytes % (A) 18 %; MCH 30.4 pg (25.0-35.0); MCHC 33.5 g/dL (31.0-37.0); MCV 90.6 fL (80.0-100.0); Mean Platelet Volume 9.1; Monocytes # (A) 1.1 k/uL (0-1.0); Monocytes % (A) 10 %; Neutrophils # (A) 7.6 k/uL (1.3-7.7); Neutrophils % (A) 69 %; Platelet Count 262 k/uL (150-450); RDW 12.5 % (11.5-15.5)
[2021-07-27 07:32] VITALS: RESP 17
[2021-07-27] MEDS: FAMOTIDINE 20 MG/2 ML VIAL IV SCH (07:57)
[2021-07-27] MEDS ORDERED: ENOXAPARIN 40 MG/0.4 ML SYRINGE SQ SCH (09:00)
[2021-07-27] MEDS: LACTATED RINGERS 1,000 ML IV SCH (09:53)
[2021-07-27] MEDS: HYDROmorphone 1 MG/ML 1 ML SYRINGE IVP PRN (11:58)
--- NOTE | 2021-07-27 12:35 | P.DS ---
Providers Date of admission: 07/26/21 09:33 Expected date of discharge: 07/27/21 Attending physician: Stan Dave Primary care physician: Kain Lowery Hospital Course: Discharge diagnosis 1. GERD and hiatal hernia status post laparoscopic repair of hiatal hernia and laparoscopic lysis of extensive adhesions. Hospital course This a 46-year-old female who has developed a hiatal hernia and GERD symptoms. She is status post laparoscopic repair of hiatal hernia and laparoscopic lysis of extensive adhesions. Patient is tolerating the [place] clear liquid diet. Her pain is controlled. She denies any nausea or vomiting. She has been up and ambulating. She is afebrile. Incision site is clean dry and intact. She is stable for discharge. Please refer to chart for any further details. Physician Game Attendant note has been reviewed by physician. Signing provider agrees with the documented findings, assessment, and plan of care. Patient Condition at Discharge: Stable Plan - Discharge Summary Discharge Rx Participant: No New Discharge Prescriptions: New HYDROcodone/APAP 5-325MG [[place] 5-325] 1 tab PO Q6HR PRN 3 Days #12 tab PRN Reason: Pain Continue DULoxetine HCL [Cymbalta] 90 mg PO QAM Ranitidine HCl [Zantac] 300 mg PO DAILY PRN PRN Reason: GERD Omeprazole 20 mg PO DAILY Discharge Medication List DULoxetine HCL [Cymbalta] 90 mg PO QAM 12/24/18 [History] Omeprazole 20 mg PO DAILY 06/23/21 [History] Ranitidine HCl [Zantac] 300 mg PO DAILY PRN 06/23/21 [History] HYDROcodone/APAP 5-325MG [[place] 5-325] 1 tab PO Q6HR PRN 3 Days #12 tab 07/27/21 [Rx] Follow up Appointment(s)/Referral(s): Stan Dave MD [STAFF PHYSICIAN] - 1 Week Patient Instructions/Handouts: Laparoscopic Hiatal Hernia Repair (DC) Activity/Diet/Wound Care/Special Instructions: No driving while taking [place] No lifting over 10 pounds Shower daily. No soaking or tub baths for 2 weeks Very light activity until you are reevaluated at your follow up appointment with your surgeon Continue a full liquid diet until seen by surgeon Discharge Disposition: HOME SELF-CARE
[2021-07-27 12:42] VITALS: BMI 33.4
[2021-07-27 13:59] VITALS: BP 129/84; PULSE 57; TEMP 97.8
== END 2021-07-27 14:30 | disposition home or self-care (01) | DRG 328 ==
LOC: 2ORMAIN 09:33 → 4SSUR 14:19
PROVIDERS: ADMIT Surgery; ATTEND Surgery
PROC: 0DNW4ZZ Release Peritoneum, Percutaneous Endoscopic Approach (ICD-10-PCS; 2021-07-26)
PROC: 0BQT4ZZ Repair Diaphragm, Percutaneous Endoscopic Approach (ICD-10-PCS; principal; 2021-07-26 11:00)
DX: K44.9 Diaphragmatic hernia without obstruction or gangrene (principal); E78.5 Hyperlipidemia, unspecified; K21.9 Gastro-esophageal reflux disease without esophagitis; J45.909 Unspecified asthma, uncomplicated; M06.9 Rheumatoid arthritis, unspecified; D64.9 Anemia, unspecified; G25.81 Restless legs syndrome; K58.9 Irritable bowel syndrome, unspecified; K66.0 Peritoneal adhesions (postprocedural) (postinfection); F41.9 Anxiety disorder, unspecified; Z87.440 Personal history of urinary (tract) infections; Z87.442 Personal history of urinary calculi; Z79.899 Other long term (current) drug therapy; Z87.891 Personal history of nicotine dependence; Z85.41 Personal history of malignant neoplasm of cervix uteri; Z88.6 Allergy status to analgesic agent
CPT/HCPCS: 80048; 81025; 85025

== ENCOUNTER 2021-12-05 15:01 | Inpatient (IN) | payer OTHER ==
[2021-12-05 16:48] LABS: Basophils # (A) 0.1 k/uL (0-0.2); Basophils % (A) 1 %; Eosinophils # (A) 0.1 k/uL (0-0.7); Eosinophils % (A) 0 %; HCT 49.1 % (34.0-46.0); HGB 18.1 gm/dL (11.4-16.0); Hyperchromasia Slight; Lymphocytes # (A) 3.2 k/uL (1.0-4.8); Lymphocytes % (A) 18 %; MCH 30.2 pg (25.0-35.0); MCHC 36.9 g/dL (31.0-37.0); MCV 81.8 fL (80.0-100.0); Mean Platelet Volume 8.1; Monocytes # (A) 1.1 k/uL (0-1.0); Monocytes % (A) 7 %; Neutrophils # (A) 12.1 k/uL (1.3-7.7); Neutrophils % (A) 70 %; Platelet Count 400 k/uL (150-450); RDW 12.6 % (11.5-15.5); WBC 17.3 k/uL (3.8-10.6)
[2021-12-05 16:59] LABS: ALT 17 U/L (4-34); AST 26 U/L (14-36); African American GFR (CKD) >90 (>60 ml/min/1.73 sqM); Albumin 5.1 g/dL (3.5-5.0); Alkaline Phosphatase 112 U/L (38-126); Anion Gap 23 mmol/L; Blood Urea Nitrogen 15 mg/dL (7-17); Calcium 10.2 mg/dL (8.4-10.2); Carbon Dioxide 16 mmol/L (22-30); Chloride 100 mmol/L (98-107); Glucose 112 mg/dL (74-99); Non-African American GFR(CKD) >90 (>60 ml/min/1.73 sqM); Potassium 3.6 mmol/L (3.5-5.1); Sodium 139 mmol/L (137-145); Total Bilirubin 1.2 mg/dL (0.2-1.3); Total Protein 8.5 g/dL (6.3-8.2)
[2021-12-05 17:00] LABS: INR 1.1 (<1.2); Partial Thromboplastin Time 23.2 sec (22.0-30.0); Prothrombin Time 11.5 sec (9.0-12.0)
[2021-12-05] MEDS ORDERED: ONDANSETRON 4 MG/2 ML VIAL IVP STA (19:12)
[2021-12-05] MEDS ORDERED: HYDROmorphone 1 MG/ML 1 ML SYRINGE IVP STA (19:12)
[2021-12-05] MEDS ORDERED: SODIUM CHLORIDE 0.9% 1,000 ML IV STA (19:12)
--- NOTE | 2021-12-05 19:30 | ED ---
General Adult HPI - General Chief complaint: Recheck/Abnormal Lab/Rx Stated complaint: Sent from [facility], abnormal labs Time Seen by Provider: 12/05/21 19:05 Source: patient, RN notes reviewed Mode of arrival: ambulatory Limitations: no limitations - History of Present Illness Initial comments: This is a 46-year-old female with a history of hyperlipidemia, rheumatoid arthritis, gastroesophageal reflux disease, cervical cancer, bariatric surgerygastric sleeve. Patient was just admitted to [facility] for 9 days and got out on Sunday. Patient states she was here for abdominal discomfort, vomiting, and hypertension. Patient states she had several tests done to include a CAT scan, MRI, multiple other tests. Patient had a follow-up appointment with her surgeon today, Dr. Dave. Patient sent here for tachycardia, continued vomiting, and hypertension. Surgeon believes she is dehydrated. Patient states she has been vomiting since getting out of the hospital on Sunday. Patient also has diminished urination. Patient does state that she has some diarrhea. No headache, no fever or chills, no changes in vision or hearing, no sore throat or difficulty with speech, no neck pain, no chest pain or shortness of breath, n no changes in urination or bowel movements, no numbness or tingling, no extremity pain, no skin rashes or lesions. POSITIVE diarrhea Past medical, surgical, social, and family history reviewed. - Related Data Home Medications Medication Instructions Recorded Confirmed Albuterol Inhaler [Ventolin Hfa 2 puff INHALATION RT-Q4H 12/05/21 12/05/21 Inhaler] DULoxetine HCL [Cymbalta] 60 mg PO DAILY 12/05/21 12/05/21 Dicyclomine [Bentyl] 20 mg PO QID PRN 12/05/21 12/05/21 Isosorbide Dinitrate [Isordil] 30 mg PO BID 12/05/21 12/05/21 Lurasidone HCl [Latuda] 60 mg PO DAILY 12/05/21 12/05/21 Montelukast [Singulair] 10 mg PO DAILY 12/05/21 12/05/21 Omeprazole 40 mg PO DAILY 12/05/21 12/05/21 Ondansetron Odt [Zofran Odt] 4 mg PO Q12HR PRN 12/05/21 12/05/21 Promethazine HCl 12.5 mg PO Q4H PRN 12/05/21 12/05/21 SUMAtriptan succinate [Imitrex] 25 mg PO BID PRN 12/05/21 12/05/21 carvediloL [Coreg] 3.125 mg PO BID 12/05/21 12/05/21 hydrOXYzine pamoate [Vistaril] 50 mg PO TID PRN 12/05/21 12/05/21 traMADol HCL 50 mg PO HS 12/05/21 12/05/21 traZODone HCL 100 mg PO HS PRN 12/05/21 12/05/21 Allergies Allergy/AdvReac Type Severity Reaction Status Date / Time NSAIDS (Non-Steroidal AdvReac hx of Verified 12/05/21 22:37 Anti-Inflamma gastric sleeve - states unable to take due to that Review of Systems ROS Statement: Those systems with pertinent positive or pertinent negative responses have been documented in the HPI. ROS Other: All systems not noted in ROS Statement are negative. Past Medical History Past Medical History: Asthma, Cancer, Chest Pain / Angina, GERD/Reflux, Hyperlipidemia, Rheumatoid Arthritis (RA) Additional Past Medical History / Comment(s): IBS, hx. kidney stones, DDD, RLS, migraines, hx. low potassium, palpitations, varicose veins, hx hypoglyemia, anemia, chronic UTI's, "enlarged bladder" , hx cervical cancer History of Any Multi-Drug Resistant Organisms: None Reported Past Surgical History: Back Surgery, Bariatric Surgery, Cholecystectomy, Orthopedic Surgery, Tubal Ligation, Uterine Ablation Additional Past Surgical History / Comment(s): D&C,DOUBLE DISC FUSION L3-L4-L5,Cervical Disc C6 replaced x 2, STENTS KIDNEY STONES/gavin fabián,LITHOTRIPSY, Left lateral epicondylitis sx, partial removal of cervix using cryotherapy, Gastric Sleeve, left elbow surgery for tendon release, recent EGD Past Anesthesia/Blood Transfusion Reactions: Motion Sickness Additional Past Anesthesia/Blood Transfusion Reaction / Comment(s): NEVER HAS HAD BLOOD TRANSFUSION Past Psychological History: Anxiety, Bipolar, Depression, Panic Disorder, PTSD Smoking Status: Former smoker Past Alcohol Use History: None Reported Past Drug Use History: None Reported - Past Family History Father History Unknown: Yes Family Medical History: Cancer Additional Family Medical History / Comment(s): lung, brain General Exam - General Exam Comments Initial Comments: Patient appears to be in mild distress, noted be tachycardic and hypertensive. Limitations: no limitations General appearance: alert, in no apparent distress, in distress Head exam: Present: atraumatic, normocephalic, normal inspection Eye exam: Present: normal appearance, PERRL, EOMI. Absent: scleral icterus, conjunctival injection, periorbital swelling ENT exam: Present: normal exam, mucous membranes moist, normal external ear exam. Absent: mucous membranes dry Neck exam: Present: normal inspection. Absent: tenderness, meningismus, lymphadenopathy Respiratory exam: Present: normal lung sounds bilaterally. Absent: respiratory distress, wheezes, rales, rhonchi, stridor, chest wall tenderness, accessory muscle use Cardiovascular Exam: Present: normal rhythm, tachycardia, normal heart sounds. Absent: systolic murmur, diastolic murmur, rubs, gallop, clicks GI/Abdominal exam: Present: soft, tenderness (Patient has tenderness across the upper abdomen, no hepatosplenomegaly. Voluntary guarding.), guarding, hyperactive bowel sounds. Absent: distended, rebound, rigid Extremities exam: Present: normal inspection, full ROM, normal capillary refill. Absent: tenderness, pedal edema, joint swelling, calf tenderness Back exam: Present: normal inspection Neurological exam: Present: alert, oriented X3, CN II-XII intact Psychiatric exam: Present: normal affect, normal mood Skin exam: Present: warm, dry, intact, normal color. Absent: rash Course Vital Signs 12/05/21 12/05/21 12/05/21 15:27 20:00 20:25 Temperature 97.6 F Pulse Rate 115 H 103 H 92 Respiratory 20 20 Rate Blood Pressure 147/113 146/121 156/110 O2 Sat by Pulse 97 97 100 Oximetry 12/05/21 12/05/21 22:00 23:16 Temperature Pulse Rate 77 89 Respiratory 14 Rate Blood Pressure 135/95 128/92 O2 Sat by Pulse 98 95 Oximetry - Reevaluation(s) Reevaluation #1: 12/05/21 20:08 Patient reevaluated, found to be hypertensive even after initial medications. Systolic blood pressure greater than 120. Labetalol ordered. Reevaluation #2: 12/05/21 21:19 Medical record is reviewed Symptoms are improved here in the emergency department Patient is informed of results and questions answered Patient in no distress Reevaluation #3: 12/06/21 00:02 Medical record is reviewed Symptoms are mildly improved here in the emergency department Patient is informed of results and questions answered Patient in no distress - Consultations Consultation #1: Case discussed in detail with the on-call physician, Dr. Mulligan who accepts the patient for admission. Cardiology and surgical consultation. EKG Findings - EKG Comments: EKG Findings:: EKG done at 1619. ED attending physician reveals sinus tachycardia with short DE interval. Rate 105. Normal axis. No ST elevation. Patient does have a hint of nonspecific ST depression in lead V3. No definitive depression elsewhere. Patient does have baseline drift which is causing some artifact. Normal intervals other than the DE interval is 100 ms. Patient does have an inverted T-wave noted in V1 but there is a negative QRS complex there. T-wave flattening in V2. When compared to the previous study from 2019 DE interval is shortened. Patient does have some nonspecific T-wave and ST changes Medical Decision Making - Medical Decision Making Patient presents with hypertension and vomiting. Sent in by her surgeon. Patient just had a 9 day stay at another facility. Was released on Sunday. Patient still having vomiting, diminished urination, pain across epigastrium. Patient had an extensive workup during her 9 day stay at the other facility. We will repeat general labs, plan for reevaluation, will order a computed tomography scan as requested by her surgeon. Patient shows evidence of dehydration, metabolic acidosis, venous pH was ordered. Patient also shows ketosis in her urine. No definitive evidence of infectious process by chest x-ray, urinalysis, or computed tomography scan. I'm unsure what the patient's etiology is at this point. She'll be admitted for further investigations and treatment. The case was discussed in detail with ED attending physician. Presentation, findings, treatment plan discussed in detail. Pen Tender Dr. Rowe - Lab Data Result diagrams: 12/05/21 19:48 12/05/21 19:48 Lab Results 12/05/21 12/05/21 12/05/21 Range/Units 16:18 16:18 16:18 WBC 17.3 H (3.8-10.6) k/uL RBC 6.00 H (3.80-5.40) m/uL Hgb 18.1 H (11.4-16.0) gm/dL Hct 49.1 H (34.0-46.0) % MCV 81.8 (80.0-100.0) fL MCH 30.2 (25.0-35.0) pg MCHC 36.9 (31.0-37.0) g/dL RDW 12.6 (11.5-15.5) % Plt Count 400 (150-450) k/uL MPV 8.1 Neutrophils % 70 % Lymphocytes % 18 % Monocytes % 7 % Eosinophils % 0 % Basophils % 1 % Neutrophils # 12.1 H (1.3-7.7) k/uL Lymphocytes # 3.2 (1.0-4.8) k/uL Monocytes # 1.1 H (0-1.0) k/uL Eosinophils # 0.1 (0-0.7) k/uL Basophils # 0.1 (0-0.2) k/uL Hyperchromasia Slight PT 11.5 (9.0-12.0) sec INR 1.1 (<1.2) APTT 23.2 (22.0-30.0) sec D-Dimer (<0.60) mg/L FEU Sodium 139 (137-145) mmol/L Potassium 3.6 (3.5-5.1) mmol/L Chloride 100 (98-107) mmol/L Carbon Dioxide 16 L (22-30) mmol/L Anion Gap 23 mmol/L BUN 15 (7-17) mg/dL Creatinine 0.73 (0.52-1.04) mg/dL Est GFR (CKD-EPI)AfAm >90 (>60 ml/min/1.73 sqM) Est GFR (CKD-EPI)NonAf >90 (>60 ml/min/1.73 sqM) Glucose 112 H (74-99) mg/dL Plasma Lactic Acid Jacobo (0.7-2.0) mmol/L Calcium 10.2 (8.4-10.2) mg/dL Magnesium (1.6-2.3) mg/dL Total Bilirubin 1.2 (0.2-1.3) mg/dL AST 26 (14-36) U/L ALT 17 (4-34) U/L Alkaline Phosphatase 112 (38-126) U/L Creatine Kinase (30-135) U/L CK-MB (CK-2) (0.0-2.4) ng/mL Troponin I (0.000-0.034) ng/mL C-Reactive Protein (<1.0) mg/dL Total Protein 8.5 H (6.3-8.2) g/dL Albumin 5.1 H (3.5-5.0) g/dL Lipase (23-300) U/L TSH (0.465-4.680) mIU/L Urine Color Urine Appearance (Clear) Urine pH (5.0-8.0) Ur Specific Stanford (1.001-1.035) Urine Protein (Negative) Urine Glucose (UA) (Negative) Urine Ketones (Negative) Urine Blood (Negative) Urine Nitrite (Negative) Urine Bilirubin (Negative) Urine Urobilinogen (<2.0) mg/dL Ur Leukocyte Esterase (Negative) Urine RBC (0-5) /hpf Urine WBC (0-5) /hpf Ur Squamous Epith Cells (0-4) /hpf Urine Bacteria (None) /hpf Urine Mucus (None) /hpf Urine Opiates Screen (NotDetected) Ur Oxycodone Screen (NotDetected) Urine Methadone Screen (NotDetected) Ur Propoxyphene Screen (NotDetected) Ur Barbiturates Screen (NotDetected) U Tricyclic Antidepress (NotDetected) Ur Phencyclidine Scrn (NotDetected) Ur Amphetamines Screen (NotDetected) U Methamphetamines Scrn (NotDetected) U Benzodiazepines Scrn (NotDetected) Urine Cocaine Screen (NotDetected) U Marijuana (THC) Screen (NotDetected) Coronavirus (PCR) (Not Detectd) 12/05/21 12/05/21 12/05/21 Range/Units 19:48 19:48 19:48 WBC 15.9 H (3.8-10.6) k/uL RBC 5.64 H (3.80-5.40) m/uL Hgb 17.5 H (11.4-16.0) gm/dL Hct 46.4 H (34.0-46.0) % MCV 82.3 (80.0-100.0) fL MCH 31.0 (25.0-35.0) pg MCHC 37.7 H (31.0-37.0) g/dL RDW 12.4 (11.5-15.5) % Plt Count 361 (150-450) k/uL MPV 7.8 Neutrophils % 70 % Lymphocytes % 16 % Monocytes % 10 % Eosinophils % 0 % Basophils % 0 % Neutrophils # 11.1 H (1.3-7.7) k/uL Lymphocytes # 2.5 (1.0-4.8) k/uL Monocytes # 1.6 H (0-1.0) k/uL Eosinophils # 0.1 (0-0.7) k/uL Basophils # 0.1 (0-0.2) k/uL Hyperchromasia Slight PT (9.0-12.0) sec INR (<1.2) APTT (22.0-30.0) sec D-Dimer (<0.60) mg/L FEU Sodium 139 (137-145) mmol/L Potassium 3.1 L (3.5-5.1) mmol/L Chloride 100 (98-107) mmol/L Carbon Dioxide 15 L (22-30) mmol/L Anion Gap 24 mmol/L BUN 16 (7-17) mg/dL Creatinine 0.70 (0.52-1.04) mg/dL Est GFR (CKD-EPI)AfAm >90 (>60 ml/min/1.73 sqM) Est GFR (CKD-EPI)NonAf >90 (>60 ml/min/1.73 sqM) Glucose 133 H (74-99) mg/dL Plasma Lactic Acid Jacobo 1.3 (0.7-2.0) mmol/L Calcium 9.9 (8.4-10.2) mg/dL Magnesium 1.8 (1.6-2.3) mg/dL Total Bilirubin 1.3 (0.2-1.3) mg/dL AST 23 (14-36) U/L ALT 17 (4-34) U/L Alkaline Phosphatase 106 (38-126) U/L Creatine Kinase 31 (30-135) U/L CK-MB (CK-2) (0.0-2.4) ng/mL Troponin I (0.000-0.034) ng/mL C-Reactive Protein <0.5 (<1.0) mg/dL Total Protein 8.0 (6.3-8.2) g/dL Albumin 4.8 (3.5-5.0) g/dL Lipase 174 (23-300) U/L TSH 4.400 (0.465-4.680) mIU/L Urine Color Urine Appearance (Clear) Urine pH (5.0-8.0) Ur Specific Stanford (1.001-1.035) Urine Protein (Negative) Urine Glucose (UA) (Negative) Urine Ketones (Negative) Urine Blood (Negative) Urine Nitrite (Negative) Urine Bilirubin (Negative) Urine Urobilinogen (<2.0) mg/dL Ur Leukocyte Esterase (Negative) Urine RBC (0-5) /hpf Urine WBC (0-5) /hpf Ur Squamous Epith Cells (0-4) /hpf Urine Bacteria (None) /hpf Urine Mucus (None) /hpf Urine Opiates Screen (NotDetected) Ur Oxycodone Screen (NotDetected) Urine Methadone Screen (NotDetected) Ur Propoxyphene Screen (NotDetected) Ur Barbiturates Screen (NotDetected) U Tricyclic Antidepress (NotDetected) Ur Phencyclidine Scrn (NotDetected) Ur Amphetamines Screen (NotDetected) U Methamphetamines Scrn (NotDetected) U Benzodiazepines Scrn (NotDetected) Urine Cocaine Screen (NotDetected) U Marijuana (THC) Screen (NotDetected) Coronavirus (PCR) (Not Detectd) 12/05/21 12/05/21 12/05/21 Range/Units 19:48 19:48 20:30 WBC (3.8-10.6) k/uL RBC (3.80-5.40) m/uL Hgb (11.4-16.0) gm/dL Hct (34.0-46.0) % MCV (80.0-100.0) fL MCH (25.0-35.0) pg MCHC (31.0-37.0) g/dL RDW (11.5-15.5) % Plt Count (150-450) k/uL MPV Neutrophils % % Lymphocytes % % Monocytes % % Eosinophils % % Basophils % % Neutrophils # (1.3-7.7) k/uL Lymphocytes # (1.0-4.8) k/uL Monocytes # (0-1.0) k/uL Eosinophils # (0-0.7) k/uL Basophils # (0-0.2) k/uL Hyperchromasia PT (9.0-12.0) sec INR (<1.2) APTT (22.0-30.0) sec D-Dimer 0.75 H (<0.60) mg/L FEU Sodium (137-145) mmol/L Potassium (3.5-5.1) mmol/L Chloride (98-107) mmol/L Carbon Dioxide (22-30) mmol/L Anion Gap mmol/L BUN (7-17) mg/dL Creatinine (0.52-1.04) mg/dL Est GFR (CKD-EPI)AfAm (>60 ml/min/1.73 sqM) Est GFR (CKD-EPI)NonAf (>60 ml/min/1.73 sqM) Glucose (74-99) mg/dL Plasma Lactic Acid Jacobo (0.7-2.0) mmol/L Calcium (8.4-10.2) mg/dL Magnesium (1.6-2.3) mg/dL Total Bilirubin (0.2-1.3) mg/dL AST (14-36) U/L ALT (4-34) U/L Alkaline Phosphatase (38-126) U/L Creatine Kinase (30-135) U/L CK-MB (CK-2) 0.5 (0.0-2.4) ng/mL Troponin I <0.012 (0.000-0.034) ng/mL C-Reactive Protein (<1.0) mg/dL Total Protein (6.3-8.2) g/dL Albumin (3.5-5.0) g/dL Lipase (23-300) U/L TSH (0.465-4.680) mIU/L Urine Color Urine Appearance (Clear) Urine pH (5.0-8.0) Ur Specific Stanford (1.001-1.035) Urine Protein (Negative) Urine Glucose (UA) (Negative) Urine Ketones (Negative) Urine Blood (Negative) Urine Nitrite (Negative) Urine Bilirubin (Negative) Urine Urobilinogen (<2.0) mg/dL Ur Leukocyte Esterase (Negative) Urine RBC (0-5) /hpf Urine WBC (0-5) /hpf Ur Squamous Epith Cells (0-4) /hpf Urine Bacteria (None) /hpf Urine Mucus (None) /hpf Urine Opiates Screen (NotDetected) Ur Oxycodone Screen (NotDetected) Urine Methadone Screen (NotDetected) Ur Propoxyphene Screen (NotDetected) Ur Barbiturates Screen (NotDetected) U Tricyclic Antidepress (NotDetected) Ur Phencyclidine Scrn (NotDetected) Ur Amphetamines Screen (NotDetected) U Methamphetamines Scrn (NotDetected) U Benzodiazepines Scrn (NotDetected) Urine Cocaine Screen (NotDetected) U Marijuana (THC) Screen (NotDetected) Coronavirus (PCR) Not Detected (Not Detectd) 12/05/21 12/05/21 Range/Units 22:44 22:44 WBC (3.8-10.6) k/uL RBC (3.80-5.40) m/uL Hgb (11.4-16.0) gm/dL Hct (34.0-46.0) % MCV (80.0-100.0) fL MCH (25.0-35.0) pg MCHC (31.0-37.0) g/dL RDW (11.5-15.5) % Plt Count (150-450) k/uL MPV Neutrophils % % Lymphocytes % % Monocytes % % Eosinophils % % Basophils % % Neutrophils # (1.3-7.7) k/uL Lymphocytes # (1.0-4.8) k/uL Monocytes # (0-1.0) k/uL Eosinophils # (0-0.7) k/uL Basophils # (0-0.2) k/uL Hyperchromasia PT (9.0-12.0) sec INR (<1.2) APTT (22.0-30.0) sec D-Dimer (<0.60) mg/L FEU Sodium (137-145) mmol/L Potassium (3.5-5.1) mmol/L Chloride (98-107) mmol/L Carbon Dioxide (22-30) mmol/L Anion Gap mmol/L BUN (7-17) mg/dL Creatinine (0.52-1.04) mg/dL Est GFR (CKD-EPI)AfAm (>60 ml/min/1.73 sqM) Est GFR (CKD-EPI)NonAf (>60 ml/min/1.73 sqM) Glucose (74-99) mg/dL Plasma Lactic Acid Jacobo (0.7-2.0) mmol/L Calcium (8.4-10.2) mg/dL Magnesium (1.6-2.3) mg/dL Total Bilirubin (0.2-1.3) mg/dL AST (14-36) U/L ALT (4-34) U/L Alkaline Phosphatase (38-126) U/L Creatine Kinase (30-135) U/L CK-MB (CK-2) (0.0-2.4) ng/mL Troponin I (0.000-0.034) ng/mL C-Reactive Protein (<1.0) mg/dL Total Protein (6.3-8.2) g/dL Albumin (3.5-5.0) g/dL Lipase (23-300) U/L TSH (0.465-4.680) mIU/L Urine Color Yellow Urine Appearance Clear (Clear) Urine pH 7.0 (5.0-8.0) Ur Specific Stanford >1.050 H (1.001-1.035) Urine Protein 1+ H (Negative) Urine Glucose (UA) Negative (Negative) Urine Ketones 4+ H (Negative) Urine Blood Negative (Negative) Urine Nitrite Negative (Negative) Urine Bilirubin Negative (Negative) Urine Urobilinogen 3.0 (<2.0) mg/dL Ur Leukocyte Esterase Negative (Negative) Urine RBC 1 (0-5) /hpf Urine WBC 2 (0-5) /hpf Ur Squamous Epith Cells 7 H (0-4) /hpf Urine Bacteria Rare H (None) /hpf Urine Mucus Rare H (None) /hpf Urine Opiates Screen Detected H (NotDetected) Ur Oxycodone Screen Not Detected (NotDetected) Urine Methadone Screen Not Detected (NotDetected) Ur Propoxyphene Screen Not Detected (NotDetected) Ur Barbiturates Screen Not Detected (NotDetected) U Tricyclic Antidepress Not Detected (NotDetected) Ur Phencyclidine Scrn Not Detected (NotDetected) Ur Amphetamines Screen Not Detected (NotDetected) U Methamphetamines Scrn Not Detected (NotDetected) U Benzodiazepines Scrn Detected H (NotDetected) Urine Cocaine Screen Not Detected (NotDetected) U Marijuana (THC) Screen Detected H (NotDetected) Coronavirus (PCR) (Not Detectd) Disposition Clinical Impression: Acute nausea with nonbilious vomiting, Epigastric abdominal pain, Hypertensive urgency, Tachycardia, ST segment changes on electrocardiogram, Hypokalemia, Metabolic acidosis Disposition: ADMITTED IP TO THIS [facility] Condition: Fair Is patient prescribed a controlled substance at d/c from ED?: No Referrals: None,Stated [Primary Care Provider] - 1-2 days Time of Disposition: 20:10 Decision to Admit Reason: Admit from EC Decision Time: 20:10
[2021-12-05] MEDS ORDERED: LABETALOL SYRINGE 5 MG/ML IVP STA (20:07)
[2021-12-05 20:21] LABS: Potassium 3.1 mmol/L (3.5-5.1)
[2021-12-05 20:24] LABS: ALT 17 U/L (4-34); AST 23 U/L (14-36); African American GFR (CKD) >90 (>60 ml/min/1.73 sqM); Albumin 4.8 g/dL (3.5-5.0); Alkaline Phosphatase 106 U/L (38-126); Anion Gap 24 mmol/L; Blood Urea Nitrogen 16 mg/dL (7-17); Calcium 9.9 mg/dL (8.4-10.2); Carbon Dioxide 15 mmol/L (22-30); Chloride 100 mmol/L (98-107); Creatine Kinase 31 U/L (30-135); Glucose 133 mg/dL (74-99); Lipase 174 U/L (23-300); Magnesium 1.8 mg/dL (1.6-2.3); Non-African American GFR(CKD) >90 (>60 ml/min/1.73 sqM); Sodium 139 mmol/L (137-145); Total Bilirubin 1.3 mg/dL (0.2-1.3)
[2021-12-05 20:27] LABS: Basophils # (A) 0.1 k/uL (0-0.2); Basophils % (A) 0 %; Eosinophils # (A) 0.1 k/uL (0-0.7); Eosinophils % (A) 0 %; HCT 46.4 % (34.0-46.0); HGB 17.5 gm/dL (11.4-16.0); Hyperchromasia Slight; Lymphocytes # (A) 2.5 k/uL (1.0-4.8); Lymphocytes % (A) 16 %; MCHC 37.7 g/dL (31.0-37.0); MCV 82.3 fL (80.0-100.0); Mean Platelet Volume 7.8; Monocytes # (A) 1.6 k/uL (0-1.0); Monocytes % (A) 10 %; Neutrophils # (A) 11.1 k/uL (1.3-7.7); Neutrophils % (A) 70 %; Platelet Count 361 k/uL (150-450); RBC 5.64 m/uL (3.80-5.40); RDW 12.4 % (11.5-15.5); WBC 15.9 k/uL (3.8-10.6)
--- NOTE | 2021-12-05 20:44 | XR ---
EXAMINATION TYPE: XR chest 1V portable DATE OF EXAM: 12/05/2021 8:25 PM COMPARISON: Chest radiographs from TECHNIQUE: XR chest 1V portable Frontal view of the chest. CLINICAL INDICATION:Female, 46 years old with history of abd pain; FINDINGS: Lungs/Pleura: There is no evidence of pleural effusion, focal consolidation, or pneumothorax. Pulmonary vascularity: Unremarkable. Heart/mediastinum: Cardiomediastinal silhouette is unremarkable. Musculoskeletal: No acute osseous pathology. IMPRESSION: No acute cardiopulmonary disease/process.
[2021-12-05 20:46] LABS: C Reactive Protein <0.5 mg/dL (<1.0); Creatine Kinase MB 0.5 ng/mL (0.0-2.4); Troponin I <0.012 ng/mL (0.000-0.034)
[2021-12-05] MEDS ORDERED: Potassium Replacement Protocol 1 EACH MISC MISCELLANE PRN (21:18)
--- NOTE | 2021-12-05 22:03 | CT ---
EXAMINATION TYPE: CT abdomen pelvis w con CT DLP: 965.8 mGycm, Automated exposure control for dose reduction was used. DATE OF EXAM: 12/05/2021 9:52 PM COMPARISON: CT abdomen pelvis most recent from 11/06/2018. CLINICAL INDICATION:Female, 46 years old with history of N/V, abd pain; N/V and abdominal pain TECHNIQUE: Axial CT of the abdomen and pelvis. Sagittal and coronal reformats were created on a [employer] workstation. Contrast used:100 mL of Isovue 300 with IV Contrast, Oral contrast used: without Oral Contrast FINDINGS: LOWER CHEST: Unremarkable ABDOMEN LIVER: Unremarkable GALLBLADDER AND BILE DUCTS: The gallbladder is surgically absent. PANCREAS: Unremarkable. SPLEEN: Small splenule is present. ADRENAL GLANDS: Unremarkable. KIDNEYS AND URETERS: No evidence of hydronephrosis or renal calculus. The ureters are unremarkable. PELVIS BLADDER: Unremarkable REPRODUCTIVE: Unremarkable. ABDOMEN & PELVIS STOMACH AND BOWEL: No evidence of bowel obstruction. Postsurgical changes to the gastric lumen. Small hiatal hernia is present. PERITONEUM: No evidence of pneumoperitoneum or free fluid. VASCULATURE: No evidence of aortic aneurysm. MUSCULOSKELETAL: No acute osseous abnormalities, postsurgical changes L3-L5 with discectomy at L3-L4 and L4-L5. Laminectomy changes at these levels as well. Hardware is grossly intact. LYMPH NODES: No gross evidence for lymphadenopathy. SOFT TISSUE/ABDOMINAL WALL: Unremarkable IMPRESSION: 1. No evidence for acute abdominal process. 2. Small hiatal hernia. 3. Postsurgical changes to the spine and stomach.
[2021-12-05] MEDS: POTASSIUM CHLORIDE ER 20 MEQ TAB.ER PO SCH (22:04)
[2021-12-05] MEDS ORDERED: ENOXAPARIN 80 MG/0.8 ML SYRINGE SQ STA (22:06)
[2021-12-05 23:08] LABS: Appearance,Urine Clear (Clear); Bacteria,Urine Rare /hpf; Bilirubin,Urine Negative (Negative); Blood,Urine Negative (Negative); Color,Urine Yellow; Glucose,Urine (UA) Negative (Negative); Ketones,Urine 4+ (Negative); Leukocyte Esterase,Urine Negative (Negative); Mucus,Urine Rare /hpf; Nitrite,Urine Negative (Negative); Protein,Urine 1+ (Negative); RBC,Urine 1 /hpf (0-5); Squamous Epithelial Cell,Urine 7 /hpf (0-4); WBC,Urine 2 /hpf (0-5)
[2021-12-05] MEDS: SODIUM CHLORIDE 0.9% 1,000 ML IV SCH (23:13)
[2021-12-05 23:16] LABS: Cocaine Screen,Urine Not Detected (NotDetected); Phencyclidine Screen,Urine Not Detected (NotDetected); Urn Cannabinoid Scrn Detected (NotDetected)
[2021-12-05 23:17] LABS: Amphetamine Screen,Urine Not Detected (NotDetected); Barbiturate Screen,Urine Not Detected (NotDetected); Benzodiazepines Screen,Urine Detected (NotDetected); Methadone Screen, Urine Not Detected (NotDetected); Opiate Screen,Urine Detected (NotDetected); Oxycodone Screen, Urine Not Detected (NotDetected); Tricyclic Antidepressant,Urine Not Detected (NotDetected)
[2021-12-05 23:46] LABS: Specific Gravity,Urine >1.050 (1.001-1.035)
[2021-12-05] MEDS ORDERED: HYDROmorphone 0.5 MG/0.5 ML SYRINGE IVP PRN (23:48)
[2021-12-05] MEDS ORDERED: NALOXONE 0.4 MG/ML 1 ML VIAL IV PRN (23:48)
[2021-12-05] MEDS ORDERED: hydrALAZINE HCL 20 MG/ML 1 ML VIAL IVP STA (23:50)
[2021-12-06] MEDS: PANTOPRAZOLE 40 MG/10 ML VIAL IV SCH ×2 (00:16→10:11)
[2021-12-06] MEDS: HYDROmorphone 1 MG/ML 1 ML SYRINGE IVP PRN ×5 (04:52→22:40)
[2021-12-06] MEDS: ONDANSETRON 4 MG/2 ML VIAL IVP PRN ×2 (05:21→17:49)
[2021-12-06 05:37] LABS: HCT 43.7 % (34.0-46.0); HGB 15.6 gm/dL (11.4-16.0); MCH 30.7 pg (25.0-35.0); MCHC 35.8 g/dL (31.0-37.0); MCV 85.9 fL (80.0-100.0); Platelet Count 326 k/uL (150-450); RBC 5.09 m/uL (3.80-5.40); RDW 12.7 % (11.5-15.5); WBC 12.8 k/uL (3.8-10.6)
[2021-12-06 06:00] LABS: ALT 13 U/L (4-34); AST 18 U/L (14-36); African American GFR (CKD) >90 (>60 ml/min/1.73 sqM); Alkaline Phosphatase 79 U/L (38-126); Anion Gap 14 mmol/L; Blood Urea Nitrogen 17 mg/dL (7-17); Calcium 8.8 mg/dL (8.4-10.2); Carbon Dioxide 20 mmol/L (22-30); Chloride 103 mmol/L (98-107); Glucose 98 mg/dL (74-99); Lipase 133 U/L (23-300); Magnesium 1.8 mg/dL (1.6-2.3); Non-African American GFR(CKD) >90 (>60 ml/min/1.73 sqM); Potassium 3.8 mmol/L (3.5-5.1); Sodium 137 mmol/L (137-145); Total Bilirubin 0.7 mg/dL (0.2-1.3); Total Protein 6.7 g/dL (6.3-8.2)
[2021-12-06 07:35] LABS: Lymphocytes # (M) 4.22 k/uL (1.0-4.8); Monocytes # (M) 0.51 k/uL (0-1.0); Neutrophils # (M) 8.06 k/uL (1.3-7.7); Neutrophils % (M) 63 %; Nucleated Red Blood Cells 0 /100 WBC (0-0); Total Cells Counted 100
--- NOTE | 2021-12-06 09:42 | NM ---
EXAMINATION TYPE: NM pul vent and perfuse DATE OF EXAM: 12/06/2021 COMPARISON: Chest x-ray 12/05/2021 HISTORY: Pain TECHNIQUE: Utilizing inhalation of 36.7 mCi Tc 99m DTPA aerosol and intravenous injection of 4.9 mCi of Tc 99m MAA, ventilation and perfusion images are acquired post injection in multiple projections. FINDINGS: Normal radiotracer distribution is noted in the lungs. There is no evidence of mismatched defects. IMPRESSION: Low probability for pulmonary embolism
--- NOTE | 2021-12-06 10:14 | FL ---
EXAMINATION TYPE: FL UGI w esophagus DATE OF EXAM: 12/06/2021 COMPARISON: NONE HISTORY: Vomiting for 2 weeks TECHNIQUE: A single contrast UGI study is performed. A total of 2 minutes 53 seconds of fluoroscopi c time was utilized during procedure and 14 images obtained. FINDINGS: Patient is post gastric sleeve and hiatal hernia repair by history. Patient shows postop changes to the stomach. There is a delay of contrast coursing across the gastric sleeve. Strand-like contrast column courses into the proximal small bowel. Contrast does reach the s mall bowel following several minutes. IMPRESSION: Postop changes. Question narrowing at the gastroduodenal junction. There is delay of cont rast coursing into the small bowel.
[2021-12-06 10:20] LABS: VBG PH 7.45 (7.31-7.41)
--- NOTE | 2021-12-06 11:13 | P.CRDCN ---
History of Present Illness History of present illness: HISTORY OF PRESENT ILLNESS: This is a 46-year-old female with a past medical history significant for sleeve gastrectomy, hypertension, anxiety, depression, PTSD, bipolar disorder, former nicotine dependence, and alcohol use 3 times a week. Patient does not follow wi th a general practice. We have been asked to see the patient in consultation for tachycardia. Patient examined at the bedside. Patient reports she was at an appointment yesterday with Dr. Dave who recommended that she come to the ER. Patient states she was recently hospitalized at [facility] for nausea and vomiting. She states she has continued to be nauseous along with vomiting and diarrhea since that time. Patient was hypertensive and tachycardic upon arrival to the ER. She was started on IV fluids. Vital signs have since improved. She denies any further episodes of vomiting. Denies chest pain or pressure. She reports SOB yesterday that has since resolved. * EKG reveals sinus mechanism with ST depression. Repeat EKG reveals sinus mechanism with no signs of acute ischemia. * Chest xray negative for acute process. * VQ scan: Low probability for PE * Laboratory data: WBC 12.8. Hemoglobin 15.6. Platelet count 326. Sodium 137. Potassium 3.8. BUN 17. Creatinine 0.64. Troponin negative 3 * Current home cardiac medications include carvedilol 3.125 mg twice a day and Isordil 30 mg twice a day REVIEW OF SYSTEMS: At the time of my exam: CONSTITUTIONAL: Denies fever or chills. HEENT: Denies blurred vision, vision changes, or eye pain. Denies hemoptysis CARDIOVASCULAR: Denies chest pain. Denies orthopnea. Denies PND. Denies palpitations RESPIRATORY: Denies shortness of breath. GASTROINTESTINAL: Denies abdominal pain. Denies nausea or vomiting. HEMATOLOGIC: Denies bleeding disorders. GENITOURINARY: Denies any blood in urine. SKIN: Denies pruitis. Denies rash. PHYSICAL EXAM: VITAL SIGNS: Reviewed. GENERAL: Well-developed in no acute distress. HEENT: Head is normocephalic. Pupils are equal, round. Sclerae anicteric. Mucous membranes of the mouth are moist. Neck supple. No JVD or thyromegaly LUNGS: Respirations even and unlabored. Lungs essentially clear to auscultation bilaterally. HEART: Regular rate and rhythm. S1 and S2 heard. ABDOMEN: Soft. Nondistended. Nontender. EXTREMITIES: Normal range of motion. No clubbing or cyanosis. Peripheral pulses intact. No lower extremity edema NEUROLOGIC: Awake and alert. Oriented x 3. ASSESSMENT: Nausea, vomiting, diarrhea Questionable narrowing of gastrojejunal junction per upper GI study Tachycardia, likely secondary to nausea and vomiting, since resolved Hypertension, currently controlled History of sleeve gastrectomy Anxiety Depression PTSD Bipolar disorder Former nicotine dependence Frequent alcohol use PLAN: Obtain 2D echo to assess cardiac structure and function Resume home cardiac medications Continue telemetry monitoring General surgery consulted. Await recommendations Further recommendations pending patient course Nurse practitioner note has been reviewed by physician. Signing provider agrees with the documented findings, assessment, and plan of care. Past Medical History Past Medical History: Asthma, Cancer, Chest Pain / Angina, GERD/Reflux, Hyperlipidemia, Rheumatoid Arthritis (RA) Additional Past Medical History / Comment(s): IBS, hx. kidney stones, DDD, RLS, migraines, hx. low potassium, palpitations, varicose veins, hx hypoglyemia, anemia, chronic UTI's, "enlarged bladder" , hx cervical cancer History of Any Multi-Drug Resistant Organisms: None Reported Past Surgical History: Back Surgery, Bariatric Surgery, Cholecystectomy, Orthopedic Surgery, Tubal Ligation, Uterine Ablation Additional Past Surgical History / Comment(s): D&C,DOUBLE DISC FUSION L3-L4-L5,Cervical Disc C6 replaced x 2, STENTS KIDNEY STONES/ removed,LITHOTRIPSY, Left lateral epicondylitis sx, partial removal of cervix using cryotherapy, Gastric Sleeve, left elbow surgery for tendon release, recent EGD Past Anesthesia/Blood Transfusion Reactions: Motion Sickness Additional Past Anesthesia/Blood Transfusion Reaction / Comment(s): NEVER HAS HAD BLOOD TRANSFUSION Past Psychological History: Anxiety, Bipolar, Depression, Panic Disorder, PTSD Smoking Status: Former smoker Past Alcohol Use History: None Reported Past Drug Use History: None Reported - Past Family History Father History Unknown: Yes Family Medical History: Cancer Additional Family Medical History / Comment(s): lung, brain Medications and Allergies Home Medications Medication Instructions Recorded Confirmed Type Albuterol Inhaler [Ventolin Hfa 2 puff INHALATION RT-Q4H 12/05/21 12/05/21 History Inhaler] DULoxetine HCL [Cymbalta] 60 mg PO DAILY 12/05/21 12/05/21 History Dicyclomine [Bentyl] 20 mg PO QID PRN 12/05/21 12/05/21 History Isosorbide Dinitrate [Isordil] 30 mg PO BID 12/05/21 12/05/21 History Lurasidone HCl [Latuda] 60 mg PO DAILY 12/05/21 12/05/21 History Montelukast [Singulair] 10 mg PO DAILY 12/05/21 12/05/21 History Omeprazole 40 mg PO DAILY 12/05/21 12/05/21 History Ondansetron Odt [Zofran Odt] 4 mg PO Q12HR PRN 12/05/21 12/05/21 History Promethazine HCl 12.5 mg PO Q4H PRN 12/05/21 12/05/21 History SUMAtriptan succinate [Imitrex] 25 mg PO BID PRN 12/05/21 12/05/21 History carvediloL [Coreg] 3.125 mg PO BID 12/05/21 12/05/21 History hydrOXYzine pamoate [Vistaril] 50 mg PO TID PRN 12/05/21 12/05/21 History traMADol HCL 50 mg PO HS 12/05/21 12/05/21 History traZODone HCL 100 mg PO HS PRN 12/05/21 12/05/21 History Allergies Allergy/AdvReac Type Severity Reaction Status Date / Time NSAIDS (Non-Steroidal AdvReac hx of Verified 12/05/21 22:37 Anti-Inflamma gastric sleeve - states unable to take due to that Physical Exam Vitals: Vital Signs Temp Pulse Resp BP Pulse Ox 12/06/21 10:02 97.8 F 72 18 114/85 97 12/06/21 05:22 88 18 126/85 97 12/06/21 02:16 67 18 128/88 100 12/05/21 23:16 89 128/92 95 12/05/21 22:00 77 14 135/95 98 12/05/21 20:25 92 156/110 100 12/05/21 20:00 103 H 20 146/121 97 12/05/21 15:27 97.6 F 115 H 20 147/113 97 Intake and Output 12/05/21 12/06/21 12/06/21 22:59 06:59 14:59 Other: Weight 74.389 kg Results 12/06/21 04:58 12/06/21 04:58 Cardiac Enzymes 12/05/21 12/05/21 12/05/21 Range/Units 16:18 19:48 19:48 AST 26 23 (14-36) U/L CK-MB (CK-2) 0.5 (0.0-2.4) ng/mL Troponin I <0.012 (0.000-0.034) ng/mL 12/06/21 12/06/21 12/06/21 Range/Units 02:46 04:58 04:58 AST 18 (14-36) U/L CK-MB (CK-2) (0.0-2.4) ng/mL Troponin I <0.012 <0.012 (0.000-0.034) ng/mL Coagulation 12/05/21 Range/Units 16:18 PT 11.5 (9.0-12.0) sec APTT 23.2 (22.0-30.0) sec CBC 12/05/21 12/05/21 12/06/21 Range/Units 16:18 19:48 04:58 WBC 17.3 H 15.9 H 12.8 H (3.8-10.6) k/uL RBC 6.00 H 5.64 H 5.09 (3.80-5.40) m/uL Hgb 18.1 H 17.5 H 15.6 (11.4-16.0) gm/dL Hct 49.1 H 46.4 H 43.7 (34.0-46.0) % Plt Count 400 361 326 (150-450) k/uL Comprehensive Metabolic Panel 12/05/21 12/05/21 12/06/21 Range/Units 16:18 19:48 04:58 Sodium 139 139 137 (137-145) mmol/L Potassium 3.6 3.1 L 3.8 (3.5-5.1) mmol/L Chloride 100 100 103 (98-107) mmol/L Carbon Dioxide 16 L 15 L 20 L (22-30) mmol/L BUN 15 16 17 (7-17) mg/dL Creatinine 0.73 0.70 0.64 (0.52-1.04) mg/dL Glucose 112 H 133 H 98 (74-99) mg/dL Calcium 10.2 9.9 8.8 (8.4-10.2) mg/dL AST 26 23 18 (14-36) U/L ALT 17 17 13 (4-34) U/L Alkaline Phosphatase 112 106 79 (38-126) U/L Total Protein 8.5 H 8.0 6.7 (6.3-8.2) g/dL Albumin 5.1 H 4.8 4.0 (3.5-5.0) g/dL Current Medications Generic Name Dose Route Start Last Admin Trade Name Freq PRN Reason Stop Dose Admin Hydromorphone HCl 0.5 mg 12/05/21 23:48 Hydromorphone 0.5 Mg/0.5 Ml Syringe IVP Q3HR PRN Moderate Pain (Scale 4 to 6) Hydromorphone HCl 1 mg 12/05/21 23:48 12/06/21 10:11 Hydromorphone 1 Mg/Ml 1 Ml Syringe IVP 1 mg Q3HR PRN Administration Severe Pain (Scale 7 to 10) Sodium Chloride 1,000 mls @ 130 mls/hr 12/05/21 22:45 12/05/21 23:13 Saline 0.9% IV 130 mls/hr .[id number] KYMBERLY Administration Miscellaneous Information 1 each 12/05/21 21:18 Potassium Replacement Protocol 1 Each Misc MISCELLANE DAILY PRN Per Protocol Protocol Naloxone HCl 0.2 mg 12/05/21 23:48 Naloxone 0.4 Mg/Ml 1 Ml Vial IV Q2M PRN Opioid Reversal Ondansetron HCl 4 mg 12/06/21 05:17 12/06/21 05:21 Ondansetron 4 Mg/2 Ml Vial IVP 4 mg Q6HR PRN Administration Nausea And Vomiting Pantoprazole Sodium 40 mg 12/05/21 23:45 12/06/21 10:11 Pantoprazole 40 Mg/10 Ml Vial IV 40 mg DAILY KYMBERLY Administration Temazepam 15 mg 12/05/21 23:48 Temazepam 15 Mg Cap PO HS PRN Insomnia Intake and Output 12/05/21 12/06/21 12/06/21 22:59 06:59 14:59 Other: Weight 74.389 kg 12/06/21 04:58 12/06/21 04:58
[2021-12-06] MEDS: ISOSORBIDE DINITRATE 10 MG TAB PO SCH ×2 (12:06→20:44)
[2021-12-06] MEDS: carvediloL 3.125 MG TAB PO SCH ×2 (12:06→20:50)
--- NOTE | 2021-12-06 15:22 | P.GSCN ---
History of Present Illness Consult date: 12/06/21 History of present illness: CHIEF COMPLAINT: Abdominal pain HISTORY OF PRESENT ILLNESS: This is a 46-year-old female who presented to the hospital with complaints of epigastric abdominal pain with nausea and vomiting. She was seen in the office by Dr. lemos for follow-up appointment yesterday. She has a history of gastric sleeve and history of hiatal hernia repair in July 2021. Patient reports yesterday she has been vomiting bile and dark material that didn't look like coffee grounds. I'm she did have diarrhea which has now stopped. Last bowel movement was 3 days ago. She had EGD done on 11/26/2021 at [facility]. Patient reports they told her that her hernia mesh was too tight. No significant findings on EGD. EGD records had been requested. Computed tomography scan of the abdomen showed no acute findings. Patient did have evidence of tachycardia and likely dehydration. Her symptoms have improved with IV fluids. Patient seen by cardiology regarding tachycardia and that they felt it was associated to patient's nausea and vomiting. Patient seen and examined with Dr. lemos PAST MEDICAL HISTORY: Asthma, Cancer, Chest Pain / Angina, GERD/Reflux, Hyperlipidemia, Rheumatoid Arthritis (RA), IBS, kidney stones, degenerative disc disease, migraines, cervical cancer, anxiety, bipolar, depression, PTSD PAST SURGICAL HISTORY: Back Surgery, Bariatric Surgery, Cholecystectomy, Orthopedic Surgery, Tubal Liga tion, Uterine Ablation MEDICATIONS: See list. ALLERGIES: See list. SOCIAL HISTORY: No illicit drug use. REVIEW OF SYSTEMS: CONSTITUTIONAL: Denies fever or chills. HEENT: Denies blurred vision, vision changes, or eye pain. Denies hemoptysis CARDIOVASCULAR: Denies chest pain or pressure. RESPIRATORY: No shortness of breath. GASTROINTESTINAL: See HPI for pertinent findings HEMATOLOGIC: Denies bleeding disorders. GENITOURINARY: Denies any blood in urine or increased urinary frequency. SKIN: Denies pruitis. Denies rash. PHYSICAL EXAM: VITAL SIGNS: Reviewed GENERAL: Well-developed in no acute distress. HEENT: No sclera icterus. Extraocular movements grossly intact. Moist buccal mucosa. Head is atraumatic, normocephalic. No nasal drainage. ABDOMEN: Soft. Nondistended. Epigastric tenderness NEUROLOGIC: Alert and oriented. Cranial nerves II through XII grossly intact. LABORATORY DATA: WBC 15.9 down to 12.8 hemoglobin 15.6 plt 326 D-dimer 0.75 Sodium is 137 potassium 3.1 up to 3.8 creatinine 0.64 Lactic acid 1.3 magnesium is 1.8 LFTs normal troponins are negative TSH normal urinalysis negative for infection drug screen positive for benzos and marijuana COVID-19 attempt IMAGING: Upper GI question narrowing at the gastrojejunal junction there is delay of contrast coursing into the small bowel VQ scan low probability of PE ASSESSMENT: 1. Epigastric abdominal pain with nausea and vomiting 2. Upper GI showing questionable narrowing at the gastrojejunal junction 3. Dehydration 4. History of gastric sleeve PLAN: -Obtain EGD records from [facility] -Continue a clear liquid diet -Continue supportive care -Continue IV fluids -Continue antiemetics -Continue to monitor Thank you for this consultation Physician [employer] note has been reviewed by physician. Signing provider agrees with the documented findings, assessment, and plan of care. Past Medical History Past Medical History: Asthma, Cancer, Chest Pain / Angina, GERD/Reflux, Hyperlipidemia, Rheumatoid Arthritis (RA) Additional Past Medical History / Comment(s): IBS, hx. kidney stones, DDD, RLS, migraines, hx. low potassium, palpitations, varicose veins, hx hypoglyemia, anemia, chronic UTI's, "enlarged bladder" , hx cervical cancer History of Any Multi-Drug Resistant Organisms: None Reported Past Surgical History: Back Surgery, Bariatric Surgery, Cholecystectomy, Orthopedic Surgery, Tubal Ligation, Uterine Ablation Additional Past Surgical History / Comment(s): D&C,DOUBLE DISC FUSION L3-L4-L5,Cervical Disc C6 replaced x 2, STENTS KIDNEY STONES/removed,LITHOTRIPSY, Left lateral epicondylitis sx, partial removal of cervix using cryotherapy, Gastric Sleeve, left elbow surgery for tendon release, recent EGD Past Anesthesia/Blood Transfusion Reactions: Motion Sickness Additional Past Anesthesia/Blood Transfusion Reaction / Comm: NEVER HAS HAD BLOOD TRANSFUSION Past Psychological History: Anxiety, Bipolar, Depression, Panic Disorder, PTSD Smoking Status: Former smoker Past Alcohol Use History: None Reported Past Drug Use History: None Reported - Past Family History Father History Unknown: Yes Family Medical History: Cancer Additional Family Medical History / Comment(s): lung, brain Medications and Allergies Home Medications Medication Instructions Recorded Confirmed Type Albuterol Inhaler [Ventolin Hfa 2 puff INHALATION RT-Q4H 12/05/21 12/05/21 History Inhaler] DULoxetine HCL [Cymbalta] 60 mg PO DAILY 12/05/21 12/05/21 History Dicyclomine [Bentyl] 20 mg PO QID PRN 12/05/21 12/05/21 History Isosorbide Dinitrate [Isordil] 30 mg PO BID 12/05/21 12/05/21 History Lurasidone HCl [Latuda] 60 mg PO DAILY 12/05/21 12/05/21 History Montelukast [Singulair] 10 mg PO DAILY 12/05/21 12/05/21 History Omeprazole 40 mg PO DAILY 12/05/21 12/05/21 History Ondansetron Odt [Zofran Odt] 4 mg PO Q12HR PRN 12/05/21 12/05/21 History Promethazine HCl 12.5 mg PO Q4H PRN 12/05/21 12/05/21 History SUMAtriptan succinate [Imitrex] 25 mg PO BID PRN 12/05/21 12/05/21 History carvediloL [Coreg] 3.125 mg PO BID 12/05/21 12/05/21 History hydrOXYzine pamoate [Vistaril] 50 mg PO TID PRN 12/05/21 12/05/21 History traMADol HCL 50 mg PO HS 12/05/21 12/05/21 History traZODone HCL 100 mg PO HS PRN 12/05/21 12/05/21 History Allergies Allergy/AdvReac Type Severity Reaction Status Date / Time NSAIDS (Non-Steroidal AdvReac hx of Verified 12/05/21 22:37 Anti-Inflamma gastric sleeve - states unable to take due to that Surgical - Exam Vital Signs Temp Pulse Resp BP Pulse Ox 97.6 F 115 H 20 147/113 97 12/05/21 15:27 12/05/21 15:27 12/05/21 15:27 12/05/21 15:27 12/05/21 15:27 Results - Labs 12/06/21 04:58 12/06/21 04:58 Abnormal Lab Results - Last 24 Hours (Table) 12/05/21 12/05/21 12/05/21 Range/Units 16:18 16:18 19:48 WBC 17.3 H 15.9 H (3.8-10.6) k/uL RBC 6.00 H 5.64 H (3.80-5.40) m/uL Hgb 18.1 H 17.5 H (11.4-16.0) gm/dL Hct 49.1 H 46.4 H (34.0-46.0) % MCHC 37.7 H (31.0-37.0) g/dL Neutrophils # 12.1 H 11.1 H (1.3-7.7) k/uL Neutrophils # (Manual) (1.3-7.7) k/uL Monocytes # 1.1 H 1.6 H (0-1.0) k/uL D-Dimer (<0.60) mg/L FEU VBG pH (7.31-7.41) VBG pCO2 (37-51) mmHg VBG HCO3 (24-28) mmol/L Potassium (3.5-5.1) mmol/L Carbon Dioxide 16 L (22-30) mmol/L Glucose 112 H (74-99) mg/dL Total Protein 8.5 H (6.3-8.2) g/dL Albumin 5.1 H (3.5-5.0) g/dL Ur Specific [place] (1.001-1.035) Urine Protein (Negative) Urine Ketones (Negative) Ur Squamous Epith Cells (0-4) /hpf Urine Bacteria (None) /hpf Urine Mucus (None) /hpf Urine Opiates Screen (NotDetected) U Benzodiazepines Scrn (NotDetected) U Marijuana (THC) Screen (NotDetected) 12/05/21 12/05/21 12/05/21 Range/Units 19:48 19:48 22:44 WBC (3.8-10.6) k/uL RBC (3.80-5.40) m/uL Hgb (11.4-16.0) gm/dL Hct (34.0-46.0) % MCHC (31.0-37.0) g/dL Neutrophils # (1.3-7.7) k/uL Neutrophils # (Manual) (1.3-7.7) k/uL Monocytes # (0-1.0) k/uL D-Dimer 0.75 H (<0.60) mg/L FEU VBG pH (7.31-7.41) VBG pCO2 (37-51) mmHg VBG HCO3 (24-28) mmol/L Potassium 3.1 L (3.5-5.1) mmol/L Carbon Dioxide 15 L (22-30) mmol/L Glucose 133 H (74-99) mg/dL Total Protein (6.3-8.2) g/dL Albumin (3.5-5.0) g/dL Ur Specific [place] >1.050 H (1.001-1.035) Urine Protein 1+ H (Negative) Urine Ketones 4+ H (Negative) Ur Squamous Epith Cells 7 H (0-4) /hpf Urine Bacteria Rare H (None) /hpf Urine Mucus Rare H (None) /hpf Urine Opiates Screen (NotDetected) U Benzodiazepines Scrn (NotDetected) U Marijuana (THC) Screen (NotDetected) 12/05/21 12/06/21 12/06/21 Range/Units 22:44 04:58 04:58 WBC 12.8 H (3.8-10.6) k/uL RBC (3.80-5.40) m/uL Hgb (11.4-16.0) gm/dL Hct (34.0-46.0) % MCHC (31.0-37.0) g/dL Neutrophils # (1.3-7.7) k/uL Neutrophils # (Manual) 8.06 H (1.3-7.7) k/uL Monocytes # (0-1.0) k/uL D-Dimer (<0.60) mg/L FEU VBG pH (7.31-7.41) VBG pCO2 (37-51) mmHg VBG HCO3 (24-28) mmol/L Potassium (3.5-5.1) mmol/L Carbon Dioxide 20 L (22-30) mmol/L Glucose (74-99) mg/dL Total Protein (6.3-8.2) g/dL Albumin (3.5-5.0) g/dL Ur Specific [place] (1.001-1.035) Urine Protein (Negative) Urine Ketones (Negative) Ur Squamous Epith Cells (0-4) /hpf Urine Bacteria (None) /hpf Urine Mucus (None) /hpf Urine Opiates Screen Detected H (NotDetected) U Benzodiazepines Scrn Detected H (NotDetected) U Marijuana (THC) Screen Detected H (NotDetected) 12/06/21 Range/Units 10:00 WBC (3.8-10.6) k/uL RBC (3.80-5.40) m/uL Hgb (11.4-16.0) gm/dL Hct (34.0-46.0) % MCHC (31.0-37.0) g/dL Neutrophils # (1.3-7.7) k/uL Neutrophils # (Manual) (1.3-7.7) k/uL Monocytes # (0-1.0) k/uL D-Dimer (<0.60) mg/L FEU VBG pH 7.45 H (7.31-7.41) VBG pCO2 32 L (37-51) mmHg VBG HCO3 22 L (24-28) mmol/L Potassium (3.5-5.1) mmol/L Carbon Dioxide (22-30) mmol/L Glucose (74-99) mg/dL Total Protein (6.3-8.2) g/dL Albumin (3.5-5.0) g/dL Ur Specific [place] (1.001-1.035) Urine Protein (Negative) Urine Ketones (Negative) Ur Squamous Epith Cells (0-4) /hpf Urine Bacteria (None) /hpf Urine Mucus (None) /hpf Urine Opiates Screen (NotDetected) U Benzodiazepines Scrn (NotDetected) U Marijuana (THC) Screen (NotDetected) Diabetes panel 12/05/21 12/05/21 12/06/21 Range/Units 16:18 19:48 04:58 Sodium 139 139 137 (137-145) mmol/L Potassium 3.6 3.1 L 3.8 (3.5-5.1) mmol/L Chloride 100 100 103 (98-107) mmol/L Carbon Dioxide 16 L 15 L 20 L (22-30) mmol/L BUN 15 16 17 (7-17) mg/dL Creatinine 0.73 0.70 0.64 (0.52-1.04) mg/dL Glucose 112 H 133 H 98 (74-99) mg/dL Calcium 10.2 9.9 8.8 (8.4-10.2) mg/dL AST 26 23 18 (14-36) U/L ALT 17 17 13 (4-34) U/L Alkaline Phosphatase 112 106 79 (38-126) U/L Total Protein 8.5 H 8.0 6.7 (6.3-8.2) g/dL Albumin 5.1 H 4.8 4.0 (3.5-5.0) g/dL Thyroid panel 12/05/21 Range/Units 19:48 TSH 4.400 (0.465-4.680) mIU/L Calcium panel 12/05/21 12/05/21 12/06/21 Range/Units 16:18 19:48 04:58 Calcium 10.2 9.9 8.8 (8.4-10.2) mg/dL Albumin 5.1 H 4.8 4.0 (3.5-5.0) g/dL Pituitary panel 12/05/21 12/05/21 12/06/21 Range/Units 16:18 19:48 04:58 Sodium 139 139 137 (137-145) mmol/L Potassium 3.6 3.1 L 3.8 (3.5-5.1) mmol/L Chloride 100 100 103 (98-107) mmol/L Carbon Dioxide 16 L 15 L 20 L (22-30) mmol/L BUN 15 16 17 (7-17) mg/dL Creatinine 0.73 0.70 0.64 (0.52-1.04) mg/dL Glucose 112 H 133 H 98 (74-99) mg/dL Calcium 10.2 9.9 8.8 (8.4-10.2) mg/dL TSH 4.400 (0.465-4.680) mIU/L Adrenal panel 12/05/21 12/05/21 12/06/21 Range/Units 16:18 19:48 04:58 Sodium 139 139 137 (137-145) mmol/L Potassium 3.6 3.1 L 3.8 (3.5-5.1) mmol/L Chloride 100 100 103 (98-107) mmol/L Carbon Dioxide 16 L 15 L 20 L (22-30) mmol/L BUN 15 16 17 (7-17) mg/dL Creatinine 0.73 0.70 0.64 (0.52-1.04) mg/dL Glucose 112 H 133 H 98 (74-99) mg/dL Calcium 10.2 9.9 8.8 (8.4-10.2) mg/dL Total Bilirubin 1.2 1.3 0.7 (0.2-1.3) mg/dL AST 26 23 18 (14-36) U/L ALT 17 17 13 (4-34) U/L Alkaline Phosphatase 112 106 79 (38-126) U/L Total Protein 8.5 H 8.0 6.7 (6.3-8.2) g/dL Albumin 5.1 H 4.8 4.0 (3.5-5.0) g/dL
[2021-12-06] MEDS: SODIUM CHLORIDE 0.9% 1,000 ML IV SCH ×3 (16:04→22:46)
[2021-12-06] MEDS: TEMAZEPAM 15 MG CAP PO PRN (22:40)
--- NOTE | 2021-12-07 03:38 | HP ---
HISTORY AND PHYSICAL HISTORY OF PRESENT ILLNESS: A white female who came in with progressive nausea and vomiting for the past 3 to 4 weeks. She has a history of gastric surgery 4 years ago. She hospital for 9 days. They did not know what was causing her vomiting. She came in here where the surgeon who has operated on her in the past for his opinion. She got dehydrated and she has lost 16 pounds in the last 3 weeks. She has continued vomiting, hypertension, tachycardia, dehydration. She has been rehydrated overnight. Waiting for surgical recommendations. EGD shows some narrowing of the esophagus at the stomach level. HOME MEDICINES: She takes, 1. Isordil 30 b.i.d. 2. Bentyl 20 q.i.d. 3. Cymbalta 60 daily. 4. Latuda 60 daily. 5. Singulair 10 daily. 6. Omeprazole 40 daily. 7. Imitrex 25 b.i.d. 8. Coreg 3.125 b.i.d. 9. Vistaril 50 t.i.d. 10.Tramadol 50 at night. 11.Trazodone 100 at night. REVIEW OF SYSTEMS: A 14-point review of systems is otherwise negative. PAST MEDICAL HISTORY: Asthma, cancers, chest pain, angina, GERD, dyslipidemia, rheumatoid arthritis, irritable bowel syndrome, palpitations. PAST SURGICAL HISTORY: She had her gallbladder removed. Bariatric surgery, orthopedic surgery, back surgery, tubal ligation. D and C, disk fusion, cervical disk disease. FAMILY HISTORY: See chart. PHYSICAL EXAMINATION: VITAL SIGNS: Reviewed. Mild distress. She has given appropriate answers. PSYCH: Fair mood and affect. NEUROLOGIC: Alert and oriented x3. LUNGS: Clear. CARDIOVASCULAR: S1, S2. ABDOMEN: Not distended. Normal bowel sounds. Mild guarding. EXTREMITIES: No cyanosis, clubbing, or edema. NEUROLOGIC: Cranial nerves intact. SKIN: Warm, dry. ASSESSMENT: Esophageal narrowing, status post gastric sleeve surgery, progressive nausea and vomiting, unclear etiology. Possible surgical intervention may be needed. Reviewed barium swallow CT scans. EKG and Cardiology consult reviewed. Await for surgical opinion on what they are going to do to fix her. She does have some dehydration, metabolic acidosis. We will get Pulmonary consult also. Prognosis guarded. MMODL / IJN: [id number] /
[2021-12-07] MEDS: SODIUM CHLORIDE 0.9% 1,000 ML IV SCH ×3 (06:14→21:04)
[2021-12-07] MEDS: HYDROmorphone 1 MG/ML 1 ML SYRINGE IVP PRN ×4 (06:14→21:06)
[2021-12-07] MEDS: ONDANSETRON 4 MG/2 ML VIAL IVP PRN ×2 (06:14→21:16)
[2021-12-07] MEDS: carvediloL 3.125 MG TAB PO SCH ×2 (08:01→21:05)
[2021-12-07] MEDS: PANTOPRAZOLE 40 MG/10 ML VIAL IV SCH (08:02)
[2021-12-07] MEDS: ISOSORBIDE DINITRATE 10 MG TAB PO SCH ×2 (08:02→21:07)
--- NOTE | 2021-12-07 08:31 | CA ---
Transthoracic Echo Report Name: Radhika Leal Age: 46 Gender: F : 1975 Exam Date: 12/06/2021 13:20 Exam Location: [facility] Ht (in): 64 Wt (lb): 164 Ordering Physician: Meka Kumar Attending/Referring Phys: [id number], Stacy Route Sales Trainee Pia Messina, ANNALEE Procedure CPT: Indications: LV function Cardiac Hx: Technical Quality: Good Contrast 1: Total Dose (mL): Contrast 2: Total Dose (mL): MEASUREMENTS (Male / Female) Normal Values 2D ECHO LV Diastolic Diameter PLAX 3.7 cm 4.2 - 5.9 / 3.9 - 5.3 cm LV Systolic Diameter PLAX 2.0 cm IVS Diastolic Thickness 1.3 cm 0.6 - 1.0 / 0.6 - 0.9 cm LVPW Diastolic Thickness 1.1 cm 0.6 - 1.0 / 0.6 - 0.9 cm LV Relative Wall Thickness 0.7 RV Internal Dim ED PLAX 3.0 cm LA Systolic Diameter LX 3.2 cm 3.0 - 4.0 / 2.7 - 3.8 cm M-MODE Aortic Root Diameter MM 2.8 cm MV E Point Septal Separation 0.7 cm AV Cusp Separation MM 2.0 cm DOPPLER AV Peak Velocity 133.6 cm/s AV Peak Gradient 7.1 mmHg MV Area PHT 2.1 cm??? Mitral E Point Velocity 68.6 cm/s Mitral A Point Velocity 62.1 cm/s Mitral E to A Ratio 1.1 MV Deceleration Time 357.6 ms MV E' Velocity 6.5 cm/s Mitral E to MV E' Ratio 10.5 FINDINGS Left Ventricle Left ventricular ejection fraction is estimated at 60-65 %. Left ventricular cavity size normal. Borderline increased left ventricular wall thickness Right Ventricle Normal right ventricular size and function. Unable to estimate the right ventricular systolic pressure. Right Atrium Normal right atrial size. Left Atrium Normal left atrial size. No evidence for an atrial septal defect. Mitral Valve Structurally normal mitral valve. No mitral stenosis, regurgitation or prolapse. Aortic Valve Trileaflet aortic valve. No aortic valve stenosis or regurgitation. Tricuspid Valve Structurally normal tricuspid valve. Pulmonic Valve Pulmonic valve not well visualized. Pericardium Normal pericardium. No pericardial effusion. Aorta Normal size aortic root and proximal ascending aorta. CONCLUSIONS Left ventricular ejection fraction 60-65% Borderline increased left ventricular wall thickness No mitral regurgitation No pericardial effusion Previewed by: Dr. Eugenio Emerson DO (Electronically Signed) Final Date: 07 December 2021 08:30
--- NOTE | 2021-12-07 08:54 | P.PN ---
Subjective This is a 46-year-old female with a past medical history significant for sleeve gastrectomy, hypertension, anxiety, depression, PTSD, bipolar disorder, former nicotine dependence, and alcohol use 3 times a week. Patient does not follow with a claims service representative. We have been asked to see the patient in consultation for tachycardia. Patient examined at the bedside. Patient reports she was at an appointment 12/[address] Dave who recommended that she come to the ER. Patient states she was recently hospitalized at [facility] for nausea and vomiting. She states she has continued to be nauseous along with vomiting and diarrhea since that time. Patient was hypertensive and tachycardic upon arrival to the ER. She was started on IV fluids. Vital signs have since improved. 12/07/2021 Patient seen and examined at bedside, continues to have abdominal pain, some nausea. She denies any chest pain, shortness of breath, lightheadedness or dizziness. Her heart rates have improved after IV fluids. Echocardiogram revealed EF of 6065 percent, no significant wall motion or valvular abnormalities. PHYSICAL EXAM: VITAL SIGNS: Reviewed. GENERAL: Well-developed in no acute distress. HEENT: Neck supple. No JVD LUNGS: Respirations even and unlabored. Lungs essentially clear to auscultation bilaterally. HEART: Regular rate and rhythm. S1 and S2 heard. ABDOMEN: Soft. Nondistended. EXTREMITIES: Normal range of motion. No clubbing or cyanosis. Peripheral pulses intact. No lower extremity edema NEUROLOGIC: Awake and alert. Oriented x 3. ASSESSMENT: Nausea, vomiting, diarrhea Questionable narrowing of gastrojejunal junction per upper GI study Sinus tachycardia, likely secondary to nausea and vomiting, since resolved Hypertension, currently controlled History of sleeve gastrectomy Anxiety Depression PTSD Bipolar disorder Former nicotine dependence Frequent alcohol use PLAN: Continue home cardiac medications Rest of management per general surgery and primary We will follow the patient has needed. Please reconsult if needed Nurse practitioner note has been reviewed by physician. Signing provider agrees with the documented findings, assessment, and plan of care. Objective - Vital Signs Vital signs: Vital Signs Temp 97.7 F 12/07/21 04:00 Pulse 80 12/07/21 04:00 Resp 16 12/07/21 04:00 BP 130/76 12/07/21 04:00 Pulse Ox 97 12/07/21 04:00 FiO2 Intake & Output 12/06/21 12/07/2112/07/22 18:59 06:59 18:59 Intake Total 1949 Balance 1949 Weight 74.389 kg 77.4 kg Intake: Intake, IV Titration 1949 Amount Sodium Chloride 0.9% 1949 000 ml @ 130 mls/hr IV . Q7H42M [facility] Rx#:[id number] Other: # Voids 1 - Labs CBC & Chem 7: 12/06/21 04:58 12/06/21 04:58 Labs: Abnormal Lab Results - Last 24 Hours (Table) 12/06/21 Range/Units 10:00 VBG pH 7.45 H (7.31-7.41) VBG pCO2 32 L (37-51) mmHg VBG HCO3 22 L (24-28) mmol/L Microbiology - Last 24 Hours (Table) 12/05/21 19:55 Blood Culture - Preliminary Blood No Growth after 24 hours 12/05/21 19:48 Blood Culture - Preliminary Blood No Growth after 24 hours
[2021-12-07 09:59] LABS: Basophils # (A) 0.1 k/uL (0-0.2); Basophils % (A) 1 %; Eosinophils # (A) 0.2 k/uL (0-0.7); Eosinophils % (A) 3 %; HCT 37.2 % (34.0-46.0); HGB 13.2 gm/dL (11.4-16.0); Lymphocytes % (A) 26 %; MCHC 35.4 g/dL (31.0-37.0); MCV 87.4 fL (80.0-100.0); Mean Platelet Volume 7.7; Monocytes # (A) 0.6 k/uL (0-1.0); Monocytes % (A) 8 %; Neutrophils # (A) 4.5 k/uL (1.3-7.7); Neutrophils % (A) 59 %; Platelet Count 252 k/uL (150-450); RBC 4.25 m/uL (3.80-5.40); RDW 12.9 % (11.5-15.5); WBC 7.7 k/uL (3.8-10.6)
[2021-12-07] MEDS: METOCLOPRAMIDE 5 MG/ML 2 ML VIAL IVP SCH ×2 (11:36→17:58)
--- NOTE | 2021-12-07 14:20 | P.PN ---
Subjective Progress Note Date: 12/07/21 CHIEF COMPLAINT: Abdominal pain with nausea and vomiting HISTORY OF PRESENT ILLNESS: Patient continues to have epigastric pain with nausea. She denies any further vomiting. The Zofran is not lasting long enough. She does report minimal improvement in symptoms. Afebrile. WBC has normalized from 12.8-7.7 Hgb is 13.2 platelets 252 Patient seen and examined with Dr. lemos PHYSICAL EXAM: VITAL SIGNS: Reviewed. GENERAL: Well-developed in no acute distress. HEENT: No sclera icterus. Extraocular movements grossly intact. Moist buccal mucosa. Head is atraumatic, normocephalic. ABDOMEN: Soft. Nondistended. Epigastric tenderness NEUROLOGIC: Alert and oriented. Cranial nerves II through XII grossly intact. ASSESSMENT: 1. Epigastric abdominal pain with nausea and vomiting 2. Questionable narrowing at the gastroduodenal junction 3. Hiatal hernia repair in 07/26/2021 PLAN: -Patient scheduled for EGD tomorrow with Dr. lemos -Advance diet to full liquids -Reglan added to help with nausea -Encouraged patient to ambulate -Nothing by mouth after midnight Physician Corporate Tutor note has been reviewed by physician. Signing provider agrees with the documented findings, assessment, and plan of care. Objective - Vital Signs Vital signs: Vital Signs Temp 98.1 F 12/07/21 12:24 Pulse 69 12/07/21 12:24 Resp 16 12/07/21 12:24 BP 111/72 12/07/21 12:24 Pulse Ox 97 12/07/21 12:24 FiO2 Intake & Output 12/06/21 12/07/21 12/07/21 18:59 06:59 18:59 Intake Total 1950 Balance 1950 Weight 74.389 kg 77.4 kg Intake: Intake, IV Titration 1950 Amount Sodium Chloride 0.9% 1, 1950 000 ml @ 130 mls/hr IV . Q7H42M [facility] Rx#:[id number] Other: # Voids 1 - Labs CBC & Chem 7: 12/07/21 09:43 12/06/21 04:58 Labs: Microbiology - Last 24 Hours (Table) 12/05/21 19:55 Blood Culture - Preliminary Blood No Growth after 24 hours 12/05/21 19:48 Blood Culture - Preliminary Blood No Growth after 24 hours
--- NOTE | 2021-12-07 14:28 | P.CNPUL ---
History of Present Illness Consult date: 12/07/21 Reason for consult: dyspnea, cough Chief complaint: Nausea and vomiting History of present illness: This is a 46-year-old female with multiple complex medical history significant for dyslipidemia hypertension also rheumatoid arthritis GERD history of cervical cancer and prior surgery for bariatric and gastric sleeve. Patient came into the hospital with ongoing nausea vomiting patient was hospitalized recently at [facility] and stayed there for 9 days workup includes testing including computed tomography scan and MRI she appears to volume depleted depleted have been resuscitated intermittent diarrhea has been present as well, she is been continued on her oral medicines along with IV Protonix and rehydrated. She has mild leukocytosis which has improved however hemoglobin and hematocrit is 13/37 down from 15/43, ABGs as stated above pH is 7.45 pCO2 of 32, indicated a off metabolic alkalosis due to ongoing and nausea and vomiting, her urine drug screen was positive for opiates and benzodiazepine and marijuana, VQ scan has been negative for PE/low probability, chest x-ray unremarkable barium swallow no hector to have a some narrowing at the gastroduodenal junction, computed tomography scan of the abdominal and pelvis negative for any acute abdominal process Review of Systems All systems: negative Past Medical History Past Medical History: Asthma, Cancer, Chest Pain / Angina, GERD/Reflux, Hyperlipidemia, Rheumatoid Arthritis (RA) Additional Past Medical History / Comment(s): IBS, hx. kidney stones, DDD, RLS, migraines, hx. low potassium, palpitations, varicose veins, hx hypoglyemia, anemia, chronic UTI's, "enlarged bladder" , hx cervical cancer History of Any Multi-Drug Resistant Organisms: None Reported Past Surgical History: Back Surgery, Bariatric Surgery, Cholecystectomy, Orthopedic Surgery, Tubal Ligation, Uterine Ablation Additional Past Surgical History / Comment(s): D&C,DOUBLE DISC FUSION L3-L4-L5,Cervical Disc C6 replaced x 2, STENTS KIDNEY STONES/removed,LITHOTRIPSY, Left lateral epicondylitis sx, partial removal of cervix using cryotherapy, Gastric Sleeve, left elbow surgery for tendon release, recent EGD Past Anesthesia/Blood Transfusion Reactions: Motion Sickness, Postoperative Nausea & Vomiting (PONV) Additional Past Anesthesia/Blood Transfusion Reaction / Comment(s): NEVER HAS HAD BLOOD TRANSFUSION Smoking Status: Former smoker - Past Family History Father History Unknown: Yes Family Medical History: Cancer Additional Family Medical History / Comment(s): lung, brain Medications and Allergies Home Medications Medication Instructions Recorded Confirmed Type Albuterol Inhaler [Ventolin Hfa 2 puff INHALATION RT-Q4H 12/05/21 12/05/21 History Inhaler] DULoxetine HCL [Cymbalta] 60 mg PO DAILY 12/05/21 12/05/21 History Dicyclomine [Bentyl] 20 mg PO QID PRN 12/05/21 12/05/21 History Isosorbide Dinitrate [Isordil] 30 mg PO BID 12/05/21 12/05/21 History Lurasidone HCl [Latuda] 60 mg PO DAILY 12/05/21 12/05/21 History Montelukast [Singulair] 10 mg PO DAILY 12/05/21 12/05/21 History Omeprazole 40 mg PO DAILY 12/05/21 12/05/21 History Ondansetron Odt [Zofran Odt] 4 mg PO Q12HR PRN 12/05/21 12/05/21 History Promethazine HCl 12.5 mg PO Q4H PRN 12/05/21 12/05/21 History SUMAtriptan succinate [Imitrex] 25 mg PO BID PRN 12/05/21 12/05/21 History carvediloL [Coreg] 3.125 mg PO BID 12/05/21 12/05/21 History hydrOXYzine pamoate [Vistaril] 50 mg PO TID PRN 12/05/21 12/05/21 History traMADol HCL 50 mg PO HS 12/05/21 12/05/21 History traZODone HCL 100 mg PO HS PRN 12/05/21 12/05/21 History Allergies Allergy/AdvReac Type Severity Reaction Status Date / Time NSAIDS (Non-Steroidal AdvReac hx of Verified 12/05/21 22:37 Anti-Inflamma gastric sleeve - states unable to take due to that Physical Exam Vitals: Vital Signs Temp Pulse Pulse Resp BP BP Pulse Ox 12/07/21 12:24 98.1 F 69 16 111/72 97 12/07/21 04:00 97.7 F 80 16 130/76 97 12/06/21 20:48 72 16 113/73 96 12/06/21 20:00 16 12/06/21 17:24 97.6 F 70 18 105/70 98 12/06/21 15:38 97.6 F 66 17 102/69 95 12/06/21 14:39 90 18 99/60 96 Intake and Output 12/06/21 12/07/21 12/07/21 22:59 06:59 14:59 Intake Total 390 1560 Balance 390 1560 Intake: Intake, IV Titration 390 1560 Amount Sodium Chloride 0.9% 1, 390 1560 000 ml @ 130 mls/hr IV . Q7H42M [facility] Rx#:[id number] Other: # Voids 1 Weight 74.389 kg 77.4 kg - Constitutional General appearance: average body habitus, cooperative, disheveled - EENT Eyes: EOMI, PERRLA ENT: normal oropharynx Ears: bilateral: normal - Neck Carotids: bilateral: upstroke normal Thyroid: bilateral: normal size - Respiratory Respiratory: bilateral: CTA - Cardiovascular Rhythm: regular Heart sounds: normal: S1, S2 - Gastrointestinal General gastrointestinal: normal bowel sounds, soft - Integumentary Integumentary: decreased turgor - Neurologic Neurologic: CNII-XII intact - Musculoskeletal Musculoskeletal: gait normal, generalized weakness, strength equal bilaterally - Psychiatric Psychiatric: A&O x's 3, appropriate affect, intact judgment & insight Results - Laboratory Findings CBC and BMP: 12/07/21 09:43 12/06/21 04:58 PT/INR, D-dimer PT 11.5 sec (9.0-12.0) 12/05/21 16:18 INR 1.1 (<1.2) 12/05/21 16:18 D-Dimer 0.75 mg/L FEU (<0.60) H 12/05/21 19:48 Abnormal lab findings: Abnormal Labs 12/05/21 12/05/21 12/05/21 16:18 16:18 19:48 WBC 17.3 H 15.9 H RBC 6.00 H 5.64 H Hgb 18.1 H 17.5 H Hct 49.1 H 46.4 H MCHC 37.7 H Neutrophils # 12.1 H 11.1 H Neutrophils # (Manual) Monocytes # 1.1 H 1.6 H D-Dimer VBG pH VBG pCO2 VBG HCO3 Potassium Carbon Dioxide 16 L Glucose 112 H Total Protein 8.5 H Albumin 5.1 H Ur Specific [place] Urine Protein Urine Ketones Ur Squamous Epith Cells Urine Bacteria Urine Mucus Urine Opiates Screen U Benzodiazepines Scrn U Marijuana (THC) Screen 12/05/21 12/05/21 12/05/21 19:48 19:48 22:44 WBC RBC Hgb Hct MCHC Neutrophils # Neutrophils # (Manual) Monocytes # D-Dimer 0.75 H VBG pH VBG pCO2 VBG HCO3 Potassium 3.1 L Carbon Dioxide 15 L Glucose 133 H Total Protein Albumin Ur Specific [place] >1.050 H Urine Protein 1+ H Urine Ketones 4+ H Ur Squamous Epith Cells 7 H Urine Bacteria Rare H Urine Mucus Rare H Urine Opiates Screen U Benzodiazepines Scrn U Marijuana (THC) Screen 12/05/21 12/06/21 12/06/21 22:44 04:58 04:58 WBC 12.8 H RBC Hgb Hct MCHC Neutrophils # Neutrophils # (Manual) 8.06 H Monocytes # D-Dimer VBG pH VBG pCO2 VBG HCO3 Potassium Carbon Dioxide 20 L Glucose Total Protein Albumin Ur Specific [place] Urine Protein Urine Ketones Ur Squamous Epith Cells Urine Bacteria Urine Mucus Urine Opiates Screen Detected H U Benzodiazepines Scrn Detected H U Marijuana (THC) Screen Detected H 12/06/21 10:00 WBC RBC Hgb Hct MCHC Neutrophils # Neutrophils # (Manual) Monocytes # D-Dimer VBG pH 7.45 H VBG pCO2 32 L VBG HCO3 22 L Potassium Carbon Dioxide Glucose Total Protein Albumin Ur Specific [place] Urine Protein Urine Ketones Ur Squamous Epith Cells Urine Bacteria Urine Mucus Urine Opiates Screen U Benzodiazepines Scrn U Marijuana (THC) Screen - Diagnostic Findings Chest x-ray: report reviewed, image reviewed Assessment and Plan Assessment: Mild metabolic alkalosis due to ongoing vomiting and nausea and extracellular fluid contraction with prerenal azotemia Mild diarrhea attributing to low Bicarbonate Epigastric abdominal pain with nausea vomiting Plan: Continue to gently rehydrated, monitor labs closely and order another chemistry for tomorrow further workup and evaluation as per surgical services Time with Patient: Greater than 30
[2021-12-07] MEDS: TEMAZEPAM 15 MG CAP PO PRN (21:05)
[2021-12-08] MEDS: METOCLOPRAMIDE 5 MG/ML 2 ML VIAL IVP SCH ×4 (00:50→18:08)
[2021-12-08] MEDS: HYDROmorphone 1 MG/ML 1 ML SYRINGE IVP PRN ×5 (03:32→22:01)
[2021-12-08] MEDS: SODIUM CHLORIDE 0.9% 1,000 ML IV SCH ×2 (03:36→14:04)
[2021-12-08 09:05] LABS: HCT 34.9 % (37.2-46.3); HGB 12.2 g/dL (12.0-15.0); Mean Platelet Volume 10.5 fL (9.5-12.2); NRBC Per 100 WBC 0 /100 WBCS (0.0-0.0); Platelet Count 250 X 10*3/uL (140-440); RBC 4.06 X 10*6/uL (4.10-5.20); RDW 12.6 % (11.5-14.5); WBC 7.37 X 10*3/uL (4.50-10.00)
[2021-12-08 09:15] LABS: African American GFR (CKD) 135.5 (60.0-200.0); Albumin 3.4 g/dL (3.8-4.9); Albumin/Globulin Ratio 1.7 (1.60-3.17); Anion Gap 12.4 mmol/L (10.00-18.00); BUN/Creat Ratio 10.8 Ratio (12.00-20.00); Blood Urea Nitrogen 5.4 mg/dL (9.0-27.0); Carbon Dioxide 22.6 mmol/L (20.0-27.5); Non-African American GFR(CKD) 116.9 (60.0-200.0); Potassium 3.5 mmol/L (3.5-5.5); Total Bilirubin 0.5 mg/dL (0.30-1.20); Total Protein 5.4 g/dL (6.2-8.2)
[2021-12-08] MEDS: carvediloL 3.125 MG TAB PO SCH ×2 (09:28→21:59)
[2021-12-08] MEDS: ISOSORBIDE DINITRATE 10 MG TAB PO SCH ×2 (09:28→21:59)
[2021-12-08] MEDS: PANTOPRAZOLE 40 MG/10 ML VIAL IV SCH (09:34)
[2021-12-08] MEDS ORDERED: PROPOFOL 10 MG/ML 20 ML VIAL IV ONE (10:21)
[2021-12-08] MEDS ORDERED: LIDOCAINE 2% INJ 20 MG/ML (2 ML VIAL) ONE (10:21)
[2021-12-08] MEDS ORDERED: IV FLUID CONTINUATION 200 ML IV ONE (10:31)
--- NOTE | 2021-12-08 10:38 | P.OP ---
Date of Procedure: 12/08/21 Preoperative Diagnosis: Dysphagia Epigastric pain Nausea Postoperative Diagnosis: Mild antral gastritis Small hiatal hernia No evidence of sleeve obstruction Procedure(s) Performed: EGD Anesthesia: MAC Surgeon: Stan Dave Pathology: other (Antrum, esophagus) Condition: stable Disposition: PACU Description of Procedure: The patient placed on the endoscopy table in the lateral position. She received IV sedation. The gastroscope placed oropharynx passed in the esophagus and stomach. Scope was then placed through the pylorus. The first and second portion of the duodenum appeared normal. A random biopsies performed duodenum. Scope summer back the antrum this. Minimally inflamed. A biopsies performed. Scope was then brought back through the gastric sleeve. There is no evidence of obstruction. The GE junction was at 47 is. There was a small hiatal hernia. The distal esophagus appeared normal. The proximal esophagus. Normal. Scope withdrawn for patient.
--- NOTE | 2021-12-08 11:24 | P.PN ---
Subjective Progress Note Date: 12/08/21 Principal diagnosis: Mild metabolic alkalosis due to ongoing vomiting and nausea and extracellular fluid contraction with prerenal azotemia Mild diarrhea attributing to low Bicarbonate Epigastric abdominal pain with nausea vomiting 12/08/2021, patient seen eval reexamined is status post endoscopy by Dr. Warren and no significant pathology has been obtained, patient otherwise has been doing well less short of breath hemodynamic status stable, remains afebrile oxygen saturation is 97%. Blood cultures 2 have been negative, labs reviewed white cell count is 7.3, hemoglobin hematocrit 12/34, CO2 improved to 22 with a normally This is a 46-year-old female with multiple complex medical history significant for dyslipidemia hypertension also rheumatoid arthritis GERD history of cervical cancer and prior surgery for bariatric and gastric sleeve. Patient came into the hospital with ongoing nausea vomiting patient was hospitalized recently at [facility] and stayed there for 9 days workup includes testing including computed tomography scan and MRI she appears to volume depleted depleted have been resuscitated intermittent diarrhea has been present as well, she is been continued on her oral medicines along with IV Protonix and rehydrated. She has mild leukocytosis which has improved however hemoglobin and hematocrit is 13/37 down from 15/43, ABGs as stated above pH is 7.45 pCO2 of 32, indicated a off metabolic alkalosis due to ongoing and nausea and vomiting, her urine drug screen was positive for opiates and benzodiazepine and marijuana, VQ scan has been negative for PE/low probability, chest x-ray unremarkable barium swallow noted to have a some narrowing at the gastroduodenal junction, computed tomography scan of the abdominal and pelvis negative for any acute abdominal process Objective - Vital Signs Vital signs: Vital Signs Temp 98.1 F 12/07/21 18:16 Pulse 76 12/07/21 18:16 Resp 16 12/07/21 18:16 BP 121/78 12/07/21 18:16 Pulse Ox 97 12/07/21 18:16 FiO2 Intake & Output 12/07/21 12/08/21 12/08/21 18:59 06:59 18:59 Intake Total 100 Output Total 30 Balance -30 100 Weight 77.8 kg Intake: IV 100 Output: Emesis 30 Other: # Voids 3 2 # Emeses 1 - Exam - Constitutional General appearance: average body habitus, cooperative, disheveled - EENT Eyes: EOMI, PERRLA ENT: normal oropharynx Ears: bilateral: normal - Neck Carotids: bilateral: upstroke normal Thyroid: bilateral: normal size - Respiratory Respiratory: bilateral: CTA - Cardiovascular Rhythm: regular Heart sounds: normal: S1, S2 - Gastrointestinal General gastrointestinal: normal bowel sounds, soft - Integumentary Integumentary: decreased turgor - Neurologic Neurologic: CNII-XII intact - Musculoskeletal Musculoskeletal: gait normal, generalized weakness, strength equal bilaterally - Psychiatric Psychiatric: A&O x's 3, appropriate affect, intact judgment & insight - Labs CBC & Chem 7: 12/08/21 04:53 12/08/21 04:53 Labs: Abnormal Lab Results - Last 24 Hours (Table) 12/08/21 12/08/21 Range/Units 04:53 04:53 RBC 4.06 L (4.10-5.20) X 10*6/uL Hct 34.9 L (37.2-46.3) % BUN 5.4 L (9.0-27.0) mg/dL Creatinine 0.5 L (0.6-1.5) mg/dL BUN/Creatinine Ratio 10.80 L (12.00-20.00) Ratio Calcium 8.0 L (8.7-10.3) mg/dL Total Protein 5.4 L (6.2-8.2) g/dL Albumin 3.4 L (3.8-4.9) g/dL Microbiology - Last 24 Hours (Table) 12/05/21 19:55 Blood Culture - Preliminary Blood No Growth after 48 hours 12/05/21 19:48 Blood Culture - Preliminary Blood No Growth after 48 hours Assessment and Plan Assessment: Mild metabolic alkalosis due to ongoing vomiting and nausea and extracellular fluid contraction with prerenal azotemia Mild diarrhea attributing to low Bicarbonate, improved Epigastric abdominal pain with nausea vomiting, and Plan: Continue to gently rehydrated, monitor labs closely and order another chemistry for tomorrow further workup and evaluation as per surgical services Time with Patient: Greater than 30
[2021-12-08] MEDS: ONDANSETRON 4 MG/2 ML VIAL IVP PRN ×2 (14:12→22:00)
[2021-12-09] MEDS: SUCRALFATE 1 GM TAB PO SCH ×3 (00:42→16:44)
[2021-12-09] MEDS: METOCLOPRAMIDE 5 MG/ML 2 ML VIAL IVP SCH ×4 (00:42→17:46)
[2021-12-09] MEDS: SODIUM CHLORIDE 0.9% 1,000 ML IV SCH ×4 (00:45→19:46)
--- NOTE | 2021-12-09 02:22 | PN ---
PROGRESS NOTE SUBJECTIVE: This is a white female. She is scheduled for an EGD tomorrow per Dr. Dave for progressive nausea and vomiting. White count is normal. Hemoglobin is normal. Platelets are normal. We will get an EGD tomorrow. Prognosis is guarded. Full diet until she gets the endoscopy. OBJECTIVE: VITAL SIGNS: Reviewed. CARDIOVASCULAR: S1, S2. LUNGS: Clear. GI: Has mild tenderness in epigastric. HEMATOLOGY: Negative Homans. PSYCH: Fair mood and affect. ASSESSMENT: Progressive nausea and vomiting over the past 3 weeks, unclear etiology. EGD will be done tomorrow. Status post gastric surgery. Please see further orders. Prognosis guarded. MMODL / IJN: [id number] /
[2021-12-09] MEDS: HYDROmorphone 1 MG/ML 1 ML SYRINGE IVP PRN ×5 (03:41→19:45)
[2021-12-09] MEDS: carvediloL 3.125 MG TAB PO SCH ×2 (08:53→21:19)
[2021-12-09] MEDS: ISOSORBIDE DINITRATE 10 MG TAB PO SCH ×2 (08:53→21:19)
[2021-12-09] MEDS: PANTOPRAZOLE 40 MG/10 ML VIAL IV SCH (08:53)
[2021-12-09] MEDS: ONDANSETRON 4 MG/2 ML VIAL IVP PRN ×2 (08:59→21:23)
[2021-12-09] MEDS: SCOPOLAMINE 1 MG/72 HR PATCH TRANSDERM SCH (12:13)
[2021-12-09] MEDS ORDERED: DICYCLOMINE 20 MG TAB PO PRN (12:28)
[2021-12-09] MEDS ORDERED: SUMAtriptan succinate 25 MG TAB PO PRN (12:28)
[2021-12-09] MEDS ORDERED: LIDOCAINE 1% INJ 10MG/ML (30 ML VIAL-PF) SQ ONE (12:59)
[2021-12-09] MEDS: LURASIDONE 20 MG TAB PO SCH (13:33)
--- NOTE | 2021-12-09 13:33 | IR ---
EXAMINATION TYPE: IR cvc insert >=5 years DATE OF EXAM: 12/09/2021 COMPARISON: NONE CLINICAL HISTORY: Azotemia, metabolic alkalosis diarrhea Needs long-term intravenous access for total parenteral nutrition. PROCEDURE: Hand hygiene obtained with soap and water and alcohol-based hand rub. After informed consent, the skin overlying the left basilic vein was localized with ultrasound and no hector to be compressible and patent. An ultrasound image was obtained and submitted on the patient's c ruelas. The overlying skin was prepped and draped and Lidocaine was used for local anesthesia. A skin poppy was made with a scalpel. Access was gained to the vein under ultrasound guidance with a 21 gau ge needle and a 0.018 inch wire was advanced. Access site was dilated with Peel-Away sheath and cath eter tailored to the appropriate length and advanced such that the distal tip is at the cavoatrial ju nction. Spot image was obtained verifying placement. Catheter was fixed to the skin and a sterile d ressing was placed following hemostasis. Catheter was aspirated and flushed with saline. Patient wa s discharged in stable condition without complication.Maximal barrier technique is utilized. Ultraso und image is documented on the chart. Ultrasound used with sterile technique. Fluoro time and fluoroscopic images submitted to document procedure: 93 intraoperative C-arm images, 0.1 minutes fluoroscopy time IMPRESSION: STATUS POST ULTRASOUND AND FLUOROSCOPIC GUIDED PICC LINE PLACEMENT, READY FOR USE. THIS PROCEDURE WAS PERFORMED BY THE UNDERSIGNED.
--- NOTE | 2021-12-09 13:34 | P.PN ---
Subjective Progress Note Date: 12/09/21 Principal diagnosis: Mild metabolic alkalosis due to ongoing vomiting and nausea and extracellular fluid contraction with prerenal azotemia Mild diarrhea attributing to low Bicarbonate Epigastric abdominal pain with nausea vomiting 12/09/2021, patient seen and evaluated examined the still have nauseous feeling but however overall symptoms improve, able to hold down the clear liquid diet, denies any chest pain or shortness breath, denies any cough or congestion, patient remains afebrile with hemodynamic stability oxygen saturation room air 95% and 6% 12/08/2021, patient seen eval reexamined is status post endoscopy by Dr. Warren and no significant pathology has been obtained, patient otherwise has been doing well less short of breath hemodynamic status stable, remains afebrile oxygen saturation is 97%. Blood cultures 2 have been negative, labs reviewed white cell count is 7.3, hemoglobin hematocrit 12/34, CO2 improved to 22 with a normally This is a 46-year-old female with multiple complex medical history significant for dyslipidemia hypertension also rheumatoid arthritis GERD history of cervical cancer and prior surgery for bariatric and gastric sleeve. Patient came into the hospital with ongoing nausea vomiting patient was hospitalized recently at [facility] and stayed there for 9 days workup includes testing including computed tomography scan and MRI she appears to volume depleted depleted have been resuscitated intermittent diarrhea has been present as well, she is been continued on her oral medicines along with IV Protonix and rehydrated. She has mild leukocytosis which has improved however hemoglobin and hematocrit is 13/37 down from 15/43, ABGs as stated above pH is 7.45 pCO2 of 32, indicated a off metabolic alkalosis due to ongoing and nausea and vomiting, her urine drug screen was positive for opiates and benzodiazepine and marijuana, VQ scan has been negative for PE/low probability, chest x-ray unremarkable barium swallow n oted to have a some narrowing at the gastroduodenal junction, computed tomography scan of the abdominal and pelvis negative for any acute abdominal process Objective - Vital Signs Vital signs: Vital Signs Temp 97.5 F L 12/09/21 08:58 Pulse 74 12/09/21 08:58 Resp 13 12/09/21 08:58 BP 121/82 12/09/21 08:58 Pulse Ox 96 12/09/21 08:58 FiO2 Intake & Output 12/08/21 12/09/21 12/09/21 18:59 06:59 18:59 Intake Total 1800 50 Output Total 50 Balance 1800 0 Weight 77.9 kg Intake: IV 100 Intake, IV Titration 1300 Amount Sodium Chloride 0.9% 1, 1300 000 ml @ 130 mls/hr IV . Q7H42M [facility] Rx#:[id number] Oral 400 50 Output: Emesis 50 Other: # Voids 2 - Exam - Constitutional General appearance: average body habitus, cooperative, disheveled - EENT Eyes: EOMI, PERRLA ENT: normal oropharynx Ears: bilateral: normal - Neck Carotids: bilateral: upstroke normal Thyroid: bilateral: normal size - Respiratory Respiratory: bilateral: CTA - Cardiovascular Rhythm: regular Heart sounds: normal: S1, S2 - Gastrointestinal General gastrointestinal: normal bowel sounds, soft - Integumentary Integumentary: decreased turgor - Neurologic Neurologic: CNII-XII intact - Musculoskeletal Musculoskeletal: gait normal, generalized weakness, strength equal bilaterally - Psychiatric Psychiatric: A&O x's 3, appropriate affect, intact judgment & insight - Labs CBC & Chem 7: 12/08/21 04:53 12/08/21 04:53 Labs: Microbiology - Last 24 Hours (Table) 12/05/21 19:55 Blood Culture - Preliminary Blood No Growth after 72 hours 12/05/21 19:48 Blood Culture - Preliminary Blood No Growth after 72 hours Assessment and Plan Assessment: Mild metabolic alkalosis due to ongoing vomiting and nausea and extracellular fluid contraction with prerenal azotemia, continue to improve Mild diarrhea attributing to low Bicarbonate, improved Epigastric abdominal pain with nausea vomiting, and Plan: Continue to gently rehydrated, monitor labs closely and order another chemistry for tomorrow further workup and evaluation as per surgical services Time with Patient: Greater than 30
[2021-12-09] MEDS: DULoxetine HCL 60 MG CAPSULE.DR PO SCH (13:35)
--- NOTE | 2021-12-09 14:57 | P.PN ---
Subjective Progress Note Date: 12/09/21 CHIEF COMPLAINT: Abdominal pain with nausea and vomiting HISTORY OF PRESENT ILLNESS: Patient reports she is feeling better since being admitted to the hospital. However, she continues to have nausea and vomiting. Patient did not try the regular diet. She is unable to keep even Jell-O down. She continues to have epigastric discomfort. She had EGD completed that revealed gastritis, small hiatal hernia and no evidence of sleeve obstruction. Upper GI showed questionable narrowing at the gastroduodenal junction. There is delayed contrast coursing into the small bowel. Afebrile. No new labs for today Patient seen and examined with Dr. lemos PHYSICAL EXAM: VITAL SIGNS: Reviewed. GENERAL: Well-developed in no acute distress. HEENT: No sclera icterus. Extraocular movements grossly intact. Moist buccal mucosa. Head is atraumatic, normocephalic. ABDOMEN: Soft. Nondistended. Epigastric tenderness NEUROLOGIC: Alert and oriented. Cranial nerves II through XII grossly intact. ASSESSMENT: 1. Epigastric abdominal pain with intractable nausea and vomiting 2. Questionable narrowing at the gastroduodenal junction 3. Hiatal hernia repair in 07/26/2021 PLAN: -Patient scheduled for small bowel follow-through -Interventional radiology consulted for PICC line placement -Consult dietitian for TPN. Patient requiring nutrition support due to intractable nausea and vomiting -Continue Reglan and Zofran -Scopolamine patch added -Encouraged patient to ambulate Physician Soap Maker note has been reviewed by physician. Signing provider agrees with the documented findings, assessment, and plan of care. Objective - Vital Signs Vital signs: Vital Signs Temp 99 F 12/09/21 13:00 Pulse 74 12/09/21 08:58 Resp 16 12/09/21 13:00 BP 133/89 12/09/21 13:00 Pulse Ox 98 12/09/21 13:00 FiO2 Intake & Output 12/08/21 12/09/21 12/09/21 18:59 06:59 18:59 Intake Total 1800 50 Output Total 50 Balance 1800 0 Weight 77.9 kg Intake: IV 100 Intake, IV Titration 1300 Amount Sodium Chloride 0.9% 1, 1300 000 ml @ 130 mls/hr IV . Q7H42M [facility] Rx#:[id number] Oral 400 50 Output: Emesis 50 Other: # Voids 2 - Labs CBC & Chem 7: 12/08/21 04:53 12/08/21 04:53 Labs: Microbiology - Last 24 Hours (Table) 12/05/21 19:55 Blood Culture - Preliminary Blood No Growth after 72 hours 12/05/21 19:48 Blood Culture - Preliminary Blood No Growth after 72 hours
--- NOTE | 2021-12-09 16:05 | XR ---
Abdomen HISTORY: Nausea vomiting and abdominal pain Frontal view of the abdomen on [address] scan 12/05/2021 Contrast material is present within the colon, the appendix. Postop changes are noted to the lower alfredo mbar spine. Air-filled loops of small and large bowel are present. No evident pneumoperitoneum. Contr ast material hasn't coursed to the level the rectum. Osteoarthritic changes are present within the hi ps. Lung bases not included on exam. IMPRESSION: No evident bowel obstruction.
[2021-12-09 17:43] LABS: Ionized Calcium 4.9 mg/dL (4.5-5.3)
[2021-12-09 18:00] LABS: Magnesium 1.7 mg/dL (1.6-2.3); Phosphorus 2.9 mg/dL (2.5-4.5)
[2021-12-09] MEDS ORDERED: MVI, ADULT NO.4 WITH VIT K 10 ML, TRACE (CONC-1ML/DOSE) 1 ML in AMINO ACID 5%-D20W+LYTE... IV SCH ×3 (19:00)
[2021-12-09] MEDS: hydrOXYzine pamoate 25 MG CAP PO PRN (21:19)
--- NOTE | 2021-12-09 22:17 | PN ---
PROGRESS NOTE SUBJECTIVE: White female. We are going to advance her diet. We are going to give her Carafate on top of her Reglan to see if she can keep food down. EGD today did not show anything significant. OBJECTIVE: CARDIOVASCULAR: S1, S2. LUNGS: Clear. GI: Soft. ASSESSMENT: Progressive nausea and vomiting with weight loss over the last 3 weeks. Dehydration, tachycardia. We will add Carafate, Protonix, fluid rehydrate, IV Reglan. If she does not improve with her vomiting, she will have to be transferred to the [facility] for GI evaluation and second opinion. MMODL / IJN: [id number] /
[2021-12-10] MEDS: METOCLOPRAMIDE 5 MG/ML 2 ML VIAL IVP SCH ×4 (00:30→17:48)
[2021-12-10] MEDS: SODIUM CHLORIDE 0.9% 1,000 ML IV SCH ×3 (00:30→19:32)
[2021-12-10 01:10] LABS: Glucose,Whole Blood 116 mg/dL (70-110)
--- NOTE | 2021-12-10 01:35 | PN ---
PROGRESS NOTE SUBJECTIVE: The patient had progressive vomiting, which is persistent. She will get a small-bowel follow-through x-ray today, which is pending. She has questionable narrowing of the gastroduodenal junction, hiatal hernia repair. She will get a small bowel follow- through due to progressive vomiting. Interventional Radiology is consulted for PICC line placement. Dietitian for TPN. Requiring nutrition support due to intractable nausea, vomiting. Continue Reglan and Zofran, scopolamine. Encourage ambulation and increase food intake. OBJECTIVE: VITAL SIGNS: Reviewed. GI: Soft. HEENT: Head normocephalic, atraumatic. Pupils equal, round, reactive. NEUROLOGIC: Cranial nerves intact. PSYCH: Fair mood and affect. CARDIOVASCULAR: S1, S2. ASSESSMENT: Wait for small bowel follow-through, possible tube feeding. Prognosis guarded. MMODL / IJN: [id number] /
[2021-12-10] MEDS: HYDROmorphone 1 MG/ML 1 ML SYRINGE IVP PRN ×4 (04:33→22:34)
[2021-12-10 07:22] LABS: Glucose,Whole Blood 109 mg/dL (70-110)
[2021-12-10] MEDS: PANTOPRAZOLE 40 MG/10 ML VIAL IV SCH (11:14)
[2021-12-10] MEDS: LURASIDONE 20 MG TAB PO SCH (11:15)
[2021-12-10] MEDS: SUCRALFATE 1 GM TAB PO SCH ×2 (11:15→17:47)
[2021-12-10] MEDS: ISOSORBIDE DINITRATE 10 MG TAB PO SCH ×2 (11:15→22:20)
[2021-12-10] MEDS: DULoxetine HCL 60 MG CAPSULE.DR PO SCH (11:15)
[2021-12-10] MEDS: carvediloL 3.125 MG TAB PO SCH ×2 (11:16→22:20)
--- NOTE | 2021-12-10 11:28 | FL ---
EXAMINATION TYPE: FL small bowel follow through DATE OF EXAM: 12/10/2021 CLINICAL HISTORY: Pain with vomiting rule out small bowel obstruction. History of gastric sleeve surg iva 2019 TECHNIQUE: A single contrast small bowel follow through is performed utilizing barium. 0 minutes o f fluoro time and 8 images obtained. COMPARISON: CT abdomen and pelvis 5 days earlier and upper GI study 4 days earlier FINDINGS: Associate Broker image of the abdomen shows some residual barium from recent upper GI study in the co tara. No suspicious bowel dilatation. Postsurgical change to lower lumbar spine redemonstrated. The small bowel study shows normal transit to the colon in less than 180 minutes. There is a normal mucosal fold pattern throughout the small bowel. There is no evidence of any stricture or filling de fect noted. The terminal ileum is not spotted. It appeared within normal limits coronal image [address] IMPRESSION: Normal small bowel follow through. No small bowel obstruction.
[2021-12-10] MEDS: MONTELUKAST 10 MG TAB PO SCH (11:35)
[2021-12-10 12:01] LABS: Glucose,Whole Blood 99 mg/dL (70-110)
[2021-12-10 13:02] LABS: African American GFR (CKD) 135.5 (60.0-200.0); Anion Gap 8.5 mmol/L (10.00-18.00); BUN/Creat Ratio 6.2 Ratio (12.00-20.00); Blood Urea Nitrogen 3.1 mg/dL (9.0-27.0); Carbon Dioxide 25.5 mmol/L (20.0-27.5); Magnesium 1.6 mg/dL (1.5-2.4); Non-African American GFR(CKD) 116.9 (60.0-200.0); Phosphorus 3.1 mg/dL (2.4-5.1); Potassium 3.1 mmol/L (3.5-5.5)
--- NOTE | 2021-12-10 13:25 | P.PN ---
Subjective Progress Note Date: 12/10/21 Principal diagnosis: Mild metabolic alkalosis due to ongoing vomiting and nausea and extracellular fluid contraction with prerenal azotemia Mild diarrhea attributing to low Bicarbonate Epigastric abdominal pain with nausea vomiting 12/10/2021, patient seen eval examined during the rounds labs reviewed medications reviewed, still have ongoing nausea as present with vomiting, p atient is being kept nothing by mouth has been started on TPN, Y PICC line, patient has abdominal x-ray yesterday and today no evidence of bowel obstruction seen, potassium is 3.1 beer in's 3/0.5 12/09/2021, patient seen and evaluated examined the still have nauseous feeling but however overall symptoms improve, able to hold down the clear liquid diet, denies any chest pain or shortness breath, denies any cough or congestion, patient remains afebrile with hemodynamic stability oxygen saturation room air 95% and 6% 12/08/2021, patient seen eval reexamined is status post endoscopy by Dr. Warren and no significant pathology has been obtained, patient otherwise has been doing well less short of breath hemodynamic status stable, remains afebrile oxygen saturation is 97%. Blood cultures 2 have been negative, labs reviewed white cell count is 7.3, hemoglobin hematocrit 12/34, CO2 improved to 22 with a normally This is a 46-year-old female with multiple complex medical history significant for dyslipidemia hypertension also rheumatoid arthritis GERD history of cervical cancer and prior surgery for bariatric and gastric sleeve. Patient came into the hospital with ongoing nausea vomiting patient was hospitalized recently at [facility] and stayed there for 9 days workup includes testing including computed tomography scan and MRI she appears to volume depleted depleted have been resuscitated intermittent diarrhea has been present as well, she is been continued on her oral medicines along with IV Protonix and rehydrated. She has mild leukocytosis which has improved however hemoglobin and hematocrit is 13/37 down from 15/43, ABGs as stated above pH is 7.45 pCO2 of 32, indicated a off metabolic alkalosis due to ongoing and nausea and vomiting, her urine drug screen was positive for opiates and benzodiazepine and marijuana, VQ scan has been negative for PE/low probability, chest x-ray unremarkable barium swallow noted to have a some narrowing at the gastroduodenal junction, computed tomography scan of the abdominal and pelvis negative for any acute abdominal process Objective - Vital Signs Vital signs: Vital Signs Temp 98.4 F 12/10/21 11:05 Pulse 69 12/10/21 11:05 Resp 17 12/10/21 11:05 BP 109/71 12/10/21 11:05 Pulse Ox 97 12/10/21 11:05 FiO2 Intake & Output 12/09/21 12/10/21 12/10/21 18:59 06:59 18:59 Intake Total 1560 Balance 1560 Weight 77.9 kg 76.3 kg Intake: Intake, IV Titration 1560 Amount Sodium Chloride 0.9% 1, 1560 000 ml @ 130 mls/hr IV . Q7H42M [facility] Rx#:[id number] Other: # Voids 1 - Exam - Constitutional General appearance: average body habitus, cooperative, disheveled - EENT Eyes: EOMI, PERRLA ENT: normal oropharynx Ears: bilateral: normal - Neck Carotids: bilateral: upstroke normal Thyroid: bilateral: normal size - Respiratory Respiratory: bilateral: CTA - Cardiovascular Rhythm: regular Heart sounds: normal: S1, S2 - Gastrointestinal General gastrointestinal: normal bowel sounds, soft - Integumentary Integumentary: decreased turgor - Neurologic Neurologic: CNII-XII intact - Musculoskeletal Musculoskeletal: gait normal, generalized weakness, strength equal bilaterally - Psychiatric Psychiatric: A&O x's 3, appropriate affect, intact judgment & insight - Labs CBC & Chem 7: 12/08/21 04:53 12/10/21 06:57 Labs: Abnormal Lab Results - Last 24 Hours (Table) 12/10/21 12/10/21 Range/Units 01:08 06:57 Potassium 3.1 L (3.5-5.5) mmol/L Anion Gap 8.50 L (10.00-18.00) mmol/L BUN 3.1 L (9.0-27.0) mg/dL Creatinine 0.5 L (0.6-1.5) mg/dL BUN/Creatinine Ratio 6.20 L (12.00-20.00) Ratio Glucose 112 H (70-110) mg/dL POC Glucose (mg/dL) 116 H (70-110) mg/dL Calcium 8.0 L (8.7-10.3) mg/dL Microbiology - Last 24 Hours (Table) 12/05/21 19:55 Blood Culture - Preliminary Blood No Growth after 96 hours 12/05/21 19:48 Blood Culture - Preliminary Blood No Growth after 96 hours Assessment and Plan Assessment: Hypokalemia Mild metabolic alkalosis due to ongoing vomiting and nausea and extracellular fluid contraction with prerenal azotemia, continue to improve Mild diarrhea attributing to low Bicarbonate, improved Epigastric abdominal pain with nausea vomiting, and Plan: K replacement protocol, Continue to gently rehydrated, monitor labs closely and further workup and evaluation as per surgical services Time with Patient: Greater than 30
[2021-12-10] MEDS ORDERED: MAGNESIUM SULFATE-D5W PMX 1 GM in DEXTROSE/WATER 1 100ML.BAG IVPB SCH (14:00)
--- NOTE | 2021-12-10 14:15 | P.PN ---
Subjective Progress Note Date: 12/10/21 CHIEF COMPLAINT: Intractable nausea vomiting HISTORY OF PRESENT ILLNESS: The patient is a 46-year-old female status post hiatal hernia repair with intractable nausea and vomiting. She is on TPN. Family is at bedside. Patient reports abdominal pain improved since yesterday. She completed her small bowel follow-through this morning. She is tolerating liquids. Her nausea and vomiting has improved. ROS: No fevers or chills. No new chest pain. No productive sputum PHYSICAL EXAM: VITAL SIGNS: Reviewed CONSTITUTIONAL: Well developed and in no acute distress. EYES: Conjuctivae without sclera icterus. Extraocular movements grossly intact. HEAD, EARS, NOSE, THROAT: Moist buccal mucosa. Head is atraumatic, normocephalic. Hears conversational speech. No nasal drainage. RESPIRATORY: Non-labored respirations and equal bilateral excursions. CARDIOVASCULAR: Palpable 2+ radial pulses. ABDOMEN: No peritonitis. MUSCULOSKELETAL: No gross deformity of the lower extremities noted. No club yoan. No cyanosis. SKIN: Good skin turgor. Well perfused. NEUROLOGIC: Cranial nerves II through XII grossly intact. No focal or lateralizing signs. PSYCH: Appropriate affect. Alert and oriented to person, place and time. CLINICAL LABS: Reviewed. Previous magnesium low 1.7. Potassium borderline 3.5. STUDIES: Small bowel follow-through independently reviewed demonstrates contrast throughout the small intestine including colon. No evidence of bowel obstruction. This is my independent interpretation. ASSESSMENT: 1. Intractable nausea and vomiting 2. Diaphragmatic hiatal hernia PLAN: 1. Repeat CBC and CMP 2. Advance liquids 3. Correction of magnesium and potassium Objective - Vital Signs Vital signs: Vital Signs Temp 98.4 F 12/10/21 11:05 Pulse 69 12/10/21 11:05 Resp 17 12/10/21 11:05 BP 109/71 12/10/21 11:05 Pulse Ox 97 12/10/21 11:05 FiO2 Intake & Output 12/09/21 12/10/21 12/10/21 18:59 06:59 18:59 Intake Total 1560 Balance 1560 Weight 77.9 kg 76.3 kg Intake: Intake, IV Titration 1560 Amount Sodium Chloride 0.9% 1, 1560 000 ml @ 130 mls/hr IV . Q7H42M [facility] Rx#:[id number] Other: # Voids 1 - Labs CBC & Chem 7: 12/08/21 04:53 12/10/21 06:57 Labs: Abnormal Lab Results - Last 24 Hours (Table) 12/10/21 Range/Units 01:08 POC Glucose (mg/dL) 116 H (70-110) mg/dL Microbiology - Last 24 Hours (Table) 12/05/21 19:55 Blood Culture - Preliminary Blood No Growth after 96 hours 12/05/21 19:48 Blood Culture - Preliminary Blood No Growth after 96 hours
[2021-12-10] MEDS: POTASSIUM CHLORIDE 20 MEQ in WATER FOR INJECTION 1 100ML.BAG IVPB SCH ×2 (14:30→17:48)
[2021-12-10 17:52] LABS: Glucose,Whole Blood 99 mg/dL (70-110)
[2021-12-10] MEDS ORDERED: FAT EMULSION 20% 500 ML in EMPTY BAG 1 BAG IV SCH (19:00)
[2021-12-10] MEDS: MAGNESIUM SULFATE-D5W PMX 1 GM in DEXTROSE/WATER 1 100ML.BAG IVPB SCH ×2 (20:06→22:21)
[2021-12-10] MEDS: 1: MVI, ADULT NO.4 WITH VIT K 10 ML, TRACE (CONC-1ML/DOSE) 1 ML in AMINO ACID 5%-D20W+LY IV SCH ×3 (22:20)
[2021-12-10] MEDS: hydrOXYzine pamoate 25 MG CAP PO PRN (22:34)
[2021-12-10 23:51] LABS: Glucose,Whole Blood 172 mg/dL (70-110)
[2021-12-11] MEDS: METOCLOPRAMIDE 5 MG/ML 2 ML VIAL IVP SCH ×4 (00:36→18:37)
[2021-12-11] MEDS: SODIUM CHLORIDE 0.9% 1,000 ML IV SCH ×3 (02:11→18:33)
[2021-12-11] MEDS: HYDROmorphone 1 MG/ML 1 ML SYRINGE IVP PRN ×4 (02:11→18:45)
[2021-12-11 05:38] LABS: Glucose,Whole Blood 82 mg/dL (70-110)
[2021-12-11] MEDS: DULoxetine HCL 60 MG CAPSULE.DR PO SCH (08:33)
[2021-12-11] MEDS: SUCRALFATE 1 GM TAB PO SCH ×2 (08:33→17:38)
[2021-12-11] MEDS: LURASIDONE 20 MG TAB PO SCH (08:33)
[2021-12-11] MEDS: MONTELUKAST 10 MG TAB PO SCH (08:33)
[2021-12-11] MEDS: ISOSORBIDE DINITRATE 10 MG TAB PO SCH ×2 (08:33→20:53)
[2021-12-11] MEDS: PANTOPRAZOLE 40 MG/10 ML VIAL IV SCH (08:33)
[2021-12-11] MEDS: carvediloL 3.125 MG TAB PO SCH ×2 (08:36→20:53)
[2021-12-11] MEDS: 1: MVI, ADULT NO.4 WITH VIT K 10 ML, TRACE (CONC-1ML/DOSE) 1 ML in AMINO ACID 5%-D20W+LY IV SCH ×3 (10:55)
[2021-12-11 11:28] LABS: Basophils # (A) 0.05 X 10*3/uL (0.00-0.10); Basophils % (A) 0.7 %; Eosinophils # (A) 0.21 X 10*3/uL (0.04-0.35); Eosinophils % (A) 3.1 %; HCT 34.2 % (37.2-46.3); HGB 12.4 g/dL (12.0-15.0); Immature Grans, Automated 0.3 %; Lymphocytes # (A) 1.97 X 10*3/uL (0.90-5.00); Lymphocytes % (A) 29.1 %; MCHC 36.3 g/dL (32.0-37.0); MCV 85.5 fL (80.0-97.0); Mean Platelet Volume 10.2 fL (9.5-12.2); Monocytes # (A) 0.48 X 10*3/uL (0.20-1.00); Monocytes % (A) 7.1 %; NRBC Per 100 WBC 0 /100 WBCS (0.0-0.0); Neutrophils # (A) 4.03 X 10*3/uL (1.80-7.70); Neutrophils % (A) 59.7 %; Platelet Count 262 X 10*3/uL (140-440); RDW 12.5 % (11.5-14.5); WBC 6.76 X 10*3/uL (4.50-10.00)
[2021-12-11 11:35] LABS: Glucose,Whole Blood 150 mg/dL (70-110)
--- NOTE | 2021-12-11 11:56 | P.PN ---
Subjective Progress Note Date: 12/11/21 Principal diagnosis: Mild metabolic alkalosis due to ongoing vomiting and nausea and extracellular fluid contraction with prerenal azotemia Mild diarrhea attributing to low Bicarbonate Epigastric abdominal pain with nausea vomiting 12/11/2021, patient seen eval reexamined during the rounds labs reviewed medications reviewed overall respiratory status continued to improve, denies any chest pain or abdominal pain, breathing more comfortably, not she has improved not throwing anymore, patient remains on TPN through left upper extremity PICC line tolerating well, CBC reviewed white cell count and hemoglobin along with platelet within normal limit 12/10/2021, patient seen eval examined during the rounds labs reviewed medications reviewed, still have ongoing nausea as present with vomiting, patient is being kept nothing by mouth has been started on TPN, Y PICC line, patient has abdominal x-ray yesterday and today no evidence of bowel obstruction seen, potassium is 3.1 beer in's 3/0.5 12/09/2021, patient seen and evaluated examined the still have nauseous feeling but however overall symptoms improve, able to hold down the clear liquid diet, denies any chest pain or shortness breath, denies any cough or congestion, patient remains afebrile with hemodynamic stability oxygen saturation room air 95% and 6% 12/08/2021, patient seen eval reexamined is status post endoscopy by Dr. Warren and no significant pathology has been obtained, patient otherwise has been doing well less short of breath hemodynamic status stable, remains afebrile oxygen saturation is 97%. Blood cultures 2 have been negative, labs reviewed white cell count is 7.3, hemoglobin hematocrit 12/34, CO2 improved to 22 with a normally This is a 46-year-old female with multiple complex medical history significant for dyslipidemia hypertension also rheumatoid arthritis GERD history of cervical cancer and prior surgery for bariatric and gastric sleeve. Patient came into the hospital with ongoing nausea vomiting patient was hospitalized recently at [facility] and stayed there for 9 days workup includes testing including computed tomography scan and MRI she appears to volume depleted depleted have been resuscitated intermittent diarrhea has been present as well, she is been continued on her oral medicines along with IV Protonix and rehydrated. She has mild leukocytosis which has improved however hemoglobin and hematocrit is 13/37 down from 15/43, ABGs as stated above pH is 7.45 pCO2 of 32, indicated a off metabolic alkalosis due to ongoing and nausea and vomiting, her urine drug screen was positive for opiates and benzodiazepine and marijuana, VQ scan has been negative for PE/low probability, chest x-ray unremarkable barium swallow noted to have a some narrowing at the gastroduodenal junction, computed tomography scan of the abdominal and pelvis negative for any acute abdominal process Objective - Vital Signs Vital signs: Vital Signs Temp 97.7 F 12/11/21 11:35 Pulse 85 12/11/21 11:35 Resp 18 12/11/21 11:35 BP 110/74 12/11/21 11:35 Pulse Ox 98 12/11/21 11:35 FiO2 Intake & Output 12/10/21 12/11/21 12/11/21 18:59 06:59 18:59 Weight 78.1 kg Other: # Voids 4 1 - Exam - Constitutional General appearance: average body habitus, cooperative, disheveled - EENT Eyes: EOMI, PERRLA ENT: normal oropharynx Ears: bilateral: normal - Neck Carotids: bilateral: upstroke normal Thyroid: bilateral: normal size - Respiratory Respiratory: bilateral: CTA - Cardiovascular Rhythm: regular Heart sounds: normal: S1, S2 - Gastrointestinal General gastrointestinal: normal bowel sounds, soft - Integumentary Integumentary: decreased turgor - Neurologic Neurologic: CNII-XII intact - Musculoskeletal Musculoskeletal: gait normal, generalized weakness, strength equal bilaterally - Psychiatric Psychiatric: A&O x's 3, appropriate affect, intact judgment & insight - Labs CBC & Chem 7: 12/11/21 06:48 12/10/21 06:57 Labs: Abnormal Lab Results - Last 24 Hours (Table) 12/10/21 12/10/21 12/11/21 Range/Units 06:57 23:50 06:48 RBC 4.00 L (4.10-5.20) X 10*6/uL Hct 34.2 L (37.2-46.3) % Potassium 3.1 L (3.5-5.5) mmol/L Anion Gap 8.50 L (10.00-18.00) mmol/L BUN 3.1 L (9.0-27.0) mg/dL Creatinine 0.5 L (0.6-1.5) mg/dL BUN/Creatinine Ratio 6.20 L (12.00-20.00) Ratio Glucose 112 H (70-110) mg/dL POC Glucose (mg/dL) 172 H (70-110) mg/dL Calcium 8.0 L (8.7-10.3) mg/dL 12/11/21 Range/Units 11:34 RBC (4.10-5.20) X 10*6/uL Hct (37.2-46.3) % Potassium (3.5-5.5) mmol/L Anion Gap (10.00-18.00) mmol/L BUN (9.0-27.0) mg/dL Creatinine (0.6-1.5) mg/dL BUN/Creatinine Ratio (12.00-20.00) Ratio Glucose (70-110) mg/dL POC Glucose (mg/dL) 150 H (70-110) mg/dL Calcium (8.7-10.3) mg/dL Microbiology - Last 24 Hours (Table) 12/05/21 19:55 Blood Culture - Preliminary Blood No Growth after 120 hours 12/05/21 19:48 Blood Culture - Preliminary Blood No Growth after 120 hours Assessment and Plan Assessment: Hypokalemia, on replacement protocol Mild metabolic alkalosis due to ongoing vomiting and nausea and extracellular fluid contraction with prerenal azotemia, continue to improve Mild diarrhea attributing to low Bicarbonate, improved Epigastric abdominal pain with nausea vomiting, and Plan: K replacement protocol, Continue to gently rehydrated, monitor labs closely and further workup and evaluation as per surgical services, continue TPN however may consider initiating taper Time with Patient: Greater than 30
[2021-12-11 11:57] LABS: Magnesium 2.2 mg/dL (1.5-2.4)
[2021-12-11 12:55] LABS: Albumin 3.3 g/dL (3.8-4.9); Albumin/Globulin Ratio 1.74 (1.60-3.17); Anion Gap 7.1 mmol/L (10.00-18.00); BUN/Creat Ratio 13.33 Ratio (12.00-20.00); Blood Urea Nitrogen 7.1 mg/dL (9.0-27.0); Calcium 7.8 mg/dL (8.7-10.3); Carbon Dioxide 25.6 mmol/L (20.0-27.5); Globulin 1.9 g/dL (1.6-3.3); Non-African American GFR(CKD) 114.7 (60.0-200.0); Potassium 3.1 mmol/L (3.5-5.5); Total Bilirubin 0.2 mg/dL (0.30-1.20); Total Protein 5.1 g/dL (6.2-8.2)
[2021-12-11] MEDS ORDERED: POTASSIUM CHLORIDE 20 MEQ in WATER FOR INJECTION 1 100ML.BAG IVPB SCH (14:00)
--- NOTE | 2021-12-11 15:01 | P.PN ---
Subjective Progress Note Date: 12/11/21 CHIEF COMPLAINT: Intractable nausea vomiting HISTORY OF PRESENT ILLNESS: The patient is a 46-year-old female status post hiatal hernia repair with intractable nausea and vomiting. She is on TPN. She reports tolerating liquid diet. No further emesis. ROS: No fevers or chills. No new chest pain. No productive sputum PHYSICAL EXAM: VITAL SIGNS: Reviewed CONSTITUTIONAL: Well developed and in no acute distress. EYES: Conjuctivae without sclera icterus. Extraocular movements grossly intact. HEAD, EARS, NOSE, THROAT: Moist buccal mucosa. Head is atraumatic, normocephalic. Hears conversational speech. No nasal drainage. RESPIRATORY: Non-labored respirations and equal bilateral excursions. CARDIOVASCULAR: Palpable 2+ radial pulses. ABDOMEN: No peritonitis. MUSCULOSKELETAL: No gross deformity of the lower extremities noted. No clubbing. No cyanosis. SKIN: Good skin turgor. Well perfused. NEUROLOGIC: Cranial nerves II through XII grossly intact. No focal or lateralizing signs. PSYCH: Appropriate affect. Alert and oriented to person, place and time. CLINICAL LABS: Reviewed. Potassium down 3.5-3.1. ASSESSMENT: 1. Intractable nausea and vomiting 2. Diaphragmatic hiatal hernia 3. Hypokalemia PLAN: 1. Will increase to full liquid diet. 2. Potassium replacement protocol for potassium 3.1. Objective - Vital Signs Vital signs: Vital Signs Temp 97.7 F 12/11/21 11:35 Pulse 85 12/11/21 11:35 Resp 18 12/11/21 11:35 BP 110/74 12/11/21 11:35 Pulse Ox 98 12/11/21 11:35 FiO2 Intake & Output 12/10/21 12/11/21 12/11/21 18:59 06:59 18:59 Weight 78.1 kg Other: # Voids 4 1 - Labs CBC & Chem 7: 12/11/21 06:48 12/11/21 06:48 Labs: Abnormal Lab Results - Last 24 Hours (Table) 12/10/21 12/11/21 12/11/21 Range/Units 23:50 06:48 06:48 RBC 4.00 L (4.10-5.20) X 10*6/uL Hct 34.2 L (37.2-46.3) % Potassium 3.1 L (3.5-5.5) mmol/L Chloride 110 H (96-109) mmol/L Anion Gap 7.10 L (10.00-18.00) mmol/L BUN 7.1 L (9.0-27.0) mg/dL Creatinine 0.5 L (0.6-1.5) mg/dL Glucose 123 H (70-110) mg/dL POC Glucose (mg/dL) 172 H (70-110) mg/dL Calcium 7.8 L (8.7-10.3) mg/dL Total Bilirubin 0.20 L (0.30-1.20) mg/dL Total Protein 5.1 L (6.2-8.2) g/dL Albumin 3.3 L (3.8-4.9) g/dL 12/11/21 Range/Units 11:34 RBC (4.10-5.20) X 10*6/uL Hct (37.2-46.3) % Potassium (3.5-5.5) mmol/L Chloride (96-109) mmol/L Anion Gap (10.00-18.00) mmol/L BUN (9.0-27.0) mg/dL Creatinine (0.6-1.5) mg/dL Glucose (70-110) mg/dL POC Glucose (mg/dL) 150 H (70-110) mg/dL Calcium (8.7-10.3) mg/dL Total Bilirubin (0.30-1.20) mg/dL Total Protein (6.2-8.2) g/dL Albumin (3.8-4.9) g/dL Microbiology - Last 24 Hours (Table) 12/05/21 19:55 Blood Culture - Preliminary Blood No Growth after 120 hours 12/05/21 19:48 Blood Culture - Preliminary Blood No Growth after 120 hours
[2021-12-11 17:30] LABS: Glucose,Whole Blood 125 mg/dL (70-110)
[2021-12-11] MEDS: POTASSIUM CHLORIDE 20 MEQ in WATER FOR INJECTION 1 100ML.BAG IVPB SCH ×3 (17:38→22:01)
[2021-12-11] MEDS: hydrOXYzine pamoate 25 MG CAP PO PRN (20:56)
[2021-12-11] MEDS: 1: MVI, ADULT NO.4 WITH VIT K 10 ML, TRACE (CONC-1ML/DOSE) 1 ML, POTASSIUM CHLORIDE 30 M IV SCH ×4 (22:01)
[2021-12-11 23:57] LABS: Glucose,Whole Blood 117 mg/dL (70-110)
[2021-12-12] MEDS: METOCLOPRAMIDE 5 MG/ML 2 ML VIAL IVP SCH ×5 (00:03→23:00)
[2021-12-12] MEDS: HYDROmorphone 1 MG/ML 1 ML SYRINGE IVP PRN ×6 (00:03→20:30)
--- NOTE | 2021-12-12 00:04 | PN ---
PROGRESS NOTE DATE OF SERVICE: 12/10/2021 SUBJECTIVE: This 46-year-old woman, who was admitted with intractable nausea and vomiting, is evaluated for bowel obstruction at this time. No chest pain. No palpitation. A small- bowel follow-through has completed today, which showed normal findings. OBJECTIVE: VITAL SIGNS: Pulse is 69, blood pressure ntd, respirations 17. CHEST: Clear to auscultation. CARDIOVASCULAR: S1, S2. ABDOMEN: Soft, nontender. LABORATORY DATA: Reviewed. ASSESSMENT: 1. Possible acute small-bowel obstruction. 2. Possibly ileus. 3. History of asthma. 4. Multiple medical issues. RECOMMENDATIONS: I recommend to continue current medications and symptomatic treatment. Otherwise, advance diet per Surgery. Recommend to repeat labs in the morning. Guarded prognosis. Further recommendations to follow. MMODL / IJN: [id number] / MTDD
--- NOTE | 2021-12-12 01:55 | PN ---
PROGRESS NOTE DATE OF SERVICE: 12/11/2021 SUBJECTIVE: This 46-year-old woman who was admitted with epigastric abdominal pain, nausea, and vomiting is evaluated for bowel obstruction. No chest pain. No palpitations. No fever. PHYSICAL EXAMINATION: VITAL SIGNS: Pulse is 85, blood pressure 110/74, respirations 18. CHEST: Clear to auscultation. CARDIOVASCULAR: S1 and S2. ABDOMEN: Soft. NERVOUS SYSTEM: LABORATORY DATA: Done, reviewed. ASSESSMENT: 1. Epigastric pain and nausea, possible acute gastritis. 2. Rule out bowel obstruction or ileus. 3. Diarrhea. 4. Asthma. 5. Multiple medical issues. RECOMMENDATION: This 46-year-old woman with multiple medical issues. We will monitor the patient closely. Continue the current medications and symptomatic treatment. Otherwise, I would recommend repeat labs tomorrow and further recommendations to follow. DONL / ANAISN: [id number] /
[2021-12-12] MEDS: SODIUM CHLORIDE 0.9% 1,000 ML IV SCH ×3 (03:27→10:44)
[2021-12-12 05:48] LABS: Glucose,Whole Blood 107 mg/dL (70-110)
[2021-12-12 09:12] LABS: Basophils # (A) 0.04 X 10*3/uL (0.00-0.10); Basophils % (A) 0.6 %; Eosinophils # (A) 0.23 X 10*3/uL (0.04-0.35); Eosinophils % (A) 3.6 %; HCT 33.9 % (37.2-46.3); HGB 11.5 g/dL (12.0-15.0); Immature Grans, Automated 0.3 %; Lymphocytes # (A) 1.91 X 10*3/uL (0.90-5.00); Lymphocytes % (A) 30.1 %; MCH 29.8 pg (27.0-32.0); MCHC 33.9 g/dL (32.0-37.0); MCV 87.8 fL (80.0-97.0); Mean Platelet Volume 10.5 fL (9.5-12.2); Monocytes # (A) 0.45 X 10*3/uL (0.20-1.00); Monocytes % (A) 7.1 %; NRBC Per 100 WBC 0 /100 WBCS (0.0-0.0); Neutrophils # (A) 3.69 X 10*3/uL (1.80-7.70); Neutrophils % (A) 58.3 %; Platelet Count 246 X 10*3/uL (140-440); RBC 3.86 X 10*6/uL (4.10-5.20); RDW 12.8 % (11.5-14.5); WBC 6.34 X 10*3/uL (4.50-10.00)
[2021-12-12 09:21] LABS: Magnesium 1.9 mg/dL (1.5-2.4); Phosphorus 3.4 mg/dL (2.4-5.1)
[2021-12-12] MEDS: DULoxetine HCL 60 MG CAPSULE.DR PO SCH (09:24)
[2021-12-12] MEDS: LURASIDONE 20 MG TAB PO SCH (09:24)
[2021-12-12] MEDS: SUCRALFATE 1 GM TAB PO SCH ×2 (09:24→18:36)
[2021-12-12] MEDS: ISOSORBIDE DINITRATE 10 MG TAB PO SCH ×2 (09:24→20:27)
[2021-12-12] MEDS: PANTOPRAZOLE 40 MG/10 ML VIAL IV SCH (09:24)
[2021-12-12] MEDS: carvediloL 3.125 MG TAB PO SCH ×2 (09:24→20:27)
[2021-12-12] MEDS: MONTELUKAST 10 MG TAB PO SCH (09:24)
[2021-12-12 09:26] LABS: African American GFR (CKD) 135.5 (60.0-200.0); Anion Gap 4.9 mmol/L (10.00-18.00); BUN/Creat Ratio 26.4 Ratio (12.00-20.00); Blood Urea Nitrogen 13.2 mg/dL (9.0-27.0); Calcium 7.8 mg/dL (8.7-10.3); Carbon Dioxide 27.1 mmol/L (20.0-27.5); Non-African American GFR(CKD) 116.9 (60.0-200.0); Potassium 4.4 mmol/L (3.5-5.5)
[2021-12-12] MEDS: SCOPOLAMINE 1 MG/72 HR PATCH TRANSDERM SCH (12:03)
[2021-12-12] MEDS ORDERED: SODIUM CHLORIDE 0.9% 1,000 ML with THIAMINE 100 MG IV ONE ×2 (12:12)
--- NOTE | 2021-12-12 12:21 | P.PN ---
Subjective Progress Note Date: 12/12/21 CHIEF COMPLAINT: Abdominal pain with nausea and vomiting HISTORY OF PRESENT ILLNESS: Patient reports that she is feeling better over the weekend. She is tolerating a full liquid diet. She had been on TPN through the weekend. Her abdominal pain is still the epigastric area but decreased. She is having flatus. No bowel movement. Small bowel follow-through was negative. Afebrile. WBC is 6.3 for Hgb11.5 plt 246 sodium 142 potassium is up from 3.1 4.2 creatinine 0.5 magnesium 1.9 Patient seen and examined with Dr. lemos PHYSICAL EXAM: VITAL SIGNS: Reviewed. GENERAL: Well-developed in no acute distress. HEENT: No sclera icterus. Extraocular movements grossly intact. Moist buccal mucosa. Head is atraumatic, normocephalic. ABDOMEN: Soft. Nondistended. Epigastric tenderness NEUROLOGIC: Alert and oriented. Cranial nerves II through XII grossly intact. ASSESSMENT: 1. Epigastric abdominal pain with intractable nausea and vomiting 2. Questionable narrowing at the gastroduodenal junction 3. Hiatal hernia repair in 07/26/2021 PLAN: -Patient can be discharged from surgical standpoint -Recommend staying on a full liquid/soft diet until seen by surgeon in office -Wean off TPN -Give 1 L bag of thiamine in IV fluids prior to discharge Physician [employer] note has been reviewed by physician. Signing provider agrees with the documented findings, assessment, and plan of care. Objective - Vital Signs Vital signs: Vital Signs Temp 98.1 F 12/12/21 03:55 Pulse 80 12/12/21 09:23 Resp 14 12/12/21 03:55 BP 116/78 12/12/21 09:23 Pulse Ox 95 12/12/21 03:55 FiO2 Intake & Output 12/11/21 12/12/21 12/12/21 18:59 06:59 18:59 Weight 80.1 kg Other: # Voids 4 1 - Labs CBC & Chem 7: 12/12/21 03:51 12/12/21 03:51 Labs: Abnormal Lab Results - Last 24 Hours (Table) 12/11/21 12/11/21 12/11/21 Range/Units 06:48 17:28 23:55 RBC (4.10-5.20) X 10*6/uL Hgb (12.0-15.0) g/dL Hct (37.2-46.3) % Potassium 3.1 L (3.5-5.5) mmol/L Chloride 110 H (96-109) mmol/L Anion Gap 7.10 L (10.00-18.00) mmol/L BUN 7.1 L (9.0-27.0) mg/dL Creatinine 0.5 L (0.6-1.5) mg/dL BUN/Creatinine Ratio (12.00-20.00) Ratio Glucose 123 H (70-110) mg/dL POC Glucose (mg/dL) 125 H 117 H (70-110) mg/dL Calcium 7.8 L (8.7-10.3) mg/dL Total Bilirubin 0.20 L (0.30-1.20) mg/dL Total Protein 5.1 L (6.2-8.2) g/dL Albumin 3.3 L (3.8-4.9) g/dL 12/12/21 12/12/21 Range/Units 03:51 03:51 RBC 3.86 L (4.10-5.20) X 10*6/uL Hgb 11.5 L (12.0-15.0) g/dL Hct 33.9 L (37.2-46.3) % Potassium (3.5-5.5) mmol/L Chloride 110 H (96-109) mmol/L Anion Gap 4.90 L (10.00-18.00) mmol/L BUN (9.0-27.0) mg/dL Creatinine 0.5 L (0.6-1.5) mg/dL BUN/Creatinine Ratio 26.40 H (12.00-20.00) Ratio Glucose 118 H (70-110) mg/dL POC Glucose (mg/dL) (70-110) mg/dL Calcium 7.8 L (8.7-10.3) mg/dL Total Bilirubin (0.30-1.20) mg/dL Total Protein (6.2-8.2) g/dL Albumin (3.8-4.9) g/dL Microbiology - Last 24 Hours (Table) 12/05/21 19:48 Blood Culture - Final Blood No Growth after 144 hours 12/05/21 19:55 Blood Culture - Final Blood No Growth after 144 hours
[2021-12-12 12:59] LABS: Glucose,Whole Blood 96 mg/dL (70-110)
[2021-12-12] MEDS: 1: MVI, ADULT NO.4 WITH VIT K 10 ML, TRACE (CONC-1ML/DOSE) 1 ML, POTASSIUM CHLORIDE 30 M IV SCH ×8 (13:21→20:18)
[2021-12-12 15:06] VITALS: BMI 30.3
[2021-12-12 18:18] LABS: Glucose,Whole Blood 91 mg/dL (70-110)
[2021-12-12] MEDS: hydrOXYzine pamoate 25 MG CAP PO PRN (20:30)
[2021-12-13] MEDS: HYDROmorphone 1 MG/ML 1 ML SYRINGE IVP PRN ×2 (00:48→03:41)
[2021-12-13 05:21] LABS: African American GFR (CKD) >90 (>60 ml/min/1.73 sqM); Anion Gap 6 mmol/L; Blood Urea Nitrogen 8 mg/dL (7-17); Calcium 7.8 mg/dL (8.4-10.2); Carbon Dioxide 27 mmol/L (22-30); Chloride 105 mmol/L (98-107); Glucose 90 mg/dL (74-99); Magnesium 1.7 mg/dL (1.6-2.3); Non-African American GFR(CKD) >90 (>60 ml/min/1.73 sqM); Phosphorus 3.3 mg/dL (2.5-4.5); Sodium 138 mmol/L (137-145)
[2021-12-13] MEDS: METOCLOPRAMIDE 5 MG/ML 2 ML VIAL IVP SCH ×2 (05:30→12:41)
[2021-12-13] MEDS: PANTOPRAZOLE 40 MG/10 ML VIAL IV SCH (08:43)
[2021-12-13] MEDS: LURASIDONE 20 MG TAB PO SCH (08:44)
[2021-12-13] MEDS: MONTELUKAST 10 MG TAB PO SCH (08:44)
[2021-12-13] MEDS: DULoxetine HCL 60 MG CAPSULE.DR PO SCH (08:44)
[2021-12-13] MEDS: ISOSORBIDE DINITRATE 10 MG TAB PO SCH (08:44)
[2021-12-13] MEDS: SUCRALFATE 1 GM TAB PO SCH (08:45)
[2021-12-13] MEDS: carvediloL 3.125 MG TAB PO SCH (08:45)
[2021-12-13] MEDS: ONDANSETRON 4 MG/2 ML VIAL IVP PRN (08:47)
[2021-12-13] MEDS: hydrOXYzine pamoate 25 MG CAP PO PRN (09:59)
[2021-12-13 11:33] VITALS: BP 113/77; PULSE 91; RESP 18; TEMP 98.1
[2021-12-13] MEDS ORDERED: traMADol 50 MG TAB PO STA (12:40)
--- NOTE | 2021-12-13 15:07 | P.PN ---
Subjective Progress Note Date: 12/13/21 CHIEF COMPLAINT: Abdominal pain with nausea and vomiting HISTORY OF PRESENT ILLNESS: Patient continues to feel better. She is tolerating diet. She is scheduled for discharge today. She did receive her IV thiamine fluid bag. Afebrile. Patient seen and examined with Dr. lemos PHYSICAL EXAM: VITAL SIGNS: Reviewed. GENERAL: Well-developed in no acute distress. HEENT: No sclera icterus. Extraocular movements grossly intact. Moist buccal mucosa. Head is atraumatic, normocephalic. ABDOMEN: Soft. Nondistended. NEUROLOGIC: Alert and oriented. Cranial nerves II through XII grossly intact. ASSESSMENT: 1. Epigastric abdominal pain with intractable nausea and vomiting 2. Questionable narrowing at the gastroduodenal junction 3. Hiatal hernia repair in 07/26/2021 PLAN: -Patient can be discharged from surgical standpoint -Recommend staying on a full liquid/soft diet until seen by surgeon in the bariatric center Physician [employer] note has been reviewed by physician. Signing provider agrees with the documented findings, assessment, and plan of care. Objective - Vital Signs Vital signs: Vital Signs Temp 98.1 F 12/13/21 11:24 Pulse 91 12/13/21 11:24 Resp 18 12/13/21 11:24 BP 113/77 12/13/21 11:24 Pulse Ox 98 12/13/21 11:24 FiO2 Intake & Output 12/12/21 12/13/21 12/13/21 18:59 06:59 18:59 Intake Total 1550 Balance 1550 Weight 80.1 kg 79.5 kg Intake: Intake, IV Titration 950 Amount Sodium Chloride 0.9% 1, 950 000 ml @ 100 mls/hr IV . Q10H1M ONE with Thiamine 100 mg Rx#:[id number] Oral 600 Other: # Voids 3 1 - Labs CBC & Chem 7: 12/12/21 03:51 12/13/21 04:19 Labs: Abnormal Lab Results - Last 24 Hours (Table) 12/13/21 Range/Units 04:19 Calcium 7.8 L (8.4-10.2) mg/dL
--- NOTE | 2021-12-14 00:04 | PN ---
PROGRESS NOTE SUBJECTIVE: A 46-year-old white female, diet is being advanced to a soft. Hopefully, she will be able to tolerate it and discharge home to follow up as an outpatient. Home medicines were reordered. OBJECTIVE: VITAL SIGNS: Pulse is 89 to 101, temp 98, blood pressure 117/79, O2 of 96% on room air. CARDIOVASCULAR: S1, S2. LUNGS: Clear. GI: Soft. HEMATOLOGY: Negative Homans. ASSESSMENT: Progressive gastroparesis and progressive vomiting. Negative EGD. Possibly we will have to have some esophageal narrowing status post gastric surgery. Advance diet. Hopefully, she will be able to tolerate it and go home, otherwise transfer to tertiary center. MMODL / IJN: [id number] /
--- NOTE | 2021-12-14 13:46 | P.PN ---
Subjective Progress Note Date: 12/13/21 Principal diagnosis: Mild metabolic alkalosis due to ongoing vomiting and nausea and extracellular fluid contraction with prerenal azotemia Mild diarrhea attributing to low Bicarbonate Epigastric abdominal pain with nausea vomiting 12/13/2021, patient seen and evaluated examined respiratory status remains stable, nausea vomiting has improved, abdominal pain improved as well from respiratory standpoint patient has been doing well tolerating by mouth liquid diet mostly 12/11/2021, patient seen eval reexamined during the rounds labs reviewed medications reviewed overall respiratory status continued to improve, denies any chest pain or abdominal pain, breathing more comfortably, not she has improved not throwing anymore, patient remains on TPN through left upper extremity PICC line tolerating well, CBC reviewed white cell count and hemoglobin along with platelet within normal limit 12/10/2021, patient seen eval examined during the rounds labs reviewed medications reviewed, still have ongoing nausea as present with vomiting, patient is being kept nothing by mouth has been started on TPN, Y PICC line, patient has abdominal x-ray yesterday and today no evidence of bowel obstruction seen, potassium is 3.1 beer in's 3/0.5 12/09/2021, patient seen and evaluated examined the still have nauseous feeling but however overall symptoms improve, able to hold down the clear liquid diet, denies any chest pain or shortness breath, denies any cough or congestion, patient remains afebrile with hemodynamic stability oxygen saturation room air 95% and 6% 12/08/2021, patient seen eval reexamined is status post endoscopy by Dr. Warren and no significant pathology has been obtained, patient otherwise has been doing well less short of breath hemodynamic status stable, remains afebrile oxygen saturation is 97%. Blood cultures 2 have been negative, labs reviewed white cell count is 7.3, hemoglobin hematocrit 12/34, CO2 improved to 22 with a normally This is a 46-year-old female with multiple complex medical history significant for dyslipidemia hypertension also rheumatoid arthritis GERD history of cervical cancer and prior surgery for bariatric and gastric sleeve. Patient came into the hospital with ongoing nausea vomiting patient was hospitalized recently at [facility] and stayed there for 9 days workup includes testing including computed tomography scan and MRI she appears to volume depleted depleted have been resuscitated intermittent diarrhea has been present as well, she is been continued on her oral medicines along with IV Protonix and rehydrated. She has mild leukocytosis which has improved however hemoglobin and hematocrit is 13/37 down from 15/43, ABGs as stated above pH is 7.45 pCO2 of 32, indicated a off metabolic alkalosis due to ongoing and nausea and vomiting, her urine drug screen was positive for opiates and benzodiazepine and marijuana, VQ scan has been negative for PE/low probability, chest x-ray unremarkable barium swallow noted to have a some narrowing at the gastroduodenal junction, computed tomography scan of the abdominal and pelvis negative for any acute abdominal process Objective - Vital Signs Vital signs: Vital Signs Temp 98.1 F 12/13/21 11:24 Pulse 91 12/13/21 11:24 Resp 18 12/13/21 11:24 BP 113/77 12/13/21 11:24 Pulse Ox 98 12/13/21 11:24 FiO2 Intake & Output 12/12/21 12/13/21 12/13/21 18:59 06:59 18:59 Intake Total 1550 Balance 1550 Weight 80.1 kg 79.5 kg Intake: Intake, IV Titration 950 Amount Sodium Chloride 0.9% 1, 950 000 ml @ 100 mls/hr IV . Q10H1M ONE with Thiamine 100 mg Rx#:[id number] Oral 600 Other: # Voids 3 1 - Exam - Constitutional General appearance: average body habitus, cooperative, disheveled - EENT Eyes: EOMI, PERRLA ENT: normal oropharynx Ears: bilateral: normal - Neck Carotids: bilateral: upstroke normal Thyroid: bilateral: normal size - Respiratory Respiratory: bilateral: CTA - Cardiovascular Rhythm: regular Heart sounds: normal: S1, S2 - Gastrointestinal General gastrointestinal: normal bowel sounds, soft - Integumentary Integumentary: decreased turgor - Neurologic Neurologic: CNII-XII intact - Musculoskeletal Musculoskeletal: gait normal, generalized weakness, strength equal bilaterally - Psychiatric Psychiatric: A&O x's 3, appropriate affect, intact judgment & insight - Labs CBC & Chem 7: 12/12/21 03:51 12/13/21 04:19 Labs: Abnormal Lab Results - Last 24 Hours (Table) 12/13/21 Range/Units 04:19 Calcium 7.8 L (8.4-10.2) mg/dL Assessment and Plan Assessment: Hypokalemia, on replacement protocol Mild metabolic alkalosis due to ongoing vomiting and nausea and extracellular fluid contraction with prerenal azotemia, continue to improve Mild diarrhea attributing to low Bicarbonate, improved Epigastric abdominal pain with nausea vomiting, and Plan: K replacement protocol, Continue to gently rehydrated, monitor labs closely and further workup and evaluation as per surgical services, continue TPN however may consider initiating taper, stable pulmonary standpoint for discharge follow-up as dictated Time with Patient: Greater than 30
--- NOTE | 2021-12-14 20:53 | DS ---
DISCHARGE SUMMARY HOSPITAL COURSE: A 46-year-old white female, came in with severe nausea and vomiting for 3 weeks. At that time, she had EGD. She had workup from a surgeon, who operated on her in the past. She had esophageal stenosis on the barium swallow. She had TPN due to severe malnutrition for few days. She is now doing better. She is on clear diet, soft diet. This has been discussed with her. If she does not get better and has trouble as an outpatient, she needs to go down to for a second opinion DISCHARGE MEDICATIONS: 1. Bentyl 20 mg q.i.d. 2. Carafate 1 g b.i.d. 3. Scopolamine patch 1 mg every 72 hours. 4. Restoril 15 mg at night. 5. Vistaril 50 t.i.d. p.r.n. 6. Zofran 4 mg q.12 p.r.n. 7. Coreg 3.125 b.i.d. 8. Cymbalta 60 mg daily. 9. Isordil 30 mg b.i.d. 10.Singulair 10 mg daily. 11.Imitrex 25 mg b.i.d. p.r.n. 12.Latuda 60 mg daily. 13.Omeprazole 40 mg daily. PROGNOSIS: Guarded. She has acute nausea and nonbilious vomiting, epigastric pain, esophageal stenosis, status post gastric surgery, hypertensive urgency, and hypokalemia, all improved. Please see further orders. DIET: As tolerated. CONDITION: Stable. MMODL / IJN: [id number] /
== END 2021-12-13 14:27 | disposition home or self-care (01) | DRG 391 ==
LOC: EC 15:01 → 3SCARD 23:58 → 5NMEDONC 12-06 13:11
PROVIDERS: ADMIT Family Medicine; ATTEND Family Medicine
PROC: 3E0436Z Introduction of Nutritional Substance into Central Vein, Percutaneous Approach (ICD-10-PCS; 2021-12-08)
PROC: 02HV33Z Insertion of Infusion Device into Superior Vena Cava, Percutaneous Approach (ICD-10-PCS; 2021-12-08)
PROC: 0DB98ZX Excision of Duodenum, Via Natural or Artificial Opening Endoscopic, Diagnostic (ICD-10-PCS; principal; 2021-12-08 07:30)
PROC: 0DB78ZX Excision of Stomach, Pylorus, Via Natural or Artificial Opening Endoscopic, Diagnostic (ICD-10-PCS; principal; 2021-12-08 07:30)
DX: K29.70 Gastritis, unspecified, without bleeding (principal); E43 Unspecified severe protein-calorie malnutrition; E87.4 Mixed disorder of acid-base balance; K31.84 Gastroparesis; D72.829 Elevated white blood cell count, unspecified; E78.5 Hyperlipidemia, unspecified; E86.0 Dehydration; E87.6 Hypokalemia; F31.9 Bipolar disorder, unspecified; F41.0 Panic disorder [episodic paroxysmal anxiety]; F43.10 Post-traumatic stress disorder, unspecified; G25.81 Restless legs syndrome; I10 Essential (primary) hypertension; M06.9 Rheumatoid arthritis, unspecified; I16.0 Hypertensive urgency; Z68.30 Body mass index [BMI] 30.0-30.9, adult; J45.909 Unspecified asthma, uncomplicated; R79.89 Other specified abnormal findings of blood chemistry; K22.2 Esophageal obstruction; K44.9 Diaphragmatic hernia without obstruction or gangrene; R13.10 Dysphagia, unspecified; M50.30 Other cervical disc degeneration, unspecified cervical region; K58.0 Irritable bowel syndrome with diarrhea; Z20.822 Contact with and (suspected) exposure to COVID-19; Z71.3 Dietary counseling and surveillance; Z28.311 Partially vaccinated for COVID-19; G43.909 Migraine, unspecified, not intractable, without status migrainosus; Z88.6 Allergy status to analgesic agent; Z79.899 Other long term (current) drug therapy; Z87.442 Personal history of urinary calculi; Z87.891 Personal history of nicotine dependence; Z90.49 Acquired absence of other specified parts of digestive tract; Z98.84 Bariatric surgery status; Z87.440 Personal history of urinary (tract) infections; Z98.1 Arthrodesis status
CPT/HCPCS: 36415; 36573; 43239; 71045; 74018; 74177; 74240; 74250; 78582; 80048; 80053; 80306; 81001; 82330; 82550; 82553; 82803; 83605; 83690; 83735; 84100; 84132; 84443; 84478; 84484; 84703; 85025; 85027; 85379; 85610; 85730; 86140; 87040; 87635; 88305; 93005; 93306; 96361; 96372; 96374; 96375; 96376; 99285

== ENCOUNTER → 2021-12-05 | Outpatient (CLI) | payer OTHER ==
--- NOTE | 2021-12-05 15:04 | P.HPBAR ---
Bariatric H&P - History & Physicial H&P Date: 12/05/21 History & Physicial: Visit/CC: Patient initial contact: Initial weight: 133.764 kg Initial weight in pounds: Height: Initial BMI: Last weight: Current weight: Current weight in pounds: Current BMI: [place] body weight (based on NIH guidelines): Excess body weight loss: The patient is a 46 year-old F who presents for Bariatric Assessment. Patient presents today for [place] fall. She spent the last 10 days [facility] for dysphagia abdominal pain patient was discharged home I do not have any of these reports. Patient states that she has had very poor oral intake over the weekend. She feels crappy. Past Medical History Past Medical History: Asthma, Cancer, Chest Pain / Angina, GERD/Reflux, Hyperlipidemia, Rheumatoid Arthritis (RA) Additional Past Medical History / Comment(s): IBS, hx. kidney stones, DDD, RLS, migraines, hx. low potassium, palpitations, varicose veins, hx hypoglyemia, anemia, chronic UTI's, "enlarged bladder" , hx cervical cancer History of Any Multi-Drug Resistant Organisms: None Reported Past Surgical History: Back Surgery, Bariatric Surgery, Cholecystectomy, Orthopedic Surgery, Tubal Ligation, Uterine Ablation Additional Past Surgical History / Comment(s): D&C,DOUBLE DISC FUSION L3-L4-L5,Cervical Disc C6 replaced x 2, STENTS KIDNEY STONES/removed,LITHOTRIPSY, Left lateral epicondylitis sx, partial removal of cervix using cryotherapy, Gastric Sleeve, left elbow surgery for tendon release, recent EGD Past Anesthesia/Blood Transfusion Reactions: Motion Sickness Additional Past Anesthesia/Blood Transfusion Reaction / Comm: NEVER HAS HAD BLOOD TRANSFUSION Past Psychological History: Anxiety, Bipolar, Depression, Panic Disorder, PTSD Additional Psychological History / Comment(s): psychosis, borderline personality disorder, states recent admit for mental health issues but resolved now Smoking Status: Former smoker Past Alcohol Use History: None Reported Additional Past Alcohol Use History / Comment(s): STARTED SMOKING 1991, quit smoking 2015 Past Drug Use History: None Reported - Past Family History Father History Unknown: Yes Family Medical History: Cancer Additional Family Medical History / Comment(s): lung, brain Surgical - Exam - General well developed, well nourished, no distress - Eyes PERRL - ENT normal pinna - Neck no masses - Respiratory normal expansion - Cardiovascular Rhythm: regular - Abdomen Abdomen: soft, non tender Bariatric Assessment & Plan Plan: Patient noted to be tachycardic. She appears to be dehydrated. I discussed with patient that she will need to be admitted for fluid hydration. She'll be sent to the emergency room to be worked up Bariatric Checklist Checklist: Plan: Checklist: EGD: 1. Hiatal hernia: 2. H. Pylori: HgbA1c: Vitamin D: Smoking: Former smoker Primary care physician referral: [place] Psychiatry clearance: Cardiology clearance: Sleep study: Diet journal: VTE risk score: VTE risk level: Rehab needs at discharge:
[2021-12-05 16:19] VITALS: BP 148/107; PULSE 111; RESP 16; TEMP 98; BMI 28.3
== END | disposition home or self-care (01) ==
LOC: BARWHC3 14:04
PROVIDERS: ATTEND Surgery
DX: R00.0 Tachycardia, unspecified (principal)
CPT/HCPCS: 99211

== ENCOUNTER → 2021-12-19 | Outpatient (CLI) | payer OTHER ==
[2021-12-19 14:34] VITALS: BP 121/89; PULSE 80; TEMP 98.3; BMI 29.7
== END ==
LOC: BARWHC3 13:04
PROVIDERS: ATTEND Surgery
DX: E66.01 Morbid (severe) obesity due to excess calories (principal); Z88.6 Allergy status to analgesic agent; Z87.891 Personal history of nicotine dependence
CPT/HCPCS: 99211

== ENCOUNTER 2021-12-20 19:17 | Observation (INO) | payer OTHER ==
[2021-12-20] MEDS ORDERED: ONDANSETRON 4 MG/2 ML VIAL IVP STA (20:23)
[2021-12-20] MEDS ORDERED: SODIUM CHLORIDE 0.9% 1,000 ML IV STA (20:23)
--- NOTE | 2021-12-20 20:40 | ED ---
General Adult HPI - General Chief complaint: Nausea/Vomiting/Diarrhea Stated complaint: vomiting-revisit Time Seen by Provider: 12/20/21 19:58 Source: patient Mode of arrival: ambulatory Limitations: no limitations - History of Present Illness Initial comments: Dictation was produced using [employer] dictation software. please excuse any grammatical, word or spelling errors. Chief Complaint: 46-year-old female with history of IBS, bariatric surgery cholecystectomy presents with acute on chronic nausea History of Present Illness: 46-year-old female she has history of chronic nausea and vomiting. Patient states that she was told by her general surgeon that if she started to have nausea and vomiting to the emergency room. Patient has history of chronic vomiting. She is recently admitted to the hospital and discharged 6 days ago. She was told that there is no obvious reason for why she is experiencing her chronic nausea. Patient has any fever or chills or night sweats. She states her emesis is nonbilious nonbloody. Patient states she does have some epigastric abdominal pain. The ROS documented in this emergency department record has been reviewed and confirmed by me. Those systems with pertinent positive or negative responses have been documented in the HPI. All other systems are other negative and/or noncontributory. PHYSICAL EXAM: General Impression: Alert and oriented x3, not in acute distress HEENT: Normocephalic atraumatic, extra-ocular movements intact, pupils equal and reactive to light bilaterally, mucous membranes moist. Cardiovascular: Heart regular rate and rhythm Chest: Able to complete full sentences, no retractions, no tachypnea Abdomen: abdomen soft, non-tender, non-distended, no organomegaly Musculoskeletal: Pulses present and equal in all extremities, no peripheral edema Motor: no focal deficits noted Neurological: CN II-XII grossly intact, no focal motor or sensory deficits noted Skin: Intact with no visualized rashes Psych: Normal affect and mood ED course: 46-year-old female presents to the ER for acute on chronic nause and vomiting. Vital signs upon arrival are within acceptable limits. Laboratory evaluation obtained. CBC unremarkable. Metabolic panel shows mild acidosis likely secondary to vomiting. Rest of labs unremarkable. Patient reevaluated at bedside 10:30 PM she does not feel off to go home. Patient not actively vomiting at the bedside. Patient will be admitted for IV fluids, continued inpatient symptomatic treatment. GI will be consulted. Admitted to the [facility] hospitalist group. EKG interpretation: Ventricular rate 76, sinus rhythm,. 164, care is 85, QTc 431. No SC prolongation, no QTC prolongation, no ST or T-wave changes noted. Overall, this EKG is unremarkable - Related Data Home Medications Medication Instructions Recorded Confirmed DULoxetine HCL [Cymbalta] 60 mg PO DAILY 12/05/21 12/19/21 Isosorbide Dinitrate [Isordil] 30 mg PO BID 12/05/21 12/19/21 Lurasidone HCl [Latuda] 60 mg PO DAILY 12/05/21 12/19/21 Montelukast [Singulair] 10 mg PO DAILY 12/05/21 12/19/21 Omeprazole 40 mg PO DAILY 12/05/21 12/19/21 Ondansetron Odt [Zofran ODT] 4 mg PO Q12HR PRN 12/05/21 12/19/21 SUMAtriptan succinate [Imitrex] 25 mg PO BID PRN 12/05/21 12/19/21 carvediloL [Coreg] 3.125 mg PO BID 12/05/21 12/19/21 hydrOXYzine pamoate [Vistaril] 50 mg PO TID PRN 12/05/21 12/19/21 Previous Rx's Medication Instructions Recorded Dicyclomine [Bentyl] 20 mg PO QID PRN tab 12/13/21 Scopolamine 1 mg/72 Hr Patch 1 patch TRANSDERM Q72H 30 Days #10 12/13/21 [TransDerm Scop] patch Sucralfate [Carafate] 1 gm PO AC-BID 30 Days #60 tab 12/13/21 Temazepam [Restoril] 15 mg PO HS PRN cap 12/13/21 Allergies Allergy/AdvReac Type Severity Reaction Status Date / Time NSAIDS (Non-Steroidal AdvReac hx of Verified 12/20/21 19:51 Anti-Inflamma gastric sleeve - states unable to take due to that Review of Systems ROS Statement: Those systems with pertinent positive or pertinent negative responses have been documented in the HPI. ROS Other: All systems not noted in ROS Statement are negative. Past Medical History Past Medical History: Asthma, Cancer, Chest Pain / Angina, GERD/Reflux, Hyperlipidemia, Rheumatoid Arthritis (RA) Additional Past Medical History / Comment(s): IBS, hx. kidney stones, DDD, RLS, migraines, hx. low potassium, palpitations, varicose veins, hx hypoglyemia, anemia, chronic UTI's, "enlarged bladder" , hx cervical cancer History of Any Multi-Drug Resistant Organisms: None Reported Past Surgical History: Back Surgery, Bariatric Surgery, Cholecystectomy, O rthopedic Surgery, Tubal Ligation, Uterine Ablation Additional Past Surgical History / Comment(s): D&C,DOUBLE DISC FUSION L3-L4-L5,Cervical Disc C6 replaced x 2, STENTS KIDNEY STONES/removed,LITHOTRIPSY, Left lateral epicondylitis sx, partial removal of cervix using cryotherapy, Gastric Sleeve, left elbow surgery for tendon release, recent EGD Past Anesthesia/Blood Transfusion Reactions: Motion Sickness, Postoperative Nausea & Vomiting (PONV) Additional Past Anesthesia/Blood Transfusion Reaction / Comment(s): NEVER HAS HAD BLOOD TRANSFUSION Past Psychological History: Anxiety, Bipolar, Depression, Panic Disorder, PTSD Smoking Status: Former smoker Past Alcohol Use History: None Reported Past Drug Use History: Marijuana - Past Family History Father History Unknown: Yes Family Medical History: Cancer Additional Family Medical History / Comment(s): lung, brain General Exam Limitations: no limitations Course Vital Signs 12/20/21 12/20/21 12/20/21 19:45 19:56 19:59 Temperature 97.8 F 97.8 F Pulse Rate 82 66 Respiratory 18 18 Rate Blood Pressure 199/134 169/92 O2 Sat by Pulse 100 97 Oximetry 12/20/21 12/20/21 21:21 21:44 Temperature 98.4 F Pulse Rate 60 Respiratory 18 Rate Blood Pressure 191/105 178/101 O2 Sat by Pulse 98 Oximetry Medical Decision Making - Lab Data Result diagrams: 12/20/21 20:35 12/20/21 20:35 Lab Results 12/20/21 12/20/21 12/20/21 Range/Units 20:35 20:35 21:09 WBC 10.4 (3.8-10.6) k/uL RBC 4.59 (3.80-5.40) m/uL Hgb 14.2 (11.4-16.0) gm/dL Hct 39.5 (34.0-46.0) % MCV 86.1 (80.0-100.0) fL MCH 30.9 (25.0-35.0) pg MCHC 35.8 (31.0-37.0) g/dL RDW 13.6 (11.5-15.5) % Plt Count 294 (150-450) k/uL MPV 8.3 Neutrophils % 76 % Lymphocytes % 14 % Monocytes % 7 % Eosinophils % 1 % Basophils % 1 % Neutrophils # 7.9 H (1.3-7.7) k/uL Lymphocytes # 1.4 (1.0-4.8) k/uL Monocytes # 0.7 (0-1.0) k/uL Eosinophils # 0.1 (0-0.7) k/uL Basophils # 0.1 (0-0.2) k/uL Sodium 140 (137-145) mmol/L Potassium 3.7 (3.5-5.1) mmol/L Chloride 108 H (98-107) mmol/L Carbon Dioxide 17 L (22-30) mmol/L Anion Gap 15 mmol/L BUN 11 (7-17) mg/dL Creatinine 0.74 (0.52-1.04) mg/dL Est GFR (CKD-EPI)AfAm >90 (>60 ml/min/1.73 sqM) Est GFR (CKD-EPI)NonAf >90 (>60 ml/min/1.73 sqM) Glucose 112 H (74-99) mg/dL Calcium 8.7 (8.4-10.2) mg/dL Magnesium 2.1 (1.6-2.3) mg/dL Total Bilirubin 0.8 (0.2-1.3) mg/dL AST 23 (14-36) U/L ALT 19 (4-34) U/L Alkaline Phosphatase 108 (38-126) U/L Total Protein 7.0 (6.3-8.2) g/dL Albumin 4.3 (3.5-5.0) g/dL Lipase 242 (23-300) U/L Urine Opiates Screen Not Detected (NotDetected) Ur Oxycodone Screen Not Detected (NotDetected) Urine Methadone Screen Not Detected (NotDetected) Ur Propoxyphene Screen Not Detected (NotDetected) Ur Barbiturates Screen Not Detected (NotDetected) U Tricyclic Antidepress Not Detected (NotDetected) Ur Phencyclidine Scrn Not Detected (NotDetected) Ur Amphetamines Screen Not Detected (NotDetected) U Methamphetamines Scrn Not Detected (NotDetected) U Benzodiazepines Scrn Not Detected (NotDetected) Urine Cocaine Screen Not Detected (NotDetected) U Marijuana (THC) Screen Detected H (NotDetected) Disposition Clinical Impression: Intractable nausea and vomiting Disposition: ADMITTED IP TO THIS [facility] Condition: Fair Referrals: Nonstaff,Physician [Primary Care Provider] - 1-2 days Decision Time: 22:32
[2021-12-20 20:44] LABS: Basophils # (A) 0.1 k/uL (0-0.2); Basophils % (A) 1 %; Eosinophils # (A) 0.1 k/uL (0-0.7); Eosinophils % (A) 1 %; HCT 39.5 % (34.0-46.0); HGB 14.2 gm/dL (11.4-16.0); Lymphocytes # (A) 1.4 k/uL (1.0-4.8); Lymphocytes % (A) 14 %; MCH 30.9 pg (25.0-35.0); MCHC 35.8 g/dL (31.0-37.0); MCV 86.1 fL (80.0-100.0); Mean Platelet Volume 8.3; Monocytes # (A) 0.7 k/uL (0-1.0); Monocytes % (A) 7 %; Neutrophils # (A) 7.9 k/uL (1.3-7.7); Neutrophils % (A) 76 %; Platelet Count 294 k/uL (150-450); RBC 4.59 m/uL (3.80-5.40); RDW 13.6 % (11.5-15.5); WBC 10.4 k/uL (3.8-10.6)
[2021-12-20 20:54] LABS: ALT 19 U/L (4-34); AST 23 U/L (14-36); African American GFR (CKD) >90 (>60 ml/min/1.73 sqM); Albumin 4.3 g/dL (3.5-5.0); Alkaline Phosphatase 108 U/L (38-126); Anion Gap 15 mmol/L; Blood Urea Nitrogen 11 mg/dL (7-17); Calcium 8.7 mg/dL (8.4-10.2); Carbon Dioxide 17 mmol/L (22-30); Chloride 108 mmol/L (98-107); Glucose 112 mg/dL (74-99); Lipase 242 U/L (23-300); Magnesium 2.1 mg/dL (1.6-2.3); Non-African American GFR(CKD) >90 (>60 ml/min/1.73 sqM); Potassium 3.7 mmol/L (3.5-5.1); Sodium 140 mmol/L (137-145); Total Bilirubin 0.8 mg/dL (0.2-1.3)
[2021-12-20] MEDS ORDERED: MORPHINE SULFATE 4 MG/ML SYRINGE IV STA (21:45)
[2021-12-20 22:01] LABS: Amphetamine Screen,Urine Not Detected (NotDetected); Barbiturate Screen,Urine Not Detected (NotDetected); Benzodiazepines Screen,Urine Not Detected (NotDetected); Cocaine Screen,Urine Not Detected (NotDetected); Methadone Screen, Urine Not Detected (NotDetected); Opiate Screen,Urine Not Detected (NotDetected); Oxycodone Screen, Urine Not Detected (NotDetected); Phencyclidine Screen,Urine Not Detected (NotDetected); Tricyclic Antidepressant,Urine Not Detected (NotDetected); Urn Cannabinoid Scrn Detected (NotDetected)
[2021-12-20] MEDS ORDERED: NALOXONE 0.4 MG/ML 1 ML VIAL IV PRN (22:28)
[2021-12-20] MEDS ORDERED: ONDANSETRON 4 MG/2 ML VIAL IVP PRN (22:28)
[2021-12-20] MEDS ORDERED: METOCLOPRAMIDE 5 MG/ML 2 ML VIAL IVP STA (22:32)
[2021-12-20] MEDS: SODIUM CHLORIDE 0.9% 1,000 ML IV SCH (22:33)
[2021-12-21] MEDS: SODIUM CHLORIDE 0.9% 1,000 ML IV SCH ×3 (06:13→21:46)
[2021-12-21] MEDS: PANTOPRAZOLE 40 MG/10 ML VIAL IVP SCH ×2 (08:09→21:45)
[2021-12-21] MEDS ORDERED: MORPHINE SULFATE 2 MG/ML SYRINGE IVP STA (08:29)
--- NOTE | 2021-12-21 10:38 | P.CONS ---
History of Present Illness - Reason for Consult Consult date: 12/21/21 Intractable nausea and vomiting Requesting physician: Vel Edge - Chief Complaint Nausea and vomiting - History of Present Illness This is a pleasant 46-year-old female who presented to the emergency department directed by her general surgeon for continued nausea and vomiting. She has a history of gastric sleeve done 4 years ago and recent hiatal hernia surgery done in July of this year by Dr. Dave. She states she has a history of chronic nausea and vomiting however after her procedure and seemed to have gotten worse. It has been worse over the last few weeks duration. She states that she is unable to keep any solids and now having difficulty keeping liquids down. She was recently hospitalized at the end of November and underwent EGD on 12/08/2021 with findings of mild antral gastritis and a small hiatal hernia done by Dr. Dave. Prior to that she had an EGD done on 11/27/2019 to [facility]. Patient states that she was told that there were no findings to explain her symptoms. She states that she had seen Dr. Roberson and was told that if she continued to have nausea and vomiting she was to come to the emergency department. She states she has lost approximately 20 pounds over the last 1-2 months duration. She denies any new medications, states that she's having epigastric pain related with the nausea and vomiting. During her last admission she had a small bowel follow-through done on 12/10/2021 that showed normal small bowel follow-through. No small bowel obstruction. Patient also underwent an upper GI series on 12/06/2021 that reported postop changes. Question narrowing at the gastroduodenal junction. There is delay of contrast coursing into the small bowel. Labs: WBC 10, hemoglobin 14 hematocrit 39 platelet count 294,000 sodium 140 potassium 3.7 BUN 11 creatinine 0.7 glucose 112 total bilirubin 0.8 AST 23 ALT 19 alkaline phosphatase 108 lipase 242 patient is positive for marijuana Review of Systems REVIEW OF SYSTEMS: CARDIOPULMONARY: No chest pain or shortness of breath. Gastrointestinal: Epigastric pain. Nausea and vomiting, having difficulty with solids and liquids. Denies any diarrhea. No hematemesis, coffee-ground emesis. No rectal bleeding, or melena. GENITOURINARY: No dysuria or hematuria. MUSCULOSKELETAL: Reports normal range of motion. SKIN: No rashes. No jaundice. ENDOCRINE: No chills, fevers. No excessive weight gain or loss. No polydipsia or polyuria. PSYCHIATRIC: Unremarkable. NEUROLOGY: No change in mental status. Denies dizziness, headache. ENT: Vision unremarkable. CONSTITUTIONAL: No recent weight loss. No fever, chills, night sweats. Past Medical History Past Medical History: Asthma, Cancer, Chest Pain / Angina, GERD/Reflux, Hyperlipidemia, Rheumatoid Arthritis (RA) Additional Past Medical History / Comment(s): IBS, hx. kidney stones, DDD, RLS, migraines, hx. low potassium, palpitations, varicose veins, hx hypoglyemia, anemia, chronic UTI's, "enlarged bladder" , hx cervical cancer History of Any Multi-Drug Resistant Organisms: None Reported Past Surgical History: Back Surgery, Bariatric Surgery, Cholecystectomy, Orthopedic Surgery, Tubal Ligation, Uterine Ablation Additional Past Surgical History / Comment(s): D&C,DOUBLE DISC FUSION L3-L4-L5,Cervical Disc C6 replaced x 2, STENTS KIDNEY STONES/removed,LITHOTRIPSY, Left lateral epicondylitis sx, partial removal of cervix using cryotherapy, Gastric Sleeve, left elbow surgery for tendon release, recent EGD Past Anesthesia/Blood Transfusion Reactions: Motion Sickness, Postoperative Nausea & Vomiting (PONV) Additional Past Anesthesia/Blood Transfusion Reaction / Comm: NEVER HAS HAD BLOOD TRANSFUSION Past Psychological History: Anxiety, Bipolar, Depression, Panic Disorder, PTSD Additional Psychological History / Comment(s): psychosis, borderline personality disorder, states recent admit for mental health issues but resolved now Smoking Status: Former smoker Past Alcohol Use History: None Reported Additional Past Alcohol Use History / Comment(s): STARTED SMOKING 1991, quit smoking 2015 Past Drug Use History: Marijuana - Past Family History Father History Unknown: Yes Family Medical History: Cancer Additional Family Medical History / Comment(s): lung, brain Medications and Allergies Home Medications Medication Instructions Recorded Confirmed Type DULoxetine HCL [Cymbalta] 60 mg PO DAILY 12/05/21 12/21/21 History Isosorbide Dinitrate [Isordil] 30 mg PO BID 12/05/21 12/21/21 History Lurasidone HCl [Latuda] 60 mg PO DAILY 12/05/21 12/21/21 History Montelukast [Singulair] 10 mg PO DAILY 12/05/21 12/21/21 History Omeprazole 40 mg PO DAILY 12/05/21 12/21/21 History Ondansetron Odt [Zofran ODT] 4 mg PO Q12HR PRN 12/05/21 12/21/21 History SUMAtriptan succinate [Imitrex] 25 mg PO Q4H PRN 12/05/21 12/21/21 History carvediloL [Coreg] 3.125 mg PO BID 12/05/21 12/21/21 History hydrOXYzine pamoate [Vistaril] 50 mg PO TID PRN 12/05/21 12/21/21 History Dicyclomine [Bentyl] 20 mg PO QID PRN tab 12/13/21 12/21/21 Rx Scopolamine 1 mg/72 Hr Patch 1 patch TRANSDERM Q72H 30 Days #10 12/13/21 12/21/21 Rx [TransDerm Scop] patch Sucralfate [Carafate] 1 gm PO AC-BID 30 Days #60 tab 12/13/21 12/21/21 Rx Temazepam [Restoril] 15 mg PO HS PRN cap 12/13/21 12/21/21 Rx Metoclopramide HCl [Reglan] 5 mg PO TID PRN 12/21/21 12/21/21 History Allergies Allergy/AdvReac Type Severity Reaction Status Date / Time NSAIDS (Non-Steroidal AdvReac hx of Verified 12/21/21 06:52 Anti-Inflamma gastric sleeve - states unable to take due to that Physical Exam Vitals: Vital Signs Temp Pulse Pulse Resp BP BP Pulse Ox 12/21/21 04:47 97.5 F L 69 15 102/68 100 12/21/21 00:09 97.7 F 82 16 133/89 99 12/20/21 23:19 98.6 F 76 16 186/120 96 12/20/21 23:18 98.6 F 76 16 186/120 96 12/20/21 22:34 183/100 12/20/21 21:44 178/101 12/20/21 21:21 98.4 F 60 18 191/105 98 12/20/21 19:59 169/92 12/20/21 19:56 97.8 F 66 18 97 12/20/21 19:45 97.8 F 82 18 199/134 100 Intake and Output 11/01/22 11/02/22 11/02/22 22:59 06:59 14:59 Other: # Voids 2 Weight 74.843 kg General appearance: The patient is alert, oriented, appears in no acute distress. HET: Head is normocephalic and atraumatic. Conjunctiva pink. Sclera anicteric. Neck: Supple without lymphadenopathy. Trachea midline. Heart: S1 S2. Regular rate and rhythm. Lungs: Clear to auscultation. Abdomen: Soft, epigastric tenderness, nondistended with bowel sounds. No guarding or rigidity. Skin: No rashes. No jaundice. Extremities: Normal skin color and turgor. No pedal edema. Neurological: No focal deficits. Alert and oriented x3. Results CBC & Chem 7: 12/20/21 20:35 12/20/21 20:35 Labs: Abnormal Lab Results - Last 24 Hours (Table) 12/20/21 12/20/21 12/20/21 Range/Units 20:35 20:35 21:09 Neutrophils # 7.9 H (1.3-7.7) k/uL Chloride 108 H (98-107) mmol/L Carbon Dioxide 17 L (22-30) mmol/L Glucose 112 H (74-99) mg/dL U Marijuana (THC) Screen Detected H (NotDetected) Assessment and Plan (1) Nausea and vomiting Narrative/Plan: 46-year-old with ongoing nausea and vomiting status post hiatal hernia repair done in July of this year. Symptoms have been worsening over the last couple months duration with complaints of 20 pound weight loss. Unclear etiology of cause of symptoms, patient has undergone 2 recent EGDs last one being done on 12/08/2021 reporting mild antral gastritis and a small hiatal hernia. Patient follows with Dr. Dave, will consult general surgery further input. Unclear etiology again as to what is causing the nausea and vomiting as there is been no findings on EGD. Need to consider possible cannabinoid use disorder causing nausea and vomiting. Current Visit: Yes Status: Acute Code(s): R11.2 - NAUSEA WITH VOMITING, UNSPECIFIED SNOMED Code(s): 48953260 (2) Cannabis use disorder Current Visit: Yes Status: Acute Code(s): F12.90 - CANNABIS USE, UNSPECIFIED, UNCOMPLICATED SNOMED Code(s): 71126840 (3) History of repair of hiatal hernia Current Visit: Yes Status: Acute Code(s): Z98.890 - OTHER SPECIFIED POSTPROCEDURAL STATES; Z87.19 - PERSONAL HISTORY OF OTHER DISEASES OF THE DIGESTIVE SYSTEM SNOMED Code(s): 43073584663242 (4) Epigastric pain Current Visit: No Status: Acute Code(s): R10.13 - EPIGASTRIC PAIN SNOMED Code(s): 06906987 (5) Gastroesophageal reflux disease Current Visit: No Status: Acute Code(s): K21.9 - GASTRO-ESOPHAGEAL REFLUX DI SEASE WITHOUT ESOPHAGITIS SNOMED Code(s): 077207633 (6) History of sleeve gastrectomy Current Visit: No Status: Acute Code(s): Z90.3 - ACQUIRED ABSENCE OF STOMACH [PART OF] SNOMED Code(s): 289423355151061 Plan: 1. Continue symptomatic and supportive care 2. Antiemetics as needed 3. Protonix 40 mg twice a day 4. Diet as tolerated 5. No plans on endoscopic evaluation, considered upper GI series however patient recently underwent upper GI series 12/06/2021 6. Will consult general surgery, Dr. Dave for input. Patient known to him. Thank you consultation, we will continue to follow. Dr. Jennifer Krishna I agree with the dictator's note, documented as a scribe by Lindsey Morrell.
[2021-12-21] MEDS: METOCLOPRAMIDE 5 MG/ML 2 ML VIAL IVP SCH ×2 (11:01→17:37)
[2021-12-21] MEDS ORDERED: SUMAtriptan succinate 25 MG TAB PO PRN (12:37)
[2021-12-21] MEDS: ACETAMINOPHEN TAB 325 MG TAB PO PRN ×2 (12:51→19:45)
[2021-12-21] MEDS: carvediloL 3.125 MG TAB PO SCH ×2 (12:51→21:45)
[2021-12-21] MEDS: DULoxetine HCL 60 MG CAPSULE.DR PO SCH (12:51)
[2021-12-21] MEDS: ISOSORBIDE DINITRATE 10 MG TAB PO SCH ×2 (12:53→21:45)
[2021-12-21] MEDS: LURASIDONE 20 MG TAB PO SCH (12:53)
--- NOTE | 2021-12-21 13:50 | P.HPIM ---
History of Present Illness H&P Date: 12/21/21 This is a 46-year-old female who recently presented to the emergency department with increased abdominal pain along with nausea and vomiting intractable and unable to hold anything down. Patient was recently admitted and discharged with surgery services and was told to report to the ER if unable to tolerate oral intake and having increased abdominal pain. Initially GI services were consulted and general surgery later put on consult. Patient does have a primary care provider in the outpatient setting although has not established with her yet in the [place] area Dr. Hill and has been following with Dr. Dave outpatient. Patient does have a past medical history of asthma, cervical c ancer, chest pain with angina, GERD, hyperlipidemia, rheumatoid arthritis, IBS. Patient also reports she has been receiving blood pressure medications for elevated blood pressure although has not followed up most recently. Patient also with anxiety and bipolar depression admits to smoking marijuana and has a past medical history of using cocaine and former smoker and reports she drinks on occasion 3 times a week. Patient was made nothing by mouth and started on IV hydration. Follow-up labs show a normal white blood count of 10.4 with a hemoglobin of 14.2, sodium is 140, potassium is 3.7, creatinine is 0.74, magnesium is 2.1, lipase is 242. Urine drug screen was done which is negative except for marijuana. She recently had EGDs done with general surgery during her previous admissions. Review Of Systems: Constitutional: No fever, no chills, no night sweats. No weight change. No we akness, fatigue or lethargy. No daytime sleepiness. EENT: No headache. No blurred vision or double vision, no loss of vision. No loss of Hearing, no ringing in the ears, no dizziness. No nasal drainage or congestion. No epistaxis. No sore throat. Lungs: No shortness of breath, cough, no sputum production. No wheezing. Cardiovascular: No chest pain, no lower extremity edema. No palpitations. No paroxysmal nocturnal dyspnea. No orthopnea. No lightheadedness or dizziness. No syncopal episodes. Abdominal: Reports abdominal pain. Reports nausea, reports yesterday vomiting. No diarrhea. No constipation. No bloody or tarry stools.. Reports loss of appetite. Reports unable to tolerate any oral intake Genitourinary: No dysuria, increased frequency, urgency. No urinary retention. Musculoskeletal: No myalgias. No muscle weakness, no gait dysfunction, no frequent falls. No back pain. No neck pain. Integumentary: No wounds, no lesions. No rash or pruritus. No unusual bruising . No change in hair or nails. Neurologic: No aphasia. No facial droop. No change in mentation. No head injury. No headache. No paralysis. No paresthesia. Psychiatric: No depression. No anxiety. No mood swings. Endocrine: No abnormal blood sugars. No weight change. No excessive sweating or thirst. No cold intolerance. PHYSICAL EXAMINATION: GENERAL: The patient is alert and oriented x4, Well developed, well nourished. HEENT: Pupils are round and equally reacting to light. EOMI. no scleral icterus. No conjunctival pallor. Normocephalic, atraumatic. No pharyngeal erythema. No thyromegaly. CARDIOVASCULAR: S1 and S2 muffled PULMONARY: Breath sounds bilaterally are clear to auscultation with no wheezing or rhonchi noted. ABDOMEN: soft. tender on exam. non-distended, normoactive bowel sounds. No palpable organomegaly. MUSCULOSKELETAL: No joint swelling or deformity. EXTREMITIES: No cyanosis, clubbing, or pedal edema. NEUROLOGICAL: Gross neurological examination did not reveal any focal deficits. SKIN: No rashes. Assessment: Intractable nausea and vomiting with abdominal pain possibly secondary to cannabis use disorder Gastroesophageal reflux disease Asthma, not in exacerbation Hypertension history History of IBS History of hiatal hernia History of sleeve gastrectomy GI prophylaxis DVT prophylaxis Full code Plan: Recommend to continue with current medications and management of nausea and vomiting. Patient seen and evaluated by GI with no further recommendations offered and has consulted surgery recommending holding closely observing over 24 hours and monitoring for any diet tolerance. Patient currently reports she is unable to tolerate any oral intake and continues to have vomiting. Patient is extremely nauseated and in pain requesting something for pain. Will add Tylenol and will also resume home blood pressure medications as her blood pressure is slightly elevated. Will add Tylenol and continue with antiemetics as needed. Recommend to start with clear liquids and slowly advance as tolerated and encouraged to increase activity as tolerated as well. Patient has been seen and evaluated by PT/OT therapy recommending rehab and patient is scheduled to be discharged to [facility] today. Patient will continue on IV hydration along with IV Pr otonix and follow-up with patient in a.m. Encourage the patient to avoid marijuana. Possible discharge in 24 hours. The impression and plan of care has been dictated by Audelia Watts, nurse practitioner as directed. Dr. Jacqueline MD I have performed a history and examination and MDM of this patient, discussed the same with the dictator, and agree with the dictator's assessment and plan as written ,documented as a scribe. Based on total visit time, I have performed more than 50% of the visit. Any additional findings or plans will be noted. Past Medical History Past Medical History: Asthma, Cancer, Chest Pain / Angina, GERD/Reflux, Hyperlipidemia, Rheumatoid Arthritis (RA) Additional Past Medical History / Comment(s): IBS, hx. kidney stones, DDD, RLS, migraines, hx. low potassium, palpitations, varicose veins, hx hypoglyemia, anemia, chronic UTI's, "enlarged bladder" , hx cervical cancer History of Any Multi-Drug Resistant Organisms: None Reported Past Surgical History: Back Surgery, Bariatric Surgery, Cholecystectomy, Orthopedic Surgery, Tubal Ligation, Uterine Ablation Additional Past Surgical History / Comment(s): D&C,DOUBLE DISC FUSION L3-L4-L5,Cervical Disc C6 replaced x 2, STENTS KIDNEY STONES/removed,L ITHOTRIPSY, Left lateral epicondylitis sx, partial removal of cervix using cryotherapy, Gastric Sleeve, left elbow surgery for tendon release, recent EGD Past Anesthesia/Blood Transfusion Reactions: Motion Sickness, Postoperative Nausea & Vomiting (PONV) Additional Past Anesthesia/Blood Transfusion Reaction / Comment(s): NEVER HAS HAD BLOOD TRANSFUSION Past Psychological History: Anxiety, Bipolar, Depression, Panic Disorder, PTSD Additional Psychological History / Comment(s): psychosis, borderline personality disorder, states recent admit for mental health issues but resolved now Smoking Status: Former smoker Past Alcohol Use History: None Reported Additional Past Alcohol Use History / Comment(s): STARTED SMOKING 1991, quit smoking 2015 Past Drug Use History: Marijuana - Past Family History Father History Unknown: Yes Family Medical History: Cancer Additional Family Medical History / Comment(s): lung, brain Medications and Allergies Home Medications Medication Instructions Recorded Confirmed Type DULoxetine HCL [Cymbalta] 60 mg PO DAILY 12/05/21 12/21/21 History Isosorbide Dinitrate [Isordil] 30 mg PO BID 12/05/21 12/21/21 History Lurasidone HCl [Latuda] 60 mg PO DAILY 12/05/21 12/21/21 History Montelukast [Singulair] 10 mg PO DAILY 12/05/21 12/21/21 History Omeprazole 40 mg PO DAILY 12/05/21 12/21/21 History Ondansetron Odt [Zofran ODT] 4 mg PO Q12HR PRN 12/05/21 12/21/21 History SUMAtriptan succinate [Imitrex] 25 mg PO Q4H PRN 12/05/21 12/21/21 History carvediloL [Coreg] 3.125 mg PO BID 12/05/21 12/21/21 History hydrOXYzine pamoate [Vistaril] 50 mg PO TID PRN 12/05/21 12/21/21 History Dicyclomine [Bentyl] 20 mg PO QID PRN tab 12/13/21 12/21/21 Rx Scopolamine 1 mg/72 Hr Patch 1 patch TRANSDERM Q72H 30 Days #10 12/13/21 12/21/21 Rx [TransDerm Scop] patch Sucralfate [Carafate] 1 gm PO AC-BID 30 Days #60 tab 12/13/21 12/21/21 Rx Temazepam [Restoril] 15 mg PO HS PRN cap 12/13/21 12/21/21 Rx Metoclopramide HCl [Reglan] 5 mg PO TID PRN 12/21/21 12/21/21 History Allergies Allergy/AdvReac Type Severity Reaction Status Date / Time NSAIDS (Non-Steroidal AdvReac hx of Verified 12/21/21 06:52 Anti-Inflamma gastric sleeve - states unable to take due to that Physical Exam Vitals: Vital Signs Temp Pulse Pulse Resp BP BP Pulse Ox 12/21/21 04:47 97.5 F L 69 15 102/68 100 12/21/21 00:09 97.7 F 82 16 133/89 99 12/20/21 23:19 98.6 F 76 16 186/120 96 12/20/21 23:18 98.6 F 76 16 186/120 96 12/20/21 22:34 183/100 12/20/21 21:44 178/101 12/20/21 21:21 98.4 F 60 18 191/105 98 12/20/21 19:59 169/92 12/20/21 19:56 97.8 F 66 18 97 12/20/21 19:45 97.8 F 82 18 199/134 100 Intake and Output 12/20/21 12/21/21 12/21/21 22:59 06:59 14:59 Other: # Voids 2 Weight 74.843 kg Results CBC & Chem 7: 12/20/21 20:35 12/20/21 20:35 Labs: Abnormal Lab Results - Last 24 Hours (Table) 12/20/21 12/20/21 12/20/21 Range/Units 20:35 20:35 21:09 Neutrophils # 7.9 H (1.3-7.7) k/uL Chloride 108 H (98-107) mmol/L Carbon Dioxide 17 L (22-30) mmol/L Glucose 112 H (74-99) mg/dL U Marijuana (THC) Screen Detected H (NotDetected) Thrombosis Risk Factor Assmnt - DVT/VTE Prophylaxis DVT/VTE Prophylaxis: Low risk, early ambulation encouraged - Choose All That Apply Each Factor Represents 1 point: Age 41-60 years, Obesity (BMI >25) Thrombosis Risk Factor Assessment Total Risk Factor Score: 2 Thrombosis Risk Factor Assessment Level: Low Risk Assessment and Plan Time with Patient: Greater than 30
--- NOTE | 2021-12-21 15:56 | P.GSCN ---
History of Present Illness Consult date: 12/21/21 History of present illness: CHIEF COMPLAINT: Nausea and vomiting HISTORY OF PRESENT ILLNESS: This is a 46-year-old female who presents to the hospital with complaints of recurrent nausea and vomiting. Patient has a known past surgical history of sleep gastrectomy, hiatal hernia repair and cholecystectomy. Patient was just recently hospitalized with nausea and vomit ing. And during that admission she had EGD completed that revealed mild antral gastritis, small hiatal hernia and no evidence of sleeve obstruction. She also had a small bowel follow-through completed which was normal. No small bowel obstruction. Patient denies any fever chills or sweats. She does report having a bowel movement. She continues to have epigastric abdominal pain. Patient does use marijuana. Patient seen and examined with Dr. Dave PAST MEDICAL HISTORY: See below PAST SURGICAL HISTORY: See below MEDICATIONS: See below ALLERGIES: See below SOCIAL HISTORY: No illicit drug use. REVIEW OF SYSTEMS: CONSTITUTIONAL: Denies fever or chills. HEENT: Denies blurred vision, vision changes, or eye pain. Denies hemoptysis CARDIOVASCULAR: Denies chest pain or pressure. RESPIRATORY: No shortness of breath. GASTROINTESTINAL: See HPI for pertinent findings HEMATOLOGIC: Denies bleeding disorders. GENITOURINARY: Denies any blood in urine or increased urinary frequency. SKIN: Denies pruitis. Denies rash. PHYSICAL EXAM: VITAL SIGNS: Reviewed GENERAL: Well-developed in no acute distress. HEENT: No sclera icterus. Extraocular movements grossly intact. Moist buccal mucosa. Head is atraumatic, normocephalic. No nasal drainage. ABDOMEN: Soft. Nondistended. Epigastric tenderness NEUROLOGIC: Alert and oriented. Cranial nerves II through XII grossly intact. LABORATORY DATA: WBC is 10.4 Hgb 14.2 plt 294 Sodium is 140 potassium is 3.7 creatinine 0.74 LFTs are normal Lipase 242 Drug screen positive for marijuana IMAGING: ASSESSMENT: 1. Intractable nausea and vomiting with epigastric pain 2. Hiatal hernia repair on 07/26/2021 3. Recent EGD has shown mild antral gastritis, small hiatal hernia and no evidence of sleeve obstruction 4. Marijuana use PLAN: -Continue to observe -Start clear liquid diet -Continue antiemetics -Continue IV fluids -Continue supportive care Thank you for this consultation Physician Biometrics Consultant note has been reviewed by physician. Signing provider agrees with the documented findings, assessment, and plan of care. Past Medical History Past Medical History: Asthma, Cancer, Chest Pain / Angina, GERD/Reflux, Hyperlipidemia, Rheumatoid Arthritis (RA) Additional Past Medical History / Comment(s): IBS, hx. kidney stones, DDD, RLS, migraines, hx. low potassium, palpitations, varicose veins, hx hypoglyemia, anemia, chronic UTI's, "enlarged bladder" , hx cervical cancer History of Any Multi-Drug Resistant Organisms: None Reported Past Surgical History: Back Surgery, Bariatric Surgery, Cholecystectomy, Orthopedic Surgery, Tubal Ligation, Uterine Ablation Additional Past Surgical History / Comment(s): D&C,DOUBLE DISC FUSION L3-L4-L5,Cervical Disc C6 replaced x 2, STENTS KIDNEY STONES/removed,LITHOTRIPSY, Left lateral epicondylitis sx, partial removal of cervix using cryotherapy, Gastric Sleeve, left elbow surgery for tendon release, recent EGD Past Anesthesia/Blood Transfusion Reactions: Motion Sickness, Postoperative Nausea & Vomiting (PONV) Additional Past Anesthesia/Blood Transfusion Reaction / Comm: NEVER HAS HAD BLOOD TRANSFUSION Past Psychological History: Anxiety, Bipolar, Depression, Panic Disorder, PTSD Additional Psychological History / Comment(s): psychosis, borderline personality disorder, states recent admit for mental health issues but resolved now Smoking Status: Former smoker Past Alcohol Use History: None Reported Additional Past Alcohol Use History / Comment(s): STARTED SMOKING 1991, quit smoking 2015 Past Drug Use History: Marijuana - Past Family History Father History Unknown: Yes Family Medical History: Cancer Additional Family Medical History / Comment(s): lung, brain Medications and Allergies Home Medications Medication Instructions Recorded Confirmed Type DULoxetine HCL [Cymbalta] 60 mg PO DAILY 12/05/21 12/21/21 History Isosorbide Dinitrate [Isordil] 30 mg PO BID 12/05/21 12/21/21 History Lurasidone HCl [Latuda] 60 mg PO DAILY 12/05/21 12/21/21 History Montelukast [Singulair] 10 mg PO DAILY 12/05/21 12/21/21 History Omeprazole 40 mg PO DAILY 12/05/21 12/21/21 History Ondansetron Odt [Zofran ODT] 4 mg PO Q12HR PRN 12/05/21 12/21/21 History SUMAtriptan succinate [Imitrex] 25 mg PO Q4H PRN 12/05/21 12/21/21 History carvediloL [Coreg] 3.125 mg PO BID 12/05/21 12/21/21 History hydrOXYzine pamoate [Vistaril] 50 mg PO TID PRN 12/05/21 12/21/21 History Dicyclomine [Bentyl] 20 mg PO QID PRN tab 12/13/21 12/21/21 Rx Scopolamine 1 mg/72 Hr Patch 1 patch TRANSDERM Q72H 30 Days #10 12/13/21 12/21/21 Rx [TransDerm Scop] patch Sucralfate [Carafate] 1 gm PO AC-BID 30 Days #60 tab 12/13/21 12/21/21 Rx Temazepam [Restoril] 15 mg PO HS PRN cap 12/13/21 12/21/21 Rx Metoclopramide HCl [Reglan] 5 mg PO TID PRN 12/21/21 12/21/21 History Allergies Allergy/AdvReac Type Severity Reaction Status Date / Time NSAIDS (Non-Steroidal AdvReac hx of Verified 12/21/21 06:52 Anti-Inflamma gastric sleeve - states unable to take due to that Surgical - Exam Vital Signs Temp Pulse Resp BP Pulse Ox 97.8 F 82 18 199/134 100 12/20/21 19:45 12/20/21 19:45 12/20/21 19:45 12/20/21 19:45 12/20/21 19:45 Results - Labs 12/20/21 20:35 12/20/21 20:35 Abnormal Lab Results - Last 24 Hours (Table) 12/20/21 12/20/21 12/20/21 Range/Units 20:35 20:35 21:09 Neutrophils # 7.9 H (1.3-7.7) k/uL Chloride 108 H (98-107) mmol/L Carbon Dioxide 17 L (22-30) mmol/L Glucose 112 H (74-99) mg/dL U Marijuana (THC) Screen Detected H (NotDetected) Diabetes panel 12/20/21 Range/Units 20:35 Sodium 140 (137-145) mmol/L Potassium 3.7 (3.5-5.1) mmol/L Chloride 108 H (98-107) mmol/L Carbon Dioxide 17 L (22-30) mmol/L BUN 11 (7-17) mg/dL Creatinine 0.74 (0.52-1.04) mg/dL Glucose 112 H (74-99) mg/dL Calcium 8.7 (8.4-10.2) mg/dL AST 23 (14-36) U/L ALT 19 (4-34) U/L Alkaline Phosphatase 108 (38-126) U/L Total Protein 7.0 (6.3-8.2) g/dL Albumin 4.3 (3.5-5.0) g/dL Calcium panel 12/20/21 Range/Units 20:35 Calcium 8.7 (8.4-10.2) mg/dL Albumin 4.3 (3.5-5.0) g/dL Pituitary panel 12/20/21 Range/Units 20:35 Sodium 140 (137-145) mmol/L Potassium 3.7 (3.5-5.1) mmol/L Chloride 108 H (98-107) mmol/L Carbon Dioxide 17 L (22-30) mmol/L BUN 11 (7-17) mg/dL Creatinine 0.74 (0.52-1.04) mg/dL Glucose 112 H (74-99) mg/dL Calcium 8.7 (8.4-10.2) mg/dL Adrenal panel 12/20/21 Range/Units 20:35 Sodium 140 (137-145) mmol/L Potassium 3.7 (3.5-5.1) mmol/L Chloride 108 H (98-107) mmol/L Carbon Dioxide 17 L (22-30) mmol/L BUN 11 (7-17) mg/dL Creatinine 0.74 (0.52-1.04) mg/dL Glucose 112 H (74-99) mg/dL Calcium 8.7 (8.4-10.2) mg/dL Total Bilirubin 0.8 (0.2-1.3) mg/dL AST 23 (14-36) U/L ALT 19 (4-34) U/L Alkaline Phosphatase 108 (38-126) U/L Total Protein 7.0 (6.3-8.2) g/dL Albumin 4.3 (3.5-5.0) g/dL
[2021-12-21] MEDS: ONDANSETRON 4 MG/2 ML VIAL IVP PRN (19:44)
[2021-12-21] MEDS: TEMAZEPAM 15 MG CAP PO PRN (21:45)
[2021-12-22] MEDS: METOCLOPRAMIDE 5 MG/ML 2 ML VIAL IVP SCH ×5 (00:10→22:50)
[2021-12-22] MEDS: SODIUM CHLORIDE 0.9% 1,000 ML IV SCH ×3 (04:47→20:39)
[2021-12-22] MEDS: ACETAMINOPHEN TAB 325 MG TAB PO PRN ×3 (04:50→22:48)
[2021-12-22] MEDS: ONDANSETRON 4 MG/2 ML VIAL IVP PRN ×2 (08:48→14:30)
[2021-12-22] MEDS: PANTOPRAZOLE 40 MG/10 ML VIAL IVP SCH ×2 (08:48→20:39)
[2021-12-22] MEDS: LURASIDONE 20 MG TAB PO SCH (08:48)
[2021-12-22] MEDS: carvediloL 3.125 MG TAB PO SCH ×2 (08:48→20:39)
[2021-12-22] MEDS: DULoxetine HCL 60 MG CAPSULE.DR PO SCH (08:48)
[2021-12-22] MEDS: MONTELUKAST 10 MG TAB PO SCH (08:48)
[2021-12-22] MEDS: ISOSORBIDE DINITRATE 10 MG TAB PO SCH ×2 (08:49→20:39)
--- NOTE | 2021-12-22 11:08 | P.PN ---
Subjective Progress Note Date: 12/22/21 Principal diagnosis: Nausea and vomiting This is a pleasant 46-year-old female who presented to the emergency department directed by her general surgeon for continued nausea and vomiting. She has a history of gastric sleeve done 4 years ago and recent hiatal hernia surgery done in July of this year by Dr. Dave. She states she has a history of chronic nausea and vomiting however after her procedure and seemed to have gotten worse. It has been worse over the last few weeks duration. She states that she is unable to keep any solids and now having difficulty keeping liquids down. She was recently hospitalized at the end of November and underwent EGD on 12/08/2021 with findings of mild antral gastritis and a small hiatal hernia done by Dr. Dave. Prior to that she had an EGD done on 11/27/2019 to [facility]. Patient states that she was told that there were no findings to explain her symptoms. She states that she had seen Dr. Roberson and was told that if she continued to have nausea and vomiting she was to come to the emergency department. She states she has lost approximately 20 pounds over the last 1-2 months duration. She denies any new medications, states that she's having epigastric pain related with the nausea and vomiting. During her last admission she had a small bowel follow-through done on 12/10/2021 that showed normal small bowel follow-through. No small bowel obstruction. Patient also underwent an upper GI series on 12/06/2021 that reported postop changes. Question narrowing at the gastroduodenal junction. There is delay of contrast coursing into the small bowel. 12/22/2021: Patient is seen and examined today as follow-up. She states her nausea and vomiting has improved. Still having a little abdominal discomfort mostly in the left upper quadrant. She has been tolerating clear liquid diet. She's been afebrile. Thus with patient marijuana use and likely could be cause of cyclic vomiting. Patient states she does usually use daily. Objective - Vital Signs Vital signs: Vital Signs Temp 97.9 F 12/22/21 04:39 Pulse 78 12/22/21 04:39 Resp 14 12/22/21 04:39 BP 123/81 12/22/21 04:39 Pulse Ox 96 12/22/21 04:39 FiO2 Intake & Output 12/21/21 12/22/21 12/22/21 18:59 06:59 18:59 Intake Total 1560 Balance 1560 Intake: Intake, IV Titration 1560 Amount Sodium Chloride 0.9% 1, 1560 000 ml @ 130 mls/hr IV . Q7H42M [facility] Rx#:[id number] Other: Voiding Method Toilet Toilet Toilet # Voids 1 - Exam General appearance: The patient is alert, oriented, appears in no acute distress. HET: Head is normocephalic and atraumatic. Conjunctiva pink. Sclera anicteric. Neck: Supple without lymphadenopathy. Abdomen: Soft, mild tenderness left upper quadrant,, nondistended with bowel sounds. No guarding or rigidity. Extremities: Normal skin color and turgor. No pedal edema Skin: No rashes, no jaundice Neurological: No focal deficits. Alert and oriented. - Labs CBC & Chem 7: 12/20/21 20:35 12/20/21 20:35 Assessment and Plan (1) Nausea and vomiting Narrative/Plan: 46-year-old with ongoing nausea and vomiting status post hiatal hernia repair done in July of this year. Symptoms have been worsening over the last couple m onths duration with complaints of 20 pound weight loss. Unclear etiology of cause of symptoms, patient has undergone 2 recent EGDs last one being done on 12/08/2021 reporting mild antral gastritis and a small hiatal hernia. Patient follows with Dr. Dave, will consult general surgery further input. Unclear etiology again as to what is causing the nausea and vomiting as there is been no findings on EGD. Need to consider possible cannabinoid use disorder causing nausea and vomiting. Patient does admit to regular use of cannabinoid. Discussed with her importance of marijuana/cannabinoid abstinence as this could be possible cause of cyclic nausea and vomiting. Patient verbalized understanding. Symptoms are improved today. Current Visit: Yes Status: Acute Code(s): R11.2 - NAUSEA WITH VOMITING, UNSPECIFIED SNOMED Code(s): 63129681 (2) Cannabis use disorder Current Visit: Yes Status: Acute Code(s): F12.90 - CANNABIS USE, UNSPECIFIED, UNCOMPLICATED SNOMED Code(s): 62721190 (3) History of repair of hiatal hernia Current Visit: Yes Status: Acute Code(s): Z98.890 - OTHER SPECIFIED POSTPROCEDURAL STATES; Z87.19 - PERSONAL HISTORY OF OTHER DISEASES OF THE D IGESTIVE SYSTEM SNOMED Code(s): 57590822328339 (4) Epigastric pain Current Visit: No Status: Acute Code(s): R10.13 - EPIGASTRIC PAIN SNOMED Code(s): 14290994 (5) Gastroesophageal reflux disease Current Visit: No Status: Acute Code(s): K21.9 - GASTRO-ESOPHAGEAL REFLUX DISEASE WITHOUT ESOPHAGITIS SNOMED Code(s): 622039779 (6) History of sleeve gastrectomy Current Visit: No Status: Acute Code(s): Z90.3 - ACQUIRED ABSENCE OF STOMACH [PART OF] SNOMED Code(s): 403131455936371 Plan: 1. Continue symptomatic and supportive care 2. Antiemetics as needed 3. Protonix 40 mg twice a day 4. Diet as tolerated 5. No plans on endoscopic evaluation, considered upper GI series however patient recently underwent upper GI series 12/06/2021 6. Will consult general surgery, Dr. Dave for input. Patient known to him. 7. Marijuana/cannabinoid abstinence, this was discussed with patient for complete abstinence as nausea and vomiting may be related to cannabinoid use discorder with cyclic vomiting 8. Patient is cleared for discharge from gastroenterology. Thank you consultation, we will sign off at this time. Dr. Jennifer Krishna I agree with the dictator's note, documented as a scribe by Lindsey Morrell.
[2021-12-22 11:58] LABS: Magnesium 1.8 mg/dL (1.6-2.3); Phosphorus 3.4 mg/dL (2.5-4.5)
--- NOTE | 2021-12-22 12:42 | P.PN ---
Subjective Progress Note Date: 12/22/21 CHIEF COMPLAINT: Intractable nausea and vomiting HISTORY OF PRESENT ILLNESS: Patient reports feeling better this morning. She's had no vomiting this morning. Tolerated Jell-O. Patient does admit to regular regular marijuana use. She uses marijuana at least 3 times a week for several years. She states she takes the marijuana to help with restless legs and some jerking movements in her arms. Patient has had complete workup on her last admission with EGD that revealed mild antral gastritis, small hiatal hernia and no evidence of sleeve obstruction. She also had a small bowel follow-through completed which was normal. No small bowel obstruction. Afebrile. Patient reports having bowel movements. Phosphorus 3.4 magnesium 1.8 PHYSICAL EXAM: VITAL SIGNS: Reviewed. GENERAL: Well-developed in no acute distress. HEENT: No sclera icterus. Extraocular movements grossly intact. Moist buccal mucosa. Head is atraumatic, normocephalic. ABDOMEN: Soft. Nondistended. Epigastric tenderness NEUROLOGIC: Alert and oriented. Cranial nerves II through XII grossly intact. ASSESSMENT: 1. Intractable nausea and vomiting 2. Epigastric pain possibly related to the nausea and vomiting 3. Possible cyclic vomiting due to marijuana use 4. Hiatal hernia repair on 07/26/2021 5. Recent EGD has shown mild antral gastritis, small hiatal hernia and no evidence of sleeve obstruction PLAN: -Exact cause of patient's nausea and vomiting is unclear. Dr. Dave is recommending transferring patient to a higher level of care for more extensive GI workup -Advance diet to full liquids -Continue antiemetics -Continue supportive care -Discussed with patient avoiding marijuana and monitoring her symptoms Physician New Accounts Clerk note has been reviewed by physician. Signing provider agrees with the documented findings, assessment, and plan of care. Objective - Vital Signs Vital signs: Vital Signs Temp 97.9 F 12/22/21 04:39 Pulse 78 12/22/21 04:39 Resp 14 12/22/21 04:39 BP 123/81 12/22/21 04:39 Pulse Ox 96 12/22/21 04:39 FiO2 Intake & Output 12/21/21 12/22/21 12/22/21 18:59 06:59 18:59 Intake Total 1560 Balance 1560 Intake: Intake, IV Titration 1560 Amount Sodium Chloride 0.9% 1, 1560 000 ml @ 130 mls/hr IV . Q7H42M [facility] Rx#:[id number] Other: Voiding Method Toilet Toilet Toilet # Voids 1 - Labs CBC & Chem 7: 12/20/21 20:35 12/20/21 20:35
--- NOTE | 2021-12-22 15:19 | P.PN ---
Subjective Progress Note Date: 12/22/21 This is a 46-year-old female who recently presented to the emergency department with increased abdominal pain along with nausea and vomiting intractable and unable to hold anything down. Patient was recently admitted and discharged with surgery services and was told to report to the ER if unable to tolerate oral intake and having increased abdominal pain. Initially GI services were consulted and general surgery later put on consult. Patient does have a primary care provider in the outpatient setting although has not established with her yet in the [facility] Dr. Hill and has been following with Dr. Dave outpatient. Patient does have a past medical history of asthma, cervical cancer, chest pain with angina, GERD, hyperlipidemia, rheumatoid arthritis, IBS. Patient also reports she has been receiving blood pressure medications for elevated blood pressure although has not followed up most recently. Patient also with anxiety and bipolar depression admits to smoking marijuana and has a past medical history of using cocaine and former smoker and reports she drinks on occasion 3 times a week. Patient was made nothing by mouth and started on IV hydration. Follow-up labs show a normal white blood count of 10.4 with a hemoglobin of 14.2, sodium is 140, potassium is 3.7, creatinine is 0.74, magnesium is 2.1, lipase is 242. Urine drug screen was done which is negative except for marijuana. She recently had EGDs done with general surgery during her previous admissions. 12/22/2021 Patient is seen in follow-up this morning currently maintained on clear liquids tolerating thus far asking for an advance in diet and per surgery being advanced to full liquids recommend continue with this. GI following as well with no plans for EGD as this was recently done. General surgery evaluated the patient again today continues with some nausea that is uncontrolled recommending [facility] transfer treatment center to [facility] for GI specialist evaluation. Patient is agreeable and transfer team has been initiated and patient was accepted by Ksenia Verdugo of [facility] currently awaiting a bed assignment. Patient was informed of this and will continue with current pain management and antiemetics as needed. Patient is afebrile and awaiting a.m. labs. Patient denies chest pain or shortness of breath and has been up and walking. Encouraged increased activity as tolerated. Review of systems: Constitutional: No reports of fatigue, fever, or chills Cardiovascular: No reports of chest pain or palpitations Respiratory: No reports of shortness of breath or cough GI: reports of nausea, no vomiting today , or diarrhea, reports abdominal tenderness and discomfort : No reports of dysuria or retention Neurovascular: No reports of weakness or numbness All medications have been reviewed PHYSICAL EXAMINATION: GENERAL: The patient is alert and oriented x4, Well developed, well nourished. HEENT: Pupils are round and equally reacting to light. EOMI. no scleral icterus. No conjunctival pallor. Normocephalic, atraumatic. No pharyngeal erythema. No thyromegaly. CARDIOVASCULAR: S1 and S2 muffled PULMONARY: Breath sounds bilaterally are clear to auscultation with no wheezing or rhonchi noted. ABDOMEN: soft. tender on exam. non-distended, normoactive bowel sounds. No palpable organomegaly. MUSCULOSKELETAL: No joint swelling or deformity. EXTREMITIES: No cyanosis, clubbing, or pedal edema. NEUROLOGICAL: Gross neurological examination did not reveal any focal deficits. SKIN: No rashes. Assessment: Intractable nausea and vomiting with abdominal pain possibly secondary to cannabis use disorder Gastroesophageal reflux disease Asthma, not in exacerbation Hypertension history History of IBS History of hiatal hernia History of sleeve gastrectomy GI prophylaxis DVT prophylaxis Full code Plan: Recommend to continue with current medications and management of nausea and vomiting. Patient seen and evaluated by GI with no further recommendations offered. Neurosurgery following and given her extensive abdominal history and recent EGD surgery is recommending transfer to tertiary treatment Center for advanced GI specialist evaluation as patient continues with intractable nausea and vomiting. Patient has been accepted by [facility] with GI consultation and currently awaiting a bed assignment. Transfer team will call and contact the unit once a bed is available. Patient is agreeable with this treatment plan and updated on current bed hold situation. Will continue with antiemetics and pain management along with IV fluids. A.m. labs are pending at this time. Encouraged increase activity as tolerated and will continue to monitor closely. The impression and plan of care has been dictated by Audelia Watts, nurse practitioner as directed. Dr. Jacqueline MD I have performed a history and examination and MDM of this patient, discussed the same with the dictator, and agree with the dictator's assessment and plan as written ,documented as a scribe. Based on total visit time, I have performed more than 50% of the visit. Any additional findings or plans will be noted. Objective - Vital Signs Vital signs: Vital Signs Temp 98.6 F 12/22/21 12:13 Pulse 77 12/22/21 12:13 Resp 16 12/22/21 12:13 BP 114/57 12/22/21 12:13 Pulse Ox 98 12/22/21 12:13 FiO2 Intake & Output 12/21/21 12/22/21 12/22/21 18:59 06:59 18:59 Intake Total 1560 Balance 1560 Intake: Intake, IV Titration 1560 Amount Sodium Chloride 0.9% 1, 1560 000 ml @ 130 mls/hr IV . Q7H42M [facility] Rx#:[id number] Other: Voiding Method Toilet Toilet Toilet # Voids 1 - Labs CBC & Chem 7: 12/20/21 20:35 12/20/21 20:35
[2021-12-22] MEDS: HYDROcodone/APAP 5-325MG 1 EACH TAB PO PRN (18:13)
[2021-12-22] MEDS: TEMAZEPAM 15 MG CAP PO PRN (20:39)
[2021-12-23] MEDS: HYDROcodone/APAP 5-325MG 1 EACH TAB PO PRN ×2 (02:07→10:39)
[2021-12-23 05:22] VITALS: RESP 14
[2021-12-23] MEDS: METOCLOPRAMIDE 5 MG/ML 2 ML VIAL IVP SCH ×2 (06:19→11:49)
[2021-12-23] MEDS: SODIUM CHLORIDE 0.9% 1,000 ML IV SCH ×2 (06:20→10:39)
[2021-12-23] MEDS: ISOSORBIDE DINITRATE 10 MG TAB PO SCH (09:16)
[2021-12-23] MEDS: carvediloL 3.125 MG TAB PO SCH (09:17)
[2021-12-23] MEDS: MONTELUKAST 10 MG TAB PO SCH (09:19)
[2021-12-23] MEDS: DULoxetine HCL 60 MG CAPSULE.DR PO SCH (09:19)
[2021-12-23] MEDS: LURASIDONE 20 MG TAB PO SCH (09:20)
[2021-12-23] MEDS: PANTOPRAZOLE 40 MG/10 ML VIAL IVP SCH (10:40)
[2021-12-23 11:12] VITALS: BP 138/86; PULSE 96; TEMP 97.5
--- NOTE | 2021-12-23 11:33 | P.PN ---
Subjective Progress Note Date: 12/23/21 CHIEF COMPLAINT: Intractable nausea and vomiting HISTORY OF PRESENT ILLNESS: Patient continues to have nausea and epigastric discomfort. She denies any vomiting. She is having flatus. She has been up an d ambulating. Overall still not feeling well. Patient has had complete workup on her last admission with EGD that revealed mild antral gastritis, small hiatal hernia and no evidence of sleeve obstruction. She also had a small bowel follow-through completed which was normal. No small bowel obstruction. Afebrile. Patient seen and examined with Dr. lemos PHYSICAL EXAM: VITAL SIGNS: Reviewed. GENERAL: Well-developed in no acute distress. HEENT: No sclera icterus. Extraocular movements grossly intact. Moist buccal mucosa. Head is atraumatic, normocephalic. ABDOMEN: Soft. Nondistended. Epigastric tenderness NEUROLOGIC: Alert and oriented. Cranial nerves II through XII grossly intact. ASSESSMENT: 1. Intractable nausea and vomiting 2. Epigastric pain possibly related to the nausea and vomiting 3. Possible cyclic vomiting due to marijuana use 4. Hiatal hernia repair on 07/26/2021 5. Recent EGD has shown mild antral gastritis, small hiatal hernia and no evidence of sleeve obstruction PLAN: -Exact cause of patient's nausea and vomiting is unclear. Dr. Lemos is r ecommending transferring patient to a higher level of care for more extensive GI workup -Continue full liquids -Continue antiemetics -Continue supportive care Physician Faculty Instructor note has been reviewed by physician. Signing provider agrees with the documented findings, assessment, and plan of care. Objective - Vital Signs Vital signs: Vital Signs Temp 97.5 F L 12/23/21 11:08 Pulse 96 12/23/21 11:08 Resp 14 12/23/21 11:08 BP 138/86 12/23/21 11:08 Pulse Ox 98 12/23/21 05:21 FiO2 Intake & Output 12/22/21 12/23/21 12/23/21 18:59 06:59 18:59 Other: Voiding Method Toilet Toilet # Voids 2 3 - Labs CBC & Chem 7: 12/20/21 20:35 12/20/21 20:35
--- NOTE | 2021-12-26 15:57 | P.DS ---
Providers Date of admission: 12/20/21 22:28 Expected date of discharge: 12/23/21 Attending physician: Jessee Arellano Consults: 12/21/21 07:55 Consult Physician Routine Consulting Provider: Stan Dave Consult Reason/Comments: nausea/vomiitng, known to you Do you want consulting provider notified?: Yes Primary care physician: Physician Nonstaff Hospital Course: Final diagnosis Intractable nausea and vomiting with abdominal pain possibly secondary to cannabis use disorder Gastroesophageal reflux disease Asthma, not in exacerbation Hypertension history History of IBS History of hiatal hernia History of sleeve gastrectomy GI prophylaxis DVT prophylaxis Full code Discharge disposition Patient is being discharged in a stable condition with guarded prognosis to home . Patient will follow-up with Dr. Hill in the outpatient setting upon discharge. Patient is to follow up with surgery outpatient as scheduled. She was referred to [facility] GI specialist per general surgery and information provided. Patient was initially to be transferred to [facility] although no bed available with a long wait list. Patient was referred to Total time taken is greater than 35 minutes. Hospital course This is a 46-year-old female who was recently admitted with intractable nausea and vomiting and increased abdominal pain with inability to tolerate any oral intake and was being closely monitored. Patient with an extensive GI/abdominal history has been following with Dr. Dave for quite some time and was evaluated by surgery again recommending transfer to tertiary treatment center for GI specialist consultation. Patient was seen and evaluated by GI here and symptoms controlled recommending cessation of cannabis. Patient will be continued on Protonix and anti-emetics as needed. Patient to continue with follow-up with surgery in the outpatient setting and resources were provided for GI specialist for further evaluation Currently no reports of chest pain, shortness of breath, or palpitations. Patient is afebrile. No reports of nausea or vomiting and patient is tolerating diet. continue full liquid diet. Patient will be discharged home today. Physical exam: Gen: This is a 46-year-old female awake, alert and oriented 3, well-developed, well-nourished. HEENT: Head is atraumatic, normocephalic. Pupils equal, round. Sclerae is anicteric. NECK: Supple. No JVD. No lymphadenopathy. No thyromegaly. LUNGS: Clear to auscultation. No wheezes or rhonchi. No intercostal retractions. HEART: Regular rate and rhythm. No murmur. ABDOMEN: Soft. Bowel sounds are present. No masses. No tenderness. EXTREMITIES: No pedal edema. No calf tenderness. NEUROLOGICAL: Patient is awake, alert and oriented x3. Cranial nerves 2 through 12 are grossly intact. Please refer to medication reconciliation sheet for a list of medications. The impression and plan of care has been dictated by Audelia Watts, Nurse Practitioner as directed. Dr. Jacqueline MD I have performed a history and examination and MDM of this patient, discussed the same with the dictator, and agree with the dictator's assessment and plan as written ,documented as a scribe. Based on total visit time, I have performed more than 50% of the visit. Patient Condition at Discharge: Fair Plan - Discharge Summary New Discharge Prescriptions: New HYDROcodone/APAP 5-325MG [[place] 5-325] 1 each PO Q6HR PRN #12 tab PRN Reason: Pain Acetaminophen Tab [Tylenol] 650 mg PO Q6HR PRN tab PRN Reason: Fever And/ Or Pain Pantoprazole [Protonix] 40 mg PO BID 30 Days #60 tab Continue hydrOXYzine pamoate [Vistaril] 50 mg PO TID PRN PRN Reason: Anxiety Ondansetron Odt [Zofran ODT] 4 mg PO Q12HR PRN PRN Reason: Nausea carvediloL [Coreg] 3.125 mg PO BID DULoxetine HCL [Cymbalta] 60 mg PO DAILY Isosorbide Dinitrate [Isordil] 30 mg PO BID Montelukast [Singulair] 10 mg PO DAILY Dicyclomine [Bentyl] 20 mg PO QID PRN tab PRN Reason: Gi Upset Sucralfate [Carafate] 1 gm PO AC-BID 30 Days #60 tab Scopolamine 1 mg/72 Hr Patch [TransDerm Scop] 1 patch TRANSDERM Q72H 30 Days #10 patch SUMAtriptan succinate [Imitrex] 25 mg PO Q4H PRN PRN Reason: Migraine Headache Lurasidone HCl [Latuda] 60 mg PO DAILY Omeprazole 40 mg PO DAILY Temazepam [Restoril] 15 mg PO HS PRN cap PRN Reason: Insomnia Metoclopramide HCl [Reglan] 5 mg PO TID PRN #30 tab PRN Reason: Nausea And Vomiting Discharge Medication List DULoxetine HCL [Cymbalta] 60 mg PO DAILY 12/05/21 [History] Isosorbide Dinitrate [Isordil] 30 mg PO BID 12/05/21 [History] Lurasidone HCl [Latuda] 60 mg PO DAILY 12/05/21 [History] Montelukast [Singulair] 10 mg PO DAILY 12/05/21 [History] Omeprazole 40 mg PO DAILY 12/05/21 [History] Ondansetron Odt [Zofran ODT] 4 mg PO Q12HR PRN 12/05/21 [History] SUMAtriptan succinate [Imitrex] 25 mg PO Q4H PRN 12/05/21 [History] carvediloL [Coreg] 3.125 mg PO BID 12/05/21 [History] hydrOXYzine pamoate [Vistaril] 50 mg PO TID PRN 12/05/21 [History] Dicyclomine [Bentyl] 20 mg PO QID PRN tab 12/13/21 [Rx] Scopolamine 1 mg/72 Hr Patch [TransDerm Scop] 1 patch TRANSDERM Q72H 30 Days #10 patch 12/13/21 [Rx] Sucralfate [Carafate] 1 gm PO AC-BID 30 Days #60 tab 12/13/21 [Rx] Temazepam [Restoril] 15 mg PO HS PRN cap 12/13/21 [Rx] Acetaminophen Tab [Tylenol] 650 mg PO Q6HR PRN tab 12/23/21 [Rx] HYDROcodone/APAP 5-325MG [W[place] 5-325] 1 each PO Q6HR PRN #12 tab 12/23/21 [Rx] Metoclopramide HCl [Reglan] 5 mg PO TID PRN #30 tab 12/23/21 [Rx] Pantoprazole [Protonix] 40 mg PO BID 30 Days #60 tab 12/23/21 [Rx] Follow up Appointment(s)/Referral(s): Nonstaff,Physician [Primary Care Provider] - 1-2 days Stan Dave MD [STAFF PHYSICIAN] - 1 Week (Please call the bariatric center and see what time your appointment for your appointment on Jan 02. Phone number is [phone].) Activity/Diet/Wound Care/Special Instructions: Activity Limited until follow-up Follow-up with primary care provider on discharge Follow-up with GI specialist out of [facility] for further evaluation per surgery recommendations Continue full liquid diet as tolerated and slowly advance over the next few days to low fiber Continue taking medications as prescribed Avoid cannabis use Discharge Disposition: HOME SELF-CARE
== END 2021-12-23 16:06 | disposition home or self-care (01) ==
LOC: EC 19:17 → 5NMEDONC 22:28
PROVIDERS: ADMIT Hospitalist; ATTEND Hospitalist
DX: K29.70 Gastritis, unspecified, without bleeding (principal); K44.9 Diaphragmatic hernia without obstruction or gangrene; F12.10 Cannabis abuse, uncomplicated; K21.9 Gastro-esophageal reflux disease without esophagitis; J45.909 Unspecified asthma, uncomplicated; E78.5 Hyperlipidemia, unspecified; M06.9 Rheumatoid arthritis, unspecified; K58.9 Irritable bowel syndrome, unspecified; F31.30 Bipolar disorder, current episode depressed, mild or moderate severity, unspecified; F41.0 Panic disorder [episodic paroxysmal anxiety]; F43.10 Post-traumatic stress disorder, unspecified; I10 Essential (primary) hypertension; Z85.41 Personal history of malignant neoplasm of cervix uteri; Z87.891 Personal history of nicotine dependence; Z98.84 Bariatric surgery status; Z90.49 Acquired absence of other specified parts of digestive tract; Z79.899 Other long term (current) drug therapy; Z88.6 Allergy status to analgesic agent; Z20.822 Contact with and (suspected) exposure to COVID-19
CPT/HCPCS: 96361 ×4; 96375 ×2; 96376 ×3; 96374; 99285; 36415; 93005; 80053; 83690; 83735 ×2; 84100; 85025; 80306; 87635; G0378 ×4; J2270 ×2; J2765 ×4; J2405 ×3; C9113 ×3